=== PATIENT | male | born 1955 | race Caucasian/White ===

== ENCOUNTER 2019-10-25 12:18 | Outpatient (CLI) | payer MEDICAID, SELFPAY ==
[2019-10-25 15:34] LABS: Basophils # 0.1 10^3/uL (0.0-0.1); Basophils % 0.6 %; Eosinophils # 0.1 10^3/uL (0.0-0.8); Eosinophils % 1.4 %; Hematocrit 38.6 % (42.0-52.0); Lymphocytes # 1.1 10^3/uL (0.8-4.8); Lymphocytes % 14.2 %; Mean Corpuscular HGB Conc 31.1 g/dL (30.0-36.0); Mean Corpuscular Hemoglobin 24.4 pg (28.0-34.0); Mean Corpuscular Volume 78.6 fL (80-94); Monocytes % 12.5 %; Neutrophils # 5.51 10^3/uL (1.8-7.7); Neutrophils % 70.8 %; Nucleated Red Blood Cells % 0 %; Platelet Count 342 10^3/cmm (130-400); Red Blood Count 4.91 10^6/uL (4.1-5.3); Red Cell Distribution Width 15.9 % (12.1-15.1); White Blood Count 7.8 10^3/uL (4.0-10.0)
[2019-10-25 15:44] LABS: Alanine Aminotransferase 32 U/L (0-41); Albumin Level 3.6 g/dL (3.5-5.2); Alkaline Phosphatase 84 IU/L (40-130); Anion Gap 15.9 (5-19); Aspartate Amino Transferase 18 U/L (0-40); Blood Urea Nitrogen 15 mg/dL (8-23); Calcium 9.5 mg/dL (8.5-10.5); Carbon Dioxide 23 mmol/L (22-29); Chloride 93 mmol/L (98-107); Globulin 4.5 g/dL (1.3-4.6); Glomerular Filtration Rate 136.5 mL/min (90-130); Glucose 133 mg/dL (65-115); Osmolality Calculated 264 mOsm/kg (285-295); Potassium 3.9 mmol/L (3.5-5.1); Sodium 128 mmol/L (136-145); Total Bilirubin 0.4 mg/dL (0.15-1.2); Total Protein 8.1 g/dL (6.6-8.7)
--- NOTE | 2019-10-25 18:01 | ONC CON_ITS ---
Dr. Reyes New Patient Note Patient: Phani Jarrett Unit #: [id number]: 1955 Dicatated By: Titi Reyes M.D.Date of Visit: Oct 25, 2019 Onc MED New Patient/Consult Referring Physician: Roberto Flores History of Present Illness: Mr. Phani Jarrett, is a 63-year-old gentleman with a history of chronic lower back pain due to back injury due to fall for over 10 years, recently developed back pain radiating to his umbilicus area for which he saw his PMD in July 2019 and underwent CTA abdomen pelvis for possible right renal mass which also showed multiple lung masses as well as area of masslike consolidation in anterior portion of right chest patient was referred to pulmonology in [place] and underwent bronchoscopy on December 11, 2019 final pathology report confirmed biopsy from right middle lobe showed squamous cell carcinoma, moderately differentiated, FNA from 10 R station showed metastatic squamous cell carcinoma also from station 7, PDL 1 status is pending Patient denies any hemoptysis or hematemesis patient denies any fever chills, denies any nausea or vomiting has history of chronic headaches due to migraine but now more often. 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 Past Medical History: Mr. Jarrett's medical history consists of blindness, chronic obstructive pulmonary disease, and hypertension. Past Surgical History: There is no documented surgical history. Medications: Albuterol Sulfate 1 ((2.5 mg/3ml) 0.083%) Nebulization solution Inhalation b.i.d., Albuterol Sulfate 1 Puff(s) (of 108 (90 base) mcg/act) Aerosol Powder, Breath Activated Inhalation PRN, hydroCHLOROthiazide 1 Tablet (of 25 mg) Oral daily, HYDROcodone-Acetaminophen 1 - 2 Tablet (of 5-325 mg) Oral q 6 hours PRN, Lisinopril 1 Tablet (of 20 mg) Oral daily, Reglan 1 Tablet (of 10 mg) Oral q 6 hours Allergies: Penicillins and traMADol HCl. Social History: Mr. Jarrett is and he is an unknown. Mr. Jarrett quit smoking less than one year ago but had smoked for 50 years. He has no history of drinking. also used chewing tobacco until 09/22/19. Family History: Mr. Jarrett's mother is alive. Mr. Jarrett's father at age 77: heart attack. Mr. Jarrett has 1 sister who is : liver cancer. Review Of Symptoms: Review of Systems is not available for this patient. Vital Signs: Performed on Oct 25, 2019 13:44: 8, 22.10, 1.87 sq.m, 70.00 in, 97 %, 73 /min, 18 /min, 113/64 mm(hg), 97.4 F (LOW), and 154.0 lbs (HIGH). Performance Status: 1 - No physically strenuous activity, but ambulatory and able to carry out light or sedentary work (e.g. office work, light house work). (ECOG) Physical Examination: ENMT - No mouth sores, no thrush, no jaundice, Respiratory - Lungs are clear, Cardiovascular - Regular rate and rhythm of heart, Abdomen - Soft, bowel sounds present, Extremities - No edema or rash. Lab/Imaging: Most recent lab results are not available for this patient. Impression: Moderately differentiated squamous cell carcinoma or endobronchial biopsy right middle lobe of lung and FNA of station 7, and station 10 R showed metastatic squamous cell carcinoma immunohistochemistry showed tumor was positive for AE1/AE3, and P 40, negative for TTF-1 e.g. consistent with squamous cell carcinoma CT of abdomen pelvis done for possible right kidney mass in [facility] in [facility] done on September 13, 2019 showed right upper pole renal mass size 3.8 cm with multiple para-aortic lymph nodes and multiple lung masses measuring up to 1.2 cm size and an area of consolidation in the right middle lobe History of chronic headache due to migraine History of chronic back pain due to back injury due to fall for more than 10 years ago History of chronic smoking more than 50 years, still active Plan: Discussed with patient regarding his disease status and pathology report but concern is right renal mass with para-aortic lymphadenopathy as per medical record, we will obtain scan reports from [facility] and as per note CT PET scan MRI scan of the head and PFTs has been ordered in [place] by Dr. Richter, early interventionist. Will obtain records from there if not done, then will consider bone scan and MRI head. We will also refer him to Dr. Ag urologist in [place] for right renal mass evaluation if it confirm malignancy, that information will influence decision regarding treatment planning.Moreover, patient has bilateral pulmonary nodules which could be metastatic squamous cell carcinoma as confirmed by bronchoscopy or metastatic renal cell carcinoma if right renal mass confirmed malignant by urology evaluation We will also get Port-A-Cath placement to facilitate treatment and then he will return to clinic after his visit with Dr. Ag, urologist. Unless CT scan head shows metastatic disease, in that case we will see him early and refer him to radiation oncology for evaluation. And if CT PET scan is not done as mentioned in Dr. Richter's note, will consider CT PET scan to assess the extent of disease as CT abdomen pelvis showed only low chest and abdomen pelvis. Signed By: Titi Reyes M.D. <<Signature on File>>
== END 2019-10-25 12:19 | disposition home or self-care (01) ==
PROVIDERS: Visit Provider Internal Medicine Hematology & Oncology
DX: C34.2 Malignant neoplasm of middle lobe, bronchus or lung (principal); C77.1 Secondary and unspecified malignant neoplasm of intrathoracic lymph nodes; H46.9 Unspecified optic neuritis; H54.8 Legal blindness, as defined in USA; J44.9 Chronic obstructive pulmonary disease, unspecified; I10 Essential (primary) hypertension; N28.89 Other specified disorders of kidney and ureter; G89.21 Chronic pain due to trauma; M54.9 Dorsalgia, unspecified; Z87.891 Personal history of nicotine dependence
CPT/HCPCS: 36415; 80053; 85025; 99203

== ENCOUNTER → 2019-11-10 09:05 | Outpatient (BNVA) | payer MEDICAID, SELFPAY | PROVIDERS: Visit Provider Internal Medicine | DX: Z11.59 Encounter for screening for other viral diseases (principal) | CPT/HCPCS: 87635 ==

== ENCOUNTER 2019-11-15 06:29 | Day surgery (SDC) | payer MEDICAID, SELFPAY ==
[2019-11-14 13:07] VITALS: BMI 20.9
--- NOTE | 2019-11-14 15:28 | SUR.PREOP ---
Barbara from the [facility] lab called Vimty and received report from Vimty that COVID results will be available late this evening.
--- NOTE | 2019-11-15 | SCC_ITS ---
Procedure Done: Right internal jugular vein PowerPort placement under fluoroscopic guidance with all interpretation done by me through the whole entire procedure. 51.2 seconds of fluoroscopic guidance, for a cumulative dose of 13.99 mGy, was provided to Dr. Prakash by the radiology department. C-arm images of the chest were saved for the patient's permanent record. [facility]
[2019-11-15 07:05] VITALS: BP 112/87; PULSE 72; RESP 18; TEMP 36.4; O2SAT 97
[2019-11-15] MEDS: sodium chloride 0.9% 1,000 ML 30 ML IV (07:10)
[2019-11-15 07:14] VITALS: BMI 28.4
--- NOTE | 2019-11-15 07:25 | ANES.PREANE2 ---
Pre-Anesthetic Assessment Pre-Anesthetic Assessment: Height/Weight: Height 1.78 m Weight 89.811 kg Temp Pulse Resp BP Pulse Ox 97.5 F L 72 18 112/87 97 11/15/19 07:05 11/15/19 07:05 11/15/19 07:05 11/15/19 07:05 11/15/19 07:05 Preop Diagnosis: Lung and kidney cancer Proposed Procedure: Operation Date: 11/15/19 08:10 Proposed Procedures p Portacath Placement 67731 C34.90(Not Applicable) - Saad Prakash MD Familial anesthetic complications: None Was Beta De taken within 24 hours: N/A Last intake: Intake Last Liquid Date 11/14/19 Last Liquid Time 23:00 Last Solid Date 11/14/19 Last Solid Time 20:30 Social: Social History: Tobacco and No alcohol Exam: Pre-Anes Outpt Exam: alert, oriented x 3, clear to auscultation bilaterally and regular rate & rhythm Airway: Cervical ROM: WNL MP: 4 Dentition: Other (no teeth) Pulmonary: Pulmonary: COPD Comments: lung cancer CV/HEM: CV/HEM: HTN GI: GI: GERD Comments: None currently Musc/skel: Musc/skel: Lower Back Pain Anesthetic Plan: ASA status: 4 Anesthesia: MAC Risk of > 500 ml blood loss (7ml/kg in children): No PFSH Anesthesia PFSH: Family History Father CAD (coronary artery disease) Clotting disorder Sister Cancer liver cancer Denies family history of Anesthesia complication Bleeding disorder Social History Smoking and tobacco status: current some day smoker Alcohol intake: never Household members: spouse Marital status: Current occupational status: disabled History of recent travel: Yes Details: Mitesh to the doctor Out of state: No Data Anesthesia Cardiac Studies: No Data to Display
--- NOTE | 2019-11-15 07:47 | W.PM.OPSUD ---
Surgery/Procedure H&P Update DATE OF PROCEDURE: November 15, 2019 DATE H&P PERFORMED: 11/02/19 H&P UPDATE INFORMATION: I have reviewed H&P completed within last 30 days, I have examined patient prior to procedure and No changes to prior documentation PREOP DIAGNOSIS: Lung and kidney cancer PRIMARY INDICATION FOR PROCEDURE: The same PLANNED PROCEDURE: Operation Date: 11/15/19 08:10 Proposed Procedures p Portacath Placement 25274 C34.90(Not Applicable) - Saad Prakash MD
[2019-11-15] MEDS: clindamycin 900 MG/50 ML PREMIX 100 MG IV (08:00)
--- NOTE | 2019-11-15 08:25 | SC_ITS ---
WS: [id number] EXAM: FLUOROSCOPY FOR VISUALIZATION DURING RIGHT INTERNAL JUGULAR VASCULAR ACCESS PROCEDURE DATE OF EXAMINATION: 11/15/2019, 0846 hours COMPARISON: None. HISTORY: Patient is 64 years old with lung cancer. In need of long-term central vascular access. FLUOROSCOPY TIME: 51.2 seconds. FINDINGS: Fluoroscopy provided to the surgical service for visualization during right internal jugular central access catheter placement. Catheter ends in the distal SVC/right atrial juncture region. Please see o perative report for further details. Dedicated post procedure imaging recommended. SC/C-arm FL for CVA [id number] IMPRESSION: Fluoroscopy provided to the surgical service for visualization during right int ernal jugular vascular access procedure.
[2019-11-15] MEDS: heparin, porcine 1,000 unit/mL INJ 10 mL 10000 UNIT INJECTION (08:29)
[2019-11-15] MEDS: lidocaine 2% INJ 20 mL INJECTION (08:51)
--- NOTE | 2019-11-15 09:00 | PM.OP ---
Operative Report Date of procedure: November 15, 2019 Pre-op Diagnosis: Lung and kidney cancer Post-op diagnosis: same Post-op Findings: Difficulty in passing the wire through the right subclavian vein tends to loop upwards towards the right IJ and switch to trans-right internal jugular vein approach as wire passes without difficulty. Procedure Done: Right internal jugular vein PowerPort placement under fluoroscopic guidance with all interpretation done by me through the whole entire procedure. Implants: Right internal jugular vein PowerPort placement Surgeon: Saad Prakash Benefits Sales Consultant: graphic art technician Mary Circulating nurse Katie Anesthesia: MAC (Satnam Bruno) Estimated blood loss (mL): 10 Condition: stable Disposition: same day Brief History: This is a pleasant 62 years old gentleman with history of lung cancer presented to my office for Port-A-Cath placement. Plan of care; After thorough history physical examination and reviewing the chart, I counseled the patient for Port-A-Cath placement, indications, risks including pneumothorax and injury of major vascular structures, benefits,indications and alternatives were all discussed with the patient, patient understands and is interested to proceed. Rationale was carefully and clearly discussed with the patient.Appropriate informed consent have been reviewed and signed. Procedure: U/S Guided IJ access Patient was identified in the holding area and taken to the operative room and placed in supine position IV propofol was given by the anesthesia provider ,both arms were tucked,Time-out was done verifying the patient's name/date of /planned procedure and destination after the procedure, all were in agreement. SCDs confirmed to be functioning, preoperative antibiotics administered per protocol, and beta karen protocol was confirmed, appropriate positioning of the patient was done by me. Medications were reviewed to assess for anticoagulant usage. Risks and benefits and prevention of central line associated blood stream infection (CLABSI) were discussed with the patient/CPOA, and a consent was obtained. Monitors were in place and monitored throughout the procedure. All necessary supplies were available prior to start. Hand hygiene was completed prior to starting. Maximum barrier technique was utilized including a sterile gown, sterile gloves with a hat and mask. Site was was prepped with [chlorhexidine] and a full body drape was placed. 5 mL of 2% lidocaine was injected into the skin with a 25 gauge needle. Prep& drape was done under the usual sterile technique, lidocaine 2% was injected at the site of the stick, started by right subclavian vein stick and venous blood was retrieved yet the wire would not thread in it with a coil towards the right internal jugular vein, 3 attempts were done and at this point I had to abort and deviated my attention to words the right internal jugular vein. The right Internal Juglar vein stick that retrieved venous blood was obtained from the first stick under ultrasound guidance and there was no evidence of intraluminal thrombosis, interpretation was done by me through the whole entire procedure, a guidewire was then threaded and under the guidance of fluoroscopy position was confirmed to be in the IVC and my interpretation, there was no PVC changes, at that point the guidewire was secured to the drapes with a hemostat and the needle was taken out. Attention was then deviated towards creation of a pocket for the port were lidocaine 2% was injected using an 15 blade knife skin incision was created at the right upper Chest ,dissection using the Bovie to create a pocket for the Port-A-Cath to be accommodated, hemostasis was secured,after the port being appropriately flushed it was inserted into the pocket and a tunneler was used to accommodate the catheter of the port cath to be delivered through the incision first created at the site of the stick. I was able to retrieve the catheter at the index site of the stick. At that point under fluoroscopy an estimated length was measured for the catheter and was cut at the designed level, followed by that a dilator with the sheath introduced onto the guidewire the dilator and the wire were retrieved and the catheter of the port was introduced via the sheath where it was peeled off and the catheter maintained to be in the SVC that was confirmed with fluoroscopy, and the fluoroscopy interpretation was done by me throughout the entire procedure. Multiple flushes of the port was done by diluted heparin and I was able to retrieve without difficulty venous blood as well as appropriate flushing was achieved. The port was kept in its pocket without complication,4-0 Vicryl deep subdermal interrupted sutures, skin was then closed by 4-0 Monocryl as subcuticular closure. The stick site was closed by 4-0 Monocryl and Dermabond was used followed by dressing. Patient tolerated the procedure well was taken to the recovery area Count was correct at the end of the procedure I was present for the whole entire procedure CXR post procedure was done and confirmed to have the catheter in good position and no evidence of pneumothorax.
--- NOTE | 2019-11-15 09:03 | XR_ITS ---
WS: [id number] EXAM: AP CHEST: PORTABLE UPRIGHT DATE OF EXAM: 11/15/2019, 0928 hours COMPARISON: NONE HISTORY: Patient is 64 years old with right internal jugular port placement. Known lung cancer. FINDINGS: The cardiac silhouette is normal in size. The mediastinal contours show a right internal jugular p ower port in place with the catheter in the SVC region. Calcified plaque in aorta. The pulmonary va scularity is normal. Chronic lung changes seen. There are findings suggesting pulmonary nodules or p ulmonary patchy infiltrates left mid and lower chest. There is a large area of suspected mass in the right hilum with infiltrate within the right middle lobe suggesting a possible postobstructive pneumo vanesa. Further evaluation recommended. There is no effusion or pneumothorax. No acute bony abnormalit y is seen. XR/XR chest 1V portable [id number] IMPRESSION: Right internal jugular port catheter ends in the SVC region. No pneumothorax. Suspected mass right hilum with presumed post obstructive pneumonia right middl e lobe. Either pulmonary nodules versus patchy pulmonary infiltrate left chest. Further evaluation recommended.
[2019-11-15 09:05] VITALS: BP 110/78; PULSE 69; RESP 18; TEMP 36.3; O2SAT 95
--- NOTE | 2019-11-15 09:09 | ANE.PACU2 ---
Inpatient post-anesthesia follow up: Airway intact: Yes Vital signs: Temperature 97.5 F Pulse Rate 72 Respiratory Rate 18 Blood Pressure 112/87 Pulse Oximetry 97 Oxygen Delivery Me thod Room Air Oxygen Flow Rate Fraction of Inspir ed Oxygen Hydration adequate: Yes Nausea and vomiting: No Pain level: 1 Mental status: Baseline
[2019-11-15 09:28] VITALS: BP 106/82; PULSE 61; RESP 18; O2SAT 96
--- NOTE | 2019-11-15 09:30 | SUR.PHASEII ---
0930 Oncology notified of port placement.
== END 2019-11-15 09:35 | disposition home or self-care (01) ==
PROVIDERS: Visit Provider Surgery
PROC: (CPT 36561; principal; 2019-11-15 08:10)
DX: C34.90 Malignant neoplasm of unspecified part of unspecified bronchus or lung (principal); C64.9 Malignant neoplasm of unspecified kidney, except renal pelvis; J44.9 Chronic obstructive pulmonary disease, unspecified; I10 Essential (primary) hypertension; F17.200 Nicotine dependence, unspecified, uncomplicated; Z88.0 Allergy status to penicillin; Z88.5 Allergy status to narcotic agent
CPT/HCPCS: 36561; 12345; 71045; 76000; 77001; C1788; J1644; J2704; J3010; J3490; J7030

== ENCOUNTER 2019-11-28 16:08 | Outpatient (CLI) | payer MEDICAID, SELFPAY ==
--- NOTE | 2019-11-28 17:28 | ONC FU_ITS ---
Dr. Reyes follow up note Patient: Phani Jarrett Unit #: [id number]: 1955 Dicatated By: Titi Reyes M.D.Date of Visit:Nov 28, 2019 Onc Med Follow-up/Prog Note History of Present Illness: Mr. Phani Jarrett, is a 63-year-old gentleman with a history of chronic lower back pain due to back injury due to fall for over 10 years, recently developed back pain radiating to his umbilicus area for which he saw his PMD in July 2019 and underwent CTA abdomen pelvis for possible right renal mass which also showed multiple lung masses as well as area of masslike consolidation in anterior portion of right chest patient was referred to pulmonology in [place] and underwent bronchoscopy on December 11, 2019 final pathology report confirmed biopsy from right middle lobe showed squamous cell carcinoma, moderately differentiated, FNA from 10 R station showed metastatic squamous cell carcinoma also from station 7, PDL 1 status is pending Patient denies any hemoptysis or hematemesis patient denies any fever chills, denies any nausea or vomiting has history of chronic headaches due to migraine but now more often. 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 As CTA abdomen showed right renal mass with regional lymphadenopathy, he was referred to Dr. Ag for evaluation for possible second malignancy for which patient underwent right kidney CT-guided needle biopsy on November 23, 2019 and final pathology poorly came back predominantly necrotic poorly differentiated carcinoma consistent with metastatic pulmonary squamous cell carcinoma with that metastatic disease to the right kidney was confirmed, patient has stage IV disease Came for follow-up, denies any specific complaint except persistent lower back pain not being controlled with hydrocodone which he takes once or twice a day and also some discomfort in left leg, but no urine or stool incontinence, no fever chills, no nausea or vomiting, no hemoptysis or hematemesis. And off and on mild nausea Medications: Albuterol Sulfate 1 ((2.5 mg/3ml) 0.083%) Nebulization solution Inhalation b.i.d., Albuterol Sulfate 1 Puff(s) (of 108 (90 base) mcg/act) Aerosol Powder, Breath Activated Inhalation PRN, hydroCHLOROthiazide 1 Tablet (of 25 mg) Oral daily, HYDROcodone-Acetaminophen 1 - 2 Tablet (of 5-325 mg) Oral q 6 hours PRN, Lisinopril 1 Tablet (of 20 mg) Oral daily, Reglan 1 Tablet (of 10 mg) Oral q 6 hours Allergies: Penicillins and traMADol HCl. Review of Systems: Review of Systems is not available for this patient. Vital Signs: Performed on Nov 28, 2019 16:23 Height - 70.00 in Temperature - 98.1 F (LOW) Pulse - 79 /min Respiration - 16 /min BP - 120/78 mm(hg) O2 Sat - 96 % Pain - 8 Performance Status: 2 - Ambulatory/capable of all self-care, unable to perform any work activities. Up and about more than 50% of waking hours. (ECOG) Physical Examination: ENMT - No mouth sores, no thrush, no jaundice, Respiratory - Lungs are clear, Cardiovascular - Regular rate and rhythm of heart, Abdomen - Soft, bowel sounds present, Extremities - No visible edema. Lab/Imaging: Most recent lab results are not available for this patient. Impression: Metastatic Moderately differentiated squamous cell carcinoma or endobronchial biopsy right middle lobe of lung and FNA of station 7, and station 10 R showed metastatic squamous cell carcinoma immunohistochemistry showed tumor was positive for AE1/AE3, and P 40, negative for TTF-1 e.g. consistent with squamous cell carcinoma, Right kidney CT-guided biopsy done on November 23, 2019 confirmed poorly differentiated squamous cell carcinoma negative , Molecular testing negative for targetable mutation, PDL 1- negative CT of abdomen pelvis done for possible right kidney mass in [facility] done on September 13, 2019 showed right upper pole renal mass size 3.8 cm with multiple para-aortic lymph nodes and multiple lung masses measuring up to 1.2 cm size and an area of consolidation in the right middle lobe History of chronic headache due to migraine History of chronic back pain due to back injury due to fall for more than 10 years ago History of chronic smoking more than 50 years, still active Plan: Discussed with patient regarding his right kidney biopsy which confirmed metastatic squamous cell carcinoma to the right kidney not a second primary which was a concern. At this point, we are dealing with stage IV squamous cell carcinoma and palliative therapy is the goal as his disease is not curable treatment options including hospice was discussed patient wants to try treatment first in that case we will consider systemic therapy with carbo or cisplatin/gemcitabine and also consider adding immunotherapy Portrazza (necitumumab) which is an anti-EGFR and as clinical studies have shown with the addition of immunotherapy to the chemotherapy there is improvement in overall survival 11.5 months versus 9.9-month with chemotherapy alone. All the side effects possible benefits associated with chemotherapy/immunotherapy including but not limited to nausea vomiting, bone marrow suppression, diarrhea hypomagnesemia especially with immunotherapy and acneform rash, cardiopulmonary arrest, renal toxicity/chiquita toxicity were mentioned further teaching will be done by chemotherapy nurse. We will obtain approval from his insurance, patient already has Port-A-Cath. As far as back pain is concerned, will give him Percocet 5/325 he will take 1 to 2 tablet 4 to 6 hours as needed and also consider MRI scan of the spine to rule out cord compression or vertebral damage. Patient will return to clinic after MRI scan of spine for further discussion Signed By: Titi Reyes M.D. <<Signature on File>>
== END 2019-11-28 16:09 | disposition home or self-care (01) ==
LOC: ONCMED 16:13
PROVIDERS: Visit Provider Internal Medicine Hematology & Oncology
DX: C34.2 Malignant neoplasm of middle lobe, bronchus or lung (principal); C79.01 Secondary malignant neoplasm of right kidney and renal pelvis; G89.21 Chronic pain due to trauma; M54.9 Dorsalgia, unspecified; G43.709 Chronic migraine without aura, not intractable, without status migrainosus; F17.210 Nicotine dependence, cigarettes, uncomplicated; Z79.891 Long term (current) use of opiate analgesic
CPT/HCPCS: 99214

== ENCOUNTER 2019-12-11 12:44 | Outpatient (CLI) | payer MEDICAID, SELFPAY ==
--- NOTE | 2019-12-11 12:53 | MR_ITS ---
WS: [id number] MRI THORACIC SPINE with and without contrast HISTORY: HX OF CANCER; BACK PAIN;DIFFICULTY WALKING COMPARISON: None available. TECHNIQUE: Multiplanar sequences are performed in sagittal and axial planes. Sagittal and axial T1 fa t sat sequences post-ProHance 17 cc IV. Slight increase in the thoracic kyphosis. There is mild heterogeneity within the marrow. Cannot confi rm metastatic disease to the thoracic spine. Signal within the cord is normal. T1-2: Normal. T2-3: Normal. T3-4: Normal. T4-5: LEFT paracentral disc protrusion. No stenosis. T5-6: Normal. T6-7: Shallow central disc protrusion. T7-8: Normal. T8-9: Bilateral facet arthritis. T9-10: Bilateral facet arthritis. Moderate RIGHT foraminal stenosis. T10-11: Facet joint arthritis with moderate bilateral foraminal stenosis. T11-12: Mild bilateral foraminal stenosis. High RIGHT paratracheal lymph node at 1.6 cm appears necrotic. Inferior RIGHT paratracheal lymph node at 2.6 cm. Multiple bilateral pulmonary nodules. Large necrotic retrocrural lymph node 2.8 x 3.0 cm. Additional hilar necrotic adenopathy. Again noted is the abnormal RIGHT kidney suspicious for metast atic or primary neoplasm. On the sagittal localizer suspicious for LEFT cerebellar and rio lesions.a MR/MR thoracic spine wo/w [id number] IMPRESSION: 1. Cannot confirm metastatic disease to the thoracic vertebral bodies. No cord compression. 2. Facet joint arthritis and small disc protrusions as described above. 3. Paratracheal or retrocrural and hilar lymphadenopathy. 4. Abnormal RIGHT kidney. Suspect primary renal cell neoplasm or lymphoma. 5. Numerous bilateral pulmonary nodules for metastatic disease. 6. Follow-up CT chest, abdomen and pelvis with IV and oral contrast and PET/CT are strongly recommended if these have not been performed. 7. Follow-up MRI brain with contrast recommended to further evaluate the cereb ellum and rio.
--- NOTE | 2019-12-11 12:53 | MR_ITS ---
WS: [id number] MRI LUMBAR SPINE WITH AND WITHOUT CONTRAST. HISTORY: HX OF CANCER; back PAIN;DIFFICULTY WALKING COMPARISON: None available. TECHNIQUE: Sagittal and axial multisequence imaging is submitted. Sagittal and axial T1 fat sat seque nces post-ProHance 17 cc IV. Straightening of the normal lumbar lordosis. Mild heterogeneity within the marrow. Disc space narrowi ng and desiccation at all levels. No fractures or marrow edema. Conus terminates normally at L1. L1-L2: No stenosis. L2-L3: No stenosis. L3-L4: Mild facet and ligamentum flavum hypertrophy. No significant stenosis. L4-L5: Mild annular disc bulging and osteophytic ridging with facet arthritis. Mild central, subartic ular recess and foraminal stenosis. L5-S1: Diffuse moderate annular disc bulging with a moderate-sized RIGHT paracentral disc protrusion contacting the RIGHT S1 nerve root. Disc contacts the ventral thecal sac. Disc osteophyte extends int o the RIGHT foramen with moderate narrowing. Mild narrowing on the LEFT. No discitis or osteomyelitis. Possible metastatic site in the RIGHT lateral L5 vertebral body there i s mild enhancement in the inferior L5 vertebral body measuring 8 mm. Abnormal appearance to the RIGHT kidney. Loss of the normal cortical medullary junction. Partially vi sualized mass in the upper and mid kidney. Perinephric stranding with enhancement surrounding the kid matt extending into the retroperitoneum and surrounds the aorta and IVC. There is an additional mass i nseparable from the pancreatic head. Increased soft tissue extends posterior to the aorta. Retrocrura l lymphadenopathy. LEFT para-aortic lymph node measures 2.3 cm. Liver is enlarged measuring at least 18 cm in length. MR/MR lumbar spine wo/w con [id number] IMPRESSION: 1. Moderate-sized RIGHT paracentral disc protrusion at L5-S1 contacting the RI GHT S1 nerve root. Moderate RIGHT foraminal narrowing due to disc osteophyte di sease. 2. Possible 8mm metastatic site L5 vertebral body. 3. Abnormal appearance to the RIGHT kidney suspect renal mass. 4. Enlargement of the pancreatic head with soft tissue extension posterior to the aorta to the LEFT retroperitoneum. Pancreatic head mass or adenopathy. 5. Recommendation: PET/CT imaging. CT chest, abdomen and pelvis with IV and or al contrast. RIGHT renal mass, pancreatic mass and/or adenopathy are all possib ilities.
[2019-12-11 13:34] LABS: Basophils % 0.5 %; Eosinophils % 0.5 %; Hematocrit 36.8 % (42.0-52.0); Hemoglobin 11.6 g/dL (11.7-16.6); Lymphocytes # 0.8 10^3/uL (0.8-4.8); Mean Corpuscular HGB Conc 31.5 g/dL (30.0-36.0); Mean Corpuscular Hemoglobin 25.1 pg (28.0-34.0); Mean Corpuscular Volume 79.5 fL (80-94); Mean Platelet Volume 8.8 fL (7.4-10.4); Monocytes % 11.9 %; Neutrophils # 6.41 10^3/uL (1.8-7.7); Neutrophils % 76.3 %; Nucleated Red Blood Cells % 0 %; Platelet Count 356 10^3/cmm (130-400); Red Blood Count 4.63 10^6/uL (4.1-5.3); Red Cell Distribution Width 16.3 % (12.1-15.1); White Blood Count 8.4 10^3/uL (4.0-10.0)
[2019-12-11 15:10] LABS: Magnesium 1.8 mg/dL (1.7-2.3)
[2019-12-11 15:11] LABS: Alanine Aminotransferase 18 U/L (0-41); Albumin Level 3.3 g/dL (3.5-5.2); Alkaline Phosphatase 81 IU/L (40-130); Anion Gap 18.1 (5-19); Aspartate Amino Transferase 17 U/L (0-40); Blood Urea Nitrogen 9 mg/dL (8-23); Calcium 10.2 mg/dL (8.5-10.5); Carbon Dioxide 26 mmol/L (22-29); Chloride 90 mmol/L (98-107); Globulin 3.6 g/dL (1.3-4.6); Glomerular Filtration Rate 136.5 mL/min (90-130); Glucose 132 mg/dL (65-115); Osmolality Calculated 271 mOsm/kg (285-295); Potassium 4.1 mmol/L (3.5-5.1); Sodium 130 mmol/L (136-145); Total Bilirubin 0.4 mg/dL (0.15-1.2); Total Protein 6.9 g/dL (6.6-8.7)
== END 2019-12-11 12:45 | disposition home or self-care (01) ==
LOC: ONCMED 12:46
PROVIDERS: Internal Medicine Hematology & Oncology; Visit Provider Internal Medicine Medical Oncology
DX: C34.2 Malignant neoplasm of middle lobe, bronchus or lung (principal); C79.01 Secondary malignant neoplasm of right kidney and renal pelvis; M54.9 Dorsalgia, unspecified; R26.2 Difficulty in walking, not elsewhere classified; R93.421 Abnormal radiologic findings on diagnostic imaging of right kidney; M51.27 Other intervertebral disc displacement, lumbosacral region; M25.78 Osteophyte, vertebrae
CPT/HCPCS: 36591; 72157; 72158; 80053; 83735; 85025; 96374; A9579

== ENCOUNTER 2019-12-12 05:44 | Outpatient (CLI) | payer MEDICAID, SELFPAY ==
[2019-12-12] MEDS: sodium chloride 0.9% 250 ML 75 ML IV (11:00)
--- NOTE | 2019-12-13 09:46 | ONC FU_ITS ---
Dr. Reyes follow up note Patient: Phani Jarrett Unit #: [id number]: 1955 Dicatated By: Titi Reyes M.D.Date of Visit:Dec 12, 2019 Onc Med Follow-up/Prog Note History of Present Illness: Mr. Phani Jarrett, is a 64-year-old gentleman with a history of chronic lower back pain due to back injury due to fall for over 10 years, recently developed back pain radiating to his umbilicus area for which he saw his PMD in July 2019 and underwent CTA abdomen pelvis for possible right renal mass which also showed multiple lung masses as well as area of masslike consolidation in anterior portion of right chest patient was referred to pulmonology in [place] and underwent bronchoscopy on December 11, 2019 final pathology report confirmed biopsy from right middle lobe showed squamous cell carcinoma, moderately differentiated, FNA from 10 R station showed metastatic squamous cell carcinoma also from station 7, PDL 1 status is pending Patient denies any hemoptysis or hematemesis patient denies any fever chills, denies any nausea or vomiting has history of chronic headaches due to migraine but now more often. 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 As CTA abdomen showed right renal mass with regional lymphadenopathy, he was referred to Dr. 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 Numerous bilateral pulmonary nodules. And MRI scan of lumbar spine showed moderate sized right paracentral disc protrusion at L5-S1 contacting the right S1 nerve root. Moderate right foraminal narrowing due to disc osteophytes disease. Possible 8 mm metastatic site L5 vertebral body. Abnormal appearance to right kidney suspect renal mass. Enlargement of pancreatic head with soft tissue extension posterior to the aorta the left retroperitoneum. Pancreatic head mass or adenopathy. Came for follow-up, denies any specific complaints except off and on headaches usually responsive to Excedrin and now with off and on double vision or blurred vision, although patient has underlying vision problem,. No focal weakness, no nausea or vomiting, no dysphagia, no hematuria. Patient is here to start his palliative chemotherapy Medications: Albuterol Sulfate 1 ((2.5 mg/3ml) 0.083%) Nebulization solution Inhalation b.i.d., Albuterol Sulfate 1 Puff(s) (of 108 (90 base) mcg/act) Aerosol Powder, Breath Activated Inhalation PRN, hydroCHLOROthiazide 1 Tablet (of 25 mg) Oral daily, HYDROcodone-Acetaminophen 1 - 2 Tablet (of 5-325 mg) Oral q 6 hours PRN, Lisinopril 1 Tablet (of 20 mg) Oral daily Allergies: Penicillins and traMADol HCl. Review of Systems: Review of Systems is not available for this patient. Vital Signs: Performed on Dec 12, 2019 09:12 Height - 70.00 in Weight - 189.8 lbs (HIGH) BSA - 2.04 sq.m BMI - 27.23 Temperature - 97.5 F (LOW) Pulse - 80 /min Respiration - 22 /min BP - 107/70 mm(hg) O2 Sat - 96 % Pain - 8 Performance Status: 2 - Ambulatory/capable of all self-care, unable to perform any work activities. Up and about more than 50% of waking hours. (ECOG) Physical Examination: ENMT - l.No mouth sores, no thrush, no jaundice, Respiratory - Lungs are clear to auscultation, Cardiovascular - Regular rate and rhythm of heart, Abdomen - Soft, bowel sounds present, Extremities - Trace edema bilaterally. Lab/Imaging: Test performed on Dec 12, 2019 10:06 Creatinine 0.6 mg/dL Cr Clearance (Est) 155.45 mL/min Test performed on Dec 11, 2019 13:05 Sodium 130 mmol/L Potassium 4.1 mmol/L Chloride 90 mmol/L CO2 26 mmol/L Anion Gap 18.1 BUN 9 mg/dL eGFR 136.5 mL/min Glucose 132 mg/dL Osmolality - Calculated 271 mOsm/kg Calcium 10.2 mg/dL Protein, Total 6.9 g/dL Albumin 3.3 g/dL Globulin 3.6 g/dL Bilirubin, Total 0.4 mg/dL ALT (SGPT) 18 U/L AST (SGOT) 17 U/L Alkaline Phosphatase 81 IU/L Impression: Moderately differentiated squamous cell carcinoma or endobronchial biopsy right middle lobe of lung and FNA of station 7, and station 10 R showed metastatic squamous cell carcinoma immunohistochemistry showed tumor was positive for AE1/AE3, and P 40, negative for TTF-1 e.g. consistent with squamous cell carcinoma CT of abdomen pelvis done for possible right kidney mass in [facility] done on September 13, 2019 showed right upper pole renal mass size 3.8 cm with multiple para-aortic lymph nodes and multiple lung masses measuring up to 1.2 cm size and an area of consolidation in the right middle lobe History of chronic headache due to migraine History of chronic back pain due to back injury due to fall for more than 10 years ago History of chronic smoking more than 50 years, still active Plan: Discussed with patient regarding his labs white blood count 8.4 hemoglobin 11.6 crit 36.8 platelets 356,000 CMP within normal limit except sodium 130 and MRI scan of spine findings which showed no obvious evidence of metastatic disease to spine except 8 mm lesion in L5 and significant disc protrusion at L5-S1 contacting right nerve root. Clinically, patient is doing reasonably well except off and on blurred vision or double vision, which is a concern could be sign of metastatic disease to the brain., Will consider MRI scan of the brain in the meantime we will start him on palliative chemotherapy. Initially, plan was to start him on immunotherapy with necitumumab/cisplatin/gemcitabine based on SQUIRE trial, which was the first and only randomized phase 3 study conducted especially in a patient with metastatic squamous cell non-small cell lung cancer and it showed statistically significant improvement in overall survival and disease-free survival when compared with gemcitabine/cisplatin alone, specifically in the first-line setting. But his insurance refused to cover immunotherapy citing NCCN guidelines. Discussed with patient and his daughter, as insurance is refusing the recommended treatment regimen, will consider switching him to weekly cisplatin/gemcitabine but because of pain in the right leg and inability to move fast to the restroom during hydration and diuresis required during cisplatin infusion and patient is also refusing Flores's cath. We will switch him to carboplatin instead of cisplatin along with gemcitabine. We will consider carboplatin AUC 2 with gemcitabine 1000 mg/m??? day 1 and 8 and repeat every 21 days. We will also order MRI scan of the brain to rule out brain mets-And if there is no evidence of metastatic disease, we will refer him to orthopedics for right leg pain due to right nerve root involvement with protrusion of the disc at L5-S1.. Signed By: Titi Reyes M.D. <<Signature on File>>
== END 2019-12-12 05:45 | disposition home or self-care (01) ==
LOC: ONCMED 05:45
PROVIDERS: Visit Provider Internal Medicine Hematology & Oncology
DX: Z51.11 Encounter for antineoplastic chemotherapy (principal); C34.2 Malignant neoplasm of middle lobe, bronchus or lung; C77.1 Secondary and unspecified malignant neoplasm of intrathoracic lymph nodes; C79.01 Secondary malignant neoplasm of right kidney and renal pelvis; H53.8 Other visual disturbances; M89.9 Disorder of bone, unspecified; M79.604 Pain in right leg; M51.27 Other intervertebral disc displacement, lumbosacral region; F17.210 Nicotine dependence, cigarettes, uncomplicated; Z79.899 Other long term (current) drug therapy; G43.709 Chronic migraine without aura, not intractable, without status migrainosus; G89.29 Other chronic pain; M54.9 Dorsalgia, unspecified; Z87.828 Personal history of other (healed) physical injury and trauma
CPT/HCPCS: 96367; 96413; 96417; 99214; J1100; J1453; J2469; J7050; J9045; J9201

== ENCOUNTER 2019-12-29 05:44 | Outpatient (RCR) | payer MEDICAID, SELFPAY ==
--- NOTE | 2019-12-19 10:25 | MR_ITS ---
WS: [id number] MRI BRAIN WITH AND WITHOUT CONTRAST HISTORY: INITIAL STAGING, EVALUATION OF NEW SYMPTOMS, history of lung cancer. COMPARISON: None available. TECHNIQUE: Multiplanar imaging performed through the brain with Prohance 17 ml's IV. No acute infarcts. Enhancing mass centered in the posterior medulla. Mass is in the midline of the medulla and extends j ust to the RIGHT of midline. This mass measures 10 x 13 x 11 mm and is causing a mild bulging of the posterior medulla contour. There is predominantly peripheral enhancement and the margins are lobulate d. There is slight mass effect upon the fourth ventricle. Additional enhancing mass with lobulated margins centered in the LEFT cerebellum towards the midline. There is mild bulging across the midline and contact on the tentorium. Mass measures 22 x 22 x 22 mm . There is slight contact on the LEFT tentorium with elevation. There is enhancement along the LEFT s matthew of the tentorium consistent with tumor extension. Mild narrowing of the fourth ventricle. Nonenha ncing central component is probably due to necrosis. There is a large amount of surrounding peritumor al edema. There is significant edema within the medullary. Large amount of LEFT cerebellar peritumora l edema which also extends across the midline and into the superior cerebellum. There is an additional area of minimal enhancement involving the RIGHT posterior parietal cortex with a maximum diameter of 4 mm. Suspicious but indeterminate for additional metastatic site. No hydrocephalus. There is moderate to severe confluent chronic white matter ischemic changes otherwise. No inferior di splacement of the cerebellar tonsils. Dural venous sinuses are normally enhancing. Paranasal sinuses: Well aerated with no significant disease. Mastoid air cells: Increased fluid in the LEFT mastoid air cells. Calvarium and scalp: Normal. MR/MR head wo/w con [id number] IMPRESSION: 1. Several metastatic enhancing lesions are identified. 2. The largest involves the LEFT medial cerebellum with extension along the yu perior tentorium. This mass measures 22 x 22 x 22 mm with mild mass effect and encroachment into the fourth ventricle. 3. Posterior medulla metastatic lesion measures 10 x 13 x 11 mm with mild mass effect upon the fourth ventricle. 4. Indeterminate but suspicious for 4 mm metastatic site involving the cortex of the posterior RIGHT parietal lobe. 5. Moderate to severe chronic microvascular ischemic disease.
--- NOTE | 2019-12-20 | CT_ITS ---
Radiation Therapy Planning CT images; total exam DLP: 573.24 mGy-cm MTDD
[2019-12-20 10:44] LABS: Basophils % 0.5 %; Eosinophils % 0.5 %; Hematocrit 31.4 % (42.0-52.0); Hemoglobin 10.2 g/dL (11.7-16.6); Lymphocytes # 0.7 10^3/uL (0.8-4.8); Lymphocytes % 30.1 %; Mean Corpuscular HGB Conc 32.5 g/dL (30.0-36.0); Mean Corpuscular Hemoglobin 25.6 pg (28.0-34.0); Mean Corpuscular Volume 78.7 fL (80-94); Mean Platelet Volume 8.4 fL (7.4-10.4); Monocytes # 0.1 10^3/uL (0.2-0.9); Monocytes % 2.3 %; Neutrophils # 1.42 10^3/uL (1.8-7.7); Neutrophils % 65.7 %; Nucleated Red Blood Cells % 0 %; Platelet Count 155 10^3/cmm (130-400); Red Blood Count 3.99 10^6/uL (4.1-5.3); Red Cell Distribution Width 14.6 % (12.1-15.1); White Blood Count 2.2 10^3/uL (4.0-10.0)
[2019-12-20 11:03] LABS: Alanine Aminotransferase 46 U/L (0-41); Albumin Level 3.5 g/dL (3.5-5.2); Alkaline Phosphatase 93 IU/L (40-130); Anion Gap 16.9 (5-19); Aspartate Amino Transferase 28 U/L (0-40); Blood Urea Nitrogen 13 mg/dL (8-23); Calcium 9.4 mg/dL (8.5-10.5); Carbon Dioxide 27 mmol/L (22-29); Chloride 91 mmol/L (98-107); Globulin 3.1 g/dL (1.3-4.6); Glomerular Filtration Rate 168.5 mL/min (90-130); Glucose 114 mg/dL (65-115); Osmolality Calculated 273 mOsm/kg (285-295); Potassium 3.9 mmol/L (3.5-5.1); Sodium 131 mmol/L (136-145); Total Bilirubin 0.6 mg/dL (0.15-1.2); Total Protein 6.6 g/dL (6.6-8.7)
--- NOTE | 2019-12-20 18:25 | N.ONRAD NP_ITS ---
Radiation Oncology New Patient Visit Patient: Phani Jarrett MR#: [id number] : 1955> Age: 64> Sex: Male> Dictated by: Dr. Jax Gentile Date of Service: 12/20/2019 Referring Physician(s) : Roberto Flores Diagnosis: Metastatic squamous cell carcinoma originating in the right middle lobe of lung. His disease burden includes multiple bilateral lung masses (largest size reported to be 1.2 cm), mediastinal and right hilar adenopathy, biopsy-proven metastasis to the right kidney, multiple para-aortic lymph nodes, a possible 8 mm metastatic focus in the L5 vertebral body, and newly discovered intracranial disease. The patient is symptomatic with respect to headaches, and nausea/vomiting likely associated with tumor encroachment on the fourth ventricle. Radiotherapy to date: Summary > No prior radiation therapy. Chief Complaint / History of Present Illness: The patient is a 64-year-old legally blind male with a longstanding smoking history, and recent significant unintended weight loss who in November 2019 was diagnosed with metastatic squamous cell carcinoma originating in the right middle lobe of lung. His disease burden includes multiple bilateral lung masses (largest size reported to be 1.2 cm), mediastinal and right hilar adenopathy, biopsy-proven metastasis to the right kidney, multiple para-aortic lymph nodes, and a possible 8 mm metastatic focus in the L5 vertebral body. In addition, the patient has intracranial disease as discussed below. On 12/19/2019, an MRI of the brain revealed several metastatic intracranial lesions. The largest measures 2.2 x 2.2 x 2.2 cm in the left medial cerebellum with mild mass-effect and encroachment into the fourth ventricle. Furthermore, there was a posterior medullary metastatic focus measuring 1.0 x 1.3 x 1.1 cm with mild mass-effect upon the fourth ventricle. An indeterminate but suspicious for millimeter lesion was appreciated and observed to involve the cortex of the posterior right parietal lobe. The patient was initially planned to start on immunotherapy and chemotherapy, yet insurance has declined immunotherapy. Approximately 2 weeks ago, the patient initiated systemic chemotherapy, yet today chemotherapy is being held due to low white counts, and the prospect of requiring whole brain radiation therapy. Current Medications: Albuterol Sulfate, albuterol Sulfate, cARBOplatin, dexamethasone, dexamethasone Sodium Phosphate, emend, gemcitabine HCl, hydroCHLOROthiazide, hYDROcodone-Acetaminophen, hYDROcodone-Acetaminophen, lisinopril, lORazepam, ondansetron HCl, palonosetron HCl, prochlorperazine Maleate. Allergies: Penicillins and traMADol HCl. Medical History: - Blindness, - chronic obstructive pulmonary disease, - hypertension. No history of collagen vascular disease. No previous radiation therapy. Surgical History: Kidney biopsy and porthacatheter placment (dr. davey). Family History: Father is at age 77 having experienced heart attack. Mother is alive. Sister is at age 49 having experienced liver cancer. Social History: Last screened on 12/20/2019 - Current some day smoker 1.0 pack/day for 50 years (50 pack years). Last screened on 12/20/2019 - Never drank. Is now smoking 1/2 pack per day. Current Complaints / Review of Systems: Constitutional - Complains of a poor appetite. Complains of moderate fatigue. Complains of change in weight. Denies fever and night sweats. Eyes - Is legally blind in both eyes related to non-ischemic. ENMT - Complains of stomatitis. Denies dysphagia, ear pain, problems with hearing, mouth dryness and tinnitus but has a humming sound. Neck - Denies neck pain. Integumentary - Denies rash. Cardiovascular - Complains of palpitations. Denies chest pain and edema. Respiratory - Complains of a severe cough which is productive and the color of the sputum is clear. Complains of moderate dyspnea associated with rest or normal activity. Complains of wheezing. Denies hemoptysis. Gastrointestinal - Complains of abdominal pain that is persistent located in the lower abdomen. Complains of intermittent constipation. Complains of occasional diarrhea. Complains of nausea. Complains of satiety. Complains of vomiting. Denies heartburn / dyspepsia and melena / GI bleeding. Genitourinary (M) - Complains of dysuria occasionally and nocturia gets up about 1 to 2 times per night. Denies frequency and urgency. Musculoskeletal - Complains of bone pain in both hips. Complains of joint pain in the upper back and the lower back from an injury. Complains of generalized muscle weakness. Neurologic - Complains of frequent dizziness. Complains of abnormal gait. Complains of severe headaches and gets one everyday. Endocrine - Denies diabetes and thyroid disease. Hematologic/Lymphatic - Denies tender or enlarged lymph nodes.. Vital Signs: Performed on 12/20/2019 11:29 AM Height - 70.00 in, Weight - 184.8 lbs (low), BSA - 2.02 sq.m, BMI - 26.52, Temperature - 97.5 f (low), Pulse - 80 /min, Respiration - 20 /min, O2 Sat - 98 %, Pain - 8, BP - 109/ 76 mm(hg), Performed on 12/20/2019 12:19 PM BMI - 26.516 kg/m2 (high), Height - 70.00 in, Weight - 184.8 lbs, Temperature - 97.5 f, Pulse - 80, Respiration - 20, O2 Sat - 98 %, Pain - 8 and BP - 109/ 76 mm(hg). Physical Exam: GENERAL:??? The patient is alert, and in no acute distress. HEENT:??? Head is normocephalic. Face is symmetric. Sclera and conjunctivae are non erythematous. NECK:??? Trachea is midline.??? Thyroid is not enlarged by palpation.??? LYMPH NODES:??? There is no cervical or supraclavicular adenopathy bilaterally. LUNGS:??? Clear to auscultation bilaterally. Respiratory movement is unlabored. HEART:??? Regular rate and rhythm. [employer]:??? Cranial nerves II-XII are intact and without focal deficits.??? Psych: Affect is normal. Performance Status: 3 - Capable of only limited self-care, confined to bed or chair more than 50% of waking hours. (ECOG) Pathology: Primary, c79.01 - secondary malignant neoplasm of right kidney and renal pelvis, Diagnosed 11/16/2019 (active) and Primary, c34.2 - malignant neoplasm of middle lobe, bronchus or lung, Diagnosed 10/25/2019 (active). Lab: Test performed on 12/20/2019 10:30 AM WBC - 2.2 10 3/ul (low), RBC - 3.99 10 6/ul (low), HGB - 10.2 g/dl (low), HCT - 31.4 % (low), MCV - 78.7 fl (low), MCH - 25.6 pg (low), Neutrophils - 1.42 10 3/ul (low), Lymphocytes - 0.7 10 3/ul (low), Monocytes - 0.1 10 3/ul (low), Sodium - 131 mmol/l (low), Chloride - 91 mmol/l (low), Creatinine - 0.5 mg/dl (low), Cr Clearance (Est) - 186.5400 ml/min (high), eGFR - 168.5 ml/min (high), Osmolality - Calculated - 273 mosm/kg (low) and ALT (SGPT) - 46 u/l (high). Imaging: See HPI Impression: The patient is a 64-year-old male with widely metastatic squamous cell carcinoma originating in the right middle lobe of lung. The patient was planned to continue with carboplatin and gemcitabine, yet due to neutropenia and the prospect of requiring whole brain radiation therapy, chemotherapy today has been held. Unfortunately, the patient has MRI evidence of intracranial metastasis not appropriate for SRS therapy at this facility and he is symptomatic with respect to headaches and nausea/vomiting likely due to tumor mass-effect on the fourth ventricle. Dexamethasone 4 mg 3 times daily is scheduled to begin today. Both the patient and the family has agreed to whole brain radiation therapy (30 Gy/10 fractions), followed by further systemic therapy as deemed clinically appropriate by Dr. Reyes. Systemic chemotherapy will be held during whole brain radiation therapy. Plan: We will begin radiation therapy planning today. I would also like to review the CT of the chest abdomen and pelvis once imaging becomes available for my review. Signed by: 12/20/2019 6:24:13 PM <<Signature on File>> Time spent with patient: CPT Code: CPT Code:
--- NOTE | 2019-12-22 22:06 | ONC FU_ITS ---
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 Jarrett is a 64-year-old gentleman with a history of chronic lower back pain due to back injury due to fall over 10 years ago. He recently developed new back pain radiating to his umbilicus area. He saw his PMD in July [address] of the abdomen pelvis at [facility] on September 13, 2019 which reported multiple lung masses up to 1.2 cm in size. There was an area of consolidation in the right middle lobe which is incompletely visualized on the limited CT of the chest. There was an indeterminate mass in the right upper pole of the kidney measuring 3.8 cm in transverse diameter multiple para-aortic nodes were seen as well. Chest x-ray from 09/26/2019 reported a large mass in the right middle lobe extending into the pleura from the right hilum. Mr. Jarrett was referred to pulmonology, Dr Flores, and underwent bronchoscopy on December 11, 2019. The final pathology report confirmed the biopsy from right middle lobe showed squamous cell carcinoma, moderately differentiated. FNA from 10 R station showed metastatic squamous cell carcinoma also from station 7, PDL 1 status is pending As the CT abdomen and pelvis from 10/05/2019 ([facility]) reported a 6 cm x 8 cm right renal mass with regional lymphadenopathy. Mr Jarrett was referred to Dr. Ag for evaluation for possible second malignancy. Mr Jarrett underwent right kidney CT-guided needle biopsy on November 23, 2019. The final pathology poorly came back predominantly necrotic poorly differentiated carcinoma consistent with metastatic pulmonary squamous cell carcinoma with that metastatic disease to the right kidney was confirmed, MRI scan of thoracic spine done on December 11, 2019 showed no obvious sign of metastatic disease to thoracic vertebral body; no cord compression, paratracheal or retrocrural and hilar lymphadenopathy. Numerous bilateral pulmonary nodules. MRI scan of lumbar spine from 12/11/2019 reported moderate sized right paracentral disc protrusion at L5-S1 contacting the right S1 nerve root. Moderate right foraminal narrowing due to disc osteophytes disease. Possible 8 mm metastatic site L5 vertebral body. Abnormal appearance to right kidney suspect renal mass. Enlargement of pancreatic head with soft tissue extension posterior to the aorta the left retroperitoneum. Pancreatic head mass or adenopathy. 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 Jarrett was referred to Dr. Reyes for consideration of palliative chemotherapy. The initial recommendation was to start him on immunotherapy along with cisplatin gemcitabine based on the SQUIRE trial, but his insurance refused to cover immunotherapy citing NCCN guidelines. His treatment plan was then altered to carboplatin gemcitabine rather than cisplatin gemcitabine because he has chronic pain in his right leg and inability to maneuver quickly to the restroom during aggressive hydration/diuresis as required during cisplatin infusions. He also refused a Flores catheter. Mr. Jarrett began his first cycle of chemotherapy on December 12, 2019. MRI of the brain with and without contrast from 12/19/2019 reports several metastatic enhancing lesions. The largest involves the left medial cerebellum with extension into the superior tentorium. This mass measures 22 x 22 x 22 mm with mild mass-effect and encroachment into the fourth ventricle. Posterior medulla metastatic lesion measuring 10 x 13 x 11 mm with mild mass-effect upon the fourth ventricle. Indeterminate but suspicious for 4 mm metastatic site involving the cortex of the posterior right parietal lobe and moderate to severe chronic microvascular ischemic disease. Mr. Jarrett has been referred to radiation oncology, Dr. Gentile and will see him later today. l Mr Jarrett is here today for consideration of day 8 of cycle 1 Carboplatin/gemcitabine. He is alone at our visit today. He states that he feels okay overall. He has had nausea but he states that this is not new has been going on for the last 5 to 6 weeks. When asked about blurry vision he states that he has had blurry vision off and on for years and does not know if it is really a lot worse or not but thinks maybe it could be. He states he is had a headache for years as well but has been different recently like a tension headache . He denied any worsening of the headache, nausea or vision after last week's chemotherapy. He denies any fever or chills. He denies any diarrhea or constipation. He denies any new pain. He states he has not had any mouth sores, sore throat or difficulty swallowing. He denies any hemoptysis or hematuria. He denies any neuropathy symptoms at present. His ECOG is 2. Past Medical History: Blindness Chronic obstructive pulmonary disease Hypertension Past Surgical History: Kidney biopsy Porthacatheter placment (dr. davey) Allergies: Penicillins and traMADol HCl. Medications: Albuterol Sulfate 1 ((2.5 mg/3ml) 0.083%) Nebulization solution Inhalation b.i.d. Albuterol Sulfate 1 Puff(s) (of 108 (90 base) mcg/act) Aerosol Powder, Breath Activated Inhalation PRN hydroCHLOROthiazide 1 Tablet (of 25 mg) Oral daily HYDROcodone-Acetaminophen 1 - 2 Tablet (of 5-325 mg) Oral q 6 hours PRN Lisinopril 1 Tablet (of 20 mg) Oral daily Family History: Mr. Jarrett's mother is alive. Mr. Jarrett's father at age 77: heart attack. Mr. Jarrett has 1 sister who is : liver cancer. Social History: Mr. Jarrett is and he is an unknown. He is an occasional smoker who has smoked 1.0 pack/day for 50 years. He has no history of drinking. Is now smoking 1/2 pack per day also used chewing tobacco until 09/22/19. Review Of Symptoms: Constitutional Denies fevers, chills, night sweats. No acute distress. Allergic/Immunologic No reactions. Eyes Denies significant visual changes. No diplopia. No amaurosis. Legally blind. ENMT Denies changes in hearing, sore throat, mouth sores, difficulty or changes in swallowing ability, and/or sinus drainage. Hematologic/Lymphatic Denies easy bruising or bleeding. The patient denies any tender or palpable lymph nodes. Respiratory Denies dyspnea on exertion, chest pain, cough or hemoptysis. Denies orthopnea. Cardiovascular Denies anginal chest pain, palpitations or orthopnea. Gastrointestinal Denies vomiting, diarrhea, GI bleeding, or constipation. Denies change in bowel habits and/or stool color, no heartburn or early satiety. He has had persistent nausea but states it got a little bit better after treatment but is back again. He denies emesis. Genitourinary (M) Denies hematuria, dysuria, increased frequency, urgency, hesitancy or incontinence. Musculoskeletal Denies joint pain, swelling or redness. No decreased range of motion. Integumentary Denies chronic rashes, inflammation, ulcerations or skin changes. Neurologic He states he has had headaches for years but recently they changed and became tension headaches. He states that his vision has been about the same he has had blurry vision and double vision off and on for years. He is legally blind. He denies any episodes of confusion or disorientation. Psychiatric Denies insomnia, depression, sharon or mood swings. Constitutional Complains of a poor appetite. Complains of moderate fatigue. Complains of change in weight. Denies fever and night sweats. Eyes Is legally blind in both eyes related to non-ischemic ENMT Complains of stomatitis. Denies dysphagia, ear pain, problems with hearing, mouth dryness and tinnitus but has a humming sound. Neck Denies neck pain. Integumentary Denies rash. Cardiovascular Complains of palpitations. Denies chest pain and edema. Respiratory Complains of a severe cough which is productive and the color of the sputum is clear. Complains of moderate dyspnea associated with rest or normal activity. Complains of wheezing. Denies hemoptysis. Gastrointestinal Complains of abdominal pain that is persistent located in the lower abdomen. Complains of intermittent constipation. Complains of occasional diarrhea. Complains of nausea. Complains of satiety. Complains of vomiting. Denies heartburn / dyspepsia and melena / GI bleeding. Genitourinary (M) Complains of dysuria occasionally and nocturia gets up about 1 to 2 times per night. Denies frequency and urgency. Musculoskeletal Complains of bone pain in both hips. Complains of joint pain in the upper back and the lower back from an injury. Complains of generalized muscle weakness. Neurologic Complains of frequent dizziness. Complains of abnormal gait. Complains of severe headaches and gets one everyday. Endocrine Denies diabetes and thyroid disease. Hematologic/Lymphatic Denies tender or enlarged lymph nodes. Vital Signs: Performed on Dec 20, 2019 12:19 Height - 70.00 in Weight - 184.8 lbs Temperature - 97.5 F Pulse - 80 Respiration - 20 BP - 109/76 mm(hg) O2 Sat - 98 % Pain - 8 Performed on Dec 20, 2019 12:19 BMI - 26.516 kg/m2 (HIGH) Performed on Dec 20, 2019 11:29 Height - 70.00 in Weight - 184.8 lbs (LOW) BSA - 2.02 sq.m BMI - 26.52 Temperature - 97.5 F (LOW) Pulse - 80 /min Respiration - 20 /min BP - 109/76 mm(hg) O2 Sat - 98 % Pain - 8,2 - Ambulatory/capable of all self-care, unable to perform any work activities. Up and about more than 50% of waking hours. (ECOG) Physical Examination: Constitutional Alert, oriented, no acute distress. Skin pink, warm and dry. Head Normocephalic; atraumatic. Eyes Conjunctivae and sclerae are clear and without icterus. Pupils are reactive and equal. ENMT No oral exudates, ulcers, masses, thrush or mucositis. Oropharynx clear. Tongue normal. Neck Supple without masses or thyromegaly. No jugular venous distension. Hematologic/Lymphatic No petechiae or purpura. No tender or palpable lymph nodes in the cervical or supraclavicular areas. Respiratory Lungs are clear to auscultation without rhonchi or wheezing. Cardiovascular Regular rate and rhythm of heart without murmurs,clicks, gallops or rubs. Abdomen Non-tender, non-distended, no masses or ascites. Good bowel sounds noted in all quads. No guarding or rebound tenderness. No pulsatile masses. Back/Spine Non-tender to palpation. Extremities No visible deformities, no cyanosis, clubbing or edema. Integumentary No rashes or lesions. Neurologic No sensory or motor deficits, normal cerebellar function on observation today. He is in a wheelchair but due to fatigue and shortness of breath with exertion. Psychiatric Alert and oriented times three. Coherent speech. Verbalizes understanding of our discussions today. Laboratory:Test performed on Dec 20, 2019 10:30 Sodium 131 mmol/L Potassium 3.9 mmol/L Chloride 91 mmol/L CO2 27 mmol/L Anion Gap 16.9 BUN 13 mg/dL Creatinine 0.5 mg/dL Cr Clearance (Est) 186.5400 mL/min eGFR 168.5 mL/min Glucose 114 mg/dL Osmolality - Calculated 273 mOsm/kg Calcium 9.4 mg/dL Protein, Total 6.6 g/dL Albumin 3.5 g/dL Globulin 3.1 g/dL Bilirubin, Total 0.6 mg/dL ALT (SGPT) 46 U/L AST (SGOT) 28 U/L Alkaline Phosphatase 93 IU/L WBC 2.2 10 3/uL RBC 3.99 10 6/uL HGB 10.2 g/dL HCT 31.4 % MCV 78.7 fL MCH 25.6 pg MCHC 32.5 g/dL RDW 14.6 % Platelet Count 155 10 3/cmm MPV 8.4 fL Neutrophils 1.42 10 3/uL Lymphocytes 0.7 10 3/uL Monocytes 0.1 10 3/uL Eosinophils 0.0 10 3/uL Basophils 0.0 10 3/uL Neutrophil % 65.7 % Lymphocyte % 30.1 % Monocyte % 2.3 % Eosinophil % 0.5 % Basophils % 0.5 % NRBC % 0 % Impression: Moderately differentiated squamous cell carcinoma or endobronchial biopsy right middle lobe of lung and FNA of station 7, and station 10 R showed metastatic squamous cell carcinoma immunohistochemistry showed tumor was positive for AE1/AE3, and P 40, negative for TTF-1 e.g. consistent with squamous cell carcinoma CT of abdomen pelvis done for possible right kidney mass in [facility] in [facility] done on September 13, 2019 showed right upper pole renal mass size 3.8 cm with multiple para-aortic lymph nodes and multiple lung masses measuring up to 1.2 cm size and an area of consolidation in the right middle lobe MRI scan of spine findings which showed no obvious evidence of metastatic disease to spine except 8 mm lesion in L5 and significant disc protrusion at L5-S1 contacting right nerve root. History of chronic headache due to migraine History of chronic back pain due to back injury due to fall for more than 10 years ago History of chronic smoking more than 50 years, still active Initially, plan was to start him on immunotherapy with necitumumab/cisplatin/gemcitabine based on SQUIRE trial, which was the first and only randomized phase 3 study conducted especially in a patient with metastatic squamous cell non-small cell lung cancer and it showed statistically significant improvement in overall survival and disease-free survival when compared with gemcitabine/cisplatin alone, specifically in the first-line setting. But his insurance refused to cover immunotherapy citing NCCN guidelines. Dr Reyes discussed with Mr Jarrett and his , as insurance is refusing the recommended treatment regimen, the next plan would be to pursue weekly cisplatin/gemcitabine but because of pain in the right leg and inability to move fast to the restroom during hydration and diuresis required during cisplatin infusion (he is also refusing Flores catheter). Dr Reyes recommended to treat with carboplatin instead of cisplatin along with gemcitabine. Mr Jarrett's treatment dosing plan is carboplatin AUC 2 with gemcitabine 1000 mg/m??? day 1 and 8 and repeat every 21 days. Mr Jarrett had a right internal jugular vein PowerPort placement on November 15, [address] Prakash. He began his first cycle of Carboplatin/gemcitabine on 12/11/2019. MRI of the brain with and without contrast from 12/19/2019 reports several metastatic enhancing lesions. The largest involves the left medial cerebellum with extension into the superior tentorium. This mass measures 22 x 22 x 22 mm with mild mass-effect and encroachment into the fourth ventricle. Posterior medulla metastatic lesion measuring 10 x 13 x 11 mm with mild mass-effect upon the fourth ventricle. Indeterminate but suspicious for 4 mm metastatic site involving the cortex of the posterior right parietal lobe and moderate to severe chronic microvascular ischemic disease. Mr. Jarrett has been referred to radiation oncology, Dr. Gentile and will see him later today.l Plan: 1. Delay cycle 1 day 8 chemotherapy for plan for whole brain radiation for brain metastasis. He is also neutropenic on day 8 with an ANC of 1400. It was 6400 on day 0. 2. Dexamethasone 4 mg 3 times daily???start today. 3. Referral to radiation oncology for brain metastasis???see MRI above. He has an appointment to see Dr. Gentile after our visit today. 4. Labs from today were reviewed in detail and discussed with Mr. Jarrtet and a copy was given to him. WBC 2.2, hemoglobin 10.2, platelets 155,000 ANC is 1420. Random glucose 114 creatinine 0.5 LFTs are normal. 5. We will have him see Dr. Reyes back within the next 2 to 3 weeks for follow-up post radiation and to resume his chemotherapy. He will need repeat CBC CMP at that time. 6. We discussed his abnormal MRI of the brain and he will further discuss this with Dr. Gentile. A copy of the MRI was given to him. 7. Mr. Jarrett has been encouraged to contact us in the interim should questions or problems arise. Signed By: Eleanor Alejo-, AOCNP Titi Reyes MD <<Signature on File>>
--- NOTE | 2019-12-27 19:23 | ONCRAD TMN_ITS ---
Radiation Oncology Weekly Treatment Management Patient: Phani Jarrett MR#: [id number] : 1955 Age: 64 Sex: Male Dictated by: Dr. Jax Gentile Date of Service: 12/26/2019 Referring Physician(s) : Roberto Flores Diagnosis: Metastatic squamous cell carcinoma originating in the right middle lobe of lung. His disease burden includes multiple bilateral lung masses (largest size reported to be 1.2 cm), mediastinal and right hilar adenopathy, biopsy-proven metastasis to the right kidney, multiple para-aortic lymph nodes, a possible 8 mm metastatic focus in the L5 vertebral body, and newly discovered intracranial disease. The patient is symptomatic with respect to headaches, and nausea/vomiting likely associated with tumor encroachment on the fourth ventricle. Treatment plan: Whole brain radiation therapy to a total dose of 30 Gy/10 fractions. -) Dexamethasone 4 mg 3 times daily was initiated on 12/20/2019. Radiotherapy to date: Course: WholeBrian 30Gy, Treatment Site: [id number], Ref. ID: [id number], Energy: 15X/6X, Dose/Fx (cGy): 300, #Fx: 4 / 10, Dose Correction (cGy): 0, Total Dose (cGy): 1,200, Start Date: 12/21/2019, Elapsed Days: 5 Reason for visit: The patient is being seen today as part of their regularly scheduled weekly on treatment visits to assess for acute toxicities from radiotherapy. Interim History: The patient reports that his headaches are improving, he no longer has vomiting, and his balance has improved considerably. Current Medications: Albuterol Sulfate, albuterol Sulfate, cARBOplatin, dexamethasone, dexamethasone Sodium Phosphate, emend, gemcitabine HCl, hydroCHLOROthiazide, hYDROcodone-Acetaminophen, hYDROcodone-Acetaminophen, lisinopril, lORazepam, ondansetron HCl, palonosetron HCl, prochlorperazine Maleate. Allergies: Penicillins and traMADol HCl. Current Complaints/Review of Systems: Constitutional - Complains of mild fatigue. Denies lack of appetite, fever, night sweats and change in weight. Eyes - Complains of blurred vision in both eyes and is leagally blind. Denies double vision. ENMT - Complains of altered taste. Denies ear pain. Respiratory - Complains of hiccoughs. Gastrointestinal - Complains of nausea. Denies vomiting. Neurologic - Complains of abnormal gait and feels like he is off balanced with walking and headaches but they are improving. Denies disorientation and dizziness. Vital Signs: Performed on 12/26/2019 11:46 AM BMI - 26.746 kg/m2 (high), Height - 70.00 in, Weight - 186.4 lbs, Temperature - 98.5 f, Pulse - 73, Respiration - 18, O2 Sat - 98 %, Pain - 3 and BP - 101/ 77 mm(hg). Physical Exam: Appears stable, no skin erythema or desquamation. There is no evidence of oral thrush. Performance Status: 1 - No physically strenuous activity, but ambulatory and able to carry out light or sedentary work (e.g. office work, light house work). (ECOG) Lab: None pending in Radiation Oncology. Test performed on 12/20/2019 10:30 AM WBC - 2.2 10 3/ul (low), RBC - 3.99 10 6/ul (low), HGB - 10.2 g/dl (low), HCT - 31.4 % (low), MCV - 78.7 fl (low), MCH - 25.6 pg (low), Neutrophils - 1.42 10 3/ul (low), Lymphocytes - 0.7 10 3/ul (low), Monocytes - 0.1 10 3/ul (low), Sodium - 131 mmol/l (low), Chloride - 91 mmol/l (low), Creatinine - 0.5 mg/dl (low), Cr Clearance (Est) - 186.5400 ml/min (high), eGFR - 168.5 ml/min (high), Osmolality - Calculated - 273 mosm/kg (low) and ALT (SGPT) - 46 u/l (high). Imaging: Radiation therapy imaging related to accurate target localization (i.e. KV, MV and CBCT) was reviewed. Appropriate changes, if any, were made to ensure treatment accuracy. Plan: The patient is tolerating therapy reasonably well. Radiotherapy will continue as planned. Dexamethasone was reduced to 4 mg twice daily. CPT: 53401 Signed by: Dr. Jax Gentile 12/27/2019 7:22:50 PM
== END 2019-12-30 23:59 | disposition home or self-care (01) ==
LOC: ONCMED 05:44
PROVIDERS: Nurse Practitioner; Absent Provider Radiology Radiation Oncology; Visit Provider Radiology Radiation Oncology
DX: Z51.0 Encounter for antineoplastic radiation therapy (principal); C79.31 Secondary malignant neoplasm of brain; C34.2 Malignant neoplasm of middle lobe, bronchus or lung; C79.01 Secondary malignant neoplasm of right kidney and renal pelvis; C78.02 Secondary malignant neoplasm of left lung; G89.29 Other chronic pain; M54.5 Low back pain; H54.8 Legal blindness, as defined in USA; H46.9 Unspecified optic neuritis; J44.9 Chronic obstructive pulmonary disease, unspecified; F17.210 Nicotine dependence, cigarettes, uncomplicated; I10 Essential (primary) hypertension; Z79.51 Long term (current) use of inhaled steroids; Z79.891 Long term (current) use of opiate analgesic
CPT/HCPCS: 36591; 70553; 77290; 77295; 77300; 77334; 77336; 77387; 77412; 80053; 85025; 99214; 99215; A9579

== ENCOUNTER 2020-01-15 09:30 | Outpatient (RCR) | payer MEDICAID, SELFPAY ==
[2020-01-02 08:43] LABS: Hematocrit 34.9 % (42.0-52.0); Hemoglobin 11.2 g/dL (11.7-16.6); Mean Corpuscular HGB Conc 32.1 g/dL (30.0-36.0); Mean Corpuscular Hemoglobin 26.4 pg (28.0-34.0); Mean Corpuscular Volume 82.3 fL (80-94); Mean Platelet Volume 8.6 fL (7.4-10.4); Platelet Count 490 10^3/cmm (130-400); Red Blood Count 4.24 10^6/uL (4.1-5.3); White Blood Count 19.7 10^3/uL (4.0-10.0)
[2020-01-02 08:57] LABS: Alanine Aminotransferase 79 U/L (0-41); Albumin Level 3.1 g/dL (3.5-5.2); Alkaline Phosphatase 130 IU/L (40-130); Anion Gap 14.4 (5-19); Aspartate Amino Transferase 38 U/L (0-40); Blood Urea Nitrogen 16 mg/dL (8-23); Calcium 8.6 mg/dL (8.5-10.5); Carbon Dioxide 26 mmol/L (22-29); Chloride 93 mmol/L (98-107); Globulin 2.6 g/dL (1.3-4.6); Glomerular Filtration Rate 136.5 mL/min (90-130); Glucose 109 mg/dL (65-115); Osmolality Calculated 272 mOsm/kg (285-295); Potassium 3.4 mmol/L (3.5-5.1); Sodium 130 mmol/L (136-145); Total Bilirubin 0.2 mg/dL (0.15-1.2); Total Protein 5.7 g/dL (6.6-8.7)
[2020-01-02 09:37] LABS: Slide Review Slide Review Perform
[2020-01-02 09:39] LABS: Absolute Neutrophil 15.2 10^3/cmm (1.4-6.5); Band Neutrophils Absolute 1.2 10^3/cmm (0.0-1.2); Lymphocytes 6 %; Monocytes Absolute 2.2 10^3/cmm (0.1-0.6); Platelet Estimate Increased (Normal); Poikilocytosis 1+; Polychromasia Trace; Segmented Neutrophils 71 %; Total Cells Counted 100 (0-100)
[2020-01-02 09:40] LABS: Eosinophils 0 %
[2020-01-02] MEDS: FUROsemide 20 mg Tablet PO (09:53)
[2020-01-09 11:14] LABS: Basophils % 0.2 %; Hematocrit 33.5 % (42.0-52.0); Hemoglobin 10.6 g/dL (11.7-16.6); Lymphocytes # 0.5 10^3/uL (0.8-4.8); Lymphocytes % 4.5 %; Mean Corpuscular HGB Conc 31.6 g/dL (30.0-36.0); Mean Corpuscular Hemoglobin 27.2 pg (28.0-34.0); Mean Corpuscular Volume 86.1 fL (80-94); Mean Platelet Volume 8.8 fL (7.4-10.4); Monocytes % 9.5 %; Neutrophils # 9.02 10^3/uL (1.8-7.7); Neutrophils % 83.3 %; Nucleated Red Blood Cells % 0 %; Platelet Count 215 10^3/cmm (130-400); Red Blood Count 3.89 10^6/uL (4.1-5.3); Red Cell Distribution Width 19.9 % (12.1-15.1); White Blood Count 10.8 10^3/uL (4.0-10.0)
[2020-01-09 11:39] LABS: Alanine Aminotransferase 70 U/L (0-41); Albumin Level 2.8 g/dL (3.5-5.2); Alkaline Phosphatase 105 IU/L (40-130); Anion Gap 13.3 (5-19); Aspartate Amino Transferase 37 U/L (0-40); Blood Urea Nitrogen 13 mg/dL (8-23); Calcium 8.2 mg/dL (8.5-10.5); Carbon Dioxide 25 mmol/L (22-29); Chloride 98 mmol/L (98-107); Globulin 2.9 g/dL (1.3-4.6); Glomerular Filtration Rate 168.5 mL/min (90-130); Glucose 95 mg/dL (65-115); Osmolality Calculated 274 mOsm/kg (285-295); Potassium 4.3 mmol/L (3.5-5.1); Sodium 132 mmol/L (136-145); Total Bilirubin 0.2 mg/dL (0.15-1.2); Total Protein 5.7 g/dL (6.6-8.7)
[2020-01-09] MEDS: sodium chloride 0.9% 250 ML 75 ML IV (13:45)
--- NOTE | 2020-01-14 20:22 | ONC FU_ITS ---
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 Jarrett is a 64-year-old gentleman with a history of chronic lower back pain due to back injury due to fall over 10 years ago. He recently developed new back pain radiating to his umbilicus area. He saw his PMD in July [address] of the abdomen pelvis at [facility] on September 13, 2019 which reported multiple lung masses up to 1.2 cm in size. There was an area of consolidation in the right middle lobe which is incompletely visualized on the limited CT of the chest. There was an indeterminate mass in the right upper pole of the kidney measuring 3.8 cm in transverse diameter multiple para-aortic nodes were seen as well. Chest x-ray from 09/26/2019 reported a large mass in the right middle lobe extending into the pleura from the right hilum. Mr. Jarrett was referred to pulmonology, Dr Flores, and underwent bronchoscopy on December 11, 2019. The final pathology report confirmed the biopsy from right middle lobe showed squamous cell carcinoma, moderately differentiated. FNA from 10 R station showed metastatic squamous cell carcinoma also from station 7, PDL 1 status is pending. As the CT abdomen and pelvis from 10/05/2019 ([facility]) reported a 6 cm x 8 cm right renal mass with regional lymphadenopathy. Mr Jarrett was referred to Dr. Ag for evaluation for possible second malignancy. Mr Jarrett underwent right kidney CT-guided needle biopsy on November 23, 2019. The final pathology poorly came back predominantly necrotic poorly differentiated carcinoma consistent with metastatic pulmonary squamous cell carcinoma with that metastatic disease to the right kidney was confirmed. MRI scan of thoracic spine done on December 11, 2019 showed no obvious sign of metastatic disease to thoracic vertebral body; no cord compression, paratracheal or retrocrural and hilar lymphadenopathy. Numerous bilateral pulmonary nodules. MRI scan of lumbar spine from 12/11/2019 reported moderate sized right paracentral disc protrusion at L5-S1 contacting the right S1 nerve root. Moderate right foraminal narrowing due to disc osteophytes disease. Possible 8 mm metastatic site L5 vertebral body. Abnormal appearance to right kidney suspect renal mass. Enlargement of pancreatic head with soft tissue extension posterior to the aorta the left retroperitoneum. Pancreatic head mass or adenopathy. 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 Jarrett was referred to Dr. Reyes for consideration of palliative chemotherapy. The initial recommendation was to start him on immunotherapy along with cisplatin gemcitabine based on the SQUIRE trial, but his insurance refused to cover immunotherapy citing NCCN guidelines. His treatment plan was then altered to carboplatin gemcitabine rather than cisplatin gemcitabine because he has chronic pain in his right leg and inability to maneuver quickly to the restroom during aggressive hydration/diuresis as required during cisplatin infusions. He also refused a Flores catheter. Mr. Jarrett began his first cycle of chemotherapy on December 12, 2019. MRI of the brain with and without contrast from 12/19/2019 reports several metastatic enhancing lesions. The largest involves the left medial cerebellum with extension into the superior tentorium. This mass measures 22 x 22 x 22 mm with mild mass-effect and encroachment into the fourth ventricle. Posterior medulla metastatic lesion measuring 10 x 13 x 11 mm with mild mass-effect upon the fourth ventricle. Indeterminate but suspicious for 4 mm metastatic site involving the cortex of the posterior right parietal lobe and moderate to severe chronic microvascular ischemic disease. Mr. Jarrett was referred to radiation oncology. Mr Jarrett is here today for followup. He is due for chemotherapy today with carboplatin gemcitabine. His first dose was given on December 12, 2019. He was unable to proceed with cycle 1 day 8 due to neutropenia. His ANC on day 1 was 6400 and on day 8 it was 1400. On 12/19/2019, he was found to have metastatic lesion in the brain. His chemotherapy was placed on hold and he was referred to radiation oncology. He was placed on dexamethasone 4 mg 3 times daily and was gradually increased to 4 times daily. He completed his radiation therapy on 01/01/2020. He has tolerated it well overall. He has no new concerns today. He continues to have chronic pain in his right leg however he is responding well to the hydrocodone 7.5/325. He has been utilizing the lorazepam as needed for severe nausea and for sleep. He is tolerating it well. He denies any fever or chills. He has had no signs or symptoms of infection for at least the last 72 hours. He denies any known Covid exposure or pending test. He states his breathing is about the same. He does not feel that it is any worse. He states he would like to stop smoking back has had intolerance to nicotine in the past and that he had hives. They are requesting to try generic Chantix if it is affordable. He states since completing the radiation his nausea vomiting are gone. He states he has a little queasiness at times but overall it is much better. He has had no further headaches as well. He denies any diarrhea or constipation. He denies any peripheral neuropathy symptoms. He denies any hearing changes. His ECOG is 2. Past Medical History: Blindness Chronic obstructive pulmonary disease Hypertension Past Surgical History: Kidney biopsy Porthacatheter placment (dr. davey) Allergies: Penicillins and traMADol HCl. Medications: Albuterol Sulfate 1 ((2.5 mg/3ml) 0.083%) Nebulization solution Inhalation b.i.d. Albuterol Sulfate 1 Puff(s) (of 108 (90 base) mcg/act) Aerosol Powder, Breath Activated Inhalation PRN hydroCHLOROthiazide 1 Tablet (of 25 mg) Oral daily HYDROcodone-Acetaminophen 1 - 2 Tablet (of 5-325 mg) Oral q 6 hours PRN HYDROcodone-Acetaminophen 1 - 2 Tablet (of 5-325 mg) Oral q 4 to 6 hours PRN Lisinopril 1 Tablet (of 20 mg) Oral daily Family History: Mr. Jarrett's mother is alive. Mr. Jarrett's father at age 77: heart attack. Mr. Jarrett has 1 sister who is : liver cancer. Social History: Mr. Jarrett is and he is an unknown. He is an occasional smoker who has smoked 1.0 pack/day for 50 years. He has no history of drinking. Is now smoking 1/2 pack per day also used chewing tobacco until 09/22/19. Review Of Symptoms: Constitutional Denies fevers, chills, night sweats. No acute distress. Allergic/Immunologic No reactions. Eyes Denies significant visual changes. No diplopia. No amaurosis. Legally blind. ENMT Denies changes in hearing, sore throat, mouth sores, difficulty or changes in swallowing ability, and/or sinus drainage. Hematologic/Lymphatic Denies easy bruising or bleeding. The patient denies any tender or palpable lymph nodes. Respiratory Denies dyspnea on exertion, chest pain, cough or hemoptysis. Denies orthopnea. Cardiovascular Denies anginal chest pain, palpitations or orthopnea. Gastrointestinal Denies vomiting, diarrhea, GI bleeding, or constipation. Denies change in bowel habits and/or stool color, no heartburn or early satiety. He has had persistent nausea but states it got better after treatment. He denies emesis. Genitourinary (M) Denies hematuria, dysuria, increased frequency, urgency, hesitancy or incontinence. Musculoskeletal Denies joint pain, swelling or redness. No decreased range of motion. Integumentary Denies chronic rashes, inflammation, ulcerations or skin changes. Neurologic He states he has had no new headaches and denies any TIA symptoms. Psychiatric Denies insomnia, depression, sharon or mood swings. Vital Signs: Performed on Jan 09, 2020 12:37 Height - 70.00 in Weight - 201.2 lbs (HIGH) BSA - 2.09 sq.m BMI - 28.87 Temperature - 99.0 F (HIGH) Pulse - 72 /min Respiration - 22 /min BP - 111/74 mm(hg) O2 Sat - 98 % Pain - 5,2 - Ambulatory/capable of all self-care, unable to perform any work activities. Up and about more than 50% of waking hours. (ECOG) Physical Examination: Constitutional Alert, oriented, no acute distress. Skin pink, warm and dry. Head Normocephalic; atraumatic. Eyes Conjunctivae and sclerae are clear and without icterus. Pupils are reactive and equal. ENMT No oral exudates, ulcers, masses, thrush or mucositis. Oropharynx clear. Tongue normal. Neck Supple without masses or thyromegaly. No jugular venous distension. Hematologic/Lymphatic No petechiae or purpura. No tender or palpable lymph nodes in the cervical or supraclavicular areas. Respiratory Lungs are clear to auscultation without rhonchi or wheezing. Cardiovascular Regular rate and rhythm of heart without murmurs,clicks, gallops or rubs. Abdomen Non-tender, non-distended, no masses or ascites. Good bowel sounds noted in all quads. No guarding or rebound tenderness. No pulsatile masses. Back/Spine Non-tender to palpation. Extremities No visible deformities, no cyanosis, clubbing or edema. Integumentary No rashes or lesions. Neurologic No sensory or motor deficits, normal cerebellar function on observation today. Psychiatric Alert and oriented times three. Coherent speech. Verbalizes understanding of our discussions today. Laboratory:Test performed on Jan 09, 2020 10:58 Sodium 132 mmol/L Potassium 4.3 mmol/L Chloride 98 mmol/L CO2 25 mmol/L Anion Gap 13.3 BUN 13 mg/dL Creatinine 0.5 mg/dL Cr Clearance (Est) 186.5400 mL/min eGFR 168.5 mL/min Glucose 95 mg/dL Osmolality - Calculated 274 mOsm/kg Calcium 8.2 mg/dL Protein, Total 5.7 g/dL Albumin 2.8 g/dL Globulin 2.9 g/dL Bilirubin, Total 0.2 mg/dL ALT (SGPT) 70 U/L AST (SGOT) 37 U/L Alkaline Phosphatase 105 IU/L WBC 10.8 10 3/uL RBC 3.89 10 6/uL HGB 10.6 g/dL HCT 33.5 % MCV 86.1 fL MCH 27.2 pg MCHC 31.6 g/dL RDW 19.9 % Platelet Count 215 10 3/cmm MPV 8.8 fL Neutrophils 9.02 10 3/uL Lymphocytes 0.5 10 3/uL Monocytes 1.0 10 3/uL Eosinophils 0.0 10 3/uL Basophils 0.0 10 3/uL Neutrophil % 83.3 % Lymphocyte % 4.5 % Monocyte % 9.5 % Eosinophil % 0.0 % Basophils % 0.2 % NRBC % 0 % Test performed on Jan 02, 2020 08:10 Manual Segs % 71 % Manual Bands % 6.0 % Manual Lymphs % 6 % Atypical Lymphs % 0.0 % Total Cells Counted 100 Manual Monos % 11.0 % Manual Eos % 0 % Manual Basos % 0.0 % Metamyelocytes % 2.0 % Myelocytes % 4.0 % CBC Slide Review Slide Review Perform Polychromasia Trace Poikilocytosis 1+ Platelet Estimate Increased Manual Segs Abs 14.0 10/cmm Manual Bands Abs 1.2 10 3/cmm Manual Neutrophils Abs 15.2 10 3/cmm Manual Monocytes Abs 2.2 10 3/cmm Manual Eosinophils Abs 0.0 10 3/cmm Manual Basophils Abs 0.0 10 3/cmm Test performed on Dec 11, 2019 13:05 Magnesium 1.8 mg/dL Impression: Moderately differentiated squamous cell carcinoma or endobronchial biopsy right middle lobe of lung and FNA of station 7, and station 10 R showed metastatic squamous cell carcinoma immunohistochemistry showed tumor was positive for AE1/AE3, and P 40, negative for TTF-1 e.g. consistent with squamous cell carcinoma CT of abdomen pelvis done for possible right kidney mass in [facility] in [facility] done on September 13, 2019 showed right upper pole renal mass size 3.8 cm with multiple para-aortic lymph nodes and multiple lung masses measuring up to 1.2 cm size and an area of consolidation in the right middle lobe MRI scan of spine findings which showed no obvious evidence of metastatic disease to spine except 8 mm lesion in L5 and significant disc protrusion at L5-S1 contacting right nerve root. History of chronic headache due to migraine History of chronic back pain due to back injury due to fall for more than 10 years ago History of chronic smoking more than 50 years, still active Initially, plan was to start him on immunotherapy with necitumumab/cisplatin/gemcitabine based on SQUIRE trial, which was the first and only randomized phase 3 study conducted especially in a patient with metastatic squamous cell non-small cell lung cancer and it showed statistically significant improvement in overall survival and disease-free survival when compared with gemcitabine/cisplatin alone, specifically in the first-line setting. But his insurance refused to cover immunotherapy citing NCCN guidelines. Dr Reyes discussed with Mr Jarrett and his , as insurance is refusing the recommended treatment regimen, the next plan would be to pursue weekly cisplatin/gemcitabine but because of pain in the right leg and inability to move fast to the restroom during hydration and diuresis required during cisplatin infusion (he is also refusing Flores catheter). Dr Reyes recommended to treat with carboplatin instead of cisplatin along with gemcitabine. Mr Jarrett's treatment dosing plan is carboplatin AUC 2 with gemcitabine 1000 mg/m??? day 1 and 8 and repeat every 21 days. Mr Jarrett had a right internal jugular vein PowerPort placement on November 15, [address] Prakash. He began his first cycle of Carboplatin/gemcitabine on 12/11/2019. MRI of the brain with and without contrast from 12/19/2019 reports several metastatic enhancing lesions. The largest involves the left medial cerebellum with extension into the superior tentorium. This mass measures 22 x 22 x 22 mm with mild mass-effect and encroachment into the fourth ventricle. Posterior medulla metastatic lesion measuring 10 x 13 x 11 mm with mild mass-effect upon the fourth ventricle. Indeterminate but suspicious for 4 mm metastatic site involving the cortex of the posterior right parietal lobe and moderate to severe chronic microvascular ischemic disease. Mr. Vitale was referred to radiation oncology and completed Whole brain radiation to a total dose of 24 cGy started on 12/21/2019 and ended on 01/01/2020. He is here today to resume chemotherapy. Plan: 1. Proceed with cycle 2-day 1 carboplatin gemcitabine. 2. Dexamethasone 4 mg 3 times daily???start today. 3. Aggressive antiemetics and follow-up with antiemetics at home as needed. He has had a history of nausea vomiting which was most likely related to his brain mets but nonetheless he is at moderate risk with the carboplatin gemcitabine. 4. Labs from today were reviewed in detail and discussed with Mr. Jarrett and a copy was given to him. WBC 10.8, hemoglobin 10.6, platelets 215,000, ANC is 9000. Creatinine is 0.5 his ALT is improved at 70 AST is normal at 37 alk phos is 105 total bilirubin is 0.2. 5. He will return in 1 week for cycle 2-day 8 carboplatin gemcitabine. I have requested that he have a CBC CMP on day 7 closer to home so that he does not drive all the way here and not get treated. 6. We discussed prescribing the generic Chantix. I have asked for him to try to resume the chemotherapy first and less let him see how well he tolerates this as he is only had 1 treatment before the radiation. We will refill his lorazepam and his hydrocodone codon will be filled per Dr. Reyes's written prescription. 7. We also discussed having him try decrease his dexamethasone to 4 mg daily and hopefully we can stop it after next week. 8. Mr. Jarrett has been encouraged to contact us in the interim should questions or problems arise. Signed By: Eleanor Alejo MD <<Signature on File>>
== END 2020-01-15 09:31 | disposition home or self-care (01) ==
LOC: ONCMED 09:30
PROVIDERS: Internal Medicine Hematology & Oncology; Absent Provider Radiology Radiation Oncology; Visit Provider Nurse Practitioner
DX: Z51.0 Encounter for antineoplastic radiation therapy (principal); Z51.11 Encounter for antineoplastic chemotherapy; C79.31 Secondary malignant neoplasm of brain; C34.2 Malignant neoplasm of middle lobe, bronchus or lung; C79.01 Secondary malignant neoplasm of right kidney and renal pelvis; C77.8 Secondary and unspecified malignant neoplasm of lymph nodes of multiple regions; J44.9 Chronic obstructive pulmonary disease, unspecified; M79.89 Other specified soft tissue disorders; F17.210 Nicotine dependence, cigarettes, uncomplicated; I10 Essential (primary) hypertension; G89.29 Other chronic pain; W19.XXXS Unspecified fall, sequela; Z79.52 Long term (current) use of systemic steroids; Z79.899 Other long term (current) drug therapy
CPT/HCPCS: 36591; 77336; 77387; 77412; 80053; 85007; 85025; 96367; 96413; 96417; 99215; J1100; J1453; J2469; J3490; J7050; J9045; J9201

== ENCOUNTER 2020-01-29 11:00 | Outpatient (RCR) | payer MEDICAID, SELFPAY ==
--- NOTE | 2020-01-15 08:26 | NM_ITS ---
WS: [id number] NUCLEAR MEDICINE WHOLE BODY BONE SCAN HISTORY: METASTATIC LUNG CANCER W/WORSENING BACK PAIN COMPARISON: None available. TECHNIQUE: The patient was injected with 25.2 mCi of Technetium 99m HDP and serial whole-body scintig christy have been performed with anterior and posterior images. There is no focal uptake within the bony skeleton to suggest metastatic disease. Normal soft tissue u ptake other than the RIGHT kidney. There is marked increased retention of the radionuclide in the RIG HT kidney with poor excretion. Most consistent with right-sided hydronephrosis. There is an abnormal contour of the upper pole consistent with prior history of renal cell carcinoma. NM/NM bone scan whole body* [id number] IMPRESSION: 1. No evidence for bony metastatic disease. 2. Retained radionuclide in the RIGHT renal pelvis and abnormal contour. Findi ngs are most consistent with a history of RIGHT renal cell neoplasm and likely hydronephrosis.
[2020-01-16 12:04] LABS: Basophils % 0.7 %; Eosinophils % 0.4 %; Hemoglobin 9.6 g/dL (11.7-16.6); Lymphocytes # 0.5 10^3/uL (0.8-4.8); Lymphocytes % 19.1 %; Mean Corpuscular Hemoglobin 27.4 pg (28.0-34.0); Mean Corpuscular Volume 85.5 fL (80-94); Mean Platelet Volume 8.8 fL (7.4-10.4); Neutrophils # 2.08 10^3/uL (1.8-7.7); Neutrophils % 75.1 %; Nucleated Red Blood Cells % 0 %; Platelet Count 57 10^3/cmm (130-400); Red Blood Count 3.51 10^6/uL (4.1-5.3); Red Cell Distribution Width 18.2 % (12.1-15.1); White Blood Count 2.8 10^3/uL (4.0-10.0)
[2020-01-16 12:24] LABS: Alanine Aminotransferase 153 U/L (0-41); Albumin Level 2.9 g/dL (3.5-5.2); Alkaline Phosphatase 123 IU/L (40-130); Anion Gap 14.5 (5-19); Aspartate Amino Transferase 59 U/L (0-40); Blood Urea Nitrogen 18 mg/dL (8-23); Calcium 8.2 mg/dL (8.5-10.5); Carbon Dioxide 26 mmol/L (22-29); Chloride 96 mmol/L (98-107); Globulin 2.3 g/dL (1.3-4.6); Glomerular Filtration Rate 168.5 mL/min (90-130); Glucose 101 mg/dL (65-115); Osmolality Calculated 278 mOsm/kg (285-295); Potassium 3.5 mmol/L (3.5-5.1); Sodium 133 mmol/L (136-145); Total Bilirubin 0.4 mg/dL (0.15-1.2); Total Protein 5.2 g/dL (6.6-8.7)
[2020-01-16 12:28] LABS: Slide Review Slide Review Perform
--- NOTE | 2020-01-22 21:14 | ONC FU_ITS ---
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 Jarrett is a 64-year-old gentleman with a history of chronic lower back pain due to back injury due to fall over 10 years ago. He recently developed new back pain radiating to his umbilicus area. He saw his PMD in July [address] of the abdomen pelvis at [facility] on September 13, 2019 which reported multiple lung masses up to 1.2 cm in size. There was an area of consolidation in the right middle lobe which is incompletely visualized on the limited CT of the chest. There was an indeterminate mass in the right upper pole of the kidney measuring 3.8 cm in transverse diameter multiple para-aortic nodes were seen as well. Chest x-ray from 09/26/2019 reported a large mass in the right middle lobe extending into the pleura from the right hilum. Mr. Jarrett was referred to pulmonology, Dr Flores, and underwent bronchoscopy on December 11, 2019. The final pathology report confirmed the biopsy from right middle lobe showed squamous cell carcinoma, moderately differentiated. FNA from 10 R station showed metastatic squamous cell carcinoma also from station 7, PDL 1 status is pending. As the CT abdomen and pelvis from 10/05/2019 ([facility]) reported a 6 cm x 8 cm right renal mass with regional lymphadenopathy. Mr Jarrett was referred to Dr. Ag for evaluation for possible second malignancy. Mr Jarrett underwent right kidney CT-guided needle biopsy on November 23, 2019. The final pathology poorly came back predominantly necrotic poorly differentiated carcinoma consistent with metastatic pulmonary squamous cell carcinoma with that metastatic disease to the right kidney was confirmed. MRI scan of thoracic spine done on December 11, 2019 showed no obvious sign of metastatic disease to thoracic vertebral body; no cord compression, paratracheal or retrocrural and hilar lymphadenopathy. Numerous bilateral pulmonary nodules. MRI scan of lumbar spine from 12/11/2019 reported moderate sized right paracentral disc protrusion at L5-S1 contacting the right S1 nerve root. Moderate right foraminal narrowing due to disc osteophytes disease. Possible 8 mm metastatic site L5 vertebral body. Abnormal appearance to right kidney suspect renal mass. Enlargement of pancreatic head with soft tissue extension posterior to the aorta the left retroperitoneum. Pancreatic head mass or adenopathy. 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 Jarrett was referred to Dr. Reyes for consideration of palliative chemotherapy. The initial recommendation was to start him on immunotherapy along with cisplatin gemcitabine based on the SQUIRE trial, but his insurance refused to cover immunotherapy citing NCCN guidelines. His treatment plan was then altered to carboplatin gemcitabine rather than cisplatin gemcitabine because he has chronic pain in his right leg and inability to maneuver quickly to the restroom during aggressive hydration/diuresis as required during cisplatin infusions. He also refused a Flores catheter. Mr. Jarrett began his first cycle of chemotherapy on December 12, 2019. MRI of the brain with and without contrast from 12/19/2019 reports several metastatic enhancing lesions. The largest involves the left medial cerebellum with extension into the superior tentorium. This mass measures 22 x 22 x 22 mm with mild mass-effect and encroachment into the fourth ventricle. Posterior medulla metastatic lesion measuring 10 x 13 x 11 mm with mild mass-effect upon the fourth ventricle. Indeterminate but suspicious for 4 mm metastatic site involving the cortex of the posterior right parietal lobe and moderate to severe chronic microvascular ischemic disease. Mr. Jarrett was referred to radiation oncology. Mr Jarrett is here today for followup. He is due for chemotherapy today with carboplatin gemcitabine. His first dose was given on December 12, 2019. He was unable to proceed with cycle 1 day 8 due to neutropenia. His ANC on day 1 was 6400 and on day 8 it was 1400. On 12/19/2019, he was found to have metastatic lesion in the brain. His chemotherapy was placed on hold and he was referred to radiation oncology. He was placed on dexamethasone 4 mg 3 times daily and was gradually increased to 4 times daily. He completed his radiation therapy on 01/01/2020. He was able to resume his chemotherapy with carboplatin gemcitabine on January 09, 2020. Mr. Jarrett is here today for follow-up. He is due for cycle 2-day 8 Carboplatin/gemcitabine. He states overall he is feeling pretty good. His nausea is much better. He states he did not have any nausea after his last treatment. He denies any fever or chills. He states his appetite is fair. His energy is relatively good for him. He denies any new concerns. He denies any pain. He has had some lower extremity edema off and on the he states it comes and goes . He has had no orthopnea. He denies any worsening dyspnea states that he has it occasionally but it has not been a problem so he has not really pushed the exertion issue but has not noticed shortness of breath with just minimal activity. He denies any diarrhea or constipation. He states his bladder is normal for him. He denies any neuropathy symptoms. He denies headaches. His ECOG is 2. Past Medical History: Blindness Chronic obstructive pulmonary disease Hypertension Past Surgical History: Kidney biopsy Porthacatheter placment (dr. davey) Allergies: Penicillins and traMADol HCl. Medications: Albuterol Sulfate 1 ((2.5 mg/3ml) 0.083%) Nebulization solution Inhalation b.i.d. Albuterol Sulfate 1 Puff(s) (of 108 (90 base) mcg/act) Aerosol Powder, Breath Activated Inhalation PRN hydroCHLOROthiazide 1 Tablet (of 25 mg) Oral daily HYDROcodone-Acetaminophen 1 - 2 Tablet (of 5-325 mg) Oral q 6 hours PRN HYDROcodone-Acetaminophen 1 - 2 Tablet (of 5-325 mg) Oral q 4 to 6 hours PRN Lisinopril 1 Tablet (of 20 mg) Oral daily Family History: Mr. Jarrett's mother is alive. Mr. Jarrett's father at age 77: heart attack. Mr. Jarrett has 1 sister who is : liver cancer. Social History: Mr. Jarrett is and he is an unknown. He is an occasional smoker who has smoked 1.0 pack/day for 50 years. He has no history of drinking. Is now smoking 1/2 pack per day also used chewing tobacco until 09/22/19. Review Of Symptoms: Constitutional Denies fevers, chills, night sweats. No acute distress. Allergic/Immunologic No reactions. Eyes Denies significant visual changes. No diplopia. No amaurosis. Legally blind. ENMT Denies changes in hearing, sore throat, mouth sores, difficulty or changes in swallowing ability, and/or sinus drainage. Hematologic/Lymphatic Denies easy bruising or bleeding. The patient denies any tender or palpable lymph nodes. Respiratory Denies dyspnea on exertion, chest pain, cough or hemoptysis. Denies orthopnea. Cardiovascular Denies anginal chest pain, palpitations or orthopnea. He has had intermittent lower extremity edema bilaterally. It comes and goes . Gastrointestinal Denies vomiting, diarrhea, GI bleeding, or constipation. Denies change in bowel habits and/or stool color, no heartburn or early satiety. He has had improvement in his persistent nausea. He denies emesis. Genitourinary (M) Denies hematuria, dysuria, increased frequency, urgency, hesitancy or incontinence. Musculoskeletal Denies joint pain, swelling or redness. No decreased range of motion. Integumentary Denies chronic rashes, inflammation, ulcerations or skin changes. Neurologic He states he has had no new headaches and denies any TIA symptoms. Psychiatric Denies insomnia, depression, sharon or mood swings. Vital Signs: Performed on Jan 16, 2020 12:40 Height - 70.00 in Weight - 205.6 lbs (HIGH) BSA - 2.11 sq.m BMI - 29.50 Temperature - 97.8 F (LOW) Pulse - 72 /min Respiration - 20 /min BP - 96/65 mm(hg) O2 Sat - 98 % Pain - 0,2 - Ambulatory/capable of all self-care, unable to perform any work activities. Up and about more than 50% of waking hours. (ECOG) Physical Examination: Constitutional Alert, oriented, no acute distress. Skin pink, warm and dry. Head Normocephalic; atraumatic. Eyes Conjunctivae and sclerae are clear and without icterus. Pupils are reactive and equal. Neck Supple without masses or thyromegaly. No jugular venous distension. Hematologic/Lymphatic No petechiae or purpura. No tender or palpable lymph nodes in the cervical or supraclavicular areas. Respiratory Lungs are clear to auscultation without rhonchi or wheezing. Cardiovascular Regular rate and rhythm of heart without murmurs,clicks, gallops or rubs. Abdomen Non-tender, non-distended, no masses or ascites. Good bowel sounds noted in all quads. No guarding or rebound tenderness. No pulsatile masses. Back/Spine Non-tender to palpation. Extremities No visible deformities, no cyanosis, clubbing. He does have 1+ bilaterally lower extremity edema-non pitting at present. Integumentary No rashes or lesions. Neurologic No sensory or motor deficits, normal cerebellar function on observation today. Psychiatric Alert and oriented times three. Coherent speech. Verbalizes understanding of our discussions today. Laboratory:Test performed on Jan 16, 2020 11:35 Sodium 133 mmol/L Potassium 3.5 mmol/L Chloride 96 mmol/L CO2 26 mmol/L Anion Gap 14.5 BUN 18 mg/dL Creatinine 0.5 mg/dL Cr Clearance (Est) 186.5400 mL/min eGFR 168.5 mL/min Glucose 101 mg/dL Osmolality - Calculated 278 mOsm/kg Calcium 8.2 mg/dL Protein, Total 5.2 g/dL Albumin 2.9 g/dL Globulin 2.3 g/dL Bilirubin, Total 0.4 mg/dL ALT (SGPT) 153 U/L AST (SGOT) 59 U/L Alkaline Phosphatase 123 IU/L WBC 2.8 10 3/uL RBC 3.51 10 6/uL HGB 9.6 g/dL HCT 30.0 % MCV 85.5 fL MCH 27.4 pg MCHC 32.0 g/dL RDW 18.2 % Platelet Count 57 10 3/cmm MPV 8.8 fL Neutrophils 2.08 10 3/uL Lymphocytes 0.5 10 3/uL Monocytes 0.0 10 3/uL Eosinophils 0.0 10 3/uL Basophils 0.0 10 3/uL Neutrophil % 75.1 % Lymphocyte % 19.1 % Monocyte % 0.0 % Eosinophil % 0.4 % Basophils % 0.7 % NRBC % 0 % CBC Slide Review Slide Review Perform SLIDE REVIEW AGREES WITH AUTOMATED RESULTS Impression: Moderately differentiated squamous cell carcinoma or endobronchial biopsy right middle lobe of lung and FNA of station 7, and station 10 R showed metastatic squamous cell carcinoma immunohistochemistry showed tumor was positive for AE1/AE3, and P 40, negative for TTF-1 e.g. consistent with squamous cell carcinoma CT of abdomen pelvis done for possible right kidney mass in [facility] in [facility] done on September 13, 2019 showed right upper pole renal mass size 3.8 cm with multiple para-aortic lymph nodes and multiple lung masses measuring up to 1.2 cm size and an area of consolidation in the right middle lobe MRI scan of spine findings which showed no obvious evidence of metastatic disease to spine except 8 mm lesion in L5 and significant disc protrusion at L5-S1 contacting right nerve root. History of chronic headache due to migraine History of chronic back pain due to back injury due to fall for more than 10 years ago History of chronic smoking more than 50 years, still active Initially, plan was to start him on immunotherapy with necitumumab/cisplatin/gemcitabine based on SQUIRE trial, which was the first and only randomized phase 3 study conducted especially in a patient with metastatic squamous cell non-small cell lung cancer and it showed statistically significant improvement in overall survival and disease-free survival when compared with gemcitabine/cisplatin alone, specifically in the first-line setting. But his insurance refused to cover immunotherapy citing NCCN guidelines. Dr Reyes discussed with Mr Jarrett and his , as insurance is refusing the recommended treatment regimen, the next plan would be to pursue weekly cisplatin/gemcitabine but because of pain in the right leg and inability to move fast to the restroom during hydration and diuresis required during cisplatin infusion (he is also refusing Flores catheter). Dr Reyes recommended to treat with carboplatin instead of cisplatin along with gemcitabine. Mr Jarrett's treatment dosing plan is carboplatin AUC 2 with gemcitabine 1000 mg/m??? day 1 and 8 and repeat every 21 days. Mr Jarrett had a right internal jugular vein PowerPort placement on November 15, [address] Praaksh. He began his first cycle of Carboplatin/gemcitabine on 12/11/2019. MRI of the brain with and without contrast from 12/19/2019 reports several metastatic enhancing lesions. The largest involves the left medial cerebellum with extension into the superior tentorium. This mass measures 22 x 22 x 22 mm with mild mass-effect and encroachment into the fourth ventricle. Posterior medulla metastatic lesion measuring 10 x 13 x 11 mm with mild mass-effect upon the fourth ventricle. Indeterminate but suspicious for 4 mm metastatic site involving the cortex of the posterior right parietal lobe and moderate to severe chronic microvascular ischemic disease. Mr. Vitale was referred to radiation oncology and completed Whole brain radiation to a total dose of 24 cGy started on 12/21/2019 and ended on 01/01/2020. He was able to resume chemotherapy on 01/09/2020. Plan: 1. We will hold his planned day 8 chemotherapy due to a platelet count of 57,000. His white count dropped from 10.8 last week to 2.8 this week. His neutrophils were 9000 on day 1 and day 8-day or 1999. 2. Today's labs were reviewed in detail and discussed with Mr. Jarrett and a copy was given to him. His CBC as above. Potassium was 3.5 random glucose was 101 creatinine 0.5 his ALT was 153 AST is 59 and alk phos was 123. This is presumably due to the chemotherapy. He did not get growth factors last week. 3. We did review his medications and he was advised to get do Lasix 40 mg once daily along with potassium 10 mEq daily but will need to monitor his blood counts and CBC weekly. He is advised if he is not having edema to not take the Lasix or potassium. 4. We did review his bone scan from 01/15/2020. There was no evidence of bony metastatic disease. There was retained radionucleotide in the right renal pelvis and abnormal contour findings are most consistent with a history of right renal cell neoplasm and likely hydronephrosis . 5. We will set him up for ultrasound of the liver to be obtained within the next 2 weeks. It would be ideal if we could set it up between his lab draw and his follow-up appointment with Dr. Reyes in 2 weeks. I have asked for him to have a CBC CMP at that time as well. 6. Mr. Jarrett was instructed to contact us in the interim should questions or problems arise. Signed By: Eleanor Alejo-, AOCNP Titi Reyes MD <<Signature on File>>
[2020-01-29 15:40] LABS: Hemoglobin 10.1 g/dL (11.7-16.6); Mean Corpuscular HGB Conc 31.6 g/dL (30.0-36.0); Mean Corpuscular Hemoglobin 27.5 pg (28.0-34.0); Mean Corpuscular Volume 87.2 fL (80-94); Mean Platelet Volume 9.5 fL (7.4-10.4); Platelet Count 500 10^3/cmm (130-400); Positive C 1; Positive M 1; Red Blood Count 3.67 10^6/uL (4.1-5.3); Red Cell Distribution Width 19.9 % (12.1-15.1); White Blood Count 12.3 10^3/uL (4.0-10.0)
[2020-01-29 16:20] LABS: Alanine Aminotransferase 59 U/L (0-41); Albumin Level 3.1 g/dL (3.5-5.2); Alkaline Phosphatase 126 IU/L (40-130); Aspartate Amino Transferase 34 U/L (0-40); Blood Urea Nitrogen 23 mg/dL (8-23); Calcium 8.8 mg/dL (8.5-10.5); Carbon Dioxide 26 mmol/L (22-29); Chloride 94 mmol/L (98-107); Globulin 2.8 g/dL (1.3-4.6); Glomerular Filtration Rate 114.3 mL/min (90-130); Glucose 65 mg/dL (65-115); Osmolality Calculated 280 mOsm/kg (285-295); Sodium 134 mmol/L (136-145); Total Bilirubin 0.3 mg/dL (0.15-1.2); Total Protein 5.9 g/dL (6.6-8.7)
[2020-01-29 16:42] LABS: Slide Review Slide Review Perform
[2020-01-29 16:45] LABS: Absolute Segmented Neutrophil 7.7 10/cmm (1.6-7.1); Band Neutrophils Absolute 1.2 10^3/cmm (0.0-1.2); Eosinophils 0 %; Lymphocytes 7 %; Monocytes Absolute 0.7 10^3/cmm (0.1-0.6); Segmented Neutrophils 63 %; Total Cells Counted 100 (0-100)
[2020-01-29 16:46] LABS: Anisocytosis 1+; Ovalocytes 1+; Platelet Estimate Increased (Normal); Poikilocytosis 1+; Smudge Cells 1+
== END 2020-01-29 23:59 | disposition home or self-care (01) ==
LOC: ONCMED 11:00
PROVIDERS: Visit Provider Nurse Practitioner
DX: C34.2 Malignant neoplasm of middle lobe, bronchus or lung (principal); C79.01 Secondary malignant neoplasm of right kidney and renal pelvis; C79.31 Secondary malignant neoplasm of brain; D69.59 Other secondary thrombocytopenia; F17.210 Nicotine dependence, cigarettes, uncomplicated; Z79.899 Other long term (current) drug therapy
CPT/HCPCS: 36591; 78306; 80053; 85007; 85025; 99214; A9561

== ENCOUNTER 2020-01-29 11:01 | Outpatient (CLI) | payer MEDICAID, SELFPAY ==
--- NOTE | 2020-01-29 11:07 | US_ITS ---
WS: [id number] ULTRASOUND ABDOMEN LIMITED CLINICAL INFORMATION: LUNG CA/KIDNEY-RENAL METS COMPARISON: CT October 05, 2019 FINDINGS: Liver Size: Enlarged Craniocaudal length: 21.2 cm. Echogenicity: Normal. Surface nodularity: None. Mass (size and location): None. Bile ducts Intrahepatic ducts: Normal. Common bile duct diameter: 0.5 cm. Gallbladder Cholelithiasis Gallstones: Present Gallbladder sludge: None. Gallbladder wall thickening: None. Pericholecystic fluid: None. Sonographic Navas sign: Absent. Pancreas Normal as visualized. Right kidney: Lobulated right renal neoplasm better evaluated on the prior CT. Best visualized lobula tess portion measures 6.5 x 4.7 x 5.4 cm Hydronephrosis: None. Size: 10.1 cm x 6.9 cm x 4.3 cm. Abdominal aorta and IVC Visualized portions are normal. Ascites: None. US/US gall bladder [id number] IMPRESSION: 1. Hepatomegaly. 2. Cholelithiasis. No gallbladder wall thickening. Normal common bile duct. 3. Lobulated right renal neoplasm better evaluated on the prior CT. Best visua lized lobulated mass measures 6.5 x 4.7 x 5.4 cm. No significant hydronephrosis . This can be further evaluated with CT for more complete evaluation if indicat ed
== END 2020-01-29 11:02 | disposition home or self-care (01) ==
PROVIDERS: Visit Provider Nurse Practitioner
DX: C34.2 Malignant neoplasm of middle lobe, bronchus or lung (principal); R16.0 Hepatomegaly, not elsewhere classified; K80.20 Calculus of gallbladder without cholecystitis without obstruction; N28.89 Other specified disorders of kidney and ureter
CPT/HCPCS: 76705

== ENCOUNTER 2020-02-11 22:08 | Emergency (ER) | payer MEDICAID, SELFPAY ==
[2020-02-11 22:12] VITALS: BP 93/58; PULSE 85; RESP 19; TEMP 36.6; O2SAT 98; BMI 28.1
--- NOTE | 2020-02-11 22:17 | CTR_ITS ---
PROCEDURE INFORMATION: Exam: CT Head Without Contrast Exam date and time: 02/11/2020 10:19 PM Age: 64 years old Clinical indication: Injury or trauma; Blunt trauma (contusions or hematomas); Without loss of consciousness; Patient HX: 2x fall trying to get out of shower denies loc HX of lung CA; Additional info: Fall and hit head in bathtub TECHNIQUE: Imaging protocol: Computed tomography of the head without contrast. Radiation optimization: All CT scans at this facility use at least one of these dose optimization techniques: automated exposure control; mA and/or kV adjustment per patient size (includes targeted exams where dose is matched to clinical indication); or iterative reconstruction. COMPARISON: MR head wo/w con [id number] 12/19/2019 10:34 AM RADIATION DOSE METRICS: Total DLP (mGy-cm): 752.56 FINDINGS: Brain: Moderate diffuse white matter disease consistent with chronic microvascular ischemic changes. Subtle 10 mm density seen in the region of the previously described left cerebellar hemisphere mass on MRI, likely reflecting residual malignancy or perhaps post treatment changes, lack of intravenous contrast limits evaluation. Mass previously seen in the medulla not appreciated on this exam perhaps due to lack contrast. Cerebral ventricles: No ventriculomegaly. Bones/joints: Unremarkable. No acute fracture. Paranasal sinuses: Visualized sinuses are unremarkable. No fluid levels. Mastoid air cells: Visualized mastoid air cells are well aerated. Soft tissues: Unremarkable. CT/CT head wo con* [id number] IMPRESSION: 1. Negative for intracranial hemorrhage. 2. Moderate diffuse white matter disease consistent with chronic microvascular ischemic changes. 3. Subtle 10 mm density seen in the region of the previously described left cerebellar hemisphere mass on MRI, likely reflecting residual malignancy or perhaps post treatment changes, lack of intravenous contrast limits evaluation. 4. Mass previously seen in the medulla not appreciated on this exam perhaps due to lack contrast. Radiation Dose CTDIVOL = (mGy): DLP = 752.56 (mGy-cm)
--- NOTE | 2020-02-11 22:23 | ED_ITS ---
HPI - Fall General: Chief Complaint: Fall Stated Complaint: Fell in tub x2/hit back of head Time Seen by Provider: 02/11/20 22:18 History of Present Illness: HPI Narrative: Patient is a 64-year-old male who comes to the ED after having a fall and hitting his head. Patient has past medical history of metastatic lung cancer and is currently being treated. Fall occurred yesterday while he was try to get out of the shower. While climbing out of shower patient tripped fell back and hit his head on the tub. Associate Software Developer was present with patient and he had no loss of consciousness. He says the only symptoms he has now since the fall are headache, nausea and a sore spot on the back of his head where he hit the tub. Denies any dizziness, vision changes, weakness or numbness to face or extremities. pinion staker with patient says that she does not notice any mental status changes of patient and he appears to be acting normally. Associated symptoms-after fall: Reports headache(s); Denies abdominal pain, chest pain, hematuria or neck pain Review of Systems Const: Denies: fever(s), chills or fatigue Eyes: Denies: change in vision or eye discomfort ENMT: Denies: throat pain, odynophagia, nasal discharge or nasal congestion Card: Denies: chest pain, palpitations, edema, swelling of feet/ankles, dyspnea on exertion or orthopnea Resp: Denies: dyspnea, productive cough or non-productive cough GI: Reports: nausea; Denies: abdominal pain, vomiting, diarrhea, constipation or hematochezia : Denies: flank pain, difficulty urinating, dysuria or hematuria Musc: Denies: neck pain, back pain or extremity swelling Skin/Breast: Denies: rash or new lesions Neuro: Reports: headache(s); Denies: numbness in extremities or weakness in extremities PFSH ED PFSH: Family History Father CAD (coronary artery disease) Clotting disorder Sister Cancer liver cancer Denies family history of Anesthesia complication Bleeding disorder Social History Smoking and tobacco status: current some day smoker Alcohol intake: never Household members: spouse Marital status: Current occupational status: disabled History of recent travel: Yes Details: Mitesh to the doctor Out of state: No Physical Exam Const: COMMON NORMALS: no acute distress, patient oriented x3 and alert GENERAL APPEARANCE: cooperative and comfortable HENMT: COMMON NORMALS: normocephalic HEAD & SCALP: normocephalic MOUTH: Normal oral and palatal mucosa present THROAT: posterior oropharynx normal and uvula midline Eye: COMMON NORMALS: Equal, round and reactive pupils present and EOMs intact bilaterally PUPIL: Yes Equal, round and reactive pupils present Neck/C-Spine: COMMON NORMALS: supple GENERAL: Yes normal visual inspection Resp: COMMON NORMALS: normal respiratory effort, No retractions, No use of accessory muscles and clear to auscultation bilaterally AUSCULTATION: clear to auscultation bilaterally Cardio: COMMON NORMALS: regular rate, regular rhythm, S1 normal heart sound present, S2 normal heart sound present, No gallops present (Cardio), No clicks present (Cardio), No murmurs present (Cardio) and Peripheral pulses 2+ throughout RATE: regular rate RHYTHM: regular rhythm HEART SOUNDS: S1 normal heart sound present and S2 normal heart sound present PERIPHERAL PULSES: Peripheral pulses 2+ throughout GI: COMMON NORMALS: Normal to inspection, nondistended, normoactive bowel sounds present, Soft to palpation, non-tender and no masses PALPATION: Yes Soft to palpation : COMMON NORMALS: Yes no CVA tenderness BLADDER/KIDNEY EXAM: Yes no CVA tenderness Back/Pelvis: COMMON NORMALS: no CVA tenderness Extremity: GENERAL: Yes edema (Bilateral 2+ pitting edema in feet and ankles.) Neuro: COMMON NORMALS: patient oriented x3, CN's II-XII intact bilaterally, moves all extremities, no focal motor deficits and no sensory deficits noted SENSORIUM/ORIENTATION: Yes alert SENSORY EXAM: Yes extremities (intact) Skin: GENERAL SKIN EXAM: dry skin Course Vital Signs: Vital signs: Vital Signs Temperature 97.8 F 02/11/20 22:12 Pulse Rate 86 02/11/20 23:43 Respiratory Rate 17 02/11/20 23:43 Blood Pressure 92/66 02/11/20 23:43 Pulse Oximetry 98 02/11/20 23:43 MDM - Fall MDM Narrative: Medical decision making narrative: Patient is a 64-year-old male who comes to the ED after having a fall in tub. Patient has a history of lung cancer and is currently undergoing chemo treatment. Fall occurred yesterday and he says he hit the back of his head. Denies loss of consciousness. Today he is had a headache and some nausea. Neuro exam normal CT of head showed no acute findings. CT of cervical spine showed no acute fractures. Patient was given some Toradol and a dose of Ativan for nausea. He was discharged and told to follow-up at his PCP and 5 to 7 days for reevaluation. Return to ED precautions given. Patient understood and agreed with plan. Imaging Data^: CT Head: Attestation: I personally reviewed and interpreted this imaging study as follows: Radiologist's impression: [facility] [address] [place] [address]. [place] [address] CT Scan Report Signed Patient: Phani Jarrett Unit #: [id number] : 1955 Age/Sex: 64 / M ADM Date: 02/11/20 Loc: ER Room/Bed: Attending Dr: Ordering Provider/Ordering MD: Cb Cuevas Date of Service: 02/11/20 Procedure(s): CT head wo con* [id number] Accession Number(s): [id number] Report Number: [id number] PROCEDURE INFORMATION: Exam: CT Head Without Contrast Exam date and time: 02/11/2020 10:19 PM Age: 64 years old Clinical indication: Injury or trauma; Blunt trauma (contusions or hematomas); Without loss of consciousness; Patient HX: 2x fall trying to get out of shower denies loc HX of lung CA; Additional info: Fall and hit head in bathtub TECHNIQUE: Imaging protocol: Computed tomography of the head without contrast. Radiation optimization: All CT scans at this facility use at least one of these dose optimization techniques: automated exposure control; mA and/or kV adjustment per patient size (includes targeted exams where dose is matched to clinical indication); or iterative reconstruction. COMPARISON: MR head wo/w con [id number] 12/19/2019 10:34 AM RADIATION DOSE METRICS: Total DLP (mGy-cm): 752.56 FINDINGS: Brain: Moderate diffuse white matter disease consistent with chronic microvascular ischemic changes. Subtle 10 mm density seen in the region of the previously described left cerebellar hemisphere mass on MRI, likely reflecting residual malignancy or perhaps post treatment changes, lack of intravenous contrast limits evaluation. Mass previously seen in the medulla not appreciated on this exam perhaps due to lack contrast. Cerebral ventricles: No ventriculomegaly. Bones/joints: Unremarkable. No acute fracture. Paranasal sinuses: Visualized sinuses are unremarkable. No fluid levels. Mastoid air cells: Visualized mastoid air cells are well aerated. Soft tissues: Unremarkable. CT/CT head wo con* [id number] IMPRESSION: 1. Negative for intracranial hemorrhage. 2. Moderate diffuse white matter disease consistent with chronic microvascular ischemic changes. 3. Subtle 10 mm density seen in the region of the previously described left cerebellar hemisphere mass on MRI, likely reflecting residual malignancy or perhaps post treatment changes, lack of intravenous contrast limits evaluation. 4. Mass previously seen in the medulla not appreciated on this exam perhaps due to lack contrast. Radiation Dose CTDIVOL = (mGy): DLP = 752.56 (mGy-cm) Dictated By: Brian Snyder MD Signed By: Brian Snyder MD Signed Date/Time: 02/11/202248 DD/ [address]: Attestation: I personally reviewed and interpreted this imaging study as follows: Radiologist's impression: [address] [address] [address] Scan Report Signed Patient: Phani Jarrett Unit #: [id number] : 1955 Age/Sex: 64 / M ADM Date: 02/11/20 Loc: ER Room/Bed: Attending Dr: Ordering Provider/Ordering MD: Lowell Gottlieb DO Date of Service: 02/11/20 Procedure(s): CT cervical spin wo con* [id number] Accession Number(s): [id number] Report Number: [id number] PROCEDURE INFORMATION: Exam: CT Cervical Spine Without Contrast Exam date and time: 02/11/2020 10:23 PM Age: 64 years old Clinical indication: Injury or trauma; Blunt trauma; Patient HX: 2x fall trying to get out of shower denies loc HX of lung CA TECHNIQUE: Imaging protocol: Computed tomography images of the cervical spine without contrast. Radiation optimization: All CT scans at this facility use at least one of these dose optimization techniques: automated exposure control; mA and/or kV adjustment per patient size (includes targeted exams where dose is matched to clinical indication); or iterative reconstruction. COMPARISON: MRI Neck/Face/Orbit w/wo [id number] 08/19/2016 3:42 PM RADIATION DOSE METRICS: Total DLP (mGy-cm): 681.98 FINDINGS: Vertebrae: No acute fracture. Normal alignment. C2-C3: No significant disc protrusion. No severe spinal canal stenosis. No significant neural foraminal narrowing. C3-C4: No significant disc protrusion. No severe spinal canal stenosis. No significant neural foraminal narrowing. C4-C5: No significant disc protrusion. No severe spinal canal stenosis. No significant neural foraminal narrowing. C5-C6: No significant disc protrusion. No severe spinal canal stenosis. No significant neural foraminal narrowing. C6-C7: No significant disc protrusion. No severe spinal canal stenosis. No significant neural foraminal narrowing. C7-T1: No significant disc protrusion. No severe spinal canal stenosis. No significant neural foraminal narrowing. Soft tissues: Unremarkable. Mastoid air cells: Left mastoid air cell partial opacification may reflect a chronic inflammatory process. Lymph nodes: Several enlarged lymph nodes seen in the soft tissues about the neck, with the largest in the left supraclavicular region measuring up to at least 18 mm likely reflecting metastatic disease. Lungs: Left upper lobe 6.3 mm nodule incompletely visualized may reflect metastatic disease. CT/CT cervical spin wo con* [id number] IMPRESSION: 1. Negative for fracture or dislocation. 2. Left mastoid air cell partial opacification may reflect a chronic inflammatory process. 3. Several enlarged lymph nodes seen in the soft tissues about the neck, with the largest in the left supraclavicular region measuring up to at least 18 mm likely reflecting metastatic disease. 4. Left upper lobe 6.3 mm nodule incompletely visualized may reflect metastatic disease, a chest CT could further evaluate this. Radiation Dose CTDIVOL = (mGy): DLP = 681.98 (mGy-cm) Dictated By: Brian Snyder MD Signed By: Brian Snyder MD Signed Date/Time: 2251 DD/ 49 Discharge Plan Discharge Patient Disposition: Home Clinical Impression: Acute posttraumatic headache Qualifiers: Intractability: not intractable Qualified Code(s): G44.319 - Acute post-traumat ic headache, not intractable Fall as cause of accidental injury at home as place of occurrence Qualifiers: Encounter type: initial encounter Qualified Code(s): W19.XXXA - Unspecified fall, initial encounter Condition: Stable Prescriptions: No Action albuterol sulfate 90 mcg/actuation HFA aerosol inhaler 2 puff INHALATION Q6H PRN (Reason: Shortness Of Breath) RF: 0 albuterol sulfate 2.5 mg /3 mL (0.083 %) solution for nebulization 2.5 mg INHALATION Q4H PRN (Reason: Shortness Of Breath) RF: 0 hydrochlorothiazide 25 mg tablet 25 mg PO DAILY RF: 0 hydrocodone-acetaminophen 5-325 mg tablet 1 tab PO Q6H PRN (Reason: Pain) RF: 0 metoclopramide HCl [Reglan] 10 mg tablet 10 mg PO Q6H PRN (Reason: Nausea) RF: 0 lisinopril 20 mg tablet 20 mg PO DAILY RF: 0 ondansetron HCl [Zofran] 4 mg tablet 4 mg PO Q8H RF: 0 Discharge Orders: Discharge ED (Routine); Ordered 02/11/20 Ordered By: Cb Cuevas Discharge Diet: Regular Discharge Activity: Resume usual activity Patient Instructions: Acute Headache (ED), Fall Prevention (ED) Activity Restrictions/Additional Instructions: Follow-up with medical provider as directed in 5 to 7 days for reevaluation. Continue taking all home medications as prescribed. Return to the ER or your medical provider if condition worsens. Please read and understand discharge instructions. If any questions, please ask. Coding Level of Care Code ED Concrete Boom Operator for Heather Fwkitty Exam Comprehensive
[2020-02-11] MEDS: LORazepam 1 mg Tablet PO (23:20)
[2020-02-11] MEDS: ketorolac 30 mg/mL INJ 60 MG IM (23:21)
[2020-02-11 23:43] VITALS: BP 92/66; PULSE 86; RESP 17; O2SAT 98
== END 2020-02-11 23:43 | disposition home or self-care (01) ==
PROVIDERS: Emergency Provider Physician Assistant
DX: G44.319 Acute post-traumatic headache, not intractable (principal); W01.198A Fall on same level from slipping, tripping and stumbling with subsequent striking against other object, initial encounter; F17.210 Nicotine dependence, cigarettes, uncomplicated
CPT/HCPCS: 12345; 70450; 72125; 96372; 99281; 99283; J1885

== ENCOUNTER 2020-02-12 09:55 | Outpatient (RCR) | payer MEDICAID, SELFPAY ==
[2020-01-30] MEDS: famotidine 20 mg/2 mL INJ IVP (11:48)
[2020-01-30] MEDS: sodium chloride 0.9% 250 ML 75 ML IV (11:48)
[2020-01-30] MEDS: palonosetron 0.25 mg/5 mL SDV IV (12:10)
--- NOTE | 2020-02-02 10:27 | ONCRAD EPV_ITS ---
Radiation Oncology Established Patient Note Patient: Phani Jarrett MR#: [id number] : 1955 Attending Physician: Thaddeus Sánchez M.D. Date of Service: 02/02/2020 Phani Jarrett returned to my office this morning for a routinely scheduled follow-up appointment. He completed cranial radiotherapy in December for the management of his non-small cell lung cancer. With brain metastases. Radiotherapy was administered between the dates of December 21, 2019 through January 03, 2020. A prescribed dose of 30 Gy was delivered in 10 fractions over 13 elapsed days. On review of systems, the patient denied any neurological symptoms related to radiotherapy. On physical examination, the patient weighed 195 lbs. The temperature is 97.6???F and his blood pressure was 97/65 mmHg. The pulse was 77 bpm and the respiratory rate was 20 breaths per minute. Alopecia present with cranial nerves intact. In summary, the patient returned for a routine post-radiotherapy follow-up. He will continue follow-up with Stephanie Reyes M.D. and his chemotherapy infusion planned. Signed by: Dr. Thaddeus Sánchez 02/02/2020 10:25:53 AM
[2020-02-05 15:29] LABS: Basophils # 0.1 10^3/uL (0.0-0.1); Basophils % 1.3 %; Hematocrit 28.1 % (42.0-52.0); Hemoglobin 9.2 g/dL (11.7-16.6); Lymphocytes # 0.3 10^3/uL (0.8-4.8); Lymphocytes % 6.4 %; Mean Corpuscular HGB Conc 32.7 g/dL (30.0-36.0); Mean Corpuscular Hemoglobin 27.7 pg (28.0-34.0); Mean Corpuscular Volume 84.6 fL (80-94); Mean Platelet Volume 9.8 fL (7.4-10.4); Monocytes % 0.3 %; Neutrophils # 3.36 10^3/uL (1.8-7.7); Neutrophils % 85.4 %; Nucleated Red Blood Cells % 0 %; Platelet Count 262 10^3/cmm (130-400); Red Blood Count 3.32 10^6/uL (4.1-5.3); Red Cell Distribution Width 18.5 % (12.1-15.1); White Blood Count 3.9 10^3/uL (4.0-10.0)
[2020-02-05 15:54] LABS: Alanine Aminotransferase 69 U/L (0-41); Albumin Level 2.8 g/dL (3.5-5.2); Alkaline Phosphatase 138 IU/L (40-130); Anion Gap 16.7 (5-19); Aspartate Amino Transferase 36 U/L (0-40); Blood Urea Nitrogen 36 mg/dL (8-23); Calcium 8.5 mg/dL (8.5-10.5); Carbon Dioxide 27 mmol/L (22-29); Chloride 92 mmol/L (98-107); Globulin 2.8 g/dL (1.3-4.6); Glomerular Filtration Rate 114.3 mL/min (90-130); Glucose 113 mg/dL (65-115); Osmolality Calculated 283 mOsm/kg (285-295); Potassium 3.7 mmol/L (3.5-5.1); Sodium 132 mmol/L (136-145); Total Bilirubin 0.4 mg/dL (0.15-1.2); Total Protein 5.6 g/dL (6.6-8.7)
[2020-02-05 16:09] LABS: Slide Review Slide Review Perform
--- NOTE | 2020-02-06 09:39 | ONC FU_ITS ---
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 Jarrett is a 64-year-old gentleman with a history of chronic lower back pain due to back injury due to fall over 10 years ago. He recently developed new back pain radiating to his umbilicus area. He saw his PMD in July [address] of the abdomen pelvis at [facility] on September 13, 2019 which reported multiple lung masses up to 1.2 cm in size. There was an area of consolidation in the right middle lobe which is incompletely visualized on the limited CT of the chest. There was an indeterminate mass in the right upper pole of the kidney measuring 3.8 cm in transverse diameter multiple para-aortic nodes were seen as well. Chest x-ray from 09/26/2019 reported a large mass in the right middle lobe extending into the pleura from the right hilum. Mr. Jarrett was referred to pulmonology, Dr Flores, and underwent bronchoscopy on December 11, 2019. The final pathology report confirmed the biopsy from right middle lobe showed squamous cell carcinoma, moderately differentiated. FNA from 10 R station showed metastatic squamous cell carcinoma also from station 7, PDL 1 status is pending. As the CT abdomen and pelvis from 10/05/2019 ([facility]) reported a 6 cm x 8 cm right renal mass with regional lymphadenopathy. Mr Jarrett was referred to Dr. Ag for evaluation for possible second malignancy. Mr Jarrett underwent right kidney CT-guided needle biopsy on November 23, 2019. The final pathology poorly came back predominantly necrotic poorly differentiated carcinoma consistent with metastatic pulmonary squamous cell carcinoma with that metastatic disease to the right kidney was confirmed. MRI scan of thoracic spine done on December 11, 2019 showed no obvious sign of metastatic disease to thoracic vertebral body; no cord compression, paratracheal or retrocrural and hilar lymphadenopathy. Numerous bilateral pulmonary nodules. MRI scan of lumbar spine from 12/11/2019 reported moderate sized right paracentral disc protrusion at L5-S1 contacting the right S1 nerve root. Moderate right foraminal narrowing due to disc osteophytes disease. Possible 8 mm metastatic site L5 vertebral body. Abnormal appearance to right kidney suspect renal mass. Enlargement of pancreatic head with soft tissue extension posterior to the aorta the left retroperitoneum. Pancreatic head mass or adenopathy. 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 Jarrett was referred to Dr. Reyes for consideration of palliative chemotherapy. The initial recommendation was to start him on immunotherapy along with cisplatin gemcitabine based on the SQUIRE trial, but his insurance refused to cover immunotherapy citing NCCN guidelines. His treatment plan was then altered to carboplatin gemcitabine rather than cisplatin gemcitabine because he has chronic pain in his right leg and inability to maneuver quickly to the restroom during aggressive hydration/diuresis as required during cisplatin infusions. He also refused a Flores catheter. Mr. Jarrett began his first cycle of chemotherapy on December 12, 2019. MRI of the brain with and without contrast from 12/19/2019 reports several metastatic enhancing lesions. The largest involves the left medial cerebellum with extension into the superior tentorium. This mass measures 22 x 22 x 22 mm with mild mass-effect and encroachment into the fourth ventricle. Posterior medulla metastatic lesion measuring 10 x 13 x 11 mm with mild mass-effect upon the fourth ventricle. Indeterminate but suspicious for 4 mm metastatic site involving the cortex of the posterior right parietal lobe and moderate to severe chronic microvascular ischemic disease. Mr. Jarrett was referred to radiation oncology. Mr Jarrett was offered chemotherapy with carboplatin gemcitabine. His first dose was given on December 12, 2019. He was unable to proceed with cycle 1 day 8 due to neutropenia. His ANC on day 1 was 6400 and on day 8 it was 1400. On 12/19/2019, he was found to have metastatic lesion in the brain. His chemotherapy was placed on hold and he was referred to radiation oncology. He was placed on dexamethasone 4 mg 3 times daily and was gradually increased to 4 times daily. He completed his radiation therapy on 01/01/2020. He was able to resume his chemotherapy with carboplatin gemcitabine on January 09, 2020. Mr. Jarrett is here today for follow-up. He is due for cycle 3-day 1 Carboplatin/gemcitabine. He states overall he is feeling ok-may not as good as last visit . He has decreased appetite. He states that he is just a little more tired than he was last visit. He states he fell out of a chair last week the tiredness moved out from under him. He states he did not lose his balance or feel weak all of a sudden. He states the chair just moved out from under him and he fell. He has no apparent injury. He does have slight cold sore on his lower lip and in the corner of his lips looks like the beginning of angular cheilitis. We will refill his Magic mouthwash today as well just as preventative. He denies any diarrhea or constipation. He states his bladder is normal for him. He denies any neuropathy symptoms. He denies headaches. His ECOG is 2. Past Medical History: Blindness Chronic obstructive pulmonary disease Hypertension Past Surgical History: Kidney biopsy Porthacatheter placment (dr. davey) Allergies: Penicillins and traMADol HCl. Medications: Albuterol Sulfate 1 ((2.5 mg/3ml) 0.083%) Nebulization solution Inhalation b.i.d. Albuterol Sulfate 1 Puff(s) (of 108 (90 base) mcg/act) Aerosol Powder, Breath Activated Inhalation PRN Furosemide 1 Tablet (of 40 mg) Oral daily hydroCHLOROthiazide 1 Tablet (of 25 mg) Oral daily HYDROcodone-Acetaminophen 1 - 2 Tablet (of 5-325 mg) Oral q 6 hours PRN HYDROcodone-Acetaminophen 1 - 2 Tablet (of 5-325 mg) Oral q 4 to 6 hours PRN Lisinopril 1 Tablet (of 20 mg) Oral daily Potassium Chloride ER 1 Tablet (of 10 meq) Tablet, controlled release Oral daily PRN Family History: Mr. Jarrett's mother is alive. Mr. Jarrett's father at age 77: heart attack. Mr. Jarrett has 1 sister who is : liver cancer. Social History: Mr. Jarrett is and he is an unknown. He is an occasional smoker who has smoked 1.0 pack/day for 50 years. He has no history of drinking. Is now smoking 1/2 pack per day also used chewing tobacco until 09/22/19. Review Of Symptoms: Constitutional Denies fevers, chills, night sweats. No acute distress. Allergic/Immunologic No reactions. Eyes Denies significant visual changes. No diplopia. No amaurosis. Legally blind. ENMT Denies changes in hearing, sore throat, mouth sores, difficulty or changes in swallowing ability, and/or sinus drainage. Hematologic/Lymphatic Denies easy bruising or bleeding. The patient denies any tender or palpable lymph nodes. Respiratory Denies dyspnea on exertion, chest pain, cough or hemoptysis. Denies orthopnea. Cardiovascular Denies anginal chest pain, palpitations or orthopnea. He has had intermittent lower extremity edema bilaterally. Better overall. Gastrointestinal Denies vomiting, diarrhea, GI bleeding, or constipation. Denies change in bowel habits and/or stool color, no heartburn or early satiety. He states he has had no recent nausea. He denies emesis. Genitourinary (M) Denies hematuria, dysuria, increased frequency, urgency, hesitancy or incontinence. Musculoskeletal Denies joint pain, swelling or redness. No decreased range of motion. Generalized weakness but about the same as it has been . Integumentary Denies chronic rashes, inflammation, ulcerations or skin changes. Neurologic He states he has had no new headaches and denies any TIA symptoms. He denies vision changes. Psychiatric Denies insomnia, depression, sharon or mood swings. Vital Signs: Performed on Jan 30, 2020 10:59 Height - 70.00 in Weight - 196.6 lbs (LOW) BSA - 2.07 sq.m BMI - 28.21 Temperature - 97.2 F (LOW) Pulse - 77 /min Respiration - 20 /min BP - 123/76 mm(hg) O2 Sat - 97 % Pain - 9,2 - Ambulatory/capable of all self-care, unable to perform any work activities. Up and about more than 50% of waking hours. (ECOG) Physical Examination: Constitutional Alert, oriented, no acute distress. Skin pink, warm and dry. Head Normocephalic; atraumatic. Eyes Conjunctivae and sclerae are clear and without icterus. Pupils are reactive and equal. ENMT Slight irritation on lower lip-resembles beginning cold sore. Neck Supple without masses or thyromegaly. No jugular venous distension. Hematologic/Lymphatic No petechiae or purpura. No tender or palpable lymph nodes in the cervical or supraclavicular areas. Respiratory Lungs are clear to auscultation without rhonchi or wheezing. Cardiovascular Regular rate and rhythm of heart without murmurs,clicks, gallops or rubs. Abdomen Non-tender, non-distended, no masses or ascites. Good bowel sounds noted in all quads. No guarding or rebound tenderness. No pulsatile masses. Back/Spine Non-tender to palpation. Extremities No visible deformities, no cyanosis, clubbing. He does have 1+ bilaterally lower extremity edema-non pitting at present. Integumentary No rashes or lesions. Neurologic No sensory or motor deficits, normal cerebellar function on observation today. Psychiatric Alert and oriented times three. Coherent speech. Verbalizes understanding of our discussions today. Laboratory:Test performed on Jan 29, 2020 11:20 Creatinine 0.7 mg/dL Cr Clearance (Est) 133.24 mL/min Test performed on Jan 16, 2020 11:35 Sodium 133 mmol/L Potassium 3.5 mmol/L Chloride 96 mmol/L CO2 26 mmol/L Anion Gap 14.5 BUN 18 mg/dL eGFR 168.5 mL/min Glucose 101 mg/dL Osmolality - Calculated 278 mOsm/kg Calcium 8.2 mg/dL Protein, Total 5.2 g/dL Albumin 2.9 g/dL Globulin 2.3 g/dL Bilirubin, Total 0.4 mg/dL ALT (SGPT) 153 U/L AST (SGOT) 59 U/L Alkaline Phosphatase 123 IU/L WBC 2.8 10 3/uL RBC 3.51 10 6/uL HGB 9.6 g/dL HCT 30.0 % MCV 85.5 fL MCH 27.4 pg MCHC 32.0 g/dL RDW 18.2 % Platelet Count 57 10 3/cmm MPV 8.8 fL Neutrophils 2.08 10 3/uL Lymphocytes 0.5 10 3/uL Monocytes 0.0 10 3/uL Eosinophils 0.0 10 3/uL Basophils 0.0 10 3/uL Neutrophil % 75.1 % Lymphocyte % 19.1 % Monocyte % 0.0 % Eosinophil % 0.4 % Basophils % 0.7 % NRBC % 0 % CBC Slide Review Slide Review Perform SLIDE REVIEW AGREES WITH AUTOMATED RESULTS Test performed on Jan 02, 2020 08:10 Manual Segs % 71 % Manual Bands % 6.0 % Manual Lymphs % 6 % Atypical Lymphs % 0.0 % Total Cells Counted 100 Manual Monos % 11.0 % Manual Eos % 0 % Manual Basos % 0.0 % Metamyelocytes % 2.0 % Myelocytes % 4.0 % Polychromasia Trace Poikilocytosis 1+ Platelet Estimate Increased Manual Segs Abs 14.0 10/cmm Manual Bands Abs 1.2 10 3/cmm Manual Neutrophils Abs 15.2 10 3/cmm Manual Monocytes Abs 2.2 10 3/cmm Manual Eosinophils Abs 0.0 10 3/cmm Manual Basophils Abs 0.0 10 3/cmm Test performed on Dec 11, 2019 13:05 Magnesium 1.8 mg/dL Impression: Moderately differentiated squamous cell carcinoma or endobronchial biopsy right middle lobe of lung and FNA of station 7, and station 10 R showed metastatic squamous cell carcinoma immunohistochemistry showed tumor was positive for AE1/AE3, and P 40, negative for TTF-1 e.g. consistent with squamous cell carcinoma CT of abdomen pelvis done for possible right kidney mass in [facility] done on September 13, 2019 showed right upper pole renal mass size 3.8 cm with multiple para-aortic lymph nodes and multiple lung masses measuring up to 1.2 cm size and an area of consolidation in the right middle lobe MRI scan of spine findings which showed no obvious evidence of metastatic disease to spine except 8 mm lesion in L5 and significant disc protrusion at L5-S1 contacting right nerve root. History of chronic headache due to migraine History of chronic back pain due to back injury due to fall for more than 10 years ago History of chronic smoking more than 50 years, still active Initially, the plan was to start him on immunotherapy with necitumumab/cisplatin/gemcitabine based on SQUIRE trial, which was the first and only randomized phase 3 study conducted especially in a patient with metastatic squamous cell non-small cell lung cancer and it showed statistically significant improvement in overall survival and disease-free survival when compared with gemcitabine/cisplatin alone, specifically in the first-line setting. But his insurance refused to cover immunotherapy citing NCCN guidelines. Dr Reyes discussed with Mr Jarrett and his , as insurance is refusing the recommended treatment regimen, the next plan would be to pursue weekly cisplatin/gemcitabine but because of pain in the right leg and inability to move fast to the restroom during hydration and diuresis required during cisplatin infusion (he is also refusing Flores catheter). Dr Reyes recommended to treat with carboplatin instead of cisplatin along with gemcitabine. Mr Jarrett's treatment dosing plan is carboplatin AUC 2 with gemcitabine 1000 mg/m??? day 1 and 8 and repeat every 21 days. Mr Jarrett had a right internal jugular vein PowerPort placement on November 15, [address] Prakash. He began his first cycle of Carboplatin/gemcitabine on 12/11/2019. MRI of the brain with and without contrast from 12/19/2019 reports several metastatic enhancing lesions. The largest involves the left medial cerebellum with extension into the superior tentorium. This mass measures 22 x 22 x 22 mm with mild mass-effect and encroachment into the fourth ventricle. Posterior medulla metastatic lesion measuring 10 x 13 x 11 mm with mild mass-effect upon the fourth ventricle. Indeterminate but suspicious for 4 mm metastatic site involving the cortex of the posterior right parietal lobe and moderate to severe chronic microvascular ischemic disease. Mr. Vitale was referred to radiation oncology and completed Whole brain radiation to a total dose of 24 cGy started on 12/21/2019 and ended on 01/01/2020. He was able to resume chemotherapy on 01/09/2020. Mr. Jarrett has not been able to receive day 8 of his cycle 1 or 2 due to either chemotherapy-induced neutropenia or chemotherapy-induced thrombocytopenia. He is here for cycle 3-day 1. His last treatment was January 09, 2020. Plan: 1. Metastatic squamous cell carcinoma right middle lung: Proceed with cycle 3-day 1. His last treatment was on January 09, 2020. His day 8 was held due to platelet count of 57,000. We will proceed with cycle 3-day 1 today as planned. His platelet count has recovered to 500,000 and his ANC is 9000. A. The labs from 01-29-2020 were reviewed in detail and discussed with Mr. Jarrett and a copy was given to him. WBC 12.3, hemoglobin 10.1, platelets 500,000, ANC is 9000. Potassium 4.0 creatinine 0.7 LFTs reveal an ALT of 59 which is improved from last week at 153, AST is normal at 34 alk phos is normal 126. His weight is up 4 pounds at 205.6. 2. Elevated LFT's: We did review his liver ultrasound from January 29, 2020. This was obtained due to elevated LFTs. He does have cholelithiasis but no gallbladder wall thickening and normal common bile duct. There was hepatomegaly. Lobulated right renal neoplasm best visualized measured 6.5 x 4.7 x 5.4 cm no significant hydronephrosis. 3. Mouth sores: refill Famvir and Magic Mouthwash. 4. Poor appetite and generalized performance status decline: Refill steroids he may reinitiate them as he feels is necessary. 5. Follow-up plan: We will see him back in 1 week for consideration of cycle 3-day 8 carboplatin gemcitabine hopefully will be able to add Neulasta for chemotherapy-induced neutropenia at that time if indicated. 6. Mr. Jarrett was instructed to contact us in the interim should questions or problems arise. Signed By: Eleanor Alejo-GUERITA, AOCNP Titi Reyes MD <<Signature on File>>
[2020-02-06] MEDS: sodium chloride 0.9% 250 ML 75 ML IV (11:05)
[2020-02-06] MEDS: pantoprazole 40 mg SDV IV (11:15)
[2020-02-06] MEDS: pantoprazole DR 40 mg Tablet PO (11:15)
[2020-02-06] MEDS: palonosetron 0.25 mg/5 mL SDV IV (11:25)
[2020-02-06] MEDS: pegfilgrastim 6 mg/0.6 mL Kit (onpro) SUBCUT (13:45)
--- NOTE | 2020-02-10 22:04 | ONC FU_ITS ---
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 Jarrett is a 64-year-old gentleman with a history of chronic lower back pain due to back injury due to fall over 10 years ago. He recently developed new back pain radiating to his umbilicus area. He saw his PMD in July [address] of the abdomen pelvis at [facility] on September 13, 2019 which reported multiple lung masses up to 1.2 cm in size. There was an area of consolidation in the right middle lobe which is incompletely visualized on the limited CT of the chest. There was an indeterminate mass in the right upper pole of the kidney measuring 3.8 cm in transverse diameter multiple para-aortic nodes were seen as well. Chest x-ray from 09/26/2019 reported a large mass in the right middle lobe extending into the pleura from the right hilum. Mr. Jarrett was referred to pulmonology, Dr Flores, and underwent bronchoscopy on December 11, 2019. The final pathology report confirmed the biopsy from right middle lobe showed squamous cell carcinoma, moderately differentiated. FNA from 10 R station showed metastatic squamous cell carcinoma also from station 7, PDL 1 status is pending. As the CT abdomen and pelvis from 10/05/2019 ([facility]) reported a 6 cm x 8 cm right renal mass with regional lymphadenopathy. Mr Jarrett was referred to Dr. Ag for evaluation for possible second malignancy. Mr Jarrett underwent right kidney CT-guided needle biopsy on November 23, 2019. The final pathology poorly came back predominantly necrotic poorly differentiated carcinoma consistent with metastatic pulmonary squamous cell carcinoma with that metastatic disease to the right kidney was confirmed. MRI scan of thoracic spine done on December 11, 2019 showed no obvious sign of metastatic disease to thoracic vertebral body; no cord compression, paratracheal or retrocrural and hilar lymphadenopathy. Numerous bilateral pulmonary nodules. MRI scan of lumbar spine from 12/11/2019 reported moderate sized right paracentral disc protrusion at L5-S1 contacting the right S1 nerve root. Moderate right foraminal narrowing due to disc osteophytes disease. Possible 8 mm metastatic site L5 vertebral body. Abnormal appearance to right kidney suspect renal mass. Enlargement of pancreatic head with soft tissue extension posterior to the aorta the left retroperitoneum. Pancreatic head mass or adenopathy. 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 Jarrett was referred to Dr. Reyes for consideration of palliative chemotherapy. The initial recommendation was to start him on immunotherapy along with cisplatin gemcitabine based on the SQUIRE trial, but his insurance refused to cover immunotherapy citing NCCN guidelines. His treatment plan was then altered to carboplatin gemcitabine rather than cisplatin gemcitabine because he has chronic pain in his right leg and inability to maneuver quickly to the restroom during aggressive hydration/diuresis as required during cisplatin infusions. He also refused a Flores catheter. Mr. Jarrett began his first cycle of chemotherapy on December 12, 2019. MRI of the brain with and without contrast from 12/19/2019 reports several metastatic enhancing lesions. The largest involves the left medial cerebellum with extension into the superior tentorium. This mass measures 22 x 22 x 22 mm with mild mass-effect and encroachment into the fourth ventricle. Posterior medulla metastatic lesion measuring 10 x 13 x 11 mm with mild mass-effect upon the fourth ventricle. Indeterminate but suspicious for 4 mm metastatic site involving the cortex of the posterior right parietal lobe and moderate to severe chronic microvascular ischemic disease. Mr. Jarrett was referred to radiation oncology. Mr Jarrett was offered chemotherapy with carboplatin gemcitabine. His first dose was given on December 12, 2019. He was unable to proceed with cycle 1 day 8 due to neutropenia. His ANC on day 1 was 6400 and on day 8 it was 1400. On 12/19/2019, he was found to have metastatic lesion in the brain. His chemotherapy was placed on hold and he was referred to radiation oncology. He was placed on dexamethasone 4 mg 3 times daily and was gradually increased to 4 times daily. He completed his radiation therapy on 01/01/2020. He was able to resume his chemotherapy with carboplatin gemcitabine on January 09, 2020. He missed cycle 2-day 8 due to chemotherapy-induced thrombocytopenia with a platelet count of 37,000. He was able to resume chemotherapy with cycle 3-day 1 on 01/30/2020 as his blood counts have recovered. Mr. Jarrett is here today for follow-up. He is due for cycle 3-day 8 carboplatin gemcitabine. He states that he is tired and sluggish at times but no worse than what it has been. He states that he has had headache occasionally and 3 Tylenol wants to get away. States his only had do this 1 or 2 times and also headache is gone. He has a productive cough that is yellow sputum in sinus drainage . He denies any fever. He denies any trouble swallowing. He states his mouth is not much better but he did not fill his antiviral as requested last week. He states that he is having frequent burps . He denies nausea or vomiting. He states his appetite is fair. His energy is still low. He does require some assistance with his ADLs. He denies any diarrhea. He denies any new/worsening neuropathy or hearing changes. His ECOG is 2. Past Medical History: Blindness Chronic obstructive pulmonary disease Hypertension Past Surgical History: Kidney biopsy Porthacatheter placment (dr. davey) Allergies: Penicillins and traMADol HCl. Medications: Albuterol Sulfate 1 ((2.5 mg/3ml) 0.083%) Nebulization solution Inhalation b.i.d. Albuterol Sulfate 1 Puff(s) (of 108 (90 base) mcg/act) Aerosol Powder, Breath Activated Inhalation PRN Furosemide 1 Tablet (of 40 mg) Oral daily hydroCHLOROthiazide 1 Tablet (of 25 mg) Oral daily HYDROcodone-Acetaminophen 1 - 2 Tablet (of 5-325 mg) Oral q 6 hours PRN HYDROcodone-Acetaminophen 1 - 2 Tablet (of 5-325 mg) Oral q 4 to 6 hours PRN Lisinopril 1 Tablet (of 20 mg) Oral daily magic mouthwash Solution PRN Potassium Chloride ER 1 Tablet (of 10 meq) Tablet, controlled release Oral daily PRN Family History: Mr. Jarrett's mother is alive. Mr. Jarrett's father at age 77: heart attack. Mr. Jarrett has 1 sister who is : liver cancer. Social History: Mr. Jarrett is and he is an unknown. He is an occasional smoker who has smoked 1.0 pack/day for 50 years. He has no history of drinking. Is now smoking 1/2 pack per day also used chewing tobacco until 09/22/19. Review Of Symptoms: Constitutional Denies fevers, chills, night sweats. No acute distress. Allergic/Immunologic No reactions. Eyes Denies significant visual changes. No diplopia. No amaurosis. Legally blind. ENMT Denies changes in hearing, sore throat, mouth sores, difficulty or changes in swallowing ability, and/or sinus drainage. Hematologic/Lymphatic Denies easy bruising or bleeding. The patient denies any tender or palpable lymph nodes. Respiratory Denies dyspnea on exertion, chest pain, cough or hemoptysis. Denies orthopnea. Cardiovascular Denies anginal chest pain, palpitations or orthopnea. He has had intermittent lower extremity edema bilaterally. Better overall. Gastrointestinal Denies vomiting, diarrhea, GI bleeding, or constipation. Denies change in bowel habits and/or stool color, no heartburn or early satiety. He states he has had no recent nausea. He denies emesis. He states he has the Burps and they are occurring more frequently. He is not on any stomach medicine . Genitourinary (M) Denies hematuria, dysuria, increased frequency, urgency, hesitancy or incontinence. Musculoskeletal Denies joint pain, swelling or redness. No decreased range of motion. Generalized weakness but about the same as it has been . Integumentary Denies chronic rashes, inflammation, ulcerations or skin changes. Neurologic He states he has had no new headaches and denies any TIA symptoms. He denies vision changes. Psychiatric Denies insomnia, depression, sharon or mood swings. Vital Signs: Performed on Feb 06, 2020 09:53 Height - 70.00 in Weight - 198.0 lbs (HIGH) BSA - 2.08 sq.m BMI - 28.41 Temperature - 97.7 F (LOW) Pulse - 90 /min Respiration - 24 /min BP - 92/59 mm(hg) O2 Sat - 98 % Pain - 8,2 - Ambulatory/capable of all self-care, unable to perform any work activities. Up and about more than 50% of waking hours. (ECOG) Physical Examination: Constitutional Alert, oriented, no acute distress. Skin pink, warm and dry. Head Normocephalic; atraumatic. Eyes Conjunctivae and sclerae are clear and without icterus. Pupils are reactive and equal. ENMT Slight irritation on lower lip-resembles beginning cold sore. Neck Supple without masses or thyromegaly. No jugular venous distension. Hematologic/Lymphatic No petechiae or purpura. No tender or palpable lymph nodes in the cervical or supraclavicular areas. Respiratory Lungs are clear to auscultation without rhonchi or wheezing. Cardiovascular Regular rate and rhythm of heart without murmurs,clicks, gallops or rubs. Abdomen Non-tender, non-distended, no masses or ascites. Good bowel sounds noted in all quads. No guarding or rebound tenderness. No pulsatile masses. Back/Spine Non-tender to palpation. Extremities No visible deformities, no cyanosis, clubbing. He does have 1+ bilaterally lower extremity edema-non pitting at present. Integumentary No rashes or lesions. Neurologic No sensory or motor deficits, normal cerebellar function on observation today. Psychiatric Alert and oriented times three. Coherent speech. Verbalizes understanding of our discussions today. Laboratory:Test performed on Feb 05, 2020 10:12 Glucose 113 mg/dL BUN 36 mg/dL Creatinine 0.7 mg/dL Cr Clearance (Est) 133.24 mL/min Sodium 132 mmol/L Potassium 3.7 mmol/L Chloride 92 mmol/L Calcium 8.5 mg/dL Protein, Total 5.6 g/dL Albumin 2.8 g/dL Globulin 2.8 g/dL Bilirubin, Total 0.4 mg/dL AST (SGOT) 36 IU/L ALT (SGPT) 69 IU/L WBC 3.9 10^9/L RBC 3.32 10^12/L HGB 9.2 g/dL HCT 28.1 % MCV 84.6 fl MCH 27.7 pg MCHC 32.7 g/dL RDW 18.5 % Platelet Count 262 10^9/L Neutrophils (Gran) 3.3306 10^9/L Lymphocytes 0.2496 10^9/L Monocytes 0.0117 10^9/L Eosinophils 0 10^9/L Basophils 0.0507 10^9/L Impression: Moderately differentiated squamous cell carcinoma or endobronchial biopsy right middle lobe of lung and FNA of station 7, and station 10 R showed metastatic squamous cell carcinoma immunohistochemistry showed tumor was positive for AE1/AE3, and P 40, negative for TTF-1 e.g. consistent with squamous cell carcinoma CT of abdomen pelvis done for possible right kidney mass in [facility] in [facility] done on September 13, 2019 showed right upper pole renal mass size 3.8 cm with multiple para-aortic lymph nodes and multiple lung masses measuring up to 1.2 cm size and an area of consolidation in the right middle lobe MRI scan of spine findings which showed no obvious evidence of metastatic disease to spine except 8 mm lesion in L5 and significant disc protrusion at L5-S1 contacting right nerve root. History of chronic headache due to migraine History of chronic back pain due to back injury due to fall for more than 10 years ago History of chronic smoking more than 50 years, still active Initially, the plan was to start him on immunotherapy with necitumumab/cisplatin/gemcitabine based on SQUIRE trial, which was the first and only randomized phase 3 study conducted especially in a patient with metastatic squamous cell non-small cell lung cancer and it showed statistically significant improvement in overall survival and disease-free survival when compared with gemcitabine/cisplatin alone, specifically in the first-line setting. But his insurance refused to cover immunotherapy citing NCCN guidelines. Dr Reyes discussed with Mr Jarrett and his , as insurance is refusing the recommended treatment regimen, the next plan would be to pursue weekly cisplatin/gemcitabine but because of pain in the right leg and inability to move fast to the restroom during hydration and diuresis required during cisplatin infusion (he is also refusing Flores catheter). Dr Reyes recommended to treat with carboplatin instead of cisplatin along with gemcitabine. Mr Jarrett's treatment dosing plan is carboplatin AUC 2 with gemcitabine 1000 mg/m??? day 1 and 8 and repeat every 21 days. Mr Jarrett had a right internal jugular vein PowerPort placement on November 15, [address] Prakash. He began his first cycle of Carboplatin/gemcitabine on 12/11/2019. MRI of the brain with and without contrast from 12/19/2019 reports several metastatic enhancing lesions. The largest involves the left medial cerebellum with extension into the superior tentorium. This mass measures 22 x 22 x 22 mm with mild mass-effect and encroachment into the fourth ventricle. Posterior medulla metastatic lesion measuring 10 x 13 x 11 mm with mild mass-effect upon the fourth ventricle. Indeterminate but suspicious for 4 mm metastatic site involving the cortex of the posterior right parietal lobe and moderate to severe chronic microvascular ischemic disease. Mr. Vitale was referred to radiation oncology and completed Whole brain radiation to a total dose of 24 cGy started on 12/21/2019 and ended on 01/01/2020. He was able to resume chemotherapy on 01/09/2020. Mr. Jarrett has not been able to receive day 8 of his cycle 1 or 2 due to either chemotherapy-induced neutropenia or chemotherapy-induced thrombocytopenia. He is here for cycle 3-day 8. His last treatment was January 30, 2020. Plan: 1. Metastatic squamous cell carcinoma right middle lung: Proceed with cycle 3-day 8. His last treatment was on 01-30-2020. His day 8 of cycle 2 was held due to platelet count of 57,000. We did proceed with cycle 3-day 1 today on 01-30-2020. His platelet count had recovered to 500,000 and his ANC was 9000. A. The labs from 02-05-2020 were reviewed in detail and discussed with Mr. Jarrett and a copy was given to him. WBC 3.9, hemoglobin 9.2, platelets 262,000, ANC is 3360. B. Chemotherapy-induced neutropenia. His ANC on cycle 3-day 1 was 9000 and his ANC on day 7 is 3360. His cycle 2-day 8 treatment was held due to neutropenia and thrombocytopenia. Growth factor support/Neulasta or equivalent has been requested to correct his chemotherapy-induced neutropenia and to keep his treatment on course. He does have extensive disease, he has poor nutrition as his albumin is 2.8. And has a history of neutropenia as evident in his flowsheet. Creatinine 0.7 ALT 69 AST is 36 potassium 3.7. His weight is improved at 198 today. 2. Elevated LFT's: We did review his liver ultrasound from January 29, 2020. This was obtained due to elevated LFTs. He does have cholelithiasis but no gallbladder wall thickening and normal common bile duct. There was hepatomegaly. Lobulated right renal neoplasm best visualized measured 6.5 x 4.7 x 5.4 cm no significant hydronephrosis. 3. Mouth sores: refill Famvir and Magic Mouthwash. 4. Chronic back pain: Refill hydrocodone 7.5/325 per physician written prescription???see copy in chart for further information. 5. Gastritis/GERD: he may try omeprazole 20 mg daily [id number]. If this does not work well for him, we may need to try prescription Protonix. 6. Follow-up plan: We will see him back in 2 weeks for consideration of cycle 4-day 1 carboplatin gemcitabine. 7. Mr. Jarrett was instructed to contact us in the interim should questions or problems arise. Signed By: Eleanor Alejo-, AOCNP Titi Reyes MD <<Signature on File>>
[2020-02-12 15:35] LABS: Hematocrit 23.1 % (42.0-52.0); Hemoglobin 7.9 g/dL (11.7-16.6); Lymphocytes # 0.1 10^3/uL (0.8-4.8); Mean Corpuscular HGB Conc 34.2 g/dL (30.0-36.0); Mean Corpuscular Hemoglobin 27.5 pg (28.0-34.0); Mean Corpuscular Volume 80.5 fL (80-94); Nucleated Red Blood Cells % 0 %; Red Blood Count 2.87 10^6/uL (4.1-5.3); Red Cell Distribution Width 16.6 % (12.1-15.1)
[2020-02-12 16:19] LABS: Alanine Aminotransferase 121 U/L (0-41); Albumin Level 2.7 g/dL (3.5-5.2); Alkaline Phosphatase 110 IU/L (40-130); Anion Gap 16.6 (5-19); Aspartate Amino Transferase 33 U/L (0-40); Blood Urea Nitrogen 36 mg/dL (8-23); Calcium 8.5 mg/dL (8.5-10.5); Carbon Dioxide 24 mmol/L (22-29); Chloride 89 mmol/L (98-107); Globulin 2.9 g/dL (1.3-4.6); Glucose 101 mg/dL (65-115); Osmolality Calculated 270 mOsm/kg (285-295); Potassium 3.6 mmol/L (3.5-5.1); Sodium 126 mmol/L (136-145); Total Bilirubin 2.8 mg/dL (0.15-1.2); Total Protein 5.6 g/dL (6.6-8.7)
[2020-02-12 16:30] LABS: Platelet Count 8 10^3/cmm (130-400); White Blood Count 0.1 10^3/uL (4.0-10.0)
[2020-02-12 16:32] LABS: Add RBC Morph Yes; Slide Review Slide Review Perform
[2020-02-12 16:33] LABS: Anisocytosis 2+; Poikilocytosis 2+; RBC Morph Comp No; Tear Drop Cells Trace
[2020-02-12 16:34] LABS: Burr Cells 2+; Ovalocytes Trace
== END 2020-02-13 07:00 | disposition home or self-care (01) ==
LOC: ONCMED 09:55
PROVIDERS: Radiology Radiation Oncology; Visit Provider Nurse Practitioner
DX: Z51.11 Encounter for antineoplastic chemotherapy (principal); C34.2 Malignant neoplasm of middle lobe, bronchus or lung; C79.01 Secondary malignant neoplasm of right kidney and renal pelvis; C79.31 Secondary malignant neoplasm of brain; D69.59 Other secondary thrombocytopenia; D70.1 Agranulocytosis secondary to cancer chemotherapy; T45.1X5A Adverse effect of antineoplastic and immunosuppressive drugs, initial encounter; G43.909 Migraine, unspecified, not intractable, without status migrainosus; G89.29 Other chronic pain; M54.9 Dorsalgia, unspecified; F17.210 Nicotine dependence, cigarettes, uncomplicated; K13.79 Other lesions of oral mucosa; K29.70 Gastritis, unspecified, without bleeding; K21.9 Gastro-esophageal reflux disease without esophagitis; Z79.899 Other long term (current) drug therapy
CPT/HCPCS: 36415; 80053; 85025; 96367; 96372; 96375; 96413; 96417; 99214; C9113; J1100; J1453; J2469; J2505; J3490; J7050; J9045; J9201

== ENCOUNTER 2020-02-13 07:08 | Inpatient (IN) | payer MEDICAID, SELFPAY ==
[2020-02-13] VITALS (69 sets, daily range): BP systolic 76–156; BP diastolic 40–93; PULSE 80–110; RESP 14–32; TEMP 36.4–37.9; O2SAT 80–99; BMI 28.1
--- NOTE | 2020-02-13 07:29 | W.ED.RECABL ---
Documented by User: ALANA Cazares 02/13/20 10:00 HPI - Recheck/Abnormal Lab/Rx General: Chief Complaint: Recheck/Abnormal Lab/Rx Stated Complaint: scheduled blood transfusion Time Seen by Provider: 02/13/20 07:28 Source: patient Mode of arrival: ambulatory Limitations: no limitations History of Present Illness: HPI narrative: Comes in by EMS for concerns of weakness. Patient has metastatic cancer which started in lung and was to have a blood transfusion this morning. Spouse was unable to get patient up out of bed due to his weakness. Last hemoglobin was 5. Patient appears chronically ill. Patient appears in no pain. Review of Systems General: Reports: 10 or more systems reviewed and unremarkable except in HPI and below Const: Reports: other (weakness) PFSH ED PFSH: Family History Father CAD (coronary artery disease) Clotting disorder Sister Cancer liver cancer Denies family history of Anesthesia complication Bleeding disorder Social History Smoking and tobacco status: current some day smoker Alcohol intake: never Household members: spouse Marital status: Current occupational status: disabled History of recent travel: Yes Details: [place] to the doctor Out of state: No Physical Exam Const: COMMON NORMALS: no acute distress and patient oriented x3 GENERAL APPEARANCE: cooperative HENMT: COMMON NORMALS: normocephalic and Normal external nose present HEAD & SCALP: normal to inspection and normocephalic NOSE: Normal external nose present MOUTH: Normal oral and palatal mucosa present Eye: GENERAL EYE: appearance normal, both eyes and all related structures Neck/C-Spine: COMMON NORMALS: full ROM Lymph: LYMPHATIC: no lymphadenopathy noted Chest: COMMONS NORMALS: normal inspection of the chest Resp: COMMON NORMALS: normal respiratory effort EFFORT & INSPECTION: Yes able to speak in complete sentences Cardio: COMMON NORMALS: regular rate and regular rhythm RATE: regular rate RHYTHM: regular rhythm GI: COMMON NORMALS: non-tender AUSCULTATION: Yes normoactive bowel sounds RECTAL EXAM: Yes heme negative stool : COMMON NORMALS: Yes no CVA tenderness BLADDER/KIDNEY EXAM: Yes no CVA tenderness Back/Pelvis: COMMON NORMALS: no CVA tenderness and thoracic and lumbar spine normal to inspection Extremity: NARRATIVE EXTREMITY EXAM: 2 plus lower extremity edema Neuro: COMMON NORMALS: patient oriented x3 and moves all extremities Psych: COMMON NORMALS: mental status grossly normal and cooperative Skin: NARRATIVE SKIN EXAM: Skin is pale. Course ED course: 729, Reviewed with Dr. Reyes, he would like the patient evaluated for sepsis due to significant decline. He is concerned for sepsis, patient has history of lung cancer, lymphoma, and renal failure. He also recommended transfusion of 2 units of rbc's. [facility] 0913, reviewed labs with Dr. Olivares, is concerned for acute liver failure and hyponatremia. He agreed that patient needs admission for further evaluation and treatment. w Vital Signs: Vital signs: Vital Signs Temperature 97.5 F L 02/13/20 07:09 Pulse Rate 94 02/13/20 10:00 Respiratory Rate 18 02/13/20 10:00 Blood Pressure 106/70 02/13/20 10:00 Pulse Oximetry 94 02/13/20 10:00 MDM - Recheck/Abnormal Lab/Rx MDM Narrative: Medical decision making narrative: Patient comes in by EMS today for declining condition. Patient has carcinoma the lung with metastatic. Patient spouse said that patient was supposed to come in today for blood transfusion. Spouse could not get patient out of bed and brought patient in by EMS. Patient is jaundiced. Skin is pale. Respirations are even. Abdomen soft nontender. Patient is incontinent of stool. Patient is blind. Vital signs noted blood pressure in the 90s systolic, pulse rate is in the low 100s, patient is afebrile. Differential diagnosis includes not limited to pneumonia, sepsis, urinary tract infection, electrolyte disturbance, liver failure. Laboratory values noted increasing bilirubin. White blood cells and platelets are significantly decreased. Hemoglobin is 7.1. Sodium is 118. Reviewed exam with Dr. Olivares who agreed that patient needs admission for treatment of hyponatremia and further evaluation of acute liver failure. Lab Data: Labs: Lab Results 02/13/20 02/13/20 02/13/20 Range/Units 08:15 08:15 08:15 WBC 0.1 L* (4.0-10.0) 10^3/ uL RBC 2.58 L (4.1-5.3) 10^6/u L Hgb 7.1 L (11.7-16.6) g/dL Hct 20.6 L* (42.0-52.0) % MCV 79.8 L (80-94) fL MCH 27.5 L (28.0-34.0) pg MCHC 34.5 (30.0-36.0) g/dL RDW 15.9 H (12.1-15.1) % Plt Count 3 L* (130-400) 10^3/c mm MPV Not Reportable Neut % (Auto) 0.0 % Lymph % (Auto) 100.0 % Charles % (Auto) 0.0 % Eos % (Auto) 0.0 % Baso % (Auto) 0.0 % Neut # (Auto) 0.00 L* (1.8-7.7) 10^3/u L Lymph # (Auto) 0.1 L (0.8-4.8) 10^3/u L Charles # (Auto) 0.0 L (0.2-0.9) 10^3/u L Eos # (Auto) 0.0 (0.0-0.8) 10^3/u L Baso # (Auto) 0.0 (0.0-0.1) 10^3/u L Nucleated RBC % (a uto) 0 % Nucleated RBCs # 0.0 /100WBC Sodium 118 L* (136-145) mmol/L Potassium 3.6 (3.5-5.1) mmol/L Chloride 82 L (98-107) mmol/L Carbon Dioxide 22 (22-29) mmol/L Anion Gap 17.6 (5-19) BUN 35 H (8-23) mg/dL Creatinine 0.9 (0.7-1.2) mg/dL GFR Calculation 85.5 L (90-130) mL/min Glucose 90 (65-115) mg/dL Calculated Osmolal ity 254 L (285-295) mOsm/k g Lactic Acid 1.2 (0.5-2.2) mmol/L Calcium 8.3 L (8.5-10.5) mg/dL Total Bilirubin 4.8 H (0.15-1.2) mg/dL AST 55 H (0-40) U/L ALT 130 H (0-41) U/L Alkaline Phosphata se 104 (40-130) IU/L Total Protein 5.6 L (6.6-8.7) g/dL Albumin 2.8 L (3.5-5.2) g/dL Globulin 2.8 (1.3-4.6) g/dL SARS-CoV-2 Ag (Rap id) (Negative) Blood Type Rho(D) Type Antibody Screen Crossmatch 02/13/20 02/13/20 Range/Units 08:15 08:57 WBC (4.0-10.0) 10^3/ uL RBC (4.1-5.3) 10^6/u L Hgb (11.7-16.6) g/dL Hct (42.0-52.0) % MCV (80-94) fL MCH (28.0-34.0) pg MCHC (30.0-36.0) g/dL RDW (12.1-15.1) % Plt Count (130-400) 10^3/c mm MPV Neut % (Auto) % Lymph % (Auto) % Charles % (Auto) % Eos % (Auto) % Baso % (Auto) % Neut # (Auto) (1.8-7.7) 10^3/u L Lymph # (Auto) (0.8-4.8) 10^3/u L Charles # (Auto) (0.2-0.9) 10^3/u L Eos # (Auto) (0.0-0.8) 10^3/u L Baso # (Auto) (0.0-0.1) 10^3/u L Nucleated RBC % (a uto) % Nucleated RBCs # /100WBC Sodium (136-145) mmol/L Potassium (3.5-5.1) mmol/L Chloride (98-107) mmol/L Carbon Dioxide (22-29) mmol/L Anion Gap (5-19) BUN (8-23) mg/dL Creatinine (0.7-1.2) mg/dL GFR Calculation (90-130) mL/min Glucose (65-115) mg/dL Calculated Osmolal ity (285-295) mOsm/k g Lactic Acid (0.5-2.2) mmol/L Calcium (8.5-10.5) mg/dL Total Bilirubin (0.15-1.2) mg/dL AST (0-40) U/L ALT (0-41) U/L Alkaline Phosphata se (40-130) IU/L Total Protein (6.6-8.7) g/dL Albumin (3.5-5.2) g/dL Globulin (1.3-4.6) g/dL SARS-CoV-2 Ag (Rap id) Negative (Negative) Blood Type O Negative Rho(D) Type Negative Antibody Screen Negative Crossmatch See Detail Discharge Plan Discharge Patient Disposition: Admitted As Inpatient Admit Provider: Manuel Bautista Clinical Impression: Acute hyponatremia, Anemia, Thrombocytopenia, Neutropenia, Pneumonia, Squamous cell carcinoma lung, Cholelithiasis Acute hepatic failure Qualifiers: Hepatic coma status: without hepatic coma Qualified Code(s): K72.00 - Acute and subacute hepatic failure without coma 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 Patient's care was discussed, and care was transferred from to Wally Olivares DO. Coding Level of Care Code ED Shuttle Repairer for Chg Fwd Exam Comprehensive Documented by User: Wally Olivares DO 02/13/20 10:10 HPI - Recheck/Abnormal Lab/Rx General: Chief Complaint: Recheck/Abnormal Lab/Rx Stated Complaint: scheduled blood transfusion Time Seen by Provider: 02/13/20 07:28 History of Present Illness: HPI narrative: Initially seen by KRUPA Danielle. Chart reviewed reviewed case was well and patient was seen. Has had nausea and vomiting generally not feeling well extremely weak some joint shortness of breath as well. Review of Systems Const: Reports: change in appetite, fatigue and malaise; Denies: chills or body aches ENMT: Reports: nasal congestion; Denies: throat pain, ear or mastoid pain or nasal discharge Card: Reports: dyspnea on exertion; Denies: chest pain, edema or orthopnea Resp: Reports: dyspnea; Denies: productive cough or non-productive cough GI: Reports: nausea, vomiting and diarrhea; Denies: abdominal pain, hematemesis, coffee ground emesis, constipation, bloating, hematochezia or melena : Denies: flank pain, dysuria, urinary frequency or urinary urgency Skin/Breast: Denies: rash or pruritus PFSH ED PFSH: Family History Father CAD (coronary artery disease) Clotting disorder Sister Cancer liver cancer Denies family history of Anesthesia complication Bleeding disorder Social History Smoking and tobacco status: current some day smoker Alcohol intake: never Household members: spouse Marital status: Current occupational status: disabled History of recent travel: Yes Details: [place] to the doctor Out of state: No Physical Exam Const: COMMON NORMALS: no acute distress GENERAL APPEARANCE: cooperative and comfortable ORIENTATION/CONSCIOUSNESS: Yes awake, Yes oriented to person, Yes oriented to place and Yes oriented to time HENMT: COMMON NORMALS: normocephalic, atraumatic and hearing grossly normal bilaterally HEAD & SCALP: normocephalic and atraumatic Neck/C-Spine: COMMON NORMALS: no JVD Resp: COMMON NORMALS: normal respiratory effort, No retractions, No use of accessory muscles and clear to auscultation bilaterally AUSCULTATION: clear to auscultation bilaterally Cardio: COMMON NORMALS: no JVD, regular rate, regular rhythm and No murmurs present (Cardio) RATE: regular rate RHYTHM: regular rhythm GI: COMMON NORMALS: Soft to palpation and No hepatosplenomegaly present AUSCULTATION: Yes normoactive bowel sounds PALPATION: Yes Soft to palpation, No Tenderness to palpation present (GI), No Guarding due to palpation present (GI) and Yes No hepatosplenomegaly present Extremity: COMMON NORMALS: normal to inspection, capillary refill normal, no clubbing, cyanosis or edema, no calf tenderness and no pedal edema Neuro: SENSORIUM/ORIENTATION: Yes oriented to person, Yes oriented to place and Yes oriented to time Skin: COMMON NORMALS: no rashes or lesions noted GENERAL SKIN EXAM: no rashes or lesions noted Course Vital Signs: Vital signs: Vital Signs Temperature 97.5 F L 02/13/20 07:09 Pulse Rate 94 02/13/20 10:00 Respiratory Rate 18 02/13/20 10:00 Blood Pressure 106/70 02/13/20 10:00 Pulse Oximetry 94 02/13/20 10:00 MDM - Recheck/Abnormal Lab/Rx MDM Narrative: Medical decision making narrative: Reviewed case with midlevel. With due to his hyponatremia anemia severe neutropenia and thrombocytopenia he will need to be admitted. Discussed with the patient as well as Dr. Devlin. Patient is still adamant about being a full code discussed how all of his multiple issues may affect resuscitation efforts he still wishes to be a full code. Orders are written. Lab Data: Labs: Lab Results 02/13/20 02/13/20 02/13/20 Range/Units 08:15 08:15 08:15 WBC 0.1 L* (4.0-10.0) 10^3/ uL RBC 2.58 L (4.1-5.3) 10^6/u L Hgb 7.1 L (11.7-16.6) g/dL Hct 20.6 L* (42.0-52.0) % MCV 79.8 L (80-94) fL MCH 27.5 L (28.0-34.0) pg MCHC 34.5 (30.0-36.0) g/dL RDW 15.9 H (12.1-15.1) % Plt Count 3 L* (130-400) 10^3/c mm MPV Not Reportable Neut % (Auto) 0.0 % Lymph % (Auto) 100.0 % Charles % (Auto) 0.0 % Eos % (Auto) 0.0 % Baso % (Auto) 0.0 % Neut # (Auto) 0.00 L* (1.8-7.7) 10^3/u L Lymph # (Auto) 0.1 L (0.8-4.8) 10^3/u L Charles # (Auto) 0.0 L (0.2-0.9) 10^3/u L Eos # (Auto) 0.0 (0.0-0.8) 10^3/u L Baso # (Auto) 0.0 (0.0-0.1) 10^3/u L Nucleated RBC % (a uto) 0 % Nucleated RBCs # 0.0 /100WBC Sodium 118 L* (136-145) mmol/L Potassium 3.6 (3.5-5.1) mmol/L Chloride 82 L (98-107) mmol/L Carbon Dioxide 22 (22-29) mmol/L Anion Gap 17.6 (5-19) BUN 35 H (8-23) mg/dL Creatinine 0.9 (0.7-1.2) mg/dL GFR Calculation 85.5 L (90-130) mL/min Glucose 90 (65-115) mg/dL Calculated Osmolal ity 254 L (285-295) mOsm/k g Lactic Acid 1.2 (0.5-2.2) mmol/L Calcium 8.3 L (8.5-10.5) mg/dL Total Bilirubin 4.8 H (0.15-1.2) mg/dL AST 55 H (0-40) U/L ALT 130 H (0-41) U/L Alkaline Phosphata se 104 (40-130) IU/L Total Protein 5.6 L (6.6-8.7) g/dL Albumin 2.8 L (3.5-5.2) g/dL Globulin 2.8 (1.3-4.6) g/dL SARS-CoV-2 Ag (Rap id) (Negative) Blood Type Rho(D) Type Antibody Screen Crossmatch 02/13/20 02/13/20 Range/Units 08:15 08:57 WBC (4.0-10.0) 10^3/ uL RBC (4.1-5.3) 10^6/u L Hgb (11.7-16.6) g/dL Hct (42.0-52.0) % MCV (80-94) fL MCH (28.0-34.0) pg MCHC (30.0-36.0) g/dL RDW (12.1-15.1) % Plt Count (130-400) 10^3/c mm MPV Neut % (Auto) % Lymph % (Auto) % Charles % (Auto) % Eos % (Auto) % Baso % (Auto) % Neut # (Auto) (1.8-7.7) 10^3/u L Lymph # (Auto) (0.8-4.8) 10^3/u L Charles # (Auto) (0.2-0.9) 10^3/u L Eos # (Auto) (0.0-0.8) 10^3/u L Baso # (Auto) (0.0-0.1) 10^3/u L Nucleated RBC % (a uto) % Nucleated RBCs # /100WBC Sodium (136-145) mmol/L Potassium (3.5-5.1) mmol/L Chloride (98-107) mmol/L Carbon Dioxide (22-29) mmol/L Anion Gap (5-19) BUN (8-23) mg/dL Creatinine (0.7-1.2) mg/dL GFR Calculation (90-130) mL/min Glucose (65-115) mg/dL Calculated Osmolal ity (285-295) mOsm/k g Lactic Acid (0.5-2.2) mmol/L Calcium (8.5-10.5) mg/dL Total Bilirubin (0.15-1.2) mg/dL AST (0-40) U/L ALT (0-41) U/L Alkaline Phosphata se (40-130) IU/L Total Protein (6.6-8.7) g/dL Albumin (3.5-5.2) g/dL Globulin (1.3-4.6) g/dL SARS-CoV-2 Ag (Rap id) Negative (Negative) Blood Type O Negative Rho(D) Type Negative Antibody Screen Negative Crossmatch See Detail Discharge Plan Discharge Patient Disposition: Admitted As Inpatient Admit Provider: Manuel Bautista Clinical Impression: Acute hyponatremia, Anemia, Thrombocytopenia, Neutropenia, Pneumonia, Squamous cell carcinoma lung, Cholelithiasis Acute hepatic failure Qualifiers: Hepatic coma status: without hepatic coma Qualified Code(s): K72.00 - Acute and subacute hepatic failure without coma 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 Patient's care was discussed, and care was transferred from to Wally L Horstman, DO. Coding Level of Care Code ED Shuttle Repairer for Chg Fwd Exam Comprehensive
--- NOTE | 2020-02-13 07:39 | XR_ITS ---
WS: [id number] XR chest 1V portable [id number] REASON FOR EXAM: weakness FINDINGS: Compared to the previous examination of 11/15/2019, the masslike density in the right lower lung demon strates decreased dimensions. There are multiple smaller lung lesions some of which demonstrate decreased dimensions and some of wh ich appear unchanged. There is new lung opacity in the medial basal region of the right lower lung. Bony thorax is intact. Right chest port with right internal jugular vein catheter. The port position appears to have changed. XR/XR chest 1V portable [id number] IMPRESSION: Neoplastic involvement of the chest with some overall improvement. There may be an acute/subacute superimposed pneumonitis in the right lung as ab ove.
[2020-02-13 08:31] LABS: Hemoglobin 7.1 g/dL (11.7-16.6); Lymphocytes # 0.1 10^3/uL (0.8-4.8); Mean Corpuscular HGB Conc 34.5 g/dL (30.0-36.0); Mean Corpuscular Hemoglobin 27.5 pg (28.0-34.0); Mean Corpuscular Volume 79.8 fL (80-94); Nucleated Red Blood Cells % 0 %; Red Blood Count 2.58 10^6/uL (4.1-5.3); Red Cell Distribution Width 15.9 % (12.1-15.1)
[2020-02-13] MEDS: sodium chloride 0.9% 500 ML 999 ML IV (08:33)
[2020-02-13 08:46] LABS: SARS Covid-2 Antigen Negative (Negative)
[2020-02-13 08:47] LABS: Hematocrit 20.6 % (42.0-52.0); Platelet Count 3 10^3/cmm (130-400); White Blood Count 0.1 10^3/uL (4.0-10.0)
[2020-02-13 08:48] LABS: Alanine Aminotransferase 130 U/L (0-41); Albumin Level 2.8 g/dL (3.5-5.2); Alkaline Phosphatase 104 IU/L (40-130); Anion Gap 17.6 (5-19); Aspartate Amino Transferase 55 U/L (0-40); Blood Urea Nitrogen 35 mg/dL (8-23); Calcium 8.3 mg/dL (8.5-10.5); Carbon Dioxide 22 mmol/L (22-29); Chloride 82 mmol/L (98-107); Globulin 2.8 g/dL (1.3-4.6); Glomerular Filtration Rate 85.5 mL/min (90-130); Glucose 90 mg/dL (65-115); Osmolality Calculated 254 mOsm/kg (285-295); Potassium 3.6 mmol/L (3.5-5.1); Slide Review Slide Review Perform; Total Bilirubin 4.8 mg/dL (0.15-1.2); Total Protein 5.6 g/dL (6.6-8.7)
[2020-02-13 08:53] LABS: Sodium 118 mmol/L (136-145)
[2020-02-13 09:11] LABS: Lactic Sepsis W/Reflex 1.2 mmol/L (0.5-2.2)
--- NOTE | 2020-02-13 09:52 | US_ITS ---
WS: [id number] ABDOMINAL ULTRASOUND LIMITED REASON FOR VISIT: Cholelithiasis, jaundice TECHNIQUE: Grayscale and Doppler ultrasound examination of the abdomen. FINDINGS: Examination is essentially unchanged compared to the previous examination of 01/29/2020. Pancreas: Normal Abdominal aorta and IVC: Normal Liver: Liver measures 18.1 cm in length. Increased echogenicity. No focal lesion. Gallbladder: Gallbladder wall thickness measures 0.2 mm. Large solitary calculus. No common bile duct dilatation identified. Right kidney: Right kidney measures 9.9 cm x 6.4 cm x 6.0 cm. By 5 cm lobulated solid appearing renal mass. No ascites. US/US gall bladder [id number] IMPRESSION: Enlarged echogenic liver. Large solitary calculus. Right renal mass. No change from previous ultrasound.
[2020-02-13] MEDS: vancomycin 1,000 MG in sodium chloride 0.9% 250 ML 250 MG IV (09:57)
[2020-02-13 10:26] LABS: Ammonia 20 umol/L (16-60)
--- NOTE | 2020-02-13 11:18 | PM.HP ---
Providers/Chief Complaint Admitting Physician: Manuel Bautista MD Primary Care Provider: Titi Reyes MD Chief Complaint: scheduled blood transfusion History of Present Illness Phani Jarrett is a 64 year old male secondary to not feeling well. He was originally scheduled for blood and platelet transfusion. 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 He has had episodes of vomiting lately, loose stools, and nausea. Last chemotherapy likely February 09. Last radiation therapy last month. He did receive Neulasta with chemotherapy. He denies any fevers. He is not sure if there is been any blood in his stool as he is blind. He reports he has had a cough, that is not usually productive of sputum. He denies any personal history of Covid, or exposure to Covid. He reports he is not nauseous currently after receiving medication in the emergency department. Review of Systems General: Reports: 10 or more systems reviewed and unremarkable except in HPI and below Const: Reports: fatigue; Denies: fever(s) Eyes: Denies: change in vision ENMT: Reports: mouth pain Card: Denies: chest pain Resp: Reports: non-productive cough; Denies: dyspnea GI: Denies: abdominal pain : Denies: flank pain Musc: Denies: neck pain Skin/Breast: Denies: rash Neuro: Denies: headache(s) Psych: Denies: anxiety Endo: Denies: polyuria Juanjo/Lymph: Denies: easy bruising All/Imm: Denies: urticaria Medications/Allergies Home Medications Medication Instructions Recorded Confirmed Last Taken Type albuterol sulfate 2.5 mg INHALATION Q4H PRN 11/02/19 02/13/20 02/11/20 History albuterol sulfate 90 mcg/actuation 2 puff INHALATION Q4H PRN 11/02/19 02/13/20 11/14/19 History aerosol inhaler hydrochlorothiazide 25 mg tablet 25 mg PO DAILY@11/02/19 02/13/20 02/11/20 History lisinopril 20 mg tablet 20 mg PO DAILY@11/02/19 02/13/20 02/11/20 History ondansetron HCl 4 mg tablet 4 mg PO Q8H PRN 11/30/19 02/13/20 Unknown History aspirin [Aspir-81] 81 mg PO DAILY@16 02/13/20 02/13/20 02/11/20 History dexamethasone 4 mg PO TID 02/13/20 02/13/20 02/11/20 History 4MG ONCE A DAY famciclovir 500 mg PO TID PRN 02/13/20 02/13/20 02/12/20 History furosemide [Lasix] 40 mg PO DAILY@16 PRN 02/13/20 02/13/20 02/11/20 History hydrocodone-acetaminophen 1 tab PO Q4H PRN 02/13/20 02/13/20 02/12/20 History levofloxacin [Levaquin] 500 mg PO DAILY@18 02/13/20 02/13/20 02/12/20 History lorazepam 0.5 - 1 mg PO TID PRN 02/13/20 02/13/20 02/13/20 01:00 History omeprazole 20 mg PO DAILY 02/13/20 02/13/20 02/12/20 History potassium chloride 10 meq PO DAILY@16 PRN 02/13/20 02/13/20 02/11/20 History prochlorperazine maleate 10 mg PO Q4H PRN 02/13/20 02/13/20 Unknown History Allergies Allergy/AdvReac Type Severity Reaction Status Date / Time Penicillins Allergy ALGY-Anaphy Verified 02/13/20 10:06 laxis tramadol AdvReac ADR-Vomitin Verified 02/13/20 10:06 g PFSH Acute PFSH: Medical History (Updated 02/13/20 @ 11:29 by Manuel Bautista MD) Blind Cholelithiasis Chronic back pain COPD (chronic obstructive pulmonary disease) GERD (gastroesophageal reflux disease) Hypertension Optic neuritis Primary lung squamous cell carcinoma Tobacco dependency Surgical History (Updated 02/13/20 @ 11:24 by Manuel Bautista MD) H/O circumcision History of lung biopsy Port-A-Cath in place Family History Father CAD (coronary artery disease) Clotting disorder Sister Cancer liver cancer Denies family history of Anesthesia complication Bleeding disorder Social History Smoking and tobacco status: current some day smoker Alcohol intake: never Household members: spouse Marital status: Current occupational status: disabled History of recent travel: Yes Details: Mitesh to the doctor Out of state: No Vitals/I&O/Wt Last Vital Signs Temp 97.5 F L 02/13/20 07:09 Pulse 98 02/13/20 10:20 Resp 18 02/13/20 10:20 BP 111/82 02/13/20 10:20 Pulse Ox 95 02/13/20 10:20 Weight last 48 hrs Weight 88.904 kg Physical Exam Narrative: EXAM NARRATIVE: General exam is a white male, sleepy, in no apparent distress. He is pale appearing and does not appear to be in any respiratory distress. HEENT: Pupils equally round. Oropharynx is clear without thrush. Some skin breakdown is noted on his lips consistent Neck is supple no thyromegaly Cardiovascular regular rate and rhythm without murmur, no S3 or S4 Lungs clear. Diminished breath sounds are noted bilaterally. No wheezing Abdomen is soft with positive bowel sounds, no obvious organomegaly deferred Extremities no cyanosis or clubbing. 1-2+ edema is noted., Cap refill brisk brisk Skin without rash Neuro, able to answer questions but somewhat slow responses. Data : 02/13/20 08:15 02/13/20 08:15 Micro: Microbiology 02/13/20 10:29 Blood Culture - Preliminary Blood SPECIMEN COLLECTED 02/13/20 08:15 Blood Culture - Preliminary Blood SPECIMEN COLLECTED Other data: Lactic acid 1.2. Total bilirubin 4.8, AST 55, ALT 130, albumin 2.8 Calcium 8.3 Rapid Covid negative Gallbladder ultrasound with right renal mass, large calculus, echogenic liver Chest x-ray reviewed by me demonstrates right-sided infiltrate, right port, right-sided malignancy. Some left lung nodules are noted as well. A&P Assessment and plan (1) Acute hyponatremia: ICU admission likely multifactorial. He has brain metastasis. He is on chronic steroids. Home medicines include hydrochlorothiazide. He has had recent vomiting, and may not have been taking his loop diuretic. He has evidence of excess total body fluid with his peripheral edema. Lasix 40 mg IV x1 Repeat sodium in 4 hours If any evidence of worsening neurologic status, nausea consider 3% saline Check urinalysis Status: Acute (2) Encephalopathy acute: Metabolic likely secondary to hyponatremia, or brain metastasis Follow closely for improvement Status: Acute (3) Neutropenia: Secondary to chemotherapy. ANC is 0 He did receive Neulasta with his last chemotherapy on February 09 Continue to monitor closely. Initiate cefepime and vancomycin Check MRSA PCR Blood cultures, sputum cultures Status: Acute (4) Thrombocytopenia: Transfusion of a pheresis unit of platelets Repeat platelet count tomorrow Avoid antiplatelet agents or anticoagulation Status: Acute (5) Anemia: Transfused 2 units of packed red blood cells Check stool Hemoccult Protonix 40 mg twice daily Status: Acute (6) Primary lung squamous cell carcinoma: With widespread metastasis to the brain, likely spine, kidney Status: Acute Qualifiers: Laterality: right Qualified Code(s): C34.91 - Malignant neoplasm of unspecified part of right bronchus or lung (7) Cholelithiasis: Unlikely to be causing current clinical scenario Not candidate for any type of surgery Status: Inactive (8) Pneumonia: Sputum culture Continue pulmonary toilet Vancomycin and cefepime Check Covid PCR Status: Acute (9) Stomatitis: Continue antiviral he takes as needed secondary to stomatitis Monitor closely for any evidence of candidal infection Status: Acute (10) Transaminitis: Repeat LFTs tomorrow. Likely secondary to malignancy Status: Acute Additional A&P Information History of hypertension History of optic neuritis and blindness GERD. Continue Protonix COPD. No evidence of exacerbation currently Full code SCDs for DVT prophylaxis. Avoid anticoagulation secondary to anemia and severely low platelets Attempted to call but no answer at this time. Attestations Medical Necessity Statement*: Will need greater than 2 midnight stay for evaluation and treatment of multiple medical problems including hyponatremia Critical Care Time: 75 minutes spent in critical care at bedside interviewing the patient, reviewing records, discussing with other physicians as well as patient's family in this patient with severe hyponatremia, pneumonia, severe neutropenia, widespread malignancy with high risk for and/or decompensation. Coding Level of Care Code Acute Leasing Director for [facility] Fwd Diagnoses Acute hyponatremia E87.1 Encephalopathy acute G93.40 Neutropenia D70.9 Thrombocytopenia D69.6 Anemia D64.9 Primary lung squamous cell carcinoma C34.91 Laterality: right Cholelithiasis K80.20 Pneumonia J18.9 Stomatitis K12.1 Transaminitis R74.01
[2020-02-13] MEDS: cefTAZidime 2,000 MG in sodium chloride 0.9% (plus) 50 ML 150 MG IV (11:27)
[2020-02-13] MEDS: sodium chloride 0.9% 1,000 ML 100 ML IV (12:05)
[2020-02-13 12:26] LABS: Thyroid Stimulating Hormone 0.21 uIU/mL (0.27-4.20)
[2020-02-13 13:09] LABS: Anion Gap 16.7 (5-19); Blood Urea Nitrogen 36 mg/dL (8-23); Calcium 7.7 mg/dL (8.5-10.5); Carbon Dioxide 22 mmol/L (22-29); Chloride 87 mmol/L (98-107); Creatinine Clr Calc Pharmacy 107.4688; Glucose 90 mg/dL (65-115); Osmolality Calculated 262 mOsm/kg (285-295); Potassium 3.7 mmol/L (3.5-5.1); Sodium 122 mmol/L (136-145)
[2020-02-13] MEDS: oxyCODONE 5 mg IR Tab/Cap PO (13:53)
[2020-02-13] MEDS: cefepime 2,000 MG in sodium chloride 0.9% (plus) 50 ML 100 MG IV ×2 (13:54→23:41)
[2020-02-13 14:46] LABS: Bilirubin Urine 2+ (Negative); Blood Urine Neg (Negative); Glucose Urine UA Norm (Normal); Ketones Urine 1+ (Negative); Leukocyte Esterase Urine Negative (Negative); Nitrate Urine Negative (Negative); Protein Urine Trace (Negative); Urine Appearance Clear (CLEAR); Urine Color Orange (Yellow); Urobilinogen Urine 4 mg/dL (Negative)
[2020-02-13 14:47] LABS: Add Urine Microscopic? YES
[2020-02-13] MEDS: sodium chloride 0.9% (100 ml) 100 ML 30 ML (15:00)
[2020-02-13 15:30] LABS: Add Urine Culture? No; Bacteria Urine 1+ /hpf; Mucus Urine 1+ /hpf
[2020-02-13] MEDS: pantoprazole DR 40 mg Tablet PO (17:17)
[2020-02-13] MEDS: dexamethasone 4 mg Tablet PO ×2 (17:17→22:13)
[2020-02-13] MEDS: FUROsemide 10 mg/mL SDV 4mL 40 MG IVP (17:17)
[2020-02-13] MEDS: acyclovir 400 mg Tablet PO ×2 (17:18→22:13)
[2020-02-13] MEDS: sodium chloride 0.9% (100 ml) 100 ML 10 ML (17:18)
[2020-02-13] MEDS: vancomycin 1,250 MG/250 ML PIGGYBACK 200 MG IV (19:48)
[2020-02-13] MEDS: dexamethasone 4 mg/mL INJ 10 MG IVP (22:52)
[2020-02-14] VITALS (88 sets, daily range): BP systolic 94–140; BP diastolic 54–81; PULSE 55–84; RESP 0–40; TEMP 36.9–37.2; O2SAT 85–97
[2020-02-14 04:23] LABS: Hemoglobin 7.2 g/dL (11.7-16.6); Lymphocytes % 66.7 %; Mean Corpuscular HGB Conc 34.3 g/dL (30.0-36.0); Mean Corpuscular Hemoglobin 27.5 pg (28.0-34.0); Mean Corpuscular Volume 80.2 fL (80-94); Mean Platelet Volume 10.1 fL (7.4-10.4); Neutrophils % 33.3 %; Nucleated Red Blood Cells % 0 %; Red Blood Count 2.62 10^6/uL (4.1-5.3)
[2020-02-14 04:47] LABS: Alanine Aminotransferase 119 U/L (0-41); Albumin Level 2.4 g/dL (3.5-5.2); Alkaline Phosphatase 89 IU/L (40-130); Anion Gap 14.9 (5-19); Aspartate Amino Transferase 44 U/L (0-40); Blood Urea Nitrogen 31 mg/dL (8-23); Carbon Dioxide 24 mmol/L (22-29); Chloride 92 mmol/L (98-107); Globulin 2.4 g/dL (1.3-4.6); Glomerular Filtration Rate 114.3 mL/min (90-130); Glucose 110 mg/dL (65-115); Osmolality Calculated 273 mOsm/kg (285-295); Sodium 128 mmol/L (136-145); Total Bilirubin 5.1 mg/dL (0.15-1.2); Total Protein 4.8 g/dL (6.6-8.7)
[2020-02-14 05:09] LABS: Platelet Count 21 10^3/cmm (130-400); Potassium 2.9 mmol/L (3.5-5.1); White Blood Count 0.1 10^3/uL (4.0-10.0)
[2020-02-14 05:10] LABS: Neutrophils # 0.02 10^3/uL (1.8-7.7); Slide Review Slide Review Perform
--- NOTE | 2020-02-14 07:35 | CT_ITS ---
WS: [id number] CT ABDOMEN AND PELVIS WITH CONTRAST HISTORY: pain, metastatic cancer, increased LFT's TECHNIQUE: Imaging performed of the abdomen and pelvis with IV contrast. Single phase imaging of the abdomen. Coronal and sagittal reformats are submitted. All CT scans at [facility] use at least one of these dose optimization techniques: automated exposure control; mA and/or kV adjustment per patient size (includes targeted exams where dose is matched to clinical indication); or iterativ e reconstruction. IV CONTRAST: Omnipaque 300; 95 mL IV. Oral contrast: No DLP: 1261.99 mGy.cm COMPARISON: 10/05/2019 and gallbladder ultrasound 02/13/2020 Lower thorax: Significant increase in size and number of the numerous pulmonary nodules at the lung b ases. Soft tissue mass visualized involving the RIGHT middle lobe and the central bronchovascular str uctures. Mass measures 10.7 x 7.9 cm and encases the RIGHT middle lobe bronchovascular structures and abuts the RIGHT heart. Heart size is normal. There is an additional metastatic nodule measuring 1.0 cm inferior to the LEFT pulmonary artery. Small hiatal hernia. Liver/biliary system: Normal size with no intrahepatic dilatation. Gallbladder: Normal. No gallstones or wall thickening. No pericholecystic fluid. Pancreas: Mild atrophy of the pancreas. No definite pancreatic mass. Spleen: Granuloma. Normal size. Adrenal glands: RIGHT adrenal gland is being displaced by a large cystic mass associated with the RIG HT kidney. Normal LEFT adrenal gland. Right kidney: There is a large cystic mass infiltrating through the RIGHT kidney. Mass is centered in the renal pelvis and extends through the collecting system into the calyces of the upper pole. Mass extends over length of 8.8 cm, AP by 7.5 cm and transversely by 5.0 cm. There is an additional low-at tenuation lesion exophytic measuring 1.6 cm from the lateral kidney. Mild dilatation of the calyces i n the lower pole. No ureteral obstruction. Left kidney: Normal. Aorta: Moderate atherosclerosis aorta. Metastatic deposit or cystic lymph nodes nearly encase the aor ta at the level of the renal arteries. Cystic lymph nodes measure 8.9 x 6.4 cm and is increased in si ze. Additional retrocrural cystic lymph node with a maximum diameter of 3.5 cm on the RIGHT. No free fluid. GI tract: Moderate fecal retention. Diverticular disease without acute diverticulitis. No GI tract ob struction. Abdominal wall: Unremarkable abdominal wall. No hernia. Pelvis: Very mild enlargement the prostate gland. Urinary bladder is well distended. Bones: Degenerative disc disease at L5-S1. No osteoblastic or osteolytic disease appreciated. CT/CT abdomen pelvis w con* [id number] IMPRESSION: 1. Overall progression of the lobulated mass centered in the RIGHT renal pelvi s with extension through the medullary pyramids and the calyces of the upper po le. This mass now measures 8.8 x 7.5 x 5.0 cm and causing mild obstruction. Con sistent with known renal cell carcinoma. 2. Increasing size and number of the near circumferential cystic lymph nodes n early encasing the aorta at the level of the renal arteries. Additional retrocr ural lymph node on the RIGHT measuring 3.5 cm. 3. No biliary duct dilatation. Negative gallbladder and negative liver. 4. Increasing size and number of metastatic nodules at the lung bases. 5. Metastatic disease in the RIGHT middle lobe. There is a large solid appeari ng tumor incompletely visualized in the RIGHT middle lobe.
[2020-02-14 07:43] LABS: Vancomycin Trough 10.7 ug/mL (10-15)
[2020-02-14] MEDS: lidocaine 1% 5 ML in potassium chloride premix 100 ML 25 ML IV (07:53)
[2020-02-14] MEDS: dexamethasone 4 mg Tablet PO ×3 (08:06→21:03)
[2020-02-14] MEDS: pantoprazole DR 40 mg Tablet PO ×2 (08:06→17:27)
[2020-02-14] MEDS: acyclovir 400 mg Tablet PO ×3 (08:06→21:03)
[2020-02-14] MEDS: FUROsemide 10 mg/mL SDV 2mL 20 MG IVP (08:06)
[2020-02-14] MEDS: potassium chloride ER 20 mEq Tablet 40 MEQ PO (08:06)
[2020-02-14] MEDS: vancomycin 1,250 MG/250 ML PIGGYBACK 200 MG IV (08:07)
[2020-02-14 08:21] LABS: Magnesium 1.4 mg/dL (1.7-2.3)
[2020-02-14] MEDS: sodium chloride 0.9% (100 ml) 100 ML 25 ML (09:38)
--- NOTE | 2020-02-14 10:28 | PM.PN ---
Subjective Subjective: Interval history: She is feeling a little bit better. He had quite a bit of diarrhea last night. No obvious blood, although it tested heme positive. Medications: Reviewed: Yes Vitals/I&O/Wt Last Vital Signs Temp 98.9 F 02/14/20 10:03 Pulse 76 02/14/20 10:03 Resp 18 02/14/20 10:03 BP 104/60 02/14/20 10:03 Pulse Ox 97 02/14/20 10:03 02/13/20 02/14/20 02/14/20 22:59 06:59 14:59 Intake Total 250 / 535 240 / 775 0 / 0 Output Total 350 / 350 300 / 650 Balance -100 / 185 -60 / 125 0 / 0 Weight last 48 hrs Weight 85.003 kg Weight 88.904 kg Physical Exam Narrative: EXAM NARRATIVE: General exam is a white male without distress Neck is supple no thyromegaly Cardiovascular regular rate and rhythm without murmur, no S3 or S4 Lungs clear. Diminished breath sounds are noted bilaterally. No wheezing Abdomen is soft with positive bowel sounds, no obvious organomegaly. Some tenderness noted left lower quadrant area. Extremities no cyanosis or clubbing. 1-2+ edema is noted., Cap refill brisk brisk Data : 02/14/20 04:10 02/14/20 04:10 Micro: Microbiology 02/13/20 10:29 Blood Culture - Preliminary Blood Gram Negative Rods 02/13/20 08:15 Blood Culture - Preliminary Blood Gram Negative Rods 02/13/20 14:45 Occult Blood (FIT) - Final Stool - Stool Aspirate A&P Assessment and plan (1) Acute hyponatremia: Slowly improving likely multifactorial. He has brain metastasis. He is on chronic steroids. Home medicines include hydrochlorothiazide. He has had recent vomiting, and may not have been taking his loop diuretic. He has evidence of excess total body fluid with his peripheral edema. Another dose of Lasix following blood transfusion Repeat sodium tomorrow Continue to hold thiazide diuretic Status: Acute (2) Encephalopathy acute: Metabolic likely secondary to hyponatremia, or brain metastasis This is significantly improved Status: Acute (3) Neutropenia: Secondary to chemotherapy. ANC is 20 He did receive Neulasta with his last chemotherapy on February 09 Continue to monitor closely. Continue cefepime and vancomycin MRSA PCR pending Blood culture is growing gram-negative rods We will repeat blood culture today, as well as tomorrow Check stool culture Status: Acute (4) Thrombocytopenia: Improved following transfusion of platelets Repeat platelet count tomorrow Avoid antiplatelet agents or anticoagulation Status: Acute (5) Anemia: Transfused 2 units of packed red blood cells on February 12. Stool Hemoccult positive Continue Protonix 40 mg twice daily Transfusion 1 unit packed red blood cells today with 20 mg of Lasix following Status: Acute (6) Primary lung squamous cell carcinoma: With widespread metastasis to the brain, likely spine, kidney Status: Acute Qualifiers: Laterality: right Qualified Code(s): C34.91 - Malignant neoplasm of unspecified part of right bronchus or lung (7) Cholelithiasis: Unlikely to be causing current clinical scenario Not candidate for any type of surgery currently Status: Inactive (8) Pneumonia: Sputum culture pending Continue pulmonary toilet Vancomycin and cefepime Covid PCR pending Status: Acute (9) Stomatitis: Continue antiviral he takes as needed secondary to stomatitis Monitor closely for any evidence of candidal infection Status: Acute (10) Transaminitis: Bilirubin level slightly worse. LFTs still elevated. Continue to follow closely. Status: Acute Additional A&P Information Magnesium. Supplement magnesium history of hypertension History of optic neuritis and blindness GERD. Continue Protonix COPD. No evidence of exacerbation currently Full code SCDs for DVT prophylaxis. Avoid anticoagulation secondary to anemia and severely low platelets Attestations Medical Necessity Statement*: Needs continued hospitalization for severe pancytopenia, bacteremia for IV antibiotics. Critical Care Time: 30 minutes spent in critical care time in this patient with severe neutropenia, bacteremia with gram-negative organisms, severe anemia with evidence of possible GI bleed with high risk of decompensation. 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
[2020-02-14] MEDS: magnesium sulfate premix 2 GM/50 ML PIGGYBACK IV (12:28)
[2020-02-14] MEDS: cefepime 2,000 MG in sodium chloride 0.9% (plus) 50 ML 100 MG IV (12:28)
[2020-02-14] MEDS: iohexol 300 mg/mL 100 mL Btl IV (15:04)
--- NOTE | 2020-02-14 16:43 | PC.RESP ---
Smoking Cessation and Pulmonary Rehab information sent to patient.
[2020-02-14] MEDS: vancomycin 1,250 MG/250 ML PIGGYBACK 250 MG IV (19:49)
[2020-02-15] VITALS (20 sets, daily range): BP systolic 98–141; BP diastolic 65–92; PULSE 54–79; RESP 16–24; TEMP 35.9–37; O2SAT 92–97
[2020-02-15] MEDS: cefepime 2,000 MG in sodium chloride 0.9% (plus) 50 ML 100 MG IV ×2 (00:38→12:14)
[2020-02-15] MEDS: oxyCODONE 5 mg IR Tab/Cap PO ×2 (00:52→15:05)
[2020-02-15 06:11] LABS: Hematocrit 27.7 % (42.0-52.0); Hemoglobin 9.6 g/dL (11.7-16.6); Lymphocytes # 0.1 10^3/uL (0.8-4.8); Lymphocytes % 88.9 %; Mean Corpuscular HGB Conc 34.7 g/dL (30.0-36.0); Mean Corpuscular Volume 80.8 fL (80-94); Mean Platelet Volume 10.7 fL (7.4-10.4); Monocytes % 11.1 %; Nucleated Red Blood Cells % 0 %; Positive C 1; Red Blood Count 3.43 10^6/uL (4.1-5.3)
[2020-02-15 06:34] LABS: Alanine Aminotransferase 91 U/L (0-41); Albumin Level 2.4 g/dL (3.5-5.2); Alkaline Phosphatase 92 IU/L (40-130); Anion Gap 18.7 (5-19); Aspartate Amino Transferase 16 U/L (0-40); Blood Urea Nitrogen 32 mg/dL (8-23); Calcium 8.6 mg/dL (8.5-10.5); Carbon Dioxide 19 mmol/L (22-29); Chloride 92 mmol/L (98-107); Globulin 2.8 g/dL (1.3-4.6); Glomerular Filtration Rate 114.3 mL/min (90-130); Glucose 114 mg/dL (65-115); Osmolality Calculated 270 mOsm/kg (285-295); Potassium 3.7 mmol/L (3.5-5.1); Sodium 126 mmol/L (136-145); Total Bilirubin 2.4 mg/dL (0.15-1.2); Total Protein 5.2 g/dL (6.6-8.7)
[2020-02-15 06:45] LABS: Platelet Count 14 10^3/cmm (130-400); White Blood Count 0.1 10^3/uL (4.0-10.0)
[2020-02-15 06:46] LABS: Slide Review Slide Review Perform
[2020-02-15 07:52] LABS: Coronavirus Lab Test PTC Negative
[2020-02-15] MEDS: vancomycin 1,250 MG/250 ML PIGGYBACK 250 MG IV ×2 (08:46→22:02)
[2020-02-15] MEDS: acyclovir 400 mg Tablet PO ×3 (08:47→22:02)
[2020-02-15] MEDS: dexamethasone 4 mg Tablet PO ×3 (08:47→22:02)
[2020-02-15] MEDS: pantoprazole DR 40 mg Tablet PO ×2 (08:47→17:59)
[2020-02-15] MEDS: FUROsemide 10 mg/mL SDV 4mL 40 MG IVP (08:48)
--- NOTE | 2020-02-15 10:43 | P.PN_ITS ---
Subjective Subjective: Interval history: Reports he is feeling better today. Not short of breath. Denies any abdominal pain. Diarrhea has lessened. Medications: Reviewed: Yes Vitals/I&O/Wt Last Vital Signs Temp 96.7 F L 02/15/20 10:00 Pulse 64 02/15/20 10:00 Resp 20 H 02/15/20 10:00 BP 111/71 02/15/20 10:00 Pulse Ox 95 02/15/20 10:00 02/14/20 02/15/20 02/15/20 22:59 06:59 14:59 Intake Total 490 / 1775 / 1975 290 / 290 Output Total 575 / 1225 425 / 1650 400 / 400 Balance -85 / 550 -225 / 325 -110 / -110 Weight last 48 hrs Weight 85.094 kg Weight 85.003 kg Physical Exam Narrative: EXAM NARRATIVE: General exam is a white male without distress Neck is supple no thyromegaly Cardiovascular regular rate and rhythm without murmur, no S3 or S4 Lungs clear. Diminished breath sounds are noted bilaterally. No wheezing Abdomen is soft with positive bowel sounds, no obvious organomegaly. No tenderness is noted today Extremities no cyanosis or clubbing. 1-2+ edema is noted., Cap refill brisk Data : 02/15/20 05:44 02/15/20 05:44 Micro: Microbiology 02/15/20 05:55 Blood Culture - Preliminary Blood SPECIMEN COLLECTED 02/15/20 05:44 Blood Culture - Preliminary Blood SPECIMEN COLLECTED 02/14/20 11:45 Blood Culture - Preliminary Blood SPECIMEN COLLECTED 02/14/20 11:18 Blood Culture - Preliminary Blood SPECIMEN COLLECTED 02/13/20 10:29 Blood Culture - Preliminary Blood Gram Negative Rods 02/13/20 08:15 Blood Culture - Preliminary Blood Gram Negative Rods A&P Assessment and plan (1) Acute hyponatremia: Essentially unchanged from yesterday. He appears slightly fluid overloaded so Lasix 40 mg IV will be given. likely multifactorial. He has brain metastasis. He is on chronic steroids. Home medicines include hydrochlorothiazide. He has had recent vomiting, and may not have been taking his loop diuretic. He has evidence of excess total body fluid with his peripheral edema. Continue to follow sodium closely Continue to hold thiazide diuretic Status: Acute (2) Encephalopathy acute: Metabolic likely secondary to hyponatremia, or brain metastasis This now appears resolved Status: Acute (3) Neutropenia: Secondary to chemotherapy. ANC 0 He did receive Neulasta with his last chemotherapy on February 09 Continue to monitor closely. Continue cefepime and vancomycin MRSA PCR pending Blood culture is growing gram-negative rods. Awaiting ID and sensitivity Repeat blood cultures have been done Stool cultures were checked and pending Likely will need to remove port but as he is improving significantly would like cell counts to recover some prior to performing this and bloodstream infection to clear Status: Acute (4) Thrombocytopenia: Improved following transfusion of platelets To down slightly today to 14,000, however without active bleeding no need for repeat platelet transfusion currently. Status: Acute (5) Anemia: Transfused 2 units of packed red blood cells on February 12. 1 unit on February 13 Stool Hemoccult positive Continue Protonix 40 mg twice daily Hemoglobin markedly improved Status: Acute (6) Primary lung squamous cell carcinoma: With widespread metastasis to the brain, likely spine, kidney Status: Acute Qualifiers: Laterality: right Qualified Code(s): C34.91 - Malignant neoplasm of unspecified part of right bronchus or lung (7) Cholelithiasis: Unlikely to be causing current clinical scenario Not candidate for any type of surgery currently CT of abdomen and pelvis demonstrates some progression of his cancer right kidney but no overt areas of abscess or infection LFTs improved Status: Inactive (8) Pneumonia: Sputum culture pending Continue pulmonary toilet Vancomycin and cefepime Covid PCR negative Status: Acute (9) Stomatitis: Continue antiviral he takes as needed secondary to stomatitis Monitor closely for any evidence of candidal infection Status: Acute (10) Transaminitis: Improved. Likely secondary to sepsis Status: Acute Additional A&P Information Magnesium. Recheck tomorrow history of hypertension History of optic neuritis and blindness GERD. Continue Protonix COPD. No evidence of exacerbation currently Full code SCDs for DVT prophylaxis. Avoid anticoagulation secondary to anemia and severely low platelets Transfer out of ICU today Attestations Medical Necessity Statement*: Needs continued hospitalization secondary to bacteremia with need for IV antibiotics Critical Care Time: 31 minutes spent in critical care time at bedside examining and interviewing the patient, reviewing all laboratory and formulating a plan in this patient with multiple morbidities including widely metastatic cancer, bacteremia, severe neutropenia, pneumonia, transaminitis with evidence of liver insufficiency, stomatitis, etc. with high risk of or decompensation. 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
--- NOTE | 2020-02-15 12:48 | PC.CHAP ---
Pastoral Care Encounter/Spiritual Assessment Type of Contact [] Declined it service technician visit [] Patient/Family/Request visit [] Outpatient visit [] Follow-up visit [] Physician referral [] Code/Alert [] Routine visit [] Staff referral [] Actively dying [] Patient sleeping [] Family support [] [] Out of room [] Palliative care [] [] Receiving care in room [] Pre-surgical visit [] Trauma [] Long length of stay [x] ICU visit [] Other: Relational/Emotional Strength [] Patient feels connected with others/family/visitors/staff [] Distress [] Loneliness/isolation [] Abandonment Spirituality of Patient [] Person of Amanda [] Attends Episcopalian of their Amanda [] Believes in Prayer [] Reads Bible or Nondenominational materials [] There are Spiritual issues to be addressed Dry Mop Maker Interventions [x] Prayer [] Active listening [] Non-anxious presence [] Spiritual/emotional support [] Crisis/trauma care [] Spiritual counseling [] Bereavement support [] Provided bereavement packet [] Provided Bible/devotional materials [] Provided toy/stuffed animal, coloring book to patient or family member [] Provided Communion [] Anointing/[place] [] Salvation [x] Completed spiritual assessment [] Other: Impact on Illness or Injury [] Angry [] Fearful [] Anxious [] Often cries [] Exhaustion [] Unable to work [] Unable to attend latter day [] Unable to walk/stand [] Unable to read [] Unable to drive [] Unable to eat/drink [] Unable to sleep [] Unable to be with family [] Patient intubated [] Other: Summary Time spent with patient
[2020-02-15] MEDS: lanolin oint 7 gm 1 APPLIC TOPICAL (14:02)
--- NOTE | 2020-02-15 15:17 | PC.NURSE ---
Patient's wfe was wanting to know if he could have visitor due to a pending covid test. Patient's covid test has come back negative. I attempted to call kirsten. No answer.
--- NOTE | 2020-02-15 22:52 | PC.NURSE ---
ASSUMING CARE Patient lying in bed on RA. Patient denies any pain, no infusions running through peripheral IV's or chest port. Patient to be transferred to medical surgical floor.
--- NOTE | 2020-02-15 23:11 | PC.NURSE ---
TRANSFER Report called to Leigh on medical surgical floor. Floor called back to ICU and stated to wait on bringing the patient while they switched and cleaned rooms. supervisor telephone clerks took patient to floor once floor was ready via wheelchair.
[2020-02-16] VITALS (16 sets, daily range): BP systolic 120–143; BP diastolic 81–92; PULSE 63–97; RESP 16–22; TEMP 36.3–37.1; O2SAT 94–100
[2020-02-16] MEDS: cefepime 2,000 MG in sodium chloride 0.9% (plus) 50 ML 100 MG IV ×3 (00:07→23:48)
[2020-02-16 05:40] LABS: Hematocrit 30.6 % (42.0-52.0); Hemoglobin 10.7 g/dL (11.7-16.6); Lymphocytes # 0.1 10^3/uL (0.8-4.8); Lymphocytes % 52.6 %; Mean Corpuscular Hemoglobin 27.8 pg (28.0-34.0); Mean Corpuscular Volume 79.5 fL (80-94); Mean Platelet Volume 10.1 fL (7.4-10.4); Monocytes % 21.1 %; Neutrophils % 15.8 %; Nucleated Red Blood Cells % 0 %; Red Blood Count 3.85 10^6/uL (4.1-5.3); Red Cell Distribution Width 14.7 % (12.1-15.1)
[2020-02-16 06:05] LABS: Alanine Aminotransferase 73 U/L (0-41); Albumin Level 2.7 g/dL (3.5-5.2); Alkaline Phosphatase 107 IU/L (40-130); Anion Gap 15.5 (5-19); Aspartate Amino Transferase 18 U/L (0-40); Blood Urea Nitrogen 36 mg/dL (8-23); Calcium 8.8 mg/dL (8.5-10.5); Carbon Dioxide 22 mmol/L (22-29); Chloride 92 mmol/L (98-107); Globulin 2.9 g/dL (1.3-4.6); Glucose 137 mg/dL (65-115); Magnesium 1.7 mg/dL (1.7-2.3); Osmolality Calculated 272 mOsm/kg (285-295); Potassium 3.5 mmol/L (3.5-5.1); Sodium 126 mmol/L (136-145); Total Bilirubin 2.5 mg/dL (0.15-1.2); Total Protein 5.6 g/dL (6.6-8.7)
[2020-02-16 07:23] LABS: Slide Review Slide Review Perform
[2020-02-16 07:24] LABS: Neutrophils # 0.03 10^3/uL (1.8-7.7); Platelet Count 8 10^3/cmm (130-400); White Blood Count 0.2 10^3/uL (4.0-10.0)
[2020-02-16] MEDS: acyclovir 400 mg Tablet PO ×3 (08:39→21:52)
[2020-02-16] MEDS: pantoprazole DR 40 mg Tablet PO ×2 (08:39→17:13)
[2020-02-16] MEDS: dexamethasone 4 mg Tablet PO ×3 (08:39→21:52)
[2020-02-16] MEDS: vancomycin 1,250 MG/250 ML PIGGYBACK 200 MG IV (08:39)
[2020-02-16] MEDS: FUROsemide 10 mg/mL SDV 10mL 60 MG IVP (08:50)
--- NOTE | 2020-02-16 09:44 | PC.NURSE ---
Therapy and CLAMPER in room with patient and report to this nurse patient is having chest pain, this nurse and charge nurse Estrella in to see patient vitals stable as documented, IV access was pulled out by patient and new IV placed, EKG completed, telemetry placed on patient, Dr. Bautista made aware by charge nurse Estrella.
--- NOTE | 2020-02-16 09:57 | PC.NURSE ---
Dr. Bautista spoke to this nurse about patients chest pain and ekg results, new orders received for maalox one time, see MAR for further details, call if unrelieved by maalox or pain medication PRN.
[2020-02-16] MEDS: alum-mag-hydroxide-sime 30 mL UDC PO ×2 (10:00→17:13)
--- NOTE | 2020-02-16 10:12 | ECG_ITS ---
[facility] Test Date: 2020-02-16 Pat Name: Phani Jarrett Department: Room: 262 Gender: Male Associate Director: : 1955 Requested By: Manuel Bocanegra Order Number: [id number] Ciara MD: Juan Almazan M.D. Measurements Intervals [place] Rate: 93 P: 35 ND: 140 QRS: 65 QRSD: 85 T: 49 QT: 329 QTc: 410 Interpretive Statements SINUS RHYTHM LEFT ATRIAL ENLARGEMENT [-0.15mV P WAVE IN V1/V2] No previous ECG available for comparison Electronically Signed On 02-16-2020 18:34:00 COMMUTATOR INSPECTOR by Juan Almazan M.D. [email or web address] [facility], [facility]onEmer[facility]/store/NU/[id number] f
--- NOTE | 2020-02-16 12:57 | P.PN_ITS ---
Subjective Subjective: Interval history: Phani reports he is doing okay. No severe diarrhea currently. No abdominal pain. Denies any bleeding. Medications: Reviewed: Yes Vitals/I&O/Wt Last Vital Signs Temp 98.4 F 02/16/20 11:35 Pulse 86 02/16/20 11:35 Resp 18 02/16/20 11:35 BP 131/84 02/16/20 11:35 Pulse Ox 94 02/16/20 11:35 02/15/20 02/16/20 02/16/20 22:59 06:59 14:59 Intake Total 300 / 590 540 / 1130 Output Total 100 / 500 300 / 800 820 / 820 Balance 200 / 90 240 / 330 -820 / -820 Weight last 48 hrs Weight 66.043 kg Weight 85.094 kg Physical Exam Narrative: EXAM NARRATIVE: General exam no apparent distress Cardiovascular regular rate and rhythm Lungs a few faint expiratory wheezes Abdomen is soft with positive bowel sounds Extremities trace edema Data : 02/16/20 05:24 02/16/20 05:24 Micro: Microbiology 02/15/20 05:55 Blood Culture - Preliminary Blood NEGATIVE TO DATE 02/15/20 05:44 Blood Culture - Preliminary Blood NEGATIVE TO DATE 02/14/20 11:45 Blood Culture - Preliminary Blood NEGATIVE TO DATE 02/14/20 11:18 Blood Culture - Preliminary Blood NEGATIVE TO DATE A&P Assessment and plan (1) Acute hyponatremia: Unchanged Initiate 60 mg of Lasix every 24 hours. Try to achieve negative I/O ratio over the next 24 hours Likely multifactorial. He has brain metastasis. He is on chronic steroids. Home medicines include hydrochlorothiazide. He has had recent vomiting, and may not have been taking his loop diuretic. He has evidence of excess total body fluid with his peripheral edema. Continue to follow sodium closely Continue to hold thiazide diuretic Status: Acute (2) Encephalopathy acute: Metabolic likely secondary to hyponatremia, or brain metastasis This now appears resolved Status: Acute (3) Neutropenia: Secondary to chemotherapy. ANC slightly higher today at 30 but significance unknown He did receive Neulasta with his last chemotherapy on February 09 Continue to monitor closely. Continue cefepime and vancomycin MRSA PCR still not collected. Discussed with nurse. Blood culture is growing gram-negative rods. Awaiting ID and sensitivity Repeat blood cultures have been done and negative to date Stool cultures were checked and pending Likely will need to remove port but as he is improving significantly would like cell counts to recover some prior to performing this as well as trying to clear bloodstream infection prior to replacement. Discussed briefly with surgeon. If counts are significantly improving perhaps early next week this can be done. Marybel gao will need to consult and call again at that time. Status: Acute (4) Thrombocytopenia: Improved following transfusion of platelets, 2 units on February 12 Platelet count currently down to less than 10,000. Will transfuse 1 unit pheresis platelets Continue to follow closely Status: Acute (5) Anemia: Transfused 2 units of packed red blood cells on February 12. 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 Patient is not interested in comfort measures at this point. Status: Acute Qualifiers: Laterality: right Qualified Code(s): C34.91 - Malignant neoplasm of unspecified part of right bronchus or lung (7) Cholelithiasis: Unlikely to be causing current clinical scenario Not candidate for any type of surgery currently CT of abdomen and pelvis demonstrates some progression of his cancer right kidney but no overt areas of abscess or infection LFTs improved Status: Inactive (8) Pneumonia: Sputum culture pending Continue pulmonary toilet Vancomycin and cefepime Covid PCR negative Status: Acute (9) Stomatitis: Continue antiviral he takes as needed secondary to stomatitis Monitor closely for any evidence of candidal infection Status: Acute (10) Transaminitis: Improved. Likely secondary to sepsis Status: Acute Additional A&P Information Magnesium. This has normalized history of hypertension History of optic neuritis and blindness GERD. Continue Protonix COPD. No evidence of exacerbation currently Full code SCDs for DVT prophylaxis. Avoid anticoagulation secondary to anemia and severely low platelets No evidence of fungal infection currently. 02/15 continue vancomycin and Zosyn. Awaiting identification of gram-negative organism in blood. Transfusing 1 unit of platelets. Will likely need exchange of port early next week. Attestations Medical Necessity Statement*: Needs continued hospitalization, for IV antibiotics secondary to bacteremia with gram-negative organism Coding Level of Care Code Acute Multiple Knife Edge Trimmer Operator for g Fwd Diagnoses Acute hyponatremia E87.1 Encephalopathy acute G93.40 Neutropenia D70.9 Thrombocytopenia D69.6 Anemia D64.9 Primary lung squamous cell carcinoma C34.91 Laterality: right Cholelithiasis K80.20 Pneumonia J18.9 Stomatitis K12.1 Transaminitis R74.01
[2020-02-16] MEDS: potassium chloride ER 20 mEq Tablet 40 MEQ PO (14:25)
[2020-02-16] MEDS: oxyCODONE 5 mg IR Tab/Cap PO (16:08)
--- NOTE | 2020-02-16 16:10 | PC.NURSE ---
patient reports shoulder and lung pain, PRN oxy given, see MAR for further details.
--- NOTE | 2020-02-16 16:29 | PC.NURSE ---
Dr. Bautista made aware of patient report of chest pain, vitals stable as documented. Dr. Bautista coming to see patient.
--- NOTE | 2020-02-16 16:47 | ECG_ITS ---
[facility] Test Date: 2020-02-16 Pat Name: Phani Jarrett Department: Room: 262 Gender: Male Chemical Dependency Attendant: : 1955 Requested By: Manuel Bocanegra Order Number: [id number] Ciara MD: Juan Almazan M.D. Measurements Intervals [place] Rate: 78 P: 36 IA: 151 QRS: 50 QRSD: 94 T: 48 QT: 368 QTc: 419 Interpretive Statements SINUS RHYTHM POSSIBLE LEFT ATRIAL ENLARGEMENT [-0.1mV P WAVE IN V1/V2] Compared to ECG 02/16/2020 09:44:17 No significant changes Electronically Signed On 02-16-2020 18:36:41 FLIGHT OPERATIONS SPECIALIST by Juan Almazan M.D. [email or web address].[facility].[employer]/store/OM/[id number]
[2020-02-16] MEDS: fluconazole 100 mg Tablet 200 MG PO (17:13)
[2020-02-16 17:48] LABS: Troponin(5th) Baseline 23 ng/L (0-15)
--- NOTE | 2020-02-16 18:47 | ECG_ITS ---
[facility] Test Date: 2020-02-16 Pat Name: Phani Jarrett Department: Room: 262 Gender: Male Optical Dispenser: : 1955 Requested By: Manuel Bocanegra Order Number: [id number] Ciara MD: Lucia Lara M.D. Measurements Intervals [place] Rate: 67 P: 47 CO: 149 QRS: 59 QRSD: 95 T: 54 QT: 387 QTc: 410 Interpretive Statements SINUS RHYTHM POSSIBLE LEFT ATRIAL ENLARGEMENT [-0.1mV P WAVE IN V1/V2] Compared to ECG 02/16/2020 17:23:01 No significant changes Electronically Signed On 02-17-2020 8:50:08 TAX MANAGER CPA by Lucia Lara M.D. [email or web address] GmbHclaiborne county medical centerCInergy International UKmckit[facility] hospital.[employer]/store/NU/[id number]/[email or web address]/[id number] f
[2020-02-16 19:52] LABS: Vancomycin Trough 23.2 ug/mL (10-15)
[2020-02-16] MEDS: albuterol 8 gm MDI 2 PUFF INHALATION (21:03)
--- NOTE | 2020-02-16 22:47 | ECG_ITS ---
[facility] Test Date: 2020-02-17 Pat Name: Phani Jarrett Department: Room: 262 Gender: Male Robot Operator: : 1955 Requested By: Manuel Bocanegra Order Number: [id number] Ciara MD: Lucia Lara M.D. Measurements Intervals [place] Rate: 67 P: 35 NM: 145 QRS: 55 QRSD: 97 T: 52 QT: 402 QTc: 425 Interpretive Statements SINUS RHYTHM Compared to ECG 02/16/2020 20:58:23 No significant changes Electronically Signed On 02-17-2020 8:45:07 MONITOR WORKER by Lucia Lraa M.D. [id number]
[2020-02-16 23:52] LABS: Troponin 5 6HR 20.27 ng/L (0-15)
[2020-02-16 23:57] LABS: Troponin 5 6HR Delta -2.73 ng/L (0-12)
[2020-02-17] VITALS (21 sets, daily range): BP systolic 107–137; BP diastolic 7–81; PULSE 67–99; RESP 14–24; TEMP 36.3–36.9; O2SAT 91–96
[2020-02-17] MEDS: oxyCODONE 5 mg IR Tab/Cap PO ×2 (01:07→20:47)
[2020-02-17] MEDS: vancomycin 1,250 MG/250 ML PIGGYBACK 200 MG IV (04:52)
[2020-02-17 06:30] LABS: Hematocrit 25.5 % (42.0-52.0); Hemoglobin 8.8 g/dL (11.7-16.6); Lymphocytes # 0.1 10^3/uL (0.8-4.8); Lymphocytes % 31.3 %; Mean Corpuscular HGB Conc 34.5 g/dL (30.0-36.0); Mean Corpuscular Hemoglobin 27.2 pg (28.0-34.0); Mean Corpuscular Volume 78.9 fL (80-94); Mean Platelet Volume 11.6 fL (7.4-10.4); Monocytes # 0.1 10^3/uL (0.2-0.9); Monocytes % 21.9 %; Neutrophils % 43.7 %; Nucleated Red Blood Cells % 0 %; Red Blood Count 3.23 10^6/uL (4.1-5.3); Red Cell Distribution Width 14.9 % (12.1-15.1)
[2020-02-17 06:42] LABS: White Blood Count 0.3 10^3/uL (4.0-10.0)
[2020-02-17 06:43] LABS: Neutrophils # 0.14 10^3/uL (1.8-7.7); Platelet Count 10 10^3/cmm (130-400)
[2020-02-17 07:22] LABS: Alanine Aminotransferase 58 U/L (0-41); Albumin Level 2.5 g/dL (3.5-5.2); Alkaline Phosphatase 102 IU/L (40-130); Anion Gap 15.5 (5-19); Aspartate Amino Transferase 21 U/L (0-40); Blood Urea Nitrogen 30 mg/dL (8-23); Calcium 8.5 mg/dL (8.5-10.5); Carbon Dioxide 22 mmol/L (22-29); Chloride 95 mmol/L (98-107); Globulin 2.6 g/dL (1.3-4.6); Glomerular Filtration Rate 136.5 mL/min (90-130); Glucose 127 mg/dL (65-115); Osmolality Calculated 276 mOsm/kg (285-295); Potassium 3.5 mmol/L (3.5-5.1); Sodium 129 mmol/L (136-145); Total Protein 5.1 g/dL (6.6-8.7)
[2020-02-17] MEDS: acyclovir 400 mg Tablet PO ×3 (08:30→20:48)
[2020-02-17] MEDS: fluconazole 100 mg Tablet 200 MG PO (08:31)
[2020-02-17] MEDS: FUROsemide 10 mg/mL SDV 10mL 60 MG IVP (08:31)
[2020-02-17] MEDS: pantoprazole DR 40 mg Tablet PO ×2 (08:31→17:44)
[2020-02-17] MEDS: albuterol 8 gm MDI 2 PUFF INHALATION ×3 (08:38→19:57)
[2020-02-17] MEDS: dexamethasone 4 mg Tablet PO ×3 (08:42→20:47)
[2020-02-17] MEDS: cefepime 2,000 MG in sodium chloride 0.9% (plus) 50 ML 100 MG IV (13:22)
[2020-02-17 13:24] LABS: Procalcitonin 0.74 ng/mL (0-0.5)
[2020-02-17 13:37] LABS: C Reactive Protein 107.9 mg/L (0.0-4.9); Lactate Dehydrogenase 226 U/L (135-225); Magnesium 1.7 mg/dL (1.7-2.3); Phosphorus 2.6 mg/dL (2.5-4.5); Uric Acid 6.7 mg/dL (3.4-7.0)
--- NOTE | 2020-02-17 14:00 | PM.PN ---
Subjective Subjective: Interval history: Patient was examined this morning, he sitting up at the edge of the bed working with physical therapy, tells me that he continues to feel quite fatigued and tired, has a poor appetite, no fever episodes overnight, no bloody or black stools, patient tells me that he really wants to get out of the hospital, really wants to be at home with his and sister, and that he wants to continue all interventions for his cancer, he does not want to be on hospice at this point Medications: Reviewed: Yes Vitals/I&O/Wt Last Vital Signs Temp 98.0 F 02/17/20 12:00 Pulse 67 02/17/20 12:00 Resp 18 02/17/20 12:00 BP 107/56 02/17/20 12:00 Pulse Ox 95 02/17/20 12:00 02/16/20 02/17/20 02/17/20 22:59 06:59 14:59 Intake Total 355 / 405 50 / 455 240 / 240 Output Total 100 / 1270 100 / 1370 1115 / 1115 Balance 255 / -865 -50 / -915 -875 / -875 Weight last 48 hrs Weight 58.241 kg Weight 66.043 kg Physical Exam Const: COMMON NORMALS: no acute distress and patient oriented x3 HENMT: COMMON NORMALS: normocephalic HEAD & SCALP: normocephalic Neck/C-Spine: COMMON NORMALS: no JVD Resp: COMMON NORMALS: normal respiratory effort, No retractions, No use of accessory muscles and clear to auscultation bilaterally AUSCULTATION: clear to auscultation bilaterally Cardio: COMMON NORMALS: no JVD, regular rate, regular rhythm, S1 normal heart sound present and S2 normal heart sound present RATE: regular rate RHYTHM: regular rhythm HEART SOUNDS: S1 normal heart sound present and S2 normal heart sound present GI: COMMON NORMALS: Normal to inspection, nondistended, normoactive bowel sounds present, Soft to palpation, non-tender, No hepatosplenomegaly present, no masses and no bruits PALPATION: Yes Soft to palpation and Yes No hepatosplenomegaly present Extremity: COMMON NORMALS: capillary refill normal, no clubbing, cyanosis or edema, no calf tenderness and no pedal edema Neuro: COMMON NORMALS: patient oriented x3 Psych: COMMON NORMALS: mental status grossly normal Data : 02/17/20 05:38 02/17/20 05:38 Micro: Microbiology 02/13/20 08:15 Blood Culture - Preliminary Blood Escherichia coli 02/13/20 10:29 Blood Culture - Preliminary Blood Escherichia coli A&P Assessment and plan (1) Acute hyponatremia: 129 We will continue to monitor Likely multifactorial. He has brain metastasis. He is on chronic steroids. Home medicines include hydrochlorothiazide. He has had recent vomiting, and may not have been taking his loop diuretic. He has evidence of excess total body fluid with his peripheral edema. Continue to follow sodium closely Continue to hold thiazide diuretic Status: Acute (2) Encephalopathy acute: Metabolic likely secondary to hyponatremia, or brain metastasis This now appears resolved Status: Acute (3) Neutropenia: Secondary to chemotherapy. Absolute neutrophil count a bit better this morning, 140 He did receive Neulasta with his last chemotherapy on February 09 Continue to monitor closely. Continue cefepime and vancomycin MRSA PCR still not collected Blood culture is growing gram-negative rods. E. coli, sensitive to penicillin and cephalosporin Repeat blood cultures have been done and negative to date Stool cultures were checked and pending Likely will need to remove port but as he is improving significantly would like cell counts to recover some prior to performing this as well as trying to clear bloodstream infection prior to replacement. Discussed briefly with surgeon. If counts are significantly improving perhaps early next week this can be done. Surgery will need to consult and call again at that time. Status: Acute (4) Thrombocytopenia: 2 units on February 12 1 unit February 15 Currently 10,000, will give another 2 units of platelets Continue to follow closely Status: Acute (5) Anemia: Transfused 2 units of packed red blood cells on February 12. 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 Patient is not interested in comfort measures at this point. Status: Acute Qualifiers: Laterality: right Qualified Code(s): C34.91 - Malignant neoplasm of unspecified part of right bronchus or lung (7) Cholelithiasis: Unlikely to be causing current clinical scenario Not candidate for any type of surgery currently CT of abdomen and pelvis demonstrates some progression of his cancer right kidney but no overt areas of abscess or infection LFTs improved Status: Inactive (8) Pneumonia: Sputum culture pending Continue pulmonary toilet Vancomycin and cefepime Covid PCR negative Status: Acute (9) Stomatitis: Continue antiviral he takes as needed secondary to stomatitis Monitor closely for any evidence of candidal infection Status: Acute (10) Transaminitis: Improved. Likely secondary to sepsis Status: Acute Additional A&P Information Magnesium. This has normalized history of hypertension History of optic neuritis and blindness GERD. Continue Protonix COPD. No evidence of exacerbation currently Full code SCDs for DVT prophylaxis. Avoid anticoagulation secondary to anemia and severely low platelets No evidence of fungal infection currently. 02/17/2020, continue vancomycin and cefepime, transfuse 2 units platelets, continue to monitor hemodynamics, urine cultures E. coli, likely source urine, but no urine culture was obtained on admission, will talk to infectious disease about port removal Attestations Medical Necessity Statement*: Patient requires hospitalization for E. coli bacteremia, with primary lung cell squamous cell carcinoma, diffuse, with anemia, thrombocytopenia, absolute neutropenia Coding Level of Care Code Acute Real Estate Coordinator for [facility] Fwd Diagnoses Acute hyponatremia E87.1 Encephalopathy acute G93.40 Neutropenia D70.9 Thrombocytopenia D69.6 Anemia D64.9 Primary lung squamous cell carcinoma C34.91 Laterality: right Cholelithiasis K80.20 Pneumonia J18.9 Stomatitis K12.1 Transaminitis R74.01
[2020-02-17 14:50] LABS: Lactate (Lactic Acid level) 1.4 mmol/L (0.5-2.2)
[2020-02-17 15:29] LABS: INR 1.12 (0.8-1.2); Partial Thromboplastin Time 25.9 SECONDS (23.9-36.7)
[2020-02-17 15:30] LABS: Fibrinogen 531 mg/dL (174-498)
[2020-02-17 15:32] LABS: D Dimer 1.76 ug/mIFEU (0-0.59)
[2020-02-17 19:00] LABS: Basophils % 1.1 %; Hematocrit 27.6 % (42.0-52.0); Hemoglobin 9.7 g/dL (11.7-16.6); Lymphocytes # 0.1 10^3/uL (0.8-4.8); Lymphocytes % 12.4 %; Mean Corpuscular HGB Conc 35.1 g/dL (30.0-36.0); Mean Corpuscular Hemoglobin 27.5 pg (28.0-34.0); Mean Corpuscular Volume 78.2 fL (80-94); Monocytes # 0.2 10^3/uL (0.2-0.9); Monocytes % 19.1 %; Neutrophils % 21.3 %; Nucleated Red Blood Cells % 0 %; Red Blood Count 3.53 10^6/uL (4.1-5.3)
[2020-02-17 19:15] LABS: Mean Platelet Volume 10.6 fL (7.4-10.4)
[2020-02-17 19:17] LABS: Neutrophils # 0.19 10^3/uL (1.8-7.7); Platelet Count 7 10^3/cmm (130-400); White Blood Count 0.9 10^3/uL (4.0-10.0)
[2020-02-17 19:24] LABS: LAB Peripheral Smear Sent for Review
[2020-02-18] VITALS (13 sets, daily range): BP systolic 110–137; BP diastolic 78–85; PULSE 57–88; RESP 17–18; TEMP 35.7–36.9; O2SAT 91–97
[2020-02-18] MEDS: vancomycin 1,250 MG/250 ML PIGGYBACK 200 MG IV ×2 (00:15→15:35)
[2020-02-18] MEDS: cefepime 2,000 MG in sodium chloride 0.9% (plus) 50 ML 100 MG IV ×2 (01:28→11:26)
[2020-02-18 05:46] LABS: Basophils % 0.8 %; Hemoglobin 8.5 g/dL (11.7-16.6); Lymphocytes # 0.2 10^3/uL (0.8-4.8); Lymphocytes % 12.5 %; Mean Corpuscular Hemoglobin 27.7 pg (28.0-34.0); Mean Corpuscular Volume 81.4 fL (80-94); Mean Platelet Volume 10.1 fL (7.4-10.4); Monocytes # 0.2 10^3/uL (0.2-0.9); Monocytes % 18.3 %; Neutrophils % 51.7 %; Nucleated Red Blood Cells % 0 %; Platelet Count 53 10^3/cmm (130-400); Red Blood Count 3.07 10^6/uL (4.1-5.3); Red Cell Distribution Width 15.3 % (12.1-15.1); White Blood Count 1.2 10^3/uL (4.0-10.0)
[2020-02-18 05:54] LABS: INR 1.12 (0.8-1.2)
[2020-02-18 06:26] LABS: Neutrophils # 0.62 10^3/uL (1.8-7.7)
[2020-02-18 07:34] LABS: NT Pro B Type Natriuretic Pept 2064 pg/mL (0-125); Procalcitonin 0.48 ng/mL (0-0.5)
[2020-02-18 07:45] LABS: Alanine Aminotransferase 44 U/L (0-41); Albumin Level 2.5 g/dL (3.5-5.2); Alkaline Phosphatase 101 IU/L (40-130); Anion Gap 15.2 (5-19); Aspartate Amino Transferase 16 U/L (0-40); Blood Urea Nitrogen 25 mg/dL (8-23); C Reactive Protein 71.7 mg/L (0.0-4.9); Calcium 8.5 mg/dL (8.5-10.5); Carbon Dioxide 21 mmol/L (22-29); Chloride 93 mmol/L (98-107); Creatine Phosphokinase 16 U/L (39-308); Globulin 2.5 g/dL (1.3-4.6); Glomerular Filtration Rate 136.5 mL/min (90-130); Glucose 134 mg/dL (65-115); Magnesium 1.7 mg/dL (1.7-2.3); Osmolality Calculated 268 mOsm/kg (285-295); Phosphorus 2.8 mg/dL (2.5-4.5); Potassium 3.2 mmol/L (3.5-5.1); Sodium 126 mmol/L (136-145); Total Bilirubin 1.4 mg/dL (0.15-1.2)
[2020-02-18] MEDS: albuterol 8 gm MDI 2 PUFF INHALATION ×3 (08:15→15:22)
[2020-02-18] MEDS: dexamethasone 4 mg Tablet PO ×3 (08:39→21:33)
[2020-02-18] MEDS: FUROsemide 10 mg/mL SDV 10mL 60 MG IVP (08:39)
[2020-02-18] MEDS: fluconazole 100 mg Tablet 200 MG PO (08:39)
[2020-02-18] MEDS: pantoprazole DR 40 mg Tablet PO ×2 (08:39→17:01)
[2020-02-18] MEDS: acyclovir 400 mg Tablet PO ×3 (08:39→21:33)
[2020-02-18] MEDS: sodium chloride 1 gm Tablet PO ×2 (09:16→17:01)
[2020-02-18] MEDS: potassium chloride ER 20 mEq Tablet 40 MEQ PO (09:16)
--- NOTE | 2020-02-18 11:27 | P.PN_ITS ---
Subjective Subjective: Interval history: This morning patient was examined, he sitting up in bed, tells me that he does feel better, no fevers, no chills, no cough, still has generalized weakness, tells me that he is a fighter, he really wants to go home, but understands why he needs to be here Vitals/I&O/Wt Last Vital Signs Temp 97.1 F L 02/18/20 08:00 Pulse 76 02/18/20 08:16 Resp 17 02/18/20 08:16 BP 130/85 02/18/20 08:00 Pulse Ox 93 02/18/20 08:16 02/17/20 02/18/20 02/18/20 22:59 06:59 14:59 Intake Total 675 / 965 50 / 1015 480 / 480 Output Total 200 / 1315 200 / 1515 300 / 300 Balance 475 / -350 -150 / -500 180 / 180 Weight last 48 hrs Weight 60.101 kg Weight 58.241 kg Physical Exam Const: COMMON NORMALS: no acute distress and patient oriented x3 GENERAL APPEARANCE: cooperative, ill appearing and frail appearing HENMT: COMMON NORMALS: normocephalic HEAD & SCALP: normocephalic Neck/C-Spine: COMMON NORMALS: no JVD Resp: COMMON NORMALS: normal respiratory effort, No retractions, No use of accessory muscles and clear to auscultation bilaterally AUSCULTATION: clear to auscultation bilaterally Cardio: COMMON NORMALS: no JVD, regular rate, regular rhythm, S1 normal heart sound present and S2 normal heart sound present RATE: regular rate RHYTHM: regular rhythm HEART SOUNDS: S1 normal heart sound present and S2 normal heart sound present GI: COMMON NORMALS: Normal to inspection, nondistended, normoactive bowel sounds present, Soft to palpation, non-tender, No hepatosplenomegaly present, no masses and no bruits PALPATION: Yes Soft to palpation and Yes No hepatosplenomegaly present Extremity: COMMON NORMALS: capillary refill normal, no clubbing, cyanosis or edema, no calf tenderness and no pedal edema Neuro: COMMON NORMALS: patient oriented x3 Psych: COMMON NORMALS: mental status grossly normal Data : 02/18/20 05:26 02/18/20 05:26 A&P Assessment and plan (1) Acute hyponatremia: 126 We will continue to monitor Likely multifactorial. He has brain metastasis. He is on chronic steroids. Home medicines include hydrochlorothiazide. He has had recent vomiting, and may not have been taking his loop diuretic. Try salt tablets today Continue to follow sodium closely Continue to hold thiazide diuretic Status: Acute (2) Encephalopathy acute: Metabolic likely secondary to hyponatremia, or brain metastasis This now appears resolved Status: Acute (3) Neutropenia: Secondary to chemotherapy. Absolute neutrophil count a bit better this morning, 620, white blood cell count 1.2 He did receive Neulasta with his last chemotherapy on February 09 Continue to monitor closely. Continue cefepime and vancomycin for broad-spectrum antibiotic coverage given neutropenia, de-escalate in the next 24 to 48 hours MRSA PCR still not collected Blood culture is growing gram-negative rods. E. coli, sensitive to penicillin and cephalosporin Repeat blood cultures have been done and negative to date Stool cultures were checked and pending Spoke to infectious disease, no need to remove port Likely will discharge on 14 total days of Rocephin Status: Acute (4) Thrombocytopenia: 2 units on February 12 1 unit February 15 status post 2 units of irradiated platelets on February 16 Currently 53,000 Continue to follow closely Status: Acute (5) Anemia: Transfused 2 units of packed red blood cells on February 12. 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 Patient is not interested in comfort measures at this point. Status: Acute Qualifiers: Laterality: right Qualified Code(s): C34.91 - Malignant neoplasm of unspecified part of right bronchus or lung (7) Cholelithiasis: Unlikely to be causing current clinical scenario Not candidate for any type of surgery currently CT of abdomen and pelvis demonstrates some progression of his cancer right [place] but no overt areas of abscess or infection LFTs improved Status: Inactive (8) Pneumonia: Sputum culture pending Continue pulmonary toilet Vancomycin and cefepime Covid PCR negative Status: Acute (9) Stomatitis: Continue antiviral he takes as needed secondary to stomatitis Monitor closely for any evidence of candidal infection Status: Acute (10) Transaminitis: Improved. Likely secondary to sepsis Status: Acute (11) E coli bacteremia: -Likely secondary to UTI -Pansensitive -Currently on broad-spectrum antibiotic therapy given neutropenia -Likely de-escalate to Rocephin for 14 days on discharge report -Spoke to infectious disease, no need to remove port, as E. coli bacteremia, and cultures cleared quickly Status: Acute Additional A&P Information Magnesium. This has normalized history of hypertension History of optic neuritis and blindness GERD. Continue Protonix COPD. No evidence of exacerbation currently On Valtrex for shingles prophylaxis continue fluconazole for stomatitis Full code SCDs for DVT prophylaxis. Avoid anticoagulation secondary to anemia and severely low platelets No evidence of fungal infection currently. 02/17/2020, continue vancomycin and cefepime, de-escalate to Rocephin in the next 24 to 48 hours, monitor hemodynamics, will talk to hematology before discharge Attestations Medical Necessity Statement*: Patient requires hospitalization for pneumonia, E. coli bacteremia, absolute neutropenia, thrombocytopenia, anemia Coding Level of Care Code Acute Building Admin for [facility] Fwd Diagnoses Acute hyponatremia E87.1 Encephalopathy acute G93.40 Neutropenia D70.9 Thrombocytopenia D69.6 Anemia D64.9 Primary lung squamous cell carcinoma C34.91 Laterality: right Cholelithiasis K80.20 Pneumonia J18.9 Stomatitis K12.1 Transaminitis R74.01 E coli bacteremia R78.81; B96.20
--- NOTE | 2020-02-18 17:50 | PC.NURSE ---
SHIFT SUMMARY PATIENT HAS DONE WELL TODAY. GOOD PO INTAKE. GOOD URINE OUTPUT. PATIENT TOOK A SHOWER TODAY. NO COMPLAINTS OF PAIN. AMBULATED IN THE ROOM. CONTINUE TO MONITOR.
[2020-02-18] MEDS: oxyCODONE 5 mg IR Tab/Cap PO (21:35)
[2020-02-19] VITALS (9 sets, daily range): BP systolic 116–131; BP diastolic 67–78; PULSE 55–92; RESP 16–18; TEMP 36.4–36.8; O2SAT 95–97
[2020-02-19] MEDS: cefepime 2,000 MG in sodium chloride 0.9% (plus) 50 ML 100 MG IV ×2 (01:30→11:52)
[2020-02-19 05:32] LABS: Hematocrit 25.5 % (42.0-52.0); Hemoglobin 8.4 g/dL (11.7-16.6); Lymphocytes # 0.3 10^3/uL (0.8-4.8); Lymphocytes % 10.7 %; Mean Corpuscular HGB Conc 32.9 g/dL (30.0-36.0); Mean Corpuscular Hemoglobin 27.1 pg (28.0-34.0); Mean Corpuscular Volume 82.3 fL (80-94); Mean Platelet Volume 10.4 fL (7.4-10.4); Monocytes # 0.5 10^3/uL (0.2-0.9); Monocytes % 15.5 %; Neutrophils # 1.61 10^3/uL (1.8-7.7); Neutrophils % 55.3 %; Nucleated Red Blood Cells % 0 %; Platelet Count 41 10^3/cmm (130-400); Red Cell Distribution Width 15.6 % (12.1-15.1); White Blood Count 2.9 10^3/uL (4.0-10.0)
[2020-02-19 05:43] LABS: INR 1.09 (0.8-1.2)
[2020-02-19 05:54] LABS: Lactate (Lactic Acid level) 0.9 mmol/L (0.5-2.2)
[2020-02-19 05:56] LABS: Slide Review Slide Review Perform
[2020-02-19 06:01] LABS: NT Pro B Type Natriuretic Pept 2329 pg/mL (0-125); Procalcitonin 0.38 ng/mL (0-0.5)
[2020-02-19 06:12] LABS: Alanine Aminotransferase 39 U/L (0-41); Albumin Level 2.5 g/dL (3.5-5.2); Alkaline Phosphatase 102 IU/L (40-130); Anion Gap 13.6 (5-19); Aspartate Amino Transferase 13 U/L (0-40); Blood Urea Nitrogen 28 mg/dL (8-23); C Reactive Protein 44.4 mg/L (0.0-4.9); Calcium 8.5 mg/dL (8.5-10.5); Carbon Dioxide 22 mmol/L (22-29); Chloride 98 mmol/L (98-107); Creatine Phosphokinase 13 U/L (39-308); Globulin 2.2 g/dL (1.3-4.6); Glomerular Filtration Rate 136.5 mL/min (90-130); Glucose 141 mg/dL (65-115); Magnesium 1.6 mg/dL (1.7-2.3); Osmolality Calculated 278 mOsm/kg (285-295); Phosphorus 2.7 mg/dL (2.5-4.5); Potassium 3.6 mmol/L (3.5-5.1); Sodium 130 mmol/L (136-145); Total Bilirubin 1.1 mg/dL (0.15-1.2); Total Protein 4.7 g/dL (6.6-8.7)
[2020-02-19] MEDS: vancomycin 1,250 MG/250 ML PIGGYBACK 200 MG IV (08:35)
[2020-02-19] MEDS: fluconazole 100 mg Tablet 200 MG PO (08:35)
[2020-02-19] MEDS: acyclovir 400 mg Tablet PO ×2 (08:35→14:40)
[2020-02-19] MEDS: pantoprazole DR 40 mg Tablet PO (08:35)
[2020-02-19] MEDS: dexamethasone 4 mg Tablet PO ×2 (08:35→14:40)
[2020-02-19] MEDS: sodium chloride 1 gm Tablet PO (08:35)
[2020-02-19] MEDS: albuterol 8 gm MDI 2 PUFF INHALATION ×2 (09:16→14:01)
[2020-02-19 10:50] LABS: Vancomycin Trough 47.6 ug/mL (10-15)
--- NOTE | 2020-02-19 15:15 | P.DS_ITS ---
Discharge Providers Date of Admission: 02/13/20 09:45 Date of Discharge: February 19, 2020 Attending Provider at Admission: Manuel Bautista MD Attending Provider at Discharge: Zulma Reyes MD Primary Care Provider: Titi Reyes MD Diagnoses at Discharge Discharge Diagnosis (1) Acute hyponatremia: Status: Acute (2) Encephalopathy acute: Status: Acute (3) Neutropenia: Status: Acute (4) Thrombocytopenia: Status: Acute (5) Anemia: Status: Acute (6) Primary lung squamous cell carcinoma: Status: Acute Qualifiers: Laterality: right Qualified Code(s): C34.91 - Malignant neoplasm of unspecified part of right bronchus or lung (7) Cholelithiasis: Status: Inactive (8) Pneumonia: Status: Acute (9) Stomatitis: Status: Acute (10) Transaminitis: Status: Acute (11) E coli bacteremia: Status: Acute Reason for Visit Reason for Visit: scheduled blood transfusion Hospital Course Hospital Course 64-year-old male with diffusely metastatic squamous cell carcinoma, currently on chemotherapy admitted on February 12 after presenting with acute hyponatremia, acute encephalopathy likely related to hyponatremia, neutropenia with ANC of 0 and thrombocytopenia with anemia. He has been transfused with 2 units of packed red blood cells during the course of admission. Further work-up also revealed E. coli bacteremia which is overall tamez susceptible. Blood culture cleared quickly on 02/14/2020. Source of bacteremia not entirely clear, however possible that patient may have had GI translocation in the setting of neut ropenia. He did receive Neulasta with his last chemotherapy. As of today his neutropenia is much improved. Total WBC count is up to 2.6 and ANC is greater than 1.5. Hemoglobin is also stable now at 8.4, platelet has similarly improved from 7000-41,000 on day of discharge. Patient also has significant mucositis, he is continued on famciclovir at home. Based on susceptibility of his E. coli isolate, he is being discharged today on oral ciprofloxacin for a total duration of 14 days from clearance of bacteremia. He has a scheduled appointment with oncology tomorrow morning. Magic mouthwash has been added to his regimen, though he states this did not improve his oral pain in the past. CT of the abdomen and pelvis without any focal collections within the abdomen, no evidence of typhlitis. Diffusely metastatic disease noted. Chest x-ray showed neoplastic involvement of the chest and some acute to subacute superimposed pneumonitis in the right lung. Patient is saturating 95% on room air without any respiratory complaints at this time. Physical Exam Narrative: EXAM NARRATIVE: GEN: Awake, alert and oriented, no acute distress , pallor present, chronically ill-appearing male HEENT mucositis with some erosions over the hard palate noted. CVS: S1S2 N RS: CTA B/L Abd: Soft, nt/nd , bs+ FILL TECHNICIAN: no focal neuro deficits Discharge Data Data Completed and Pending: Completed Studies During Hospitalization Category Date Time Status CT abdomen pelvis w con* [id number] Rout ine Cat Scan 02/14/20 07:35 Completed XR chest 1V vijay ble [id number] Stat Exams 02/13/20 07:39 Completed US gall bladder 7 [id number] Stat Ultrasound 02/13/20 09:52 Completed Pending at discharge Category Date Time Status ABO/Rh Type Stat Lab 02/13/20 08:57 Results Blood Culture AM LABS Lab 02/15/20 05:55 Results Blood Culture Sta t Lab 02/13/20 10:29 Results C Reactive Protei n AM LABS Lab 02/20/20 04:00 Ordered Clostridioides Di fficile PCR Routin e Lab 02/14/20 09:40 Received Complete Crossmat ch Stat Lab 02/13/20 08:57 Results Creatine Phosphok inase AM LABS Lab 02/20/20 04:00 Ordered Enteric Bacterial Panel by PCR Rout ine Lab 02/14/20 17:15 Received Irrad Leukoreduce d PLT Pher Stat Lab 02/13/20 08:57 Results Irradiated Leuko Red RBC Stat Lab 02/13/20 08:57 Results Lactate (Lactic A antonette level) AM LABS Lab 02/20/20 04:00 Ordered MRSA by PCR Routi ne Lab 02/16/20 11:22 Received Magnesium AM LABS Lab 02/20/20 04:00 Ordered NT Pro B Type Lisa riuretic Pept QAM Lab 02/20/20 06:00 Ordered Phosphorus AM LAB S Lab 02/20/20 04:00 Ordered Platelets Leukore duced Irradia Rout ine Lab 02/13/20 08:57 Results Procalcitonin AM LABS Lab 02/20/20 04:00 Ordered Prothrombin Time INR AM LABS Lab 02/20/20 04:00 Ordered Sputum Culture an d Gram Stain Ailyni ne Lab 02/13/20 11:45 Uncollected Type and Screen S tat Lab 02/13/20 08:57 Results Vancomycin Trough Timed Lab 02/20/20 03:00 Ordered Labs from last 24 hours 02/19/20 02/19/20 02/19/20 10:03 05:09 05:09 WBC 2.9 L RBC 3.10 L Hgb 8.4 L Hct 25.5 L MCV 82.3 MCH 27.1 L MCHC 32.9 RDW 15.6 H Plt Count 41 L MPV 10.4 Neut % (Auto) 55.3 Lymph % (Auto) 10.7 [place] % (Auto) 15.5 Eos % (Auto) 0.0 Baso % (Auto) 1.0 Neut # (Auto) 1.61 L Lymph # (Auto) 0.3 L [place] # (Auto) 0.5 Eos # (Auto) 0.0 Baso # (Auto) 0.0 Nucleated RBC % (a uto) 0 Nucleated RBCs # 0.0 PT INR Sodium 130 L Potassium 3.6 Chloride 98 Carbon Dioxide 22 Anion Gap 13.6 BUN 28 H Creatinine 0.6 L GFR Calculation 136.5 H Glucose 141 H Calculated Osmolal ity 278 L Lactate Calcium 8.5 Phosphorus 2.7 Magnesium 1.6 L Total Bilirubin 1.1 AST 13 ALT 39 Alkaline Phosphata se 102 Creatine Kinase 13 L C-Reactive Protein 44.4 H NT-Pro-B Natriuret Pep 2329 H Total Protein 4.7 L Albumin 2.5 L Globulin 2.2 Procalcitonin 0.38 Vancomycin Trough 47.6 H* 02/19/20 02/19/20 05:09 05:09 WBC RBC Hgb Hct MCV MCH MCHC RDW Plt Count MPV Neut % (Auto) Lymph % (Auto) [place] % (Auto) Eos % (Auto) Baso % (Auto) Neut # (Auto) Lymph # (Auto) [place] # (Auto) Eos # (Auto) Baso # (Auto) Nucleated RBC % (a uto) Nucleated RBCs # PT 14.50 INR 1.09 Sodium Potassium Chloride Carbon Dioxide Anion Gap BUN Creatinine GFR Calculation Glucose Calculated Osmolal ity Lactate 0.9 Calcium Phosphorus Magnesium Total Bilirubin AST ALT Alkaline Phosphata se Creatine Kinase C-Reactive Protein NT-Pro-B Natriuret Pep Total Protein Albumin Globulin Procalcitonin Vancomycin Trough Vitals: Last Vital Signs Temp 97.5 F L 12/21/20 12:00 Pulse 92 02/19/20 14:03 Resp 18 02/19/20 14:03 BP 124/78 02/19/20 12:00 Pulse Ox 95 02/19/20 14:03 Discharge Plan Discharge Patient Disposition: Home Condition: Stable Prescriptions: New fluconazole 100 mg Tablet 200 mg PO DAILY 10 Days Qty: 10 RF: 0 sodium chloride 1 gram Tablet 1 g PO BID 5 Days Qty: 10 RF: 0 Cipro 500 mg tablet 500 mg PO BID 10 Days Qty: 20 RF: 0 Continued albuterol sulfate 90 mcg/actuation HFA aerosol inhaler 2 puff INHALATION Q4H PRN (Reason: Shortness Of Breath) RF: 0 albuterol sulfate 2.5 mg /3 mL (0.083 %) solution for nebulization 2.5 mg INHALATION Q4H PRN (Reason: Shortness Of Breath) RF: 0 ondansetron HCl [Zofran] 4 mg tablet 4 mg PO Q8H PRN (Reason: Nausea And Vomiting) RF: 0 prochlorperazine maleate 10 mg tablet 10 mg PO Q4H PRN (Reason: MILD NAUSEA) RF: 0 famciclovir 500 mg tablet 500 mg PO TID PRN (Reason: MOUTH SORES) RF: 0 hydrocodone-acetaminophen 7.5-325 mg tablet 1 tab PO Q4H PRN (Reason: Pain) RF: 0 dexamethasone 4 mg tablet 4 mg PO TID RF: 0 omeprazole 20 mg Capsule,Delayed Release(Dr/Ec) 20 mg PO DAILY RF: 0 lorazepam 1 mg tablet 0.5 - 1 mg PO TID PRN (Reason: Nausea And Vomiting) RF: 0 Held Aspir-81 81 mg Tablet,Delayed Release (Dr/Ec) 81 mg PO DAILY@16 RF: 0 Hold Instructions: Resume on 02/26/20. Discontinued hydrochlorothiazide 25 mg tablet 25 mg PO DAILY@16 RF: 0 lisinopril 20 mg tablet 20 mg PO DAILY@16 RF: 0 Lasix 40 mg Tablet 40 mg PO DAILY@16 PRN (Reason: Edema) RF: 0 potassium chloride 10 mEq tablet extended release 10 meq PO DAILY@16 PRN (Reason: WITH LASIX) RF: 0 Levaquin 500 mg Tablet 500 mg PO DAILY@18 RF: 0 Discharge Orders: Discharge Order (Routine); Ordered 02/19/20 Ordered By: Zulma Reyes Referrals: Titi Reyes MD [Primary Care Provider] - 1-3 days Discharge Diet: GI Soft and Soft Mechanical Discharge Activity: Resume usual activity Activity Restrictions/Additional Instructions: A referral has been sent to [facility] [place] [facility] ([facility]) to see if they can get you set up with in-home services (support services) which, if approved with your insurance, will assist with getting a caregiver in your home. This process may take 2-3 weeks. If you have any questions about this, please call Maged at [phone]. Discharge Attestations Time Spent in Discharge Care*: other Quality Metrics Clinical Quality Measures During this hospital stay, did patient experience: None Coding Level of Care Code Acute Sports Book Board Attendant for g Fwd Diagnoses Acute hyponatremia E87.1 Encephalopathy acute G93.40 Neutropenia D70.9 Thrombocytopenia D69.6 Anemia D64.9 Primary lung squamous cell carcinoma C34.91 Laterality: right Cholelithiasis K80.20 Pneumonia J18.9 Stomatitis K12.1 Transaminitis R74.01 E coli bacteremia R78.81; B96.20
--- NOTE | 2020-02-19 16:14 | PC.NURSE ---
THIS NURSE DEACCESSED PORT A CATH.
== END 2020-02-19 16:14 | disposition home or self-care (01) | DRG 808 ==
LOC: ER 09:46 → ICU 10:04 → MEDSURG 02-15 21:25
PROVIDERS: Family Medicine; Nurse Practitioner Family; Admitting Provider Internal Medicine; Emergency Provider Family Medicine; PCP Internal Medicine Hematology & Oncology; Visit Provider Student in an Organized Health Care Education/Training Program
DX: D70.1 Agranulocytosis secondary to cancer chemotherapy (principal); G93.41 Metabolic encephalopathy; J18.9 Pneumonia, unspecified organism; C34.2 Malignant neoplasm of middle lobe, bronchus or lung; C79.31 Secondary malignant neoplasm of brain; C79.51 Secondary malignant neoplasm of bone; C79.01 Secondary malignant neoplasm of right kidney and renal pelvis; E87.1 Hypo-osmolality and hyponatremia; B37.81 Candidal esophagitis; J44.0 Chronic obstructive pulmonary disease with (acute) lower respiratory infection; T45.1X5A Adverse effect of antineoplastic and immunosuppressive drugs, initial encounter; Z79.899 Other long term (current) drug therapy; Z92.3 Personal history of irradiation; H54.7 Unspecified visual loss; K80.20 Calculus of gallbladder without cholecystitis without obstruction; G89.29 Other chronic pain; M54.9 Dorsalgia, unspecified; K21.9 Gastro-esophageal reflux disease without esophagitis; I10 Essential (primary) hypertension; F17.210 Nicotine dependence, cigarettes, uncomplicated; Z95.828 Presence of other vascular implants and grafts; Z79.52 Long term (current) use of systemic steroids; D69.6 Thrombocytopenia, unspecified; D64.9 Anemia, unspecified; K12.1 Other forms of stomatitis; Z79.51 Long term (current) use of inhaled steroids; B96.20 Unspecified Escherichia coli [E. coli] as the cause of diseases classified elsewhere; K72.90 Hepatic failure, unspecified without coma
CPT/HCPCS: 12345; 36415; 36430; 36591; 71045; 74177; 76705; 80048; 80053; 80202; 80500; 81001; 82140; 82274; 82330; 82533; 82550; 83010; 83605; 83615; 83735; 83880; 84100; 84145; 84443; 84484; 84550; 85025; 85362; 85378; 85384; 85610; 85730; 86140; 86850; 86900; 86920; 87040; 87077; 87186; 87426; 87493; 87506; 87635; 87641; 93005; 94640; 96375; 97110; 97161; 97530; 99282; J0692; J0713; J1100; J1940; J3370; J3475; J3480; J3535; J7030; J7040; J7050; J8499; J8540; P9037; P9058; Q9967

== ENCOUNTER 2020-02-28 10:22 | Outpatient (RCR) | payer MEDICAID, SELFPAY ==
[2020-02-28 11:31] LABS: Hematocrit 30.4 % (42.0-52.0); Hemoglobin 10.1 g/dL (11.7-16.6); Mean Corpuscular HGB Conc 33.2 g/dL (30.0-36.0); Mean Corpuscular Hemoglobin 27.9 pg (28.0-34.0); Mean Platelet Volume 10.7 fL (7.4-10.4); Platelet Count 88 10^3/cmm (130-400); Red Blood Count 3.62 10^6/uL (4.1-5.3); Red Cell Distribution Width 17.7 % (12.1-15.1); White Blood Count 20.3 10^3/uL (4.0-10.0)
[2020-02-28 11:59] LABS: Alanine Aminotransferase 33 U/L (0-41); Albumin Level 2.7 g/dL (3.5-5.2); Alkaline Phosphatase 147 IU/L (40-130); Anion Gap 14.6 (5-19); Aspartate Amino Transferase 39 U/L (0-40); Blood Urea Nitrogen 24 mg/dL (8-23); Calcium 8.4 mg/dL (8.5-10.5); Carbon Dioxide 27 mmol/L (22-29); Chloride 93 mmol/L (98-107); Globulin 2.9 g/dL (1.3-4.6); Glomerular Filtration Rate 85.5 mL/min (90-130); Glucose 104 mg/dL (65-115); Osmolality Calculated 274 mOsm/kg (285-295); Potassium 4.6 mmol/L (3.5-5.1); Sodium 130 mmol/L (136-145); Total Bilirubin 0.8 mg/dL (0.15-1.2); Total Protein 5.6 g/dL (6.6-8.7)
[2020-02-28 12:12] LABS: Slide Review Slide Review Perform
[2020-02-28 12:16] LABS: Absolute Segmented Neutrophil 17.1 10/cmm (1.6-7.1); Lymphocytes 2 %; Monocytes Absolute 0.6 10^3/cmm (0.1-0.6); Segmented Neutrophils 84 %; Total Cells Counted 100 (0-100)
[2020-02-28 12:17] LABS: Absolute Neutrophil 18.1 10^3/cmm (1.4-6.5); Anisocytosis Trace; Eosinophils 0 %; Platelet Estimate Decreased (Normal)
== END 2020-02-29 23:59 | disposition home or self-care (01) ==
LOC: ONCMED 10:22
PROVIDERS: PCP Internal Medicine Hematology & Oncology; Visit Provider Nurse Practitioner
DX: C34.2 Malignant neoplasm of middle lobe, bronchus or lung (principal); C79.01 Secondary malignant neoplasm of right kidney and renal pelvis; C79.31 Secondary malignant neoplasm of brain; Z51.81 Encounter for therapeutic drug level monitoring; Z79.899 Other long term (current) drug therapy
CPT/HCPCS: 80053; 85007; 85025

== ENCOUNTER 2020-03-01 15:10 | Inpatient (IN) | payer MEDICAID, SELFPAY ==
[2020-03-01 15:34] VITALS: BP 76/40; PULSE 113; RESP 30; TEMP 36.8; O2SAT 90
--- NOTE | 2020-03-01 15:49 | XR_ITS ---
WS: [id number] Exam: XR chest 1V portable [id number] Date/Time of Exam: 03/01/2020 3:49 PM Reason For Exam: altered mental status with sob Comparison 02/13/2020. Again noted is a large masslike density in the right lower lobe with numerous ill-defined soft tissue nodules in both lungs which appear to have increased in number. Also noted are areas of diffuse grou ndglass infiltrate throughout the left lung as well as the upper right lung. Superimposed pneumonia i s considered likely. Heart size is normal. The mediastinum is not widened. A right IJ port ends at th e cavoatrial junction. No pleural effusion or pneumothorax. XR/XR chest 1V portable [id number] IMPRESSION: 1. Development of groundglass infiltrates throughout the left lung as well as t he upper right lung. This suggests active pneumonia. This pattern might be seen with Covid pneumonia however is nonspecific. 2. Enlarging mass in the right lower lobe. Numerous ill-defined soft tissue nod ules identified throughout the remaining lung guillermo suggesting pulmonary metas tatic disease.
--- NOTE | 2020-03-01 15:49 | CTR_ITS ---
PROCEDURE INFORMATION: Exam: CT Head Without Contrast Exam date and time: 03/01/2020 4:03 PM Age: 64 years old Clinical indication: Altered mental status/memory loss; Confusion or disorientation TECHNIQUE: Imaging protocol: Computed tomography of the head without contrast. Radiation optimization: All CT scans at this facility use at least one of these dose optimization techniques: automated exposure control; mA and/or kV adjustment per patient size (includes targeted exams where dose is matched to clinical indication); or iterative reconstruction. COMPARISON: CT head wo con* [id number] 02/11/2020 10:18 PM RADIATION DOSE METRICS: Total DLP (mGy-cm): 726.08 FINDINGS: Brain: There are moderate periventricular and subcortical lucencies consistent with chronic microvascular ischemic changes. The haney-white differentiation is maintained. No hemorrhage. No edema. Cerebral ventricles: No ventriculomegaly. Bones/joints: Unremarkable. No acute fracture. Paranasal sinuses: Visualized sinuses are unremarkable. No fluid levels. Mastoid air cells: Visualized mastoid air cells are well aerated. Soft tissues: Unremarkable. CT/CT head wo con* [id number] IMPRESSION: No acute intracranial abnormality. Chronic microvascular ischemic changes. Radiation Dose CTDIVOL = (mGy): DLP = 726.08 (mGy-cm)
[2020-03-01] MEDS: sodium chloride 0.9% 1,000 ML 999 ML IV ×2 (16:05→16:13)
[2020-03-01 16:09] VITALS: BP 75/55; PULSE 114; RESP 24; O2SAT 92
--- NOTE | 2020-03-01 16:23 | ED_ITS ---
HPI - Altered Mental Status General: Chief Complaint: Altered Mental Status Stated Complaint: frequent falls, confusion, anxiety Time Seen by Provider: 03/01/20 15:13 Source: patient and EMS Mode of arrival: EMS Limitations: altered mental status History of Present Illness: HPI narrative: 64-year-old male presents emergency room chief complaint of altered mental status has been progressing getting worse over the last several weeks. Patient apparently has a known history of brain cancer as well as metastatic lung cancer. Which is contacted EMS as she is unable to take care of him at home patient has a known history of frequent falls patient on exam appear to be a poor historian and appears somewhat confused. MD complaint: altered mental status, confusion and weakness Onset (ago): day(s) Associated symptoms: Reports no associated symptoms Review of Systems General: Reports: ROS unobtainable due to mental status; Denies: ROS unobtainable due to medical condition [facility] ED PFSH: Medical History Blind Cholelithiasis Chronic back pain COPD (chronic obstructive pulmonary disease) GERD (gastroesophageal reflux disease) Hypertension Optic neuritis Primary lung squamous cell carcinoma Tobacco dependency Surgical History H/O circumcision History of lung biopsy Port-A-Cath in place Family History Father CAD (coronary artery disease) Clotting disorder Sister Cancer liver cancer Denies family history of Anesthesia complication Bleeding disorder Social History Smoking and tobacco status: current some day smoker Alcohol intake: never Household members: spouse Marital status: Current occupational status: disabled History of recent travel: Yes Details: [place] to the doctor Out of state: No Physical Exam Narrative: EXAM NARRATIVE: On exam patient appears alert oriented x3 somewhat confused however no focal neuro deficits lips into the tongue. Patient appears to have significant dry mucous membranes noted to the patient appears to be in no obvious acute respiratory distress. Has multiple bruises noted to his arms indicative of possible frequent falls. Const: COMMON NORMALS: no acute distress and patient oriented x3 EXAM LIMITATIONS: altered mental status GENERAL APPEARANCE: comfortable; not in distress HENMT: COMMON NORMALS: normocephalic and atraumatic HEAD & SCALP: normocephalic and atraumatic Eye: COMMON NORMALS: Equal, round and reactive pupils present and EOMs intact bilaterally PUPIL: Yes Equal, round and reactive pupils present Neck/C-Spine: COMMON NORMALS: full ROM, supple and no JVD Lymph: LYMPHATIC: no lymphadenopathy noted Chest: COMMONS NORMALS: normal inspection of the chest and normal palpation of entire chest wall Resp: COMMON NORMALS: normal respiratory effort (Diminished breath sounds appreciated bilaterally no obvious wheezing crackl), No retractions and No use of accessory muscles EFFORT & INSPECTION: Yes able to speak in complete sentences and Yes symmetric chest movement Cardio: COMMON NORMALS: no JVD and regular rhythm RATE: tachycardic RHYTHM: regular rhythm GI: COMMON NORMALS: Normal to inspection, nondistended, normoactive bowel sounds present, Soft to palpation and non-tender INSPECTION: Yes normal to inspection PALPATION: Yes Soft to palpation : COMMON NORMALS: Yes no CVA tenderness BLADDER/KIDNEY EXAM: Yes no CVA tenderness Back/Pelvis: COMMON NORMALS: no CVA tenderness Extremity: COMMON NORMALS: normal to inspection and full ROM Neuro: ZEFERINO COMA SCALE: document GCS findings (GCS is 15 patient does appear to be confused with mild cognitive slowing appreciated.) Zeferino coma scale eye opening: Spontaneous COMMON NORMALS: patient oriented x3, CN's II- XII intact bilaterally, moves all extremities and no focal motor deficits Psych: COMMON NORMALS: mental status grossly normal, Normal thought process present, cooperative and normal affect THOUGHT PROCESS: Normal thought process present Skin: COMMON NORMALS: no rashes or lesions noted GENERAL SKIN EXAM: no rashes or lesions noted Course Vital Signs: Vital signs: Vital Signs Temperature 98.2 F 03/01/20 15:34 Pulse Rate 93 03/01/20 18:16 Respiratory Rate 18 03/01/20 18:16 Blood Pressure 93/54 03/01/20 18:16 Pulse Oximetry 90 03/01/20 18:16 MDM - Altered Mental Status MDM Narrative: Medical decision making narrative: Due to the patient's symptoms and condition lab work imaging was obtained IV fluids were provided patient is found to be hypotensive on examination. Underlying concerns of dehydration versus sepsis are prominent will be providing IV fluids 2 L of normal saline will continue to follow as patient's lips are very dry underlying concerns of dehydration are prominent we will be obtaining Covid swabs on the patient due to his current status. Patient's Covid swab rapid came back negative the patient is hypotensive resolved with IV fluids he does appear to still have a right-sided pneumonia which was continued on antibiotics for. Patient does have some evidence substantial white blood cell count of 20.6 in which he has been found a chronic anemia due to patient's symptoms will admit the patient to the hospital for further assessment and management. Per patient's chart he remains a full code. Spoke to Dr. Goldberg at 1920 there is granted acceptance of the patient patient will merit for further evaluation management of his pneumonia. Lab Data: Labs: Lab Results 03/01/20 03/01/20 03/01/20 Range/Units 16:00 16:00 16:00 WBC 20.6 H (4.0-10.0) 10^3/ uL RBC 3.88 L (4.1-5.3) 10^6/u L Hgb 10.7 L (11.7-16.6) g/dL Hct 32.6 L (42.0-52.0) % MCV 84.0 (80-94) fL MCH 27.6 L (28.0-34.0) pg MCHC 32.8 (30.0-36.0) g/dL RDW 18.6 H (12.1-15.1) % Plt Count 113 L (130-400) 10^3/c mm MPV 11.0 H (7.4-10.4) fL Lymph % (Auto) Not Reportable Boundary % (Auto) Not Reportable Lymph # (Auto) Not Reportable Boundary # (Auto) Not Reportable Total Counted 100 (0-100) Atypical Lymphs % 0.0 (0-5) % Absolute Neutrophi ls 19.0 H (1.4-6.5) 10^3/c mm Segmented Neutroph ils 84 % Abs Segm Neuts (Ma n) 17.3 H (1.6-7.1) 10/cmm Band Neutrophils 8.0 % Abs Band Neuts (Ma n) 1.6 H (0.0-1.2) 10^3/c mm Lymphocytes (Manua l) 2 % Monocytes (Manual) 2.0 % Absolute Monocytes 0.4 (0.1-0.6) 10^3/c mm Eosinophils (Manua l) 0 % Absolute Eosinophi ls 0.0 (0.0-0.7) 10^3/c mm Basophils (Manual) 0.0 % Absolute Basophils 0.0 (0.0-0.2) 10^3/c mm Metamyelocytes 4.0 % Platelet Estimate Decreased (Normal) Giant Platelets Trace PT 13.50 (12.1-14.9) SECO NDS INR 1.00 (0.8-1.2) APTT 31.5 (23.9-36.7) SECO NDS D-Dimer (0-0.59) ug/mIFE U Specimen Type Sample Site ABG pH (7.35-7.45) ABG pCO2 (35-45) mmHg ABG pO2 (80.0-100.0) mmH g ABG HCO3 (22-26) mmol/L ABG Base Excess (-2.0-2.0) mmol/ L Lebron Test Hematocrit (42-52) % O2 Delivery Device O2 Liters/Min % FiO2 % Nursing Program Manager ID Blood Gas Notified Time Sodium 129 L (136-145) mmol/L Potassium 4.9 (3.5-5.1) mmol/L Chloride 92 L (98-107) mmol/L Carbon Dioxide 23 (22-29) mmol/L Anion Gap 18.9 (5-19) BUN 36 H (8-23) mg/dL Creatinine 1.6 H (0.7-1.2) mg/dL GFR Calculation 44.0 L (90-130) mL/min Glucose 83 (65-115) mg/dL Calculated Osmolal ity 275 L (285-295) mOsm/k g Lactate (0.5-2.2) mmol/L Calcium 8.0 L (8.5-10.5) mg/dL Total Bilirubin 1.4 H (0.15-1.2) mg/dL AST 63 H (0-40) U/L ALT 36 (0-41) U/L Alkaline Phosphata se 148 H (40-130) IU/L C-Reactive Protein 133.7 H (0.0-4.9) mg/L NT-Pro-B Natriuret Pep 1323 H (0-125) pg/mL Total Protein 5.5 L (6.6-8.7) g/dL Albumin 2.5 L (3.5-5.2) g/dL Globulin 3.0 (1.3-4.6) g/dL Lipase 22 (13-60) U/L SARS-CoV-2 Ag (Rap id) (Negative) 03/01/20 03/01/20 03/01/20 Range/Units 16:00 16:00 16:25 WBC (4.0-10.0) 10^3/ uL RBC (4.1-5.3) 10^6/u L Hgb (11.7-16.6) g/dL Hct (42.0-52.0) % MCV (80-94) fL MCH (28.0-34.0) pg MCHC (30.0-36.0) g/dL RDW (12.1-15.1) % Plt Count (130-400) 10^3/c mm MPV (7.4-10.4) fL Lymph % (Auto) Boundary % (Auto) Lymph # (Auto) Boundary # (Auto) Total Counted (0-100) Atypical Lymphs % (0-5) % Absolute Neutrophi ls (1.4-6.5) 10^3/c mm Segmented Neutroph ils % Abs Segm Neuts (Ma n) (1.6-7.1) 10/cmm Band Neutrophils % Abs Band Neuts (Ma n) (0.0-1.2) 10^3/c mm Lymphocytes (Manua l) % Monocytes (Manual) % Absolute Monocytes (0.1-0.6) 10^3/c mm Eosinophils (Manua l) % Absolute Eosinophi ls (0.0-0.7) 10^3/c mm Basophils (Manual) % Absolute Basophils (0.0-0.2) 10^3/c mm Metamyelocytes % Platelet Estimate (Normal) Giant Platelets PT (12.1-14.9) SECO NDS INR (0.8-1.2) APTT (23.9-36.7) SECO NDS D-Dimer 2.70 H (0-0.59) ug/mIFE U Specimen Type Arterial Sample Site Radial, left ABG pH 7.47 H (7.35-7.45) ABG pCO2 30.8 L (35-45) mmHg ABG pO2 59.4 L (80.0-100.0) mmH g ABG HCO3 22.4 (22-26) mmol/L ABG Base Excess -0.7 (-2.0-2.0) mmol/ L Lebron Test Pos Hematocrit 32.0 L (42-52) % O2 Delivery Device Nc O2 Liters/Min 3.0 % FiO2 32.0 % Nursing Program Manager ID glc Blood Gas Notified Time 1637 Sodium (136-145) mmol/L Potassium (3.5-5.1) mmol/L Chloride (98-107) mmol/L Carbon Dioxide (22-29) mmol/L Anion Gap (5-19) BUN (8-23) mg/dL Creatinine (0.7-1.2) mg/dL GFR Calculation (90-130) mL/min Glucose (65-115) mg/dL Calculated Osmolal ity (285-295) mOsm/k g Lactate 4.0 H (0.5-2.2) mmol/L Calcium (8.5-10.5) mg/dL Total Bilirubin (0.15-1.2) mg/dL AST (0-40) U/L ALT (0-41) U/L Alkaline Phosphata se (40-130) IU/L C-Reactive Protein (0.0-4.9) mg/L NT-Pro-B Natriuret Pep (0-125) pg/mL Total Protein (6.6-8.7) g/dL Albumin (3.5-5.2) g/dL Globulin (1.3-4.6) g/dL Lipase (13-60) U/L SARS-CoV-2 Ag (Rap id) (Negative) 03/01/20 Range/Units 17:07 WBC (4.0-10.0) 10^3/ uL RBC (4.1-5.3) 10^6/u L Hgb (11.7-16.6) g/dL Hct (42.0-52.0) % MCV (80-94) fL MCH (28.0-34.0) pg MCHC (30.0-36.0) g/dL RDW (12.1-15.1) % Plt Count (130-400) 10^3/c mm MPV (7.4-10.4) fL Lymph % (Auto) Boundary % (Auto) Lymph # (Auto) Boundary # (Auto) Total Counted (0-100) Atypical Lymphs % (0-5) % Absolute Neutrophi ls (1.4-6.5) 10^3/c mm Segmented Neutroph ils % Abs Segm Neuts (Ma n) (1.6-7.1) 10/cmm Band Neutrophils % Abs Band Neuts (Ma n) (0.0-1.2) 10^3/c mm Lymphocytes (Manua l) % Monocytes (Manual) % Absolute Monocytes (0.1-0.6) 10^3/c mm Eosinophils (Manua l) % Absolute Eosinophi ls (0.0-0.7) 10^3/c mm Basophils (Manual) % Absolute Basophils (0.0-0.2) 10^3/c mm Metamyelocytes % Platelet Estimate (Normal) Giant Platelets PT (12.1-14.9) SECO NDS INR (0.8-1.2) APTT (23.9-36.7) SECO NDS D-Dimer (0-0.59) ug/mIFE U Specimen Type Sample Site ABG pH (7.35-7.45) ABG pCO2 (35-45) mmHg ABG pO2 (80.0-100.0) mmH g ABG HCO3 (22-26) mmol/L ABG Base Excess (-2.0-2.0) mmol/ L Lebron Test Hematocrit (42-52) % O2 Delivery Device O2 Liters/Min % FiO2 % Nursing Program Manager ID Blood Gas Notified Time Sodium (136-145) mmol/L Potassium (3.5-5.1) mmol/L Chloride (98-107) mmol/L Carbon Dioxide (22-29) mmol/L Anion Gap (5-19) BUN (8-23) mg/dL Creatinine (0.7-1.2) mg/dL GFR Calculation (90-130) mL/min Glucose (65-115) mg/dL Calculated Osmolal ity (285-295) mOsm/k g Lactate (0.5-2.2) mmol/L Calcium (8.5-10.5) mg/dL Total Bilirubin (0.15-1.2) mg/dL AST (0-40) U/L ALT (0-41) U/L Alkaline Phosphata se (40-130) IU/L C-Reactive Protein (0.0-4.9) mg/L NT-Pro-B Natriuret Pep (0-125) pg/mL Total Protein (6.6-8.7) g/dL Albumin (3.5-5.2) g/dL Globulin (1.3-4.6) g/dL Lipase (13-60) U/L SARS-CoV-2 Ag (Rap id) Negative (Negative) Discharge Plan Discharge Patient Disposition: Admitted As Inpatient Clinical Impression: Pneumonia, Hypoxia, Dehydration Condition: Stable Prescriptions: No Action albuterol sulfate 90 mcg/actuation HFA aerosol inhaler 2 puff INHALATION Q4H PRN (Reason: Shortness Of Breath) RF: 0 albuterol sulfate 2.5 mg /3 mL (0.083 %) solution for nebulization 2.5 mg INHALATION Q4H PRN (Reason: Shortness Of Breath) RF: 0 ondansetron HCl [Zofran] 4 mg tablet 4 mg PO Q8H PRN (Reason: Nausea And Vomiting) RF: 0 prochlorperazine maleate 10 mg tablet 10 mg PO Q4H PRN (Reason: MILD NAUSEA) RF: 0 aspirin 81 mg Tablet,Delayed Release (Dr/Ec) 81 mg PO DAILY@16 RF: 0 Hold Instructions: Resume on 02/26/20. famciclovir 500 mg tablet 500 mg PO TID PRN (Reason: MOUTH SORES) RF: 0 hydrocodone-acetaminophen 7.5-325 mg tablet 1 tab PO Q4H PRN (Reason: Pain) RF: 0 dexamethasone 4 mg tablet 4 mg PO TID RF: 0 omeprazole 20 mg Capsule,Delayed Release(Dr/Ec) 20 mg PO DAILY RF: 0 lorazepam 1 mg tablet 0.5 - 1 mg PO TID PRN (Reason: Nausea And Vomiting) RF: 0 Referrals: Titi Reyes MD [Primary Care Provider] - Coding Level of Care Code ED Appraiser Auditor for g Fwd Exam Comprehensive
[2020-03-01 16:26] LABS: Hematocrit 32.6 % (42.0-52.0); Hemoglobin 10.7 g/dL (11.7-16.6); Mean Corpuscular HGB Conc 32.8 g/dL (30.0-36.0); Mean Corpuscular Hemoglobin 27.6 pg (28.0-34.0); Platelet Count 113 10^3/cmm (130-400); Red Blood Count 3.88 10^6/uL (4.1-5.3); Red Cell Distribution Width 18.6 % (12.1-15.1); White Blood Count 20.6 10^3/uL (4.0-10.0)
[2020-03-01 16:35] LABS: ABG PCO2 30.8 mmHg (35-45); ABG PH Result 7.47 (7.35-7.45); Base Excess ABG -0.7 mmol/L (-2.0-2.0); Blood Gas Allen Test Pos; Blood Gas Operator Identificat glc; Blood Gas Sample Site Radial, left; Blood Gas Sample Type Arterial; HCO3 ABG 22.4 mmol/L (22-26); Oxygen Device NC; PO2 ABG 59.4 mmHg (80.0-100.0)
[2020-03-01 16:37] LABS: Blood Gas CCRB Time 1637
[2020-03-01 16:44] LABS: Partial Thromboplastin Time 31.5 SECONDS (23.9-36.7)
[2020-03-01 16:52] LABS: Alanine Aminotransferase 36 U/L (0-41); Albumin Level 2.5 g/dL (3.5-5.2); Alkaline Phosphatase 148 IU/L (40-130); Anion Gap 18.9 (5-19); Aspartate Amino Transferase 63 U/L (0-40); Blood Urea Nitrogen 36 mg/dL (8-23); C Reactive Protein 133.7 mg/L (0.0-4.9); Carbon Dioxide 23 mmol/L (22-29); Chloride 92 mmol/L (98-107); Glucose 83 mg/dL (65-115); Lipase 22 U/L (13-60); NT Pro B Type Natriuretic Pept 1323 pg/mL (0-125); Osmolality Calculated 275 mOsm/kg (285-295); Potassium 4.9 mmol/L (3.5-5.1); Slide Review Slide Review Perform; Sodium 129 mmol/L (136-145); Total Bilirubin 1.4 mg/dL (0.15-1.2); Total Protein 5.5 g/dL (6.6-8.7)
[2020-03-01 16:53] LABS: Absolute Segmented Neutrophil 17.3 10/cmm (1.6-7.1); Band Neutrophils Absolute 1.6 10^3/cmm (0.0-1.2); Lymphocytes 2 %; Monocytes Absolute 0.4 10^3/cmm (0.1-0.6); Segmented Neutrophils 84 %; Total Cells Counted 100 (0-100)
[2020-03-01 16:54] LABS: Giant Platelets Trace; Platelet Estimate Decreased (Normal)
[2020-03-01 16:57] LABS: Eosinophils 0 %
[2020-03-01 17:00] VITALS: BP 88/53; PULSE 98; RESP 28; O2SAT 92
[2020-03-01] MEDS: cefTRIAXone 1,000 MG in sodium chloride 0.9% (plus) 50 ML 100 MG IV (17:21)
[2020-03-01 17:57] LABS: SARS Covid-2 Antigen Negative (Negative)
[2020-03-01] MEDS: azithromycin 500 MG in sodium chloride 0.9% 250 ML 250 MG IV (18:15)
[2020-03-01 18:16] VITALS: BP 93/54; PULSE 93; RESP 18; O2SAT 90
--- NOTE | 2020-03-01 19:29 | P.HP_ITS ---
Providers/Chief Complaint Primary Care Provider: Titi Reyes MD Chief Complaint: INCREASED WEAKNESS/ MULTIPLE FALLS History of Present Illness Phani Jarrett is a 64 year legally blind old male squamous cell lung cancer with metastases(kidney, bone, brain and spine), renal mass, cholelithiasis, last chemotherapy session 02/09, last radiotherapy in December(received Neulasta along chemotherapy), was recently admitted for management of encephalopathy secondary to hyponatremia, had bacteremia with E. coli which was pansensitive, was discharged on ciprofloxacin and fluconazole, source of E. coli bacteremia was not identified, he was asked to follow-up with oncologist next day, aspirin was held secondary to thrombocytopenia, presenting today with chief complaint of unable to walk. Patient is stating that is just too weak to get out of bed feeling extremely weak, he did not spike temperature at home however checked his temperature it was 98.9, no recent nausea, vomiting dysuria, patient is endorsing constipation. is stating that today he woke up in the morning and was confused did not know where he was, he complained of left-sided chest pain, his symptoms got worse by afternoon and at that point decided to take him to the ER. Patient is stating that his left-sided chest pain was getting worse on coughing he is describing this pain as achy in nature, he is not sure about any aggravating or relieving factors, he has bringing up greenish sputum which was witnessed by his . Patient is also endorsing shortness of breath on exertion however denying orthopnea and PND. Patient is not endorsing right upper quadrant pain, worsening of pain with food. Diagnosis in the ER revealed sepsis secondary to pneumonia, Covid antigen negative however PCR has been sent, he was given ceftriaxone and azithromycin in the ER Of the lab work revealed hyponatremia, high bilirubin however previous abdominal ultrasound revealed cholelithiasis no acute cholecystitis, chest x-ray showing developing right upper lobe pneumonia worsening right lower lobe mass with interstitial infiltrates, High BNP noted however clinically patient looks euvolemic Patient was hypoxic and tachycardic initially currently saturating 90-92% on 3 L which was increased to 5 L because of saturation witnessed during my evaluation I have requested D-dimer and procalcitonin level for prognostication Review of Systems Const: Reports: chills, body aches, change in appetite, change in weight and fatigue; Denies: fever(s) Eyes: Reports: other (Legally blind) ENMT: Reports: mouth pain and oral sores Card: Reports: chest pain, swelling of feet/ankles and dyspnea on exertion; Denies: orthopnea Resp: Reports: dyspnea and productive cough GI: Reports: constipation; Denies: abdominal pain : Denies: flank pain Musc: Reports: muscle cramps Skin/Breast: Reports: lesions; Denies: changing lesions Neuro: Denies: headache(s) Psych: Reports: irritability Endo: Denies: polyuria Juanjo/Lymph: Denies: easy bruising All/Imm: Denies: urticaria Medications/Allergies Home Medications Medication Instructions Recorded Confirmed Last Taken Type albuterol sulfate 2.5 mg INHALATION Q4H PRN 11/02/19 02/13/20 02/11/20 History albuterol sulfate 90 mcg/actuation 2 puff INHALATION Q4H PRN 11/02/19 02/13/20 11/14/19 History aerosol inhaler ondansetron HCl 4 mg tablet 4 mg PO Q8H PRN 11/30/19 02/13/20 Unknown History aspirin 81 mg PO DAILY@16 02/13/20 02/13/20 02/11/20 History dexamethasone 4 mg PO TID 02/13/20 02/13/20 02/11/20 History 4MG ONCE A DAY famciclovir 500 mg PO TID PRN 02/13/20 02/13/20 02/12/20 History hydrocodone-acetaminophen 1 tab PO Q4H PRN 02/13/20 02/13/20 02/12/20 History lorazepam 0.5 - 1 mg PO TID PRN 02/13/20 02/13/20 02/13/20 01:00 History omeprazole 20 mg PO DAILY 02/13/20 02/13/20 02/12/20 History prochlorperazine maleate 10 mg PO Q4H PRN 02/13/20 02/13/20 Unknown History Allergies Allergy/AdvReac Type Severity Reaction Status Date / Time Penicillins Allergy ALGY-Anaphy Verified 02/13/20 10:06 laxis tramadol AdvReac ADR-Vomitin Verified 02/13/20 10:06 g PFSH Acute PFSH: Medical History Blind Cholelithiasis Chronic back pain COPD (chronic obstructive pulmonary disease) GERD (gastroesophageal reflux disease) Hypertension Optic neuritis Primary lung squamous cell carcinoma Tobacco dependency Surgical History H/O circumcision History of lung biopsy Port-A-Cath in place Family History Father CAD (coronary artery disease) Clotting disorder Sister Cancer liver cancer Denies family history of Anesthesia complication Bleeding disorder Social History Smoking and tobacco status: current some day smoker Alcohol intake: never Household members: spouse Marital status: Current occupational status: disabled History of recent travel: Yes Details: [place] to the doctor Out of state: No Vitals/I&O/Wt Last Vital Signs Temp 98.2 F 03/01/20 15:34 Pulse 93 03/01/20 18:16 Resp 18 03/01/20 18:16 BP 93/54 03/01/20 18:16 Pulse Ox 90 03/01/20 18:16 03/01/20 03/01/20 03/01/20 06:59 14:59 22:59 Intake Total 2049 Balance 2049 Physical Exam Narrative: EXAM NARRATIVE: middle-age male who appears more than stated age Was laying comfortably in his bed in supine position saturating 88-89% on 2 L, I increase his oxygen to 5 L S1, S2 clinically looks euvolemic, sinus tachycardia Bilateral breath sounds rhonchi crackles bronchial breathing right greater than left with crackles no acute respiratory distress Patient not complaining of active chest pain He has pleuritic chest pain component as well Legally blind He is awake able to protect airways oriented to time place and person, GCS 15 Able to do simple math questions as well no neurological focal deficit Mood seems to be irritable, Abdomen soft nontender bowel sounds present no right upper quadrant pain Navas sign negative No active joint swelling redness Lower extremity no edema skin wrinkling observed Data : 03/01/20 16:00 03/01/20 16:00 A&P Assessment and plan (1) Pneumonia: Status: Acute (2) Sepsis: Status: Acute (3) Hypoxia: Status: Acute (4) Dehydration: Status: Acute (5) Thrombocytopenia: Status: Acute Additional A&P Information Sepsis secondary to hospital-acquired pneumonia Sepsis criteria met with tachypnea, leukocytosis, high lactic acid Patient was recently discharged from the hospital about 2 weeks ago I would start him on linezolid, metronidazole and aztreonam secondary to penicillin allergy and high creatinine Would obtain procalcitonin level X-ray showing worsening right-sided infiltrate, Covid antigen negative, PCR sent Navas sign negative however abnormal transaminases, previous ultrasound revealed cholelithiasis No signs of meningeal No cellulitis Judicious use of fluids because patient is prone to become fluid overload, received Lasix on last admission Acute hypoxic restaurant failure VQ mismatch due to lung mass with new right upper lobe infiltrate Currently requiring 5 L nasal cannula I would use facemask 5 to 6 L for now No acute respiratory distress D-dimer is pending however considering thrombocytopenia he might not be an ideal candidate for long-term anticoagulation I do not see any lower extremity swelling, his D-dimer might be high secondary to cancer and severe pneumonia Chronic hyponatremia This seems to be his baseline sodium level His weakness could be attributed to this hyponatremia He also has brain metastases for which she is getting radiation therapy On last admission he required Lasix which seemed to help his sodium level a little bit I would avoid getting urine studies for now because he gets Lasix at home which will skew the result This chronic hyponatremia could be related to primary lung cancer Abnormal transaminases Negative Navas sign previous ultrasound revealed cholelithiasis High bilirubin no signs of cholangitis His blood pressure is running soft abdomen nontender he is afebrile, not confused during my evaluation Currently he is getting metronidazole and aztreonam as well Mild cognitive impairment secondary to brain metastases During my evaluation he is awake alert GCS 15 not confused at all I would continue his Decadron No focal deficit or signs of meningitis Goals of care discussed with the : Patient is full code, Cardiac diet DVT prophylaxis SCDs I would avoid anticoagulating agent secondary to thromb ocytopenia and anemia Attestations Medical Necessity Statement*: Anticipating stay in the hospital cross more than 2 midnights continued management for sepsis, hospital-acquired pneumonia, need to rule out Covid, PCR sent Time Spent in Patient Care: (>than 50% of time spent in counselling and/or direct pt care on unit) . 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
[2020-03-01 20:03] LABS: Procalcitonin 0.51 ng/mL (0-0.5)
[2020-03-01 21:20] VITALS: PULSE 70; RESP 17; O2SAT 96
[2020-03-01 21:25] VITALS: PULSE 72
[2020-03-01] MEDS: sodium chloride 0.9% 1,000 ML 100 ML IV (22:00)
[2020-03-01] MEDS: aztreonam 2,000 MG in sodium chloride 0.9% (plus) 100 ML 200 MG IV (22:30)
[2020-03-01] MEDS: metroNIDAZOLE 500 MG Tablet PO (22:39)
[2020-03-01] MEDS: dexamethasone 4 mg Tablet PO (22:39)
[2020-03-01] MEDS: linezolid premix 600 MG/300 ML PREMIX 300 MG IV (22:43)
[2020-03-02] VITALS (84 sets, daily range): BP systolic 78–137; BP diastolic 53–92; PULSE 61–117; RESP 12–24; TEMP 36.6; O2SAT 93–100
[2020-03-02] MEDS: aztreonam 2,000 MG in sodium chloride 0.9% (plus) 100 ML 200 MG IV (06:30)
[2020-03-02 06:33] LABS: Basophils % 0.2 %; Hematocrit 27.5 % (42.0-52.0); Hemoglobin 9.1 g/dL (11.7-16.6); Lymphocytes # 0.2 10^3/uL (0.8-4.8); Lymphocytes % 1.5 %; Mean Corpuscular HGB Conc 33.1 g/dL (30.0-36.0); Mean Corpuscular Hemoglobin 27.8 pg (28.0-34.0); Mean Corpuscular Volume 84.1 fL (80-94); Mean Platelet Volume 10.6 fL (7.4-10.4); Monocytes # 0.3 10^3/uL (0.2-0.9); Monocytes % 2.3 %; Neutrophils # 10.76 10^3/uL (1.8-7.7); Neutrophils % 91.3 %; Nucleated Red Blood Cells % 0 %; Platelet Count 63 10^3/cmm (130-400); Red Blood Count 3.27 10^6/uL (4.1-5.3); Red Cell Distribution Width 18.5 % (12.1-15.1); White Blood Count 11.8 10^3/uL (4.0-10.0)
[2020-03-02 06:58] LABS: Alanine Aminotransferase 32 U/L (0-41); Albumin Level 2.1 g/dL (3.5-5.2); Alkaline Phosphatase 125 IU/L (40-130); Aspartate Amino Transferase 60 U/L (0-40); Blood Urea Nitrogen 27 mg/dL (8-23); Calcium 7.7 mg/dL (8.5-10.5); Carbon Dioxide 24 mmol/L (22-29); Chloride 97 mmol/L (98-107); Globulin 2.4 g/dL (1.3-4.6); Glucose 111 mg/dL (65-115); Osmolality Calculated 276 mOsm/kg (285-295); Sodium 130 mmol/L (136-145); Total Protein 4.5 g/dL (6.6-8.7)
[2020-03-02 07:01] LABS: Anion Gap 13.2 (5-19); Potassium 4.2 mmol/L (3.5-5.1)
[2020-03-02] MEDS: succinylcholine 20 mg/mL SDV 10mL 100 MG IVP (08:14)
--- NOTE | 2020-03-02 08:14 | PC.NURSE ---
Patient began to desat and hospitalist was called. Patient was intubated at this time by Dr. Goldberg with assistance from Dr. Olivares. Intubated with a size 8 ET tube and 25 at the lip.
[2020-03-02 08:38] LABS: ABG PCO2 38.5 mmHg (35-45); ABG PH Result 7.37 (7.35-7.45); Alveolar-Arterial Oxygen Gradi 43.9 mmHg (5-10); Arterial Blood Gas Hematocrit 28.9 % (42-52); Base Excess ABG -2.9 mmol/L (-2.0-2.0); Blood Gas Allen Test Pos; Blood Gas Operator Identificat CAK; Blood Gas Sample Site Brachial, left; Blood Gas Sample Type Arterial; Carboxyhemoglobin 0.8 %THgb (0.4-20.1); HCO3 ABG 22.2 mmol/L (22-26); HGB O2 Sat 96.6 % (95-100); Ionized Calcium Level - ABG 0.9 mmol/L (1.1-1.4); Oxygen Device VENT; Oxygen Saturation ABG 98.4; Potassium Level - ABG 6.7 mmol/L (3.5-5.0); Total Hemoglobin 9.4 g/dL (14-18)
[2020-03-02 09:20] LABS: Glucose Point of Care 108 mg/dL (70-110)
[2020-03-02 09:20] LABS: Glucose Point of Care 110 mg/dL (70-110)
--- NOTE | 2020-03-02 09:40 | PC.NURSE ---
Night attending nurse stopped me as soon as I came on shift to help clean patient up due to not being able to control his bowls and bladder. Patient was cleaned up with assistance from oncoming nurse. Patient stated that around midnight that he used his call light to let staff know that he needed assistance with going to the bathroom. Patient stated that they had left him laying there until myself an attending nurse came in to clean him up. Patient's bed was changed and nurse placed catheter in patient.
[2020-03-02 10:26] LABS: Add Urine Microscopic? YES; Bilirubin Urine Neg (Negative); Blood Urine 2+ (Negative); Glucose Urine UA Norm (Normal); Ketones Urine Negative (Negative); Leukocyte Esterase Urine Negative (Negative); Nitrate Urine Negative (Negative); Protein Urine Neg (Negative); Specific Gravity, Urine 1.015 (1.005-1.030); Urine Appearance Clear (CLEAR); Urine Color Yellow (Yellow); Urobilinogen Urine Norm (Negative); pH Urine 5 (5-7)
[2020-03-02 10:27] LABS: Bacteria Urine TRACE /hpf; RBC Urine 0-4 /hpf (0-2); Squamous Epithelial Cell Urine RARE /hpf (0-5); WBC Urine 0-4 /hpf (0-5)
--- NOTE | 2020-03-02 10:34 | XRR_ITS ---
PROCEDURE INFORMATION: Exam: XR Chest, 1 View Exam date and time: 03/02/2020 10:35 AM Age: 64 years old Clinical indication: Device placement; Ett placement (vent status); Additional info: Post intubation TECHNIQUE: Imaging protocol: XR of the chest Views: 1 view. COMPARISON: CR XR chest 1V portable [id number] 03/01/2020 4:10 PM FINDINGS: Tubes, catheters and devices: The endotracheal tube is above the level of the chuy. Central venous catheter via the right jugular approach with the tip projecting over the superior vena cava. Nasogastric tube overlies the body of the stomach Lungs: Patchy diffuse interstitial and alveolar airspace disease throughout much of the right and left lungs most pronounced within the right lower lobe.. Edema and/or pneumonia. Pleural space: Unremarkable. No pleural effusion. No pneumothorax. Heart/Mediastinum: Unremarkable. No cardiomegaly. Bones/joints: Unremarkable. XR/XR chest 1V portable [id number] IMPRESSION: Patchy diffuse interstitial and alveolar airspace disease throughout much of the right and left lungs most pronounced within the right lower lobe.. Edema and/or pneumonia. Covid within the differential diagnosis. Findings appear progressive.
--- NOTE | 2020-03-02 11:34 | PC.PHAR ---
SEE PHARMACY COMMENTS ON ENTERED MEDICATIONS-PTS VERIFIED PTS MEDICATIONS
[2020-03-02] MEDS: enoxaparin 40 mg/0.4 mL Syringe SUBCUT (13:26)
--- NOTE | 2020-03-02 14:13 | PM.PN ---
Subjective Subjective: Interval history: In the last 24h:Patient had to be intubated as he was desaturating to mid 80S on 15Ls Oxygen through facemask.He was also having laboured breathing and was tachypenic. He had to be intubated and put on mechanical ventilation. His other Vitals and labs have been reviewed. Medications: Reviewed: Yes Vitals/I&O/Wt Last Vital Signs Temp 98.2 F 03/01/20 15:34 Pulse 83 03/02/20 13:41 Resp 18 03/02/20 13:41 BP 99/84 03/02/20 13:41 Pulse Ox 98 03/02/20 13:41 03/01/20 03/02/20 03/02/20 22:59 06:59 14:59 Intake Total 2049 100 / 2150 1.667 / 1.667 Balance 2049 1.667 / 1.667 Physical Exam Narrative: EXAM NARRATIVE: Intubated and sedated.GCS Off sedation 10T HENMT: COMMON NORMALS: normocephalic HEAD & SCALP: normocephalic Eye: OTHER: Legally blind Chest: CHEST: Yes Symmetrical chest wall rise Resp: EFFORT & INSPECTION: Yes symmetric chest movement OTHER: B/L Ronchii,Decreased air entry at bases , minimal basal crackles, Cardio: COMMON NORMALS: regular rate, regular rhythm, S1 normal heart sound present, S2 normal heart sound present, No gallops present (Cardio), No murmurs present (Cardio), No rub (Cardio) and Peripheral pulses 2+ throughout RATE: regular rate RHYTHM: regular rhythm HEART SOUNDS: S1 normal heart sound present and S2 normal heart sound present PERIPHERAL PULSES: Peripheral pulses 2+ throughout GI: COMMON NORMALS: Normal to inspection, nondistended, normoactive bowel sounds present, Soft to palpation, non-tender, No hepatosplenomegaly present and no masses AUSCULTATION: Yes normoactive bowel sounds PALPATION: Yes Soft to palpation and Yes No hepatosplenomegaly present RECTAL EXAM: Yes deferred Extremity: COMMON NORMALS: no clubbing, cyanosis or edema and no pedal edema Urinary Catheter Management^: Flores: Cath Placed During This Visit: yes Urinary Catheter Date of Insertion: 03/02/20 Urinary Catheter Time of Insertion: 14:11 Data : 03/02/20 06:18 03/02/20 06:18 Micro: Microbiology 03/02/20 09:35 Gram Stain - Final Sputum - Endotracheal Tube Aspirate 03/01/20 16:00 Blood Culture - Preliminary Blood SPECIMEN COLLECTED 03/01/20 16:05 Blood Culture - Preliminary Blood SPECIMEN COLLECTED A&P Assessment and plan (1) Septic shock: Septic Shock 2/2PNA Blood Culture Urine Culture Sputum Culture COVID PCR Van/IMipenam/Azithromycin Continue Levophed Status: Acute (2) Respiratory failure with hypoxia: 2/2 PNA Mechanical ventilation Serial ABG,Xay chest CTA Chest with contrast COVID PCR Van/IMipenam/Azithromycin Status: Acute (3) Pneumonia: Status: Acute (4) Thrombocytopenia: Monitor CBC Status: Acute (5) Primary lung squamous cell carcinoma: Status: Acute Qualifiers: Laterality: right Qualified Code(s): C34.91 - Malignant neoplasm of unspecified part of right bronchus or lung Additional A&P Information DVT PPX: Lovenox 40 mg sc daily Code Status :Full code G.I PPX :Famotidine Attestations Medical Necessity Statement*: Patient needs to be in hospital for the management of septic shock/PNA Coding Level of Care Code Acute 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
[2020-03-02] MEDS: famotidine 20 mg/2 mL INJ IVP (17:12)
[2020-03-02] MEDS: sodium chloride 0.9% 1,000 ML 100 ML IV (17:12)
[2020-03-02 17:50] LABS: ABG PCO2 31.9 mmHg (35-45); ABG PH Result 7.45 (7.35-7.45); Arterial Blood Gas Hematocrit 26.7 % (42-52); Base Excess ABG -1.4 mmol/L (-2.0-2.0); Blood Gas Allen Test Pos; Blood Gas Operator Identificat CAK; Blood Gas Sample Site Radial, left; Blood Gas Sample Type Arterial; HCO3 ABG 22.2 mmol/L (22-26); Oxygen Device VENT
--- NOTE | 2020-03-02 18:40 | XRR_ITS ---
PROCEDURE INFORMATION: Exam: XR Chest, 1 View Exam date and time: 03/02/2020 6:41 PM Age: 64 years old Clinical indication: Device placement; Picc; Additional info: Central line placement TECHNIQUE: Imaging protocol: XR of the chest Views: 1 view. COMPARISON: CR (CHEST, ) 03/02/2020 10:38 AM FINDINGS: Tubes, catheters and devices: Right IJ Port-A-Cath with the tip at the SVC, unchanged. Interval placement of a left IJ central line with the tip in the distal SVC. There is an endotracheal tube with the tip 5.5 cm above the chuy, unchanged. The proximal port of the enteric tube is just above the gastroesophageal junction. Recommend advancing the tube 4-5 cm. Lungs: Diffuse, bilateral interstitial and alveolar opacities. Findings are most pronounced in the right lower lobe. Findings are stable compared with the chest x-ray done earlier on 03/02/2020. Pleural space: No pleural effusion. No pneumothorax. Heart/Mediastinum: The cardiac silhouette and mediastinal contours are unremarkable. Bones/joints: Unremarkable for age. XR/XR chest 1V portable [id number] IMPRESSION: 1. Diffuse, bilateral interstitial and alveolar opacities. Findings are most pronounced in the right lower lobe. Findings are stable compared with the chest x-ray done earlier on 03/02/2020. Imaging features can be seen with COVID-19 pneumonia, though are nonspecific and can occur with a variety of infectious and noninfectious processes. Recommend clinical correlation. Recommend followup chest imaging in 4-6 weeks to insure resolution of these findings. 2. Interval placement of a left IJ central line with the tip in the distal SVC. No pneumothorax. 3. The proximal port of the enteric tube is just above the gastroesophageal junction. Recommend advancing the tube 4-5 cm. 4. Incidental/nonacute findings are listed in the report.
[2020-03-02] MEDS: linezolid premix 600 MG/300 ML PREMIX 300 MG IV (18:45)
[2020-03-02] MEDS: dexamethasone 4 mg/mL INJ IVP (18:46)
--- NOTE | 2020-03-02 18:56 | PC.NURSE ---
1445- Patient arrived to icu via stretcher from ED - intubated, versed infusing at 6mcg/min, fentanyl infusing at 50mcg/min, levophed infusing at 7mcg/min. Pt stable at time of arrival.
--- NOTE | 2020-03-02 19:24 | CTR_ITS ---
PROCEDURE INFORMATION: Exam: CT Angiography Chest With Contrast Exam date and time: 03/02/2020 3:57 AM Age: 64 years old Clinical indication: Dyspnea; Additional info: R/O p. E TECHNIQUE: Imaging protocol: Computed tomographic angiography of the chest with intravenous contrast. 3D rendering (Not supervised by radiologist): MIP and/or 3D reconstructed images were created by the technologist. Radiation optimization: All CT scans at this facility use at least one of these dose optimization techniques: automated exposure control; mA and/or kV adjustment per patient size (includes targeted exams where dose is matched to clinical indication); or iterative reconstruction. Contrast material: VISI; Contrast volume: 95 ml; Contrast route: INTRAVENOUS (IV); COMPARISON: CR (CHEST, ) 03/02/2020 6:46 PM RADIATION DOSE METRICS: Total DLP (mGy-cm): 680.46 FINDINGS: Tubes, catheters and devices: An endotracheal tube with the tip above the chuy, nasogastric tube with the tip in the stomach, a left IJ central line with the tip overlying the SVC, a right IJ chest port with the tip overlying the SVC are present. Pulmonary arteries: Normal. No pulmonary emboli. Aorta: Unremarkable. No aortic aneurysm. No aortic dissection. Lungs: A large mass is present in the right middle lobe measuring 6 x 8 cm extending from the mediastinum to the chest wall and containing cavitations. Multiple bilateral lung nodules are seen measuring up to 1.7 cm in the left upper lobe. Bilateral extensive ground-glass lung infiltrates are present. Pleural space: Bilateral small pleural effusions are present. Heart: Unremarkable. No cardiomegaly. No pericardial effusion. Lymph nodes: Enlarged lymph nodes are seen in the bilateral hilum and mediastinum. The largest in the pretracheal region measures 4.4 x 2 x 1.8 cm. The largest in the right hilum measures 4.1 x 2.5 cm. Bones/joints: Unremarkable. No acute fracture. Soft tissues: Large mass measuring 7.5 x 7.2 cm is seen in the upper right kidney incompletely imaged on this examination. Enlarged lymph node is seen in the retroperitoneum and a right retrocrural location. CT/CT angio chest PE protcl [id number] IMPRESSION: 1. The examination is negative for pulmonary embolism. Negative for aortic aneurysm or dissection. 2. A large mass is seen in the right middle lobe as described with multiple bilateral lung nodules consistent metastatic disease. 3. Mediastinal hilar adenopathy is present. 4. Extensive bilateral ground-glass lung infiltrates are present raising possibility of COVID-19 pneumonia versus pulmonary edema. 5. Bilateral small pleural effusions are present. 6. A large mass is also noted in the right kidney not completely imaged on this examination. 7. Retroperitoneal and right retrocrural adenopathy is present. Radiation Dose CTDIVOL = (mGy): DLP = 680.46 (mGy-cm)
[2020-03-02 19:55] LABS: Glucose Point of Care 102 mg/dL (70-110)
[2020-03-02] MEDS: vancomycin 1,500 MG/300 ML PIGGYBACK 200 MG IV (20:03)
[2020-03-02] MEDS: sodium chloride 0.9% 1,000 ML 50 ML IV (20:03)
--- NOTE | 2020-03-02 20:24 | PC.NURSE ---
Advanced NG tube 4cm as per orders of Dr. Goldberg. Auscultated placement and and aspiration clear fluid.
[2020-03-02] MEDS: azithromycin 500 MG in sodium chloride 0.9% 250 ML 250 MG IV (21:36)
--- NOTE | 2020-03-02 23:40 | PM.ACPR ---
Procedure/Consent Consent: Consent for Procedure: Emergency procedure and Risks & Benefits reviewed Acute Procedures Central Line Placement^: Left IJ: Time out performed: Yes Patient placed on monitor/pulse ox: Yes MD prep: mask, gown and gloves Central line prep: Chlorhexidine scrub Local anesthesia used: lidocaine 1% Ultrasound used for placement: Yes Central line lumen inserted: triple Post procedure: sutured in place and sterile dressing applied Post procedure x-ray: tip of catheter in good position and no pneumothorax seen Patient tolerated procedure: well Complications: none
--- NOTE | 2020-03-02 23:43 | PM.ACPR ---
Acute Procedures Intubation: Time out performed: Yes Sedative: etomidate Mg given: 30 Paralytic: succinylcholine Mg given: 100 Laryngoscope: fiber optic video scope ET tube size: 8 ET tube uncuffed: Yes Tube secured depth (cm): 25 Tube secured location: lips Tube placement confirmation: visualized tube passing through cords, equal breath sounds bilaterally, no breath sounds over epigastrium and color change noted Patient tolerated procedure: well Intubation complications: none
--- NOTE | 2020-03-02 23:46 | PM.ACPR ---
Acute Procedures Feeding Tube Replacement: Type of tube: nasogastric Insertion site prior to procedure: clean Verification of placement: auscultation Tube secured by: tape/dressing Patient tolerated procedure: well
[2020-03-03] VITALS (106 sets, daily range): BP systolic 81–137; BP diastolic 57–83; PULSE 46–78; RESP 14–24; TEMP 36.1–36.8; O2SAT 90–97
[2020-03-03 00:27] LABS: Glucose Point of Care 136 mg/dL (70-110)
[2020-03-03 00:27] LABS: Glucose Point of Care 133 mg/dL (70-110)
[2020-03-03] MEDS: iodixanol 320 mg/mL 100mL Btl IV (04:09)
[2020-03-03 05:05] LABS: Hematocrit 25.7 % (42.0-52.0); Hemoglobin 8.2 g/dL (11.7-16.6); Mean Corpuscular HGB Conc 31.9 g/dL (30.0-36.0); Mean Corpuscular Hemoglobin 27.5 pg (28.0-34.0); Mean Corpuscular Volume 86.2 fL (80-94); Mean Platelet Volume 11.3 fL (7.4-10.4); Platelet Count 68 10^3/cmm (130-400); Red Blood Count 2.98 10^6/uL (4.1-5.3); Red Cell Distribution Width 18.8 % (12.1-15.1); White Blood Count 12.9 10^3/uL (4.0-10.0)
[2020-03-03] MEDS: famotidine 20 mg/2 mL INJ IVP ×2 (05:12→17:46)
[2020-03-03 05:43] LABS: Alanine Aminotransferase 26 U/L (0-41); Albumin Level 2.1 g/dL (3.5-5.2); Alkaline Phosphatase 117 IU/L (40-130); Anion Gap 14.9 (5-19); Aspartate Amino Transferase 39 U/L (0-40); Blood Urea Nitrogen 25 mg/dL (8-23); Calcium 7.7 mg/dL (8.5-10.5); Carbon Dioxide 21 mmol/L (22-29); Chloride 100 mmol/L (98-107); Globulin 2.3 g/dL (1.3-4.6); Glucose 136 mg/dL (65-115); Magnesium 1.4 mg/dL (1.7-2.3); Osmolality Calculated 280 mOsm/kg (285-295); Potassium 3.9 mmol/L (3.5-5.1); Sodium 132 mmol/L (136-145); Total Bilirubin 0.8 mg/dL (0.15-1.2); Total Protein 4.4 g/dL (6.6-8.7)
[2020-03-03 06:13] LABS: Slide Review Slide Review Perform
[2020-03-03 06:26] LABS: Absolute Neutrophil 12.3 10^3/cmm (1.4-6.5); Absolute Segmented Neutrophil 10.8 10/cmm (1.6-7.1); Band Neutrophils Absolute 1.4 10^3/cmm (0.0-1.2); Eosinophils 0 %; Lymphocytes 3 %; Monocytes Absolute 0.1 10^3/cmm (0.1-0.6); Platelet Estimate Decreased (Normal); Poikilocytosis Trace; Segmented Neutrophils 84 %; Total Cells Counted 100 (0-100)
[2020-03-03 06:35] LABS: Glucose Point of Care 135 mg/dL (70-110)
[2020-03-03] MEDS: FUROsemide 10 mg/mL SDV 2mL 20 MG IVP (09:28)
[2020-03-03] MEDS: dexamethasone 4 mg/mL INJ IVP ×3 (09:30→20:35)
--- NOTE | 2020-03-03 09:39 | XRR_ITS ---
PROCEDURE INFORMATION: Exam: XR Chest, 1 View Exam date and time: 03/03/2020 10:16 AM Age: 64 years old Clinical indication: Device placement; Ng tube; Additional info: Verify oral gastric tube placement TECHNIQUE: Imaging protocol: XR of the chest Views: 1 view. COMPARISON: CR (CHEST, ) 03/02/2020 6:46 PM FINDINGS: Tubes, catheters and devices: An orogastric tube is present in satisfactory position with the tip projecting in the stomach fundus. Lungs: Prominent interstitial and alveolar infiltrates are seen in the lung bases which appears similar to old study. Pleural space: Unremarkable. No pleural effusion. No pneumothorax. Heart/Mediastinum: Unremarkable. No cardiomegaly. Bones/joints: Unremarkable. XR/XR chest 1V portable [id number] IMPRESSION: 1. Satisfactory orogastric tube placement in the stomach. 2. Stable prominent pulmonary infiltrates.
[2020-03-03] MEDS: vancomycin 1,500 MG/300 ML PIGGYBACK 200 MG IV ×2 (10:17→21:44)
[2020-03-03] MEDS: enoxaparin 40 mg/0.4 mL Syringe SUBCUT (10:18)
--- NOTE | 2020-03-03 10:56 | PM.PN ---
Subjective Subjective: Interval history: Patient is intubated and sedated.Off sedation GCS : is 10T. Vitals and labs have been reviewed. Medications: Reviewed: Yes Vitals/I&O/Wt Last Vital Signs Temp 97.5 F L 03/03/20 10:00 Pulse 63 03/03/20 10:15 Resp 23 H 03/03/20 10:41 BP 94/65 03/03/20 10:15 Pulse Ox 91 03/03/20 10:15 03/02/20 03/03/20 03/03/20 22:59 06:59 14:59 Intake Total 2402.55 / 2494.634 494.492 / 2989.126 107.533 / 107.533 Output Total 550 / 550 350 / 900 Balance 1852.55 / 1944.634 144.492 / 2089.126 107.533 / 107.533 Weight last 48 hrs Weight 85.417 kg Physical Exam Narrative: EXAM NARRATIVE: Intubated and sedated HENMT: COMMON NORMALS: normocephalic HEAD & SCALP: normocephalic Eye: OTHER: Legally blind Chest: CHEST: Yes Symmetrical chest wall rise Resp: EFFORT & INSPECTION: Yes symmetric chest movement OTHER: B/L Ronchii,Decreased air entry at bases , minimal basal crackles, Cardio: COMMON NORMALS: regular rate, regular rhythm, S1 normal heart sound present, S2 normal heart sound present, No gallops present (Cardio), No murmurs present (Cardio), No rub (Cardio) and Peripheral pulses 2+ throughout RATE: regular rate RHYTHM: regular rhythm HEART SOUNDS: S1 normal heart sound present and S2 normal heart sound present PERIPHERAL PULSES: Peripheral pulses 2+ throughout GI: COMMON NORMALS: Normal to inspection, nondistended, normoactive bowel sounds present, Soft to palpation, non-tender, No hepatosplenomegaly present and no masses AUSCULTATION: Yes normoactive bowel sounds PALPATION: Yes Soft to palpation and Yes No hepatosplenomegaly present RECTAL EXAM: Yes deferred Extremity: COMMON NORMALS: no clubbing, cyanosis or edema and no pedal edema Urinary Catheter Management^: Flores: Cath Placed During This Visit: yes Urinary Catheter Date of Insertion: 03/02/20 Urinary Catheter Time of Insertion: 14:11 Data : 03/03/20 04:24 03/03/20 04:24 Micro: Microbiology 03/01/20 16:00 Blood Culture - Preliminary Blood NEGATIVE TO DATE 03/01/20 16:05 Blood Culture - Preliminary Blood NEGATIVE TO DATE 03/02/20 09:35 Gram Stain - Final Sputum - Endotracheal Tube Aspirate A&P Assessment and plan (1) Septic shock: Septic Shock 2/2PNA Blood Culture: NTD Urine Culture: Sputum Culture: GNR COVID PCR:Negative Procal:0.51 Lactic Acid : 4 Serial ABG,Xay chest CTA Chest with contrast :No P.E Van/IMipenam/Azithromycin Continue Levophed Cotinue Mechanical Vent : Weaning [place] AM Status: Acute (2) Respiratory failure with hypoxia: Plan as 1 Status: Acute (3) Pneumonia: Plan as 1 Status: Acute (4) Thrombocytopenia: Monitor CBC Follow HIT Panel 4T Score Will initiate eliquis for now. Status: Acute (5) Primary lung squamous cell carcinoma: Status: Acute Qualifiers: Laterality: right Qualified Code(s): C34.91 - Malignant neoplasm of unspecified part of right bronchus or lung Additional A&P Information DVT PPX: On ELiquis Code Status :Full code G.I PPX :Famotidine Attestations Medical Necessity Statement*: Patient needs to be in hospital for the management of sepsis , R/F , PNA Coding Level of Care Code Acute Healthcare Liaison for [facility] Fwd Diagnoses Septic shock A41.9; R65.21 Respiratory failure with hypoxia J96.91 Pneumonia J18.9 Thrombocytopenia D69.6 Primary lung squamous cell carcinoma C34.91 Laterality: right
[2020-03-03 11:46] LABS: Glucose Point of Care 137 mg/dL (70-110)
[2020-03-03 14:02] LABS: Quest SARS-CoV-2 RNA NOT DETECTED (NOT DETECTED)
--- NOTE | 2020-03-03 14:13 | PC.NURSE ---
PCR send out Covid Test has resulted negative. [place] patient off of airborne precautions. Nurse attempted to called family twice to advise of negative covid result and reminder of visitation policy. goes straight to voicemail. nurse left message to return call.
--- NOTE | 2020-03-03 16:22 | PC.NURSE ---
Bed bath, oral hygiene, and complete linen change provided to patient.
--- NOTE | 2020-03-03 16:46 | PC.NURSE ---
Patient's Heart rate has been mid 50's to 70's. Heart rate is now trending in the lower 50's and occasionally 49. Nurse decreased fentanyl from 100 to 70 mcg/hr.
[2020-03-03 17:10] LABS: Glucose Point of Care 121 mg/dL (70-110)
--- NOTE | 2020-03-03 17:42 | PC.NURSE ---
NUrse continued to monitor HR after fentanyl rate reduction. HR is now in the low 60's.
--- NOTE | 2020-03-03 18:22 | PC.NURSE ---
Shift Summary. Oxygen requirements have decreased. Was on 40% FIO2 in the morning. Now on 35%. Covid test has come back negative. Had some bradycardia today which was resolved with reduction of fentanyl, which patient tolerated well. Bed bath and linen change performed.
[2020-03-03 20:26] LABS: Glucose Point of Care 130 mg/dL (70-110)
[2020-03-03] MEDS: azithromycin 500 MG in sodium chloride 0.9% 250 ML 250 MG IV (20:37)
[2020-03-04] VITALS (107 sets, daily range): BP systolic 73–133; BP diastolic 48–83; PULSE 43–84; RESP 17–26; TEMP 36.2–36.9; O2SAT 88–99
[2020-03-04 00:18] LABS: Glucose Point of Care 131 mg/dL (70-110)
[2020-03-04 04:55] LABS: Basophils % 0.3 %; Hematocrit 26.5 % (42.0-52.0); Hemoglobin 8.7 g/dL (11.7-16.6); Lymphocytes # 0.4 10^3/uL (0.8-4.8); Mean Corpuscular HGB Conc 32.8 g/dL (30.0-36.0); Mean Corpuscular Hemoglobin 28.2 pg (28.0-34.0); Mean Corpuscular Volume 85.8 fL (80-94); Mean Platelet Volume 11.6 fL (7.4-10.4); Monocytes # 0.5 10^3/uL (0.2-0.9); Monocytes % 3.7 %; Neutrophils # 12.55 10^3/uL (1.8-7.7); Neutrophils % 86.6 %; Nucleated Red Blood Cells % 0.1 %; Platelet Count 81 10^3/cmm (130-400); Red Blood Count 3.09 10^6/uL (4.1-5.3); Red Cell Distribution Width 19.2 % (12.1-15.1); White Blood Count 14.5 10^3/uL (4.0-10.0)
--- NOTE | 2020-03-04 05:00 | XR_ITS ---
WS: [id number] PORTABLE CHEST HISTORY: Pneumonia COMPARISON: 03/03/2020 Endotracheal tube is in good position. Nasogastric tube not in entirely included but the tip extends below the GE junction. LEFT central line is in good position. Right-sided central line with tip in th e distal SVC. Bilateral pulmonary opacifications. Consolidation in the RIGHT lower lobe corresponds to previously d escribed mass. No pleural effusion or pneumothorax. Cardiac size: Normal. Mediastinum/Aorta: Normal mediastinum. No osseous abnormality seen. XR/XR chest 1V portable [id number] IMPRESSION: 1. Nasogastric and endotracheal tubes in good position. 2. Bilateral pulmonary opacifications. Known mass in the RIGHT middle lobe wit h additional scattered opacifications which are probably pneumonia or progressi on of neoplastic disease.
[2020-03-04 05:01] LABS: ABG PCO2 33.5 mmHg (35-45); ABG PH Result 7.41 (7.35-7.45); Arterial Blood Gas Hematocrit 27.5 % (42-52); Base Excess ABG -3.2 mmol/L (-2.0-2.0); Blood Gas Allen Test Pos; Blood Gas Sample Site Radial, left; Blood Gas Sample Type Arterial; Carboxyhemoglobin 1.1 %THgb (0.4-20.1); HGB O2 Sat 90.4 % (95-100); Ionized Calcium Level - ABG 1.2 mmol/L (1.1-1.4); Methemoglobin 1.1 % (0.4-1.5); Oxygen Device VENT; Oxygen Saturation ABG 92.4; PO2 ABG 62.8 mmHg (80.0-100.0); Potassium Level - ABG 3.8 mmol/L (3.5-5.0)
[2020-03-04 05:02] LABS: Alveolar-Arterial Oxygen Gradi 18.7 mmHg (5-10); Blood Gas Tidal Volume 0.45
[2020-03-04 05:19] LABS: Slide Review Slide Review Perform
[2020-03-04 05:24] LABS: Alanine Aminotransferase 25 U/L (0-41); Albumin Level 2.4 g/dL (3.5-5.2); Alkaline Phosphatase 117 IU/L (40-130); Anion Gap 14.9 (5-19); Aspartate Amino Transferase 30 U/L (0-40); Blood Urea Nitrogen 28 mg/dL (8-23); Calcium 8.2 mg/dL (8.5-10.5); Carbon Dioxide 21 mmol/L (22-29); Chloride 100 mmol/L (98-107); Globulin 2.2 g/dL (1.3-4.6); Glomerular Filtration Rate 114.3 mL/min (90-130); Glucose 137 mg/dL (65-115); Magnesium 1.6 mg/dL (1.7-2.3); Osmolality Calculated 282 mOsm/kg (285-295); Potassium 3.9 mmol/L (3.5-5.1); Sodium 132 mmol/L (136-145); Total Bilirubin 0.7 mg/dL (0.15-1.2); Total Protein 4.6 g/dL (6.6-8.7)
[2020-03-04 05:26] LABS: Lactate (Lactic Acid level) 1.3 mmol/L (0.5-2.2)
[2020-03-04] MEDS: famotidine 20 mg/2 mL INJ IVP ×2 (06:06→17:16)
[2020-03-04 06:15] LABS: Glucose Point of Care 133 mg/dL (70-110)
[2020-03-04 07:29] LABS: Glucose Point of Care 141 mg/dL (70-110)
--- NOTE | 2020-03-04 09:11 | P.PN_ITS ---
Subjective Subjective: Interval history: Chart reviewed, remains on ventilator support with FiO2 of 35%. Had 325 mL urine output overnight, bradycardic with heart rate in the 40-55 range, normotensive and afebrile. Stable hemoglobin and platelet count, slight increase in leukocytosis. Remains on pressor support with Levophed. Weaning trial this morning unsuccessful as patient quickly noted to be tachypneic 1 switched to CPAP setting and sedation weaned down. Return to full ventilator support at this time. Medications: Reviewed: Yes Medication Review Details: Active Medications Generic Name Dose Route Start Last Admin Trade Name Freq PRN Reason Stop Dose Admin Acetaminophen 650 mg 03/01/20 20:38 Acetaminophen 32 5 Mg Tablet PO Q6H PRN Mild/Mod Pain Or Temp >/= 101 Hydrocodone Bitart /Acetaminophen 1 tab 03/01/20 20:38 Hydrocodone-Acet aminophen 7.5-325 Mg Tablet PO Q4H PRN Pain Albuterol Sulfate 2 puff 03/01/20 20:38 Albuterol 8 Gm M di INHALATION Q4H.RESPIRATORY P RN SHORTNESS OF SERGO TH Dexamethasone 4 mg 03/02/20 19:00 03/03/20 20:35 Dexamethasone 4 Mg/Ml Inj IVP 4 mg TID WHIT Administration Dextrose 25 ml 03/01/20 20:38 Dextrose 50% Syr daniel 50 Ml IVP ONCE PRN hypoglycemia prot ocol Protocol Dextrose 50 ml 03/01/20 20:38 Dextrose 50% Syr daniel 50 Ml IVP PRN PRN hypoglycemia prot ocol Protocol Enoxaparin Sodium 40 mg 03/02/20 11:00 03/03/20 10:18 Enoxaparin 40 Mg /0.4 Ml Syringe SUBCUT 40 mg Q24H WHIT Administration Famotidine 20 mg 03/02/20 18:00 03/04/20 06:06 Famotidine 20 Mg /2 Ml Inj IVP 20 mg Q12H WHIT Administration Glucagon 1 mg 03/01/20 20:38 Glucagon 1 Mg/Ml Inj 1 Ml IM ONCE PRN Adult Acute Hypog lycemia Prot. Protocol Dextrose 500 mls @ 100 mls /hr 03/01/20 20:38 D5w IV ONCE PRN Adult Acute Hypog lycemia Prot Protocol Norepinephrine Bit artrate 4 mg 254 mls @ 0 mls/h r 03/02/20 08:15 03/04/20 04:52 / Dextrose IV 7.5 mls/hr .Q0M WHIT 7.5 mls/hr Titration Protocol Per Protocol Fentanyl 1,000 mcg / Sodium 100 mls @ 0 mls/h r 03/02/20 08:15 03/04/20 07:40 Chloride IV 50 mcg/hr .Q0M WHIT 5 mls/hr Titration Protocol Per Protocol Midazolam HCl 100 mg/ Sodium 100 mls @ 0 mls/h r 03/02/20 08:30 03/04/20 07:40 Chloride IV 3 mg/hr .Q0M WHIT 3 mls/hr Titration Protocol Per Protocol Imipenem/Cilastati n Sodium 500 100 mls @ 200 mls /hr 03/02/20 11:00 03/04/20 05:28 mg/ Sodium Chlor matthew IV Infused Q6H WHIT Infusion Protocol Azithromycin 500 m g/ Sodium 250 mls @ 250 mls /hr 03/02/20 22:00 03/03/20 21:37 Chloride IV Infused Q24H WHIT Infusion Protocol Vancomycin/PEG/NAD A/Lysine/Water 1,500 mg in 300 m ls @ 200 mls/hr 03/03/20 10:00 03/03/20 23:14 Vancocin IV Infused Q12H WHIT Infusion Insulin Aspart 0 unit 03/01/20 21:00 03/04/20 07:52 Insulin Aspart 1 00 Unit/1 Ml SUBCUT 2 unit WM&BEDTIME WHIT Administration Protocol Lorazepam 0.5 mg 03/01/20 20:38 Lorazepam 1 Mg T ablet PO TID PRN Nausea And Vomiti ng Non-Formulary Medi cation 500 mg 03/01/20 20:38 Famciclovir PO TID PRN MOUTH SORES Ondansetron HCl 4 mg 03/01/20 20:38 Ondansetron 2 Mg /Ml Sdv 2 Ml IVP Q6H PRN NAUSEA AND VOMITI NG Ondansetron HCl 4 mg 03/01/20 20:38 Ondansetron 2 Mg /Ml Sdv 2 Ml IVP Q6H PRN NAUSEA AND VOMITI NG Penicillins Allergy (Verified 02/13/20 10:06) ALGY-Anaphylaxis tramadol Adverse Reaction (Verified 02/13/20 10:06) ADR-Vomiting Vitals/I&O/Wt Last Vital Signs Temp 98.0 F 03/04/20 04:17 Pulse 46 L 03/04/20 06:00 Resp 18 03/04/20 06:00 BP 107/71 03/04/20 06:00 Pulse Ox 91 03/04/20 06:00 03/03/20 03/04/20 03/04/20 22:59 06:59 14:59 Intake Total 759.725 / 1597.341 470.825 / 2068.166 83.742 / 83.742 Output Total 100 / 750 325 / 1075 Balance 659.725 / 847.341 145.825 / 993.166 83.742 / 83.742 Weight last 48 hrs Weight 85.417 kg Physical Exam Const: COMMON NORMALS: no acute distress GENERAL APPEARANCE: cooperative, ill appearing and patient mechanically ventilated OTHER: -Sedated with fentanyl @ 100 mcg/hr, Versed @ 6 mg/hr HENMT: COMMON NORMALS: normocephalic and atraumatic HEAD & SCALP: normocephalic and atraumatic OTHER: -orally intubated Eye: COMMON NORMALS: Equal, round and reactive pupils present, EOMs intact bilaterally and conjunctivae normal CONJUNCTIVA: Yes conjunctivae normal PUPIL: Yes Equal, round and reactive pupils present OTHER: -legally blind Neck/C-Spine: GENERAL: Yes normal visual inspection and Yes trachea midline Chest: CHEST: Yes Vascular access present (port-A-cath) Resp: COMMON NORMALS: normal respiratory effort, No retractions and No use of accessory muscles EFFORT & INSPECTION: Yes able to speak in complete sentences, Yes symmetric chest movement and No tachypneic AUSCULTATION: diminished lung sounds OTHER: -on vent support; 40%/450/6 Cardio: COMMON NORMALS: regular rhythm, S1 normal heart sound present, S2 norm al heart sound present and No murmurs present (Cardio) RATE: bradycardic (HR in the 40-55 range) RHYTHM: regular rhythm HEART SOUNDS: S1 normal heart sound present and S2 normal heart sound present GI: COMMON NORMALS: Normal to inspection, nondistended, normoactive bowel sounds present, Soft to palpation and non-tender PALPATION: Yes Soft to palpation : BLADDER/KIDNEY EXAM: Yes catheter in place Catheter type (Male): urethral Extremity: COMMON NORMALS: normal to inspection GENERAL: Yes edema (1-2 + b ilateral LE edema) Neuro: OTHER: -sedated Psych: OTHER: -sedated Skin: COMMON NORMALS: no rashes or lesions noted, no jaundice, no petechiae and no mottling GENERAL SKIN EXAM: no rashes or lesions noted Urinary Catheter Management^: Flores: Cath Placed During This Visit: yes Urinary Catheter Date of Insertion: 03/02/20 Urinary Catheter Time of Insertion: 14:11 Data : 03/04/20 04:43 03/04/20 04:43 Micro: Microbiology 03/02/20 09:35 Gram Stain - Final Sputum - Endotracheal Tube Aspirate Sputum Culture - Preliminary Gram Negative Rods A&P Assessment and plan (1) Respiratory failure with hypoxia: -Remains on mechanical ventilation; weaning trial when appropriate; on sedation; failed weaning trial today -Noted evidence of bilateral patchy opacifications on chest x-ray today -Noted AM ABG with continued hypoxia, FiO2 down to 35% -daily ABG, CXR while on vent -continue broad-spectrum IV antibiotic coverage with Primaxin, vancomycin, azithromycin -COVID-19 PCR negative, off isolation precaution -blood cx: prelim negative -sputum cx: GNRs, pending ID & sensitivity -Continue to monitor respiratory status -no PE on CTA -noted LE edema, start on diuresis Status: Acute Qualifiers: Chronicity: acute Qualified Code(s): J96.01 - Acute respiratory failure with hypoxia (2) Septic shock: -As evidenced by hypoxia with need for mechanical ventilation, hypotension, leukocytosis -Secondary to respiratory infection as noted above -Continues to require pressor support, wean as tolerated -Continue to monitor vital signs closely Status: Acute (3) Pneumonia: -as noted above Status: Acute Qualifiers: Laterality: bilateral Lung location: unspecified part of lung Pneumonia type: due to unspecified organism Qualified Code(s): J18.9 - Pneumonia, unspecified organism (4) E coli bacteremia: -Found to have E. coli bacteremia during last admission last month. Uncl ear etiology though presumed to be secondary to GI translocation given neutropenia and underlying immunocompromise. 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 Reyes -continue dexamethasone Status: Chronic Qualifiers: Laterality: right Qualified Code(s): C34.91 - Malignant neoplasm of unspecified part of right bronchus or lung (6) Thrombocytopenia: -Stable platelet count, continue to trend -Monitor for bleeding -HIT panel pending Status: Chronic (7) Anemia: -Stable H/H, continue to trend Status: Chronic Qualifiers: Anemia type: unspecified type Qualified Code(s): D64.9 - Anemia, unspecified Additional A&P Information -Legally blind -previously found to have encephalopathy secondary to hyponatremia; sodium level stable -Treated with antifungal secondary to significant mucositis -LFTs normalized -Hypomagnesemia, replace as needed -NPO as on vent support -GI ppx with famotidine -DVT ppx with lovenox; monitor platelet count and H/H -Dispo: home -Code status: FULL code -guarded prognosis given underlying immunocompromise, septic shock, mechanical ventilation; continue ICU care Attestations Medical Necessity Statement*: Patient requires hospitalization for continued management of critical illness, septic shock, respiratory failure with continued mechanical ventilation, pressor support, broad spectrum IV antibiotics. Time Spent in Patient Care: Greater than 35 minutes (>than 50% of time spent in counselling and/or direct pt care on unit) . Critical Care Time: The high probability of a clinically significant, sudden or life threatening deterioration of the patient's [respiratory, cardiovascular] system(s) required my full and direct attention, intervention and personal management. The critical care time is as shown. 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
--- NOTE | 2020-03-04 09:31 | PC.CHAP ---
Pastoral Care Encounter/Spiritual Assessment Type of Contact [] Declined automatic glove turner and former visit [] Patient/Family/Request visit [] Outpatient visit [] Follow-up visit [] Physician referral [] Code/Alert [] Routine visit [] Staff referral [] Actively dying [] Patient sleeping [] Family support [] [] Out of room [] Palliative care [] [] Receiving care in room [] Pre-surgical visit [] Trauma [] Long length of stay [x] ICU visit [] Other: Relational/Emotional Strength [] Patient feels connected with others/family/visitors/staff [] Distress [] Loneliness/isolation [] Abandonment Spirituality of Patient [] Person of Amanda [] Attends Druze of their Amanda [] Believes in Prayer [] Reads Bible or Synagogue materials [] There are Spiritual issues to be addressed Processor [employer] Interventions [x] Prayer [] Active listening [] Non-anxious presence [] Spiritual/emotional support [] Crisis/trauma care [] Spiritual counseling [] Bereavement support [] Provided bereavement packet [] Provided Bible/devotional materials [] Provided toy/stuffed animal, coloring book to patient or family member [] Provided Communion [] Anointing/[place] [] Salvation [x] Completed spiritual assessment [] Other: Impact on Illness or Injury [] Angry [] Fearful [] Anxious [] Often cries [] Exhaustion [] Unable to work [] Unable to attend gnosticist [] Unable to walk/stand [] Unable to read [] Unable to drive [] Unable to eat/drink [] Unable to sleep [] Unable to be with family [] Patient intubated [] Other: Summary Time spent with patient
[2020-03-04] MEDS: dexamethasone 4 mg/mL INJ IVP ×3 (09:35→20:32)
[2020-03-04 10:03] LABS: Vancomycin Trough 27.9 ug/mL (10-15)
[2020-03-04] MEDS: magnesium sulfate premix 2 GM/50 ML PIGGYBACK IV (10:12)
[2020-03-04] MEDS: enoxaparin 40 mg/0.4 mL Syringe SUBCUT (12:09)
[2020-03-04] MEDS: lidocaine 1% 5 ML in potassium chloride premix 100 ML 25 ML IV (12:09)
[2020-03-04] MEDS: FUROsemide 10 mg/mL SDV 4mL 40 MG IVP ×2 (12:09→21:38)
[2020-03-04 12:38] LABS: Glucose Point of Care 123 mg/dL (70-110)
--- NOTE | 2020-03-04 14:34 | PC.RESP ---
Smoking Cessation and Pulmonary Rehab information sent to patient.
[2020-03-04 17:27] LABS: Glucose Point of Care 129 mg/dL (70-110)
--- NOTE | 2020-03-04 17:29 | PC.NURSE ---
episodes of coughing.
[2020-03-04] MEDS: vancomycin 1,000 MG in sodium chloride 0.9% 250 ML 250 MG IV (20:32)
[2020-03-04 20:50] LABS: Glucose Point of Care 127 mg/dL (70-110)
[2020-03-04] MEDS: azithromycin 500 MG in sodium chloride 0.9% 250 ML 250 MG IV (21:36)
--- NOTE | 2020-03-04 21:45 | PC.NURSE ---
Bradycardia Dr. Long notified of continued sinus bradycardia, rate has hit 40bpm multiple times. Consistently in 40's. Orders given to wean off fentanyl gtt and may go above max on versed to 10mg/hr. Orders received for labs with troponin and EKG series and electrocardiogram in AM.
--- NOTE | 2020-03-04 21:49 | ECG_ITS ---
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
[2020-03-04 22:28] LABS: Troponin(5th) Baseline 65 ng/L (0-15)
--- NOTE | 2020-03-04 22:45 | PC.NURSE ---
Physician notified Pt not adequately sedated, banging arms on siderails and shaking head. RR in high 20's-low 30's on ventilator. Received orders for ativan 1mg IVP and may repeat in 30 minutes if ineffective.
[2020-03-04] MEDS: LORazepam 2 mg/mL INJ 1 mL 1 MG IVP (22:59)
[2020-03-04 23:04] LABS: Anion Gap 15.1 (5-19); Blood Urea Nitrogen 30 mg/dL (8-23); Calcium 8.3 mg/dL (8.5-10.5); Carbon Dioxide 21 mmol/L (22-29); Chloride 100 mmol/L (98-107); Glomerular Filtration Rate 136.5 mL/min (90-130); Glucose 135 mg/dL (65-115); Magnesium 2.1 mg/dL (1.7-2.3); Osmolality Calculated 282 mOsm/kg (285-295); Potassium 4.1 mmol/L (3.5-5.1); Sodium 132 mmol/L (136-145); Thyroid Stimulating Hormone 0.22 uIU/mL (0.27-4.20)
--- NOTE | 2020-03-04 23:49 | ECG_ITS ---
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
[2020-03-05] VITALS (96 sets, daily range): BP systolic 72–133; BP diastolic 48–87; PULSE 52–92; RESP 21–29; TEMP 36.4–36.9; O2SAT 90–99
[2020-03-05 00:21] LABS: Glucose Point of Care 133 mg/dL (70-110)
[2020-03-05 00:23] LABS: Troponin 5 2HR 66.82 ng/L (0-15)
--- NOTE | 2020-03-05 03:49 | ECG_ITS ---
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
[2020-03-05 04:05] LABS: Basophils % 0.2 %; Hematocrit 29.4 % (42.0-52.0); Hemoglobin 9.3 g/dL (11.7-16.6); Lymphocytes # 0.4 10^3/uL (0.8-4.8); Lymphocytes % 2.5 %; Mean Corpuscular HGB Conc 31.6 g/dL (30.0-36.0); Mean Corpuscular Hemoglobin 28.4 pg (28.0-34.0); Mean Corpuscular Volume 89.6 fL (80-94); Mean Platelet Volume 11.4 fL (7.4-10.4); Monocytes # 0.7 10^3/uL (0.2-0.9); Monocytes % 4.3 %; Neutrophils # 14.05 10^3/uL (1.8-7.7); Nucleated Red Blood Cells % 0.2 %; Platelet Count 95 10^3/cmm (130-400); Red Blood Count 3.28 10^6/uL (4.1-5.3); Red Cell Distribution Width 19.5 % (12.1-15.1); White Blood Count 16.2 10^3/uL (4.0-10.0)
[2020-03-05 04:43] LABS: Alanine Aminotransferase 22 U/L (0-41); Albumin Level 2.4 g/dL (3.5-5.2); Alkaline Phosphatase 125 IU/L (40-130); Aspartate Amino Transferase 28 U/L (0-40); Blood Urea Nitrogen 33 mg/dL (8-23); Calcium 8.3 mg/dL (8.5-10.5); Carbon Dioxide 22 mmol/L (22-29); Chloride 99 mmol/L (98-107); Globulin 2.5 g/dL (1.3-4.6); Glucose 130 mg/dL (65-115); Magnesium 1.8 mg/dL (1.7-2.3); Osmolality Calculated 285 mOsm/kg (285-295); Sodium 133 mmol/L (136-145); Total Bilirubin 0.7 mg/dL (0.15-1.2); Total Protein 4.9 g/dL (6.6-8.7)
[2020-03-05 04:52] LABS: Troponin 5 6HR 72.43 ng/L (0-15); Troponin 5 6HR Delta 7.43 ng/L (0-12)
[2020-03-05 05:11] LABS: ABG PCO2 31.6 mmHg (35-45); ABG PH Result 7.46 (7.35-7.45); Alveolar-Arterial Oxygen Gradi 22.6 mmHg (5-10); Arterial Blood Gas Hematocrit 32.5 % (42-52); Base Excess ABG -1.1 mmol/L (-2.0-2.0); Blood Gas Allen Test Pos; Blood Gas Operator Identificat JB; Blood Gas Sample Site Radial, right; Blood Gas Sample Type Arterial; Blood Gas Tidal Volume 0.45; HCO3 ABG 22.3 mmol/L (22-26); HGB O2 Sat 93.1 % (95-100); Ionized Calcium Level - ABG 1.2 mmol/L (1.1-1.4); Oxygen Device VENT; Oxygen Saturation ABG 95.1; PO2 ABG 72.1 mmHg (80.0-100.0); Potassium Level - ABG 3.9 mmol/L (3.5-5.0); Total Hemoglobin 10.6 g/dL (14-18)
[2020-03-05] MEDS: famotidine 20 mg/2 mL INJ IVP ×2 (05:46→17:33)
[2020-03-05 06:04] LABS: Glucose Point of Care 134 mg/dL (70-110)
[2020-03-05 06:39] LABS: Slide Review Slide Review Perform
--- NOTE | 2020-03-05 07:26 | PM.PN ---
Subjective Subjective: Interval history: Remains on ventilator support with FiO2 40%. Improved oxygenation on a.m. ABG. Slight increase in leukocytosis, stable hemoglobin, had 1250 mL urine output overnight. Due to continued bradycardia has now been weaned off fentanyl with increased Versed for appropriate sedation. Was noted to have some agitation late last night so received a 1 mg dose of Ativan. Currently on Versed, some intermittent restlessness but no overt agitation. Weaning trial this AM though discontinued due to noted tachypnea. Able to wean off levophed for about 1 hr then had to resume this due to BP trending down. Medications: Reviewed: Yes Medication Review Details: Active Medications Generic Name Dose Route Start Last Admin Trade Name Freq PRN Reason Stop Dose Admin Acetaminophen 650 mg 03/01/20 20:38 Acetaminophen 32 5 Mg Tablet PO Q6H PRN Mild/Mod Pain Or Temp >/= 101 Hydrocodone Bitart /Acetaminophen 1 tab 03/01/20 20:38 Hydrocodone-Acet aminophen 7.5-325 Mg Tablet PO Q4H PRN Pain Albuterol Sulfate 2 puff 03/01/20 20:38 Albuterol 8 Gm M di INHALATION Q4H.RESPIRATORY P RN SHORTNESS OF SERGO TH Dexamethasone 4 mg 03/02/20 19:00 03/04/20 20:32 Dexamethasone 4 Mg/Ml Inj IVP 4 mg TID WHIT Administration Dextrose 25 ml 03/01/20 20:38 Dextrose 50% Syr daniel 50 Ml IVP ONCE PRN hypoglycemia prot ocol Protocol Dextrose 50 ml 03/01/20 20:38 Dextrose 50% Syr daniel 50 Ml IVP PRN PRN hypoglycemia prot ocol Protocol Enoxaparin Sodium 40 mg 03/02/20 11:00 03/04/20 12:09 Enoxaparin 40 Mg /0.4 Ml Syringe SUBCUT 40 mg Q24H WHIT Administration Famotidine 20 mg 03/02/20 18:00 03/05/20 05:46 Famotidine 20 Mg /2 Ml Inj IVP 20 mg Q12H WHIT Administration Furosemide 40 mg 03/04/20 10:30 03/04/20 21:38 Furosemide 10 Mg /Ml Sdv 4ml IVP 40 mg Q12H WHIT Administration Glucagon 1 mg 03/01/20 20:38 Glucagon 1 Mg/Ml Inj 1 Ml IM ONCE PRN Adult Acute Hypog lycemia Prot. Protocol Dextrose 500 mls @ 100 mls /hr 03/01/20 20:38 D5w IV ONCE PRN Adult Acute Hypog lycemia Prot Protocol Norepinephrine Bit artrate 4 mg 254 mls @ 0 mls/h r 03/02/20 08:15 03/04/20 17:43 / Dextrose IV 7.5 mls/hr .Q0M WHIT 7.5 mls/hr Administration Protocol Per Protocol Midazolam HCl 100 mg/ Sodium 100 mls @ 0 mls/h r 03/02/20 08:30 03/04/20 22:15 Chloride IV 8 mg/hr .Q0M WHIT 8 mls/hr Titration Protocol Per Protocol Imipenem/Cilastati n Sodium 500 100 mls @ 200 mls /hr 03/02/20 11:00 03/05/20 05:46 mg/ Sodium Chlor matthew IV 200 mls/hr Q6H WHIT Administration Protocol Azithromycin 500 m g/ Sodium 250 mls @ 250 mls /hr 03/02/20 22:00 03/04/20 21:36 Chloride IV 250 mls/hr Q24H WHIT Administration Protocol Vancomycin HCl 1,0 00 mg/ 250 mls @ 250 mls /hr 03/04/20 21:00 03/04/20 20:32 Sodium Chloride IV 250 mls/hr Q12H WHIT Administration Dexmedetomidine HC l 400 mcg/ 104 mls @ 0 mls/h r 03/05/20 05:15 Sodium Chloride IV .Q0M WHIT Protocol Per Protocol Insulin Aspart 0 unit 03/01/20 21:00 03/04/20 20:40 Insulin Aspart 1 00 Unit/1 Ml SUBCUT Not Given WM&BEDTIME WHIT Protocol Lorazepam 0.5 mg 03/01/20 20:38 Lorazepam 1 Mg T ablet PO TID PRN Nausea And Vomiti ng Lorazepam 1 mg 03/04/20 22:45 03/04/20 22:59 Lorazepam 2 Mg/M l Inj 1 Ml IVP 1 mg NOW PRN Administration ANXIETY Non-Formulary Medi cation 500 mg 03/01/20 20:38 Famciclovir PO TID PRN MOUTH SORES Ondansetron HCl 4 mg 03/01/20 20:38 Ondansetron 2 Mg /Ml Sdv 2 Ml IVP Q6H PRN NAUSEA AND VOMITI NG Ondansetron HCl 4 mg 03/01/20 20:38 Ondansetron 2 Mg /Ml Sdv 2 Ml IVP Q6H PRN NAUSEA AND VOMITI NG Penicillins Allergy (Verified 02/13/20 10:06) ALGY-Anaphylaxis tramadol Adverse Reaction (Verified 02/13/20 10:06) ADR-Vomiting Vitals/I&O/Wt Last Vital Signs Temp 97.5 F L 03/05/20 06:30 Pulse 68 03/05/20 06:30 Resp 25 H 03/05/20 06:30 BP 98/71 03/05/20 06:30 Pulse Ox 95 03/05/20 06:30 03/04/20 03/05/20 03/05/20 22:59 06:59 14:59 Intake Total 200.650 / 516.367 100 / 616.367 Output Total 850 / 1125 1250 / 2375 Balance -649.350 / -608.633 -1150 / -1758.633 Physical Exam Const: COMMON NORMALS: no acute distress GENERAL APPEARANCE: cooperative, ill appearing and patient mechanically ventilated ORIENTATION/CONSCIOUSNESS: Yes awake OTHER: -Sedated with <del>fentanyl</del> <del>@</del> <del>100</del> <del>mcg/hr</del>, Versed @ 9 mg/hr HENMT: COMMON NORMALS: normocephalic and atraumatic HEAD & SCALP: normocephalic and atraumatic OTHER: -orally intubated Eye: COMMON NORMALS: Equal, round and reactive pupils present, EOMs intact bilaterally and conjunctivae normal CONJUNCTIVA: Yes conjunctivae normal PUPIL: Yes Equal, round and reactive pupils present OTHER: -legally blind Neck/C-Spine: COMMON NORMALS: full ROM GENERAL: Yes normal visual inspection and Yes trachea midline Chest: CHEST: Yes Vascular access present (port-A-cath) Resp: COMMON NORMALS: normal respiratory effort, No retractions and No use of accessory muscles EFFORT & INSPECTION: Yes able to speak in complete sentences, Yes symmetric chest movement and No tachypneic AUSCULTATION: diminished lung sounds OTHER: -on vent support; 40%/450/6 Cardio: COMMON NORMALS: regular rate, regular rhythm, S1 normal heart sound present, S2 normal heart sound present and No murmurs present (Cardio) RATE: regular rate RHYTHM: regular rhythm HEART SOUNDS: S1 normal heart sound present and S2 normal heart sound present GI: COMMON NORMALS: Normal to inspection, nondistended, normoactive bowel sounds present and Soft to palpation PALPATION: Yes Soft to palpation : BLADDER/KIDNEY EXAM: Yes catheter in place Extremity: COMMON NORMALS: normal to inspection GENERAL: Yes edema (1-2 + bilateral LE edema) Neuro: OTHER: -sedated Psych: OTHER: -sedated Skin: COMMON NORMALS: no rashes or lesions noted, no jaundice, no petechiae and no mottling GENERAL SKIN EXAM: no rashes or lesions noted Urinary Catheter Management^: Flores: Cath Placed During This Visit: yes Urinary Catheter Date of Insertion: 03/02/20 Urinary Catheter Time of Insertion: 14:11 Data : 03/05/20 03:46 03/05/20 03:46 A&P Assessment and plan (1) Respiratory failure with hypoxia: -Remains on mechanical ventilation; weaning trial when appropriate; on sedation; failed weaning trial today -Noted evidence of bilateral patchy opacifications on chest x-ray -Noted AM ABG with continued hypoxia, FiO2 down to 40% -daily ABG, CXR while on vent -continue broad-spectrum IV antibiotic coverage with Primaxin, vancomycin, azithromycin -COVID-19 PCR negative, off isolation precaution -blood cx: prelim negative -sputum cx: GNRs, pending ID & sensitivity -Continue to monitor respiratory status -no PE on CTA -noted LE edema, on diuresis Status: Acute Qualifiers: Chronicity: acute Qualified Code(s): J96.01 - Acute respiratory failure with hypoxia (2) Septic shock: -As evidenced by hypoxia with need for mechanical ventilation, hypotension, leukocytosis -Secondary to respiratory infection as noted above -Continues to require pressor support, wean as tolerated -Continue to monitor vital signs closely Status: Acute (3) Pneumonia: -as noted above Status: Acute Qualifiers: Laterality: bilateral Lung location: unspecified part of lung Pneumonia type: due to unspecified organism Qualified Code(s): J18.9 - Pneumonia, unspecified organism (4) E coli bacteremia: -Found to have E. coli bacteremia during last admission last month. Unclear etiology though presumed to be secondary to GI translocation given neutropenia and underlying immunocompromise. 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 Reyes -continue dexamethasone Status: Chronic Qualifiers: Laterality: right Qualified Code(s): C34.91 - Malignant neoplasm of unspecified part of right bronchus or lung (6) Thrombocytopenia: -Stable platelet count, continue to trend -Monitor for bleeding -HIT panel pending Status: Chronic (7) Anemia: -Stable H/H, continue to trend Status: Chronic Qualifiers: Anemia type: unspecified type Qualified Code(s): D64.9 - Anemia, unspecified Additional A&P Information -Legally blind -previously found to have encephalopathy secondary to hyponatremia; sodium level stable -Treated with antifungal secondary to significant mucositis -LFTs normalized -Hypomagnesemia, replace as needed -Bradycardia, likely medication induced as has resolved with discontinuation of fentanyl, sinus rhythm, Echo-EF=50-55%, relative hypokinesia of septum -NPO as on vent support -GI ppx with famotidine -DVT ppx with lovenox; monitor platelet count and H/H, stable so far -Dispo: home -Code status: FULL code -guarded prognosis given underlying immunocompromise, septic shock, mechanical ventilation; continue ICU care Attestations Medical Necessity Statement*: Patient requires hospitalization for continued management of acute respiratory failure, remains on vent support, broad spectrum IV antibiotics, IV diuresis. Time Spent in Patient Care: 16 - 35 minutes (>than 50% of time spent in counselling and/or direct pt care on unit). Critical Care Time: The high probability of a clinically significant, sudden or life threatening deterioration of the patient's [cardiovascular, respiratory] system(s) required my full and direct attention, intervention and personal management. The critical care time is as shown. This time is in addition to time spent performing any reported procedures but includes the following: [x] Data and vital sign review and interpretation [x] Patient assessment, examination and intervention [x] Documentation [x] Medication orders and management Critical Care Time (min): 20 Coding Level of Care Code Acute Rehab Therapy Manager for [facility] Fwd Exam Comprehensive Diagnoses Respiratory failure with hypoxia J96.01 Chronicity: acute Septic shock A41.9; R65.21 Pneumonia J18.9 Laterality: bilateral Lung location: unspecified part of lung Pneumonia type: due to unspecified organism E coli bacteremia R78.81; B96.20 Primary lung squamous cell carcinoma C34.91 Laterality: right Thrombocytopenia D69.6 Anemia D64.9 Anemia type: unspecified type
--- NOTE | 2020-03-05 07:31 | XRR_ITS ---
PROCEDURE INFORMATION: Exam: XR Chest, 1 View Exam date and time: 03/05/2020 7:48 AM Age: 64 years old Clinical indication: Device placement; Ett placement (vent status); Additional info: On vent support TECHNIQUE: Imaging protocol: XR of the chest Views: 1 view. COMPARISON: CR XR chest 1V portable [id number] 03/04/2020 5:38 AM FINDINGS: Tubes, catheters and devices: Endotracheal tube above the chuy adjacent to the level of the clavicles. Central venous catheter via the left jugular approach with the tip projecting over the superior vena cava. nasogastric tube extends below the diaphragm although the location of the tip not identified as it is outside of the [id number]. Lungs: Airspace consolidation within the right lower lobe. Subpulmonic effusion. Previously noted. Subtle ground-glass airspace disease within the right upper lobe and left mid lung. Mildly improved. Numerous ill-defined nodular densities. Pleural space: See Lungs finding. Heart/Mediastinum: Unremarkable. No cardiomegaly. Vasculature: Chest port/Mediport has been placed via the right jugular approach with the tip in the superior vena cava. Bones/joints: Unremarkable. XR/XR chest 1V portable [id number] IMPRESSION: 1. Airspace consolidation within the right lower lobe. Subpulmonic effusion. Previously noted. 2. Subtle ground-glass airspace disease within the right upper lobe and left mid lung. Mildly improved. Numerous nodular densities.
[2020-03-05] MEDS: vancomycin 1,000 MG in sodium chloride 0.9% 250 ML 200 MG IV (08:51)
[2020-03-05] MEDS: dexamethasone 4 mg/mL INJ IVP ×3 (08:51→21:13)
--- NOTE | 2020-03-05 09:22 | PC.CHAP ---
Pastoral Care Encounter/Spiritual Assessment Type of Contact [] Declined commercial litigation attorney visit [] Patient/Family/Request visit [] Outpatient visit [] Follow-up visit [] Physician referral [] Code/Alert [] Routine visit [] Staff referral [] Actively dying [] Patient sleeping [] Family support [] [] Out of room [] Palliative care [] [] Receiving care in room [] Pre-surgical visit [] Trauma [] Long length of stay [x] ICU visit [] Other: Relational/Emotional Strength [] Patient feels connected with others/family/visitors/staff [] Distress [] Loneliness/isolation [] Abandonment Spirituality of Patient [] Person of Amanda [] Attends [employer]ist of their Amanda [] Believes in Prayer [] Reads Bible or Yazidi materials [] There are Spiritual issues to be addressed Magistrate Assistant Interventions [x] Prayer [] Active listening [] Non-anxious presence [] Spiritual/emotional support [] Crisis/trauma care [] Spiritual counseling [] Bereavement support [] Provided bereavement packet [] Provided Bible/devotional materials [] Provided toy/stuffed animal, coloring book to patient or family member [] Provided Communion [] Anointing/[place] [] Salvation [x] Completed spiritual assessment [] Other: Impact on Illness or Injury [] Angry [] Fearful [] Anxious [] Often cries [] Exhaustion [] Unable to work [] Unable to attend spiritism [] Unable to walk/stand [] Unable to read [] Unable to drive [] Unable to eat/drink [] Unable to sleep [] Unable to be with family [] Patient intubated [] Other: Summary Time spent with patient
[2020-03-05] MEDS: FUROsemide 10 mg/mL SDV 4mL 40 MG IVP ×2 (10:02→22:15)
[2020-03-05] MEDS: enoxaparin 40 mg/0.4 mL Syringe SUBCUT (10:02)
[2020-03-05 13:48] LABS: Heparin-Induced Platelet AB Negative (Negative)
[2020-03-05 17:38] LABS: Glucose Point of Care 149 mg/dL (70-110)
[2020-03-05] MEDS: vancomycin 1,000 MG in sodium chloride 0.9% 250 ML 250 MG IV (21:13)
[2020-03-05 21:23] LABS: Glucose Point of Care 144 mg/dL (70-110)
--- NOTE | 2020-03-05 21:49 | USCV_ITS ---
Luiza Phani Age: 64 Gender: M : 1955 Exam Date: 03/05/2020 07:49 Ordering Phys: Hany Long MD Technologist: Jaime Olmos Exam Location: [facility] [place] Indication: PT ON VENT BP: 89 / 69 HR: 80 Rhythm: Sinus Technical Quality: Fair MEASUREMENTS (Male / Female) Normal Values 2D ECHO LV Diastolic Diameter PLAX 3.4 cm 4.2 - 5.9 / 3.9 - 5.3 cm LV Systolic Diameter PLAX 2.3 cm IVS Diastolic Thickness 0.9 cm 0.6 - 1.0 / 0.6 - 0.9 cm IVS Systolic Thickness 1.1 cm LVPW Diastolic Thickness 0.8 cm 0.6 - 1.0 / 0.6 - 0.9 cm LVPW Systolic Thickness 1.1 cm LVOT Diameter 2.1 cm LV Ejection Fraction 2D Teich 62.8 % LV Ejection Fraction MOD 2C 53.6 % LV Ejection Fraction 2C AL 54.3 % LA Diameter 3.7 cm LA Width 3.0 cm LA Height 4.7 cm RA Width 3.1 cm RA Height 4.0 cm M-MODE LV Diastolic Diameter MM 5.1 cm 4.2 - 5.9 / 3.9 - 5.3 cm LV Systolic Diameter MM 3.6 cm LV Ejection Fraction MM Teich 56.7 % IVS Diastolic Thickness MM 1.1 cm 0.6 - 1.0 / 0.6 - 0.9 cm IVS Systolic Thickness MM 1.7 cm LVPW Diastolic Thickness MM 1.3 cm 0.6 - 1.0 / 0.6 - 0.9 cm LVPW Systolic Thickness MM 1.7 cm RV Diastolic Diameter MM 1.5 cm Aortic Annulus Diameter 3.4 cm LA Ao Ratio MM 1.2 MV E Point Septal Separation 0.9 cm DOPPLER MV Area PHT 5.0 cm squared Mitral E to A Ratio 0.9 MV E' Velocity 31.5 cm/s Mitral E to MV E' Ratio 9.6 Mitral E to LV E' Lateral Ratio 15.2 Mitral E to LV E' Septal Ratio 7.0 TR Peak Velocity 134.0 cm/s TR Peak Gradient 7.2 mmHg TV Peak E Velocity 66.0 cm/s Right Atrial Pressure 15.0 mmHg Pulmonary Artery Systolic Pressu 22.2 mmHg PV Peak Velocity 80.0 cm/s FINDINGS Left Ventricle Possibly normal LV size with a borderline low ejection fraction of 50 to 55%. Relative hypokinesia of the septum. Segmental wall motion analysis difficult because of the poor ultrasonic window. Right Ventricle The right ventricle is normal in size and function. Right Atrium Could not be visualized well Left Atrium Could not visualize well Mitral Valve No gross abnormalities noted Aortic Valve Could not be visualized well Tricuspid Valve Could not be visualized well Pulmonic Valve Pulmonic valve not well visualized. Pericardium Normal pericardium without effusion. No pericardial effusion. Aorta Normal ascending aorta dimension. CONCLUSIONS Possibly normal LV size with a borderline low ejection fraction of 50 to 55%. Relative hypokinesia of the septum. Segmental wall motion analysis difficult because of the poor ultrasonic window. No pericardial effusion. Technically very difficult study because of poor ultrasonic window Dr Juan Almazan MD FACC (Electronically Signed) Final Date: 05 March 2020 14:27 S
[2020-03-05 21:51] LABS: Glucose Point of Care 155 mg/dL (70-110)
[2020-03-05] MEDS: azithromycin 500 MG in sodium chloride 0.9% 250 ML 250 MG IV (22:19)
--- NOTE | 2020-03-05 22:25 | PC.NURSE ---
Fentanyl Waste 57ml of remaining Fentanyl drip wasted with Yee Canada RN.
[2020-03-05 23:52] LABS: Glucose Point of Care 147 mg/dL (70-110)
[2020-03-06] VITALS (34 sets, daily range): BP systolic 87–116; BP diastolic 67–88; PULSE 60–107; RESP 18–31; TEMP 36.1–36.6; O2SAT 93–100
--- NOTE | 2020-03-06 | CT_ITS ---
WS: [id number] CT CHEST WITHOUT INTRAVENOUS CONTRAST HISTORY: Bilateral pneumothoraces. TECHNIQUE: Contiguous 5 mm axial imaging performed on the thorax. Coronal and sagittal reformats are submitted. All CT scans at [facility] use at least one of these dose optimization techniq ues: automated exposure control; mA and/or kV adjustment per patient size (includes targeted exams wh ere dose is matched to clinical indication); or iterative reconstruction. CONTRAST: None DLP: 1061.07 mGy.cm COMPARISON: 03/03/2020. Interval development of moderate-sized bilateral pneumothoraces. LEFT is slightly greater than the RI GHT. There is extensive mediastinal air and pneumomediastinum. Patient has known bilateral pulmonary nodules and masses. Large area of consolidation is probably a mass which contains central necrosis in the RIGHT lung. Diffuse haziness over the visualized lungs. There is no midline shift. Nasogastric a nd endotracheal tubes are in appropriate positions. There is also air circumferentially around the es ophagus. Air dissects into the soft tissues of the neck and RIGHT chest. Cardiac chambers are smaller as compared to the prior study and cardiac function may be decreased due to the bilateral pneumothor aces. No significant with fractures are identified. Upper abdomen: Patient has a known lobulated mass associated with the RIGHT kidney which has been pre viously described and suspicious for neoplasm. There is circumferential adenopathy encasing the aorta at the level of the renal arteries. Free air in the upper abdomen is contiguous with the pneumomediastinum and pneumothoraces. CT/CT chest wo con [id number] IMPRESSION: 1. New moderate size bilateral pneumothoraces developed since the chest radiog raph earlier the same day. 2. Patient has known nodules and metastatic disease throughout the lungs. 3. Known mass RIGHT kidney. Known retroperitoneal adenopathy encasing the aort a at the level of the renal arteries. 4. Extensive subcutaneous emphysema with pneumomediastinum. 5. Endotracheal and nasogastric tubes are in good position. 6. Patient has free air in the upper abdomen which may be contiguous with the air from the thorax. 7. Small caliber heart. Cardiac function is probably being compromised by the pneumothoraces.
[2020-03-06 04:27] LABS: Basophils # 0.1 10^3/uL (0.0-0.1); Basophils % 0.3 %; Hematocrit 28.7 % (42.0-52.0); Hemoglobin 9.4 g/dL (11.7-16.6); Lymphocytes # 0.4 10^3/uL (0.8-4.8); Lymphocytes % 2.3 %; Mean Corpuscular HGB Conc 32.8 g/dL (30.0-36.0); Mean Corpuscular Hemoglobin 28.1 pg (28.0-34.0); Mean Corpuscular Volume 85.7 fL (80-94); Mean Platelet Volume 11.6 fL (7.4-10.4); Monocytes # 0.7 10^3/uL (0.2-0.9); Monocytes % 3.5 %; Neutrophils # 16.69 10^3/uL (1.8-7.7); Neutrophils % 87.9 %; Nucleated Red Blood Cells % 0.1 %; Platelet Count 99 10^3/cmm (130-400); Red Blood Count 3.35 10^6/uL (4.1-5.3); Red Cell Distribution Width 19.5 % (12.1-15.1)
[2020-03-06 05:01] LABS: Anion Gap 14.8 (5-19); Blood Urea Nitrogen 41 mg/dL (8-23); Calcium 8.1 mg/dL (8.5-10.5); Carbon Dioxide 24 mmol/L (22-29); Chloride 102 mmol/L (98-107); Glomerular Filtration Rate 85.5 mL/min (90-130); Glucose 145 mg/dL (65-115); Osmolality Calculated 297 mOsm/kg (285-295); Potassium 3.8 mmol/L (3.5-5.1); Sodium 137 mmol/L (136-145)
[2020-03-06 05:11] LABS: ABG PCO2 32.6 mmHg (35-45); ABG PH Result 7.48 (7.35-7.45); Arterial Blood Gas Hematocrit 33.9 % (42-52); Base Excess ABG 0.9 mmol/L (-2.0-2.0); Blood Gas Allen Test Pos; Blood Gas Sample Site Radial, right; Blood Gas Sample Type Arterial; HCO3 ABG 24.1 mmol/L (22-26); HGB O2 Sat 94.9 % (95-100); Ionized Calcium Level - ABG 1.2 mmol/L (1.1-1.4); Methemoglobin 1.1 % (0.4-1.5); Oxygen Saturation ABG 96.8; PO2 ABG 81.9 mmHg (80.0-100.0); Potassium Level - ABG 3.8 mmol/L (3.5-5.0); Total Hemoglobin 11.1 g/dL (14-18)
[2020-03-06 05:12] LABS: Alveolar-Arterial Oxygen Gradi 21.2 mmHg (5-10); Blood Gas Operator Identificat JB; Blood Gas Tidal Volume 0.45; Oxygen Device VENT
[2020-03-06] MEDS: famotidine 20 mg/2 mL INJ IVP ×2 (05:34→17:27)
[2020-03-06 05:43] LABS: Glucose Point of Care 153 mg/dL (70-110)
--- NOTE | 2020-03-06 06:00 | XR_ITS ---
WS: [id number] Portable AP upright chest, 03/06/2020 Clinical Data: on vent support Comparison: Portable chest, 03/05/2020 Findings: The right and left internal jugular venous catheters, nasogastric tube, endotracheal tube a nd monitor leads have not changed. There is dense opacity in the right lower lobe remains the same. T here are opacities throughout both lungs also unchanged. There is a small right pleural effusion. The heart is normal. XR/XR chest 1V portable [id number] Impression: 1. No change in dense right lower lobe consolidation and patchy opacification throughout both lungs. 2. No change in multiple tubes.
[2020-03-06 06:19] LABS: Slide Review Slide Review Perform
--- NOTE | 2020-03-06 08:10 | PM.PN ---
Subjective Subjective: Interval history: Remains on vent support, afebrile, normotensive, had 1200 mL urine output overnight. Remains on pressor support and sedation. Able to spontaneously open his eyes with repositioning, verbal stimulation. Plan on weaning trial again today. Medications: Reviewed: Yes Medication Review Details: Active Medications Generic Name Dose Route Start Last Admin Trade Name Freq PRN Reason Stop Dose Admin Acetaminophen 650 mg 03/01/20 20:38 Acetaminophen 32 5 Mg Tablet PO Q6H PRN Mild/Mod Pain Or Temp >/= 101 Hydrocodone Bitart /Acetaminophen 1 tab 03/01/20 20:38 Hydrocodone-Acet aminophen 7.5-325 Mg Tablet PO Q4H PRN Pain Albuterol Sulfate 2 puff 03/01/20 20:38 Albuterol 8 Gm M di INHALATION Q4H.RESPIRATORY P RN SHORTNESS OF SERGO TH Dexamethasone 4 mg 03/02/20 19:00 03/05/20 21:13 Dexamethasone 4 Mg/Ml Inj IVP 4 mg TID WHIT Administration Dextrose 25 ml 03/01/20 20:38 Dextrose 50% Syr daniel 50 Ml IVP ONCE PRN hypoglycemia prot ocol Protocol Dextrose 50 ml 03/01/20 20:38 Dextrose 50% Syr daniel 50 Ml IVP PRN PRN hypoglycemia prot ocol Protocol Enoxaparin Sodium 40 mg 03/02/20 11:00 03/05/20 10:02 Enoxaparin 40 Mg /0.4 Ml Syringe SUBCUT 40 mg Q24H WHIT Administration Famotidine 20 mg 03/02/20 18:00 03/06/20 05:34 Famotidine 20 Mg /2 Ml Inj IVP 20 mg Q12H WHIT Administration Furosemide 40 mg 03/04/20 10:30 03/05/20 22:15 Furosemide 10 Mg /Ml Sdv 4ml IVP 40 mg Q12H WHIT Administration Glucagon 1 mg 03/01/20 20:38 Glucagon 1 Mg/Ml Inj 1 Ml IM ONCE PRN Adult Acute Hypog lycemia Prot. Protocol Dextrose 500 mls @ 100 mls /hr 03/01/20 20:38 D5w IV ONCE PRN Adult Acute Hypog lycemia Prot Protocol Norepinephrine Bit artrate 4 mg 254 mls @ 0 mls/h r 03/02/20 08:15 03/06/20 04:17 / Dextrose IV 7.4 mls/hr .Q0M WHIT 7.4 mls/hr Administration Protocol Per Protocol Midazolam HCl 100 mg/ Sodium 100 mls @ 0 mls/h r 03/02/20 08:30 03/06/20 03:57 Chloride IV 6 mg/hr .Q0M WHIT 6 mls/hr Administration Protocol Per Protocol Imipenem/Cilastati n Sodium 500 100 mls @ 200 mls /hr 03/02/20 11:00 03/06/20 05:33 mg/ Sodium Chlor matthew IV Infused Q6H WHIT Infusion Protocol Azithromycin 500 m g/ Sodium 250 mls @ 250 mls /hr 03/02/20 22:00 03/05/20 23:42 Chloride IV Infused Q24H WHIT Infusion Protocol Vancomycin HCl 1,0 00 mg/ 250 mls @ 250 mls /hr 03/04/20 21:00 03/05/20 22:27 Sodium Chloride IV Infused Q12H WHIT Infusion Dexmedetomidine HC l 400 mcg/ 104 mls @ 0 mls/h r 03/05/20 05:15 Sodium Chloride IV .Q0M WHIT Protocol Per Protocol Insulin Aspart 0 unit 03/05/20 12:00 03/06/20 05:41 Insulin Aspart 1 00 Unit/1 Ml SUBCUT 2 unit Q6H WHIT Administration Protocol Lorazepam 0.5 mg 03/01/20 20:38 Lorazepam 1 Mg T ablet PO TID PRN Nausea And Vomiti ng Lorazepam 1 mg 03/04/20 22:45 03/04/20 22:59 Lorazepam 2 Mg/M l Inj 1 Ml IVP 1 mg NOW PRN Administration ANXIETY Non-Formulary Medi cation 500 mg 03/01/20 20:38 Famciclovir PO TID PRN MOUTH SORES Ondansetron HCl 4 mg 03/01/20 20:38 Ondansetron 2 Mg /Ml Sdv 2 Ml IVP Q6H PRN NAUSEA AND VOMITI NG Ondansetron HCl 4 mg 03/01/20 20:38 Ondansetron 2 Mg /Ml Sdv 2 Ml IVP Q6H PRN NAUSEA AND VOMITI NG Penicillins Allergy (Verified 02/13/20 10:06) ALGY-Anaphylaxis tramadol Adverse Reaction (Verified 02/13/20 10:06) ADR-Vomiting Vitals/I&O/Wt Last Vital Signs Temp 97.9 F 03/06/20 03:00 Pulse 93 03/06/20 06:00 Resp 28 H 03/06/20 06:00 BP 97/67 03/06/20 06:00 Pulse Ox 98 03/06/20 06:00 03/05/20 03/06/20 03/06/20 22:59 06:59 14:59 Intake Total 442.25 / 918.270 583.155 / 1501.425 Output Total 750 / 1300 1200 / 2500 Balance -307.75 / -381.730 -616.845 / -998.575 Physical Exam Const: COMMON NORMALS: no acute distress GENERAL APPEARANCE: cooperative, ill appearing and patient mechanically ventilated ORIENTATION/CONSCIOUSNESS: Yes awake OTHER: -Sedated with <del>fentanyl</del> <del>@</del> <del>100</del> <del>mcg/hr</del>, Versed @ 6 mg/hr HENMT: COMMON NORMALS: normocephalic and atraumatic HEAD & SCALP: normocephalic and atraumatic OTHER: -orally intubated Eye: COMMON NORMALS: Equal, round and reactive pupils present, EOMs intact bilaterally and conjunctivae normal CONJUNCTIVA: Yes conjunctivae normal PUPIL: Yes Equal, round and reactive pupils present OTHER: -legally blind Neck/C-Spine: GENERAL: Yes normal visual inspection, Yes trachea midline, Yes anterior neck swelling and Yes other (right sided SC emphysema) Chest: CHEST: Yes Vascular access present (port-A-cath) Resp: COMMON NORMALS: normal respiratory effort, No retractions and No use of accessory muscles EFFORT & INSPECTION: Yes able to speak in complete sentences, Yes symmetric chest movement and No tachypneic AUSCULTATION: diminished lung sounds OTHER: -on vent support; 40%/450/8 Cardio: COMMON NORMALS: regular rate, regular rhythm, S1 normal heart sound present, S2 normal heart sound present and No murmurs present (Cardio) RATE: regular rate RHYTHM: regular rhythm HEART SOUNDS: S1 normal heart sound present and S2 normal heart sound present GI: COMMON NORMALS: Normal to inspection, nondistended, normoactive bowel sounds present and Soft to palpation PALPATION: Yes Soft to palpation : BLADDER/KIDNEY EXAM: Yes catheter in place Extremity: COMMON NORMALS: normal to inspection GENERAL: Yes edema (1-2 + bilateral LE edema) Neuro: OTHER: -sedated Psych: OTHER: -sedated Skin: COMMON NORMALS: no rashes or lesions noted, no jaundice, no petechiae and no mottling GENERAL SKIN EXAM: no rashes or lesions noted Urinary Catheter Management^: Flores: Cath Placed During This Visit: yes Urinary Catheter Date of Insertion: 03/02/20 Urinary Catheter Time of Insertion: 14:11 Data : 03/06/20 03:38 03/06/20 03:38 Micro: Microbiology 03/02/20 09:35 Gram Stain - Final Sputum - Endotracheal Tube Aspirate Sputum Culture - Final Alcaligenes faecalis A&P Assessment and plan (1) Respiratory failure with hypoxia: -Remains on mechanical ventilation; weaning trial; on sedation; failed weaning trial today -Noted continued RLL consolidation and bilateral patchy opacifications -Noted AM ABG with continued hypoxia, FiO2 down to 40% -daily ABG, CXR while on vent -continue broad-spectrum IV antibiotic coverage with Primaxin, vancomycin, azithromycin -continue steroids -COVID-19 PCR negative, off isolation precaution -blood cx: prelim negative -sputum cx: Alcaligenes faecalis, sensitivity noted -continue to monitor respiratory status -no PE on CTA -noted LE edema, on diuresis -noted right sided SC emphysema and more apparent neck edema on examination today; order CT neck. Was noted to have large mass in RML extending from mediastinum to the chest wall and containing cavitations; noted lymphadenopathy in the bilateral hilum and mediastinum. Status: Acute Qualifiers: Chronicity: acute Qualified Code(s): J96.01 - Acute respiratory failure with hypoxia (2) Septic shock: -As evidenced by hypoxia with need for mechanical ventilation, hypotension, leukocytosis -Secondary to respiratory infection as noted above -Continues to require pressor support, wean as tolerated -Continue to monitor vital signs closely Status: Acute (3) Pneumonia: -as noted above Status: Acute Qualifiers: Laterality: bilateral Lung location: unspecified part of lung Pneumonia type: due to unspecified organism Qualified Code(s): J18.9 - Pneumonia, unspecified organism (4) E coli bacteremia: -Found to have E. coli bacteremia during last admission last month. Unclear etiology though presumed to be secondary to GI translocation given neutropenia and underlying immunocompromise. 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 Reyes -continue dexamethasone Status: Chronic Qualifiers: Laterality: right Qualified Code(s): C34.91 - Malignant neoplasm of unspecified part of right bronchus or lung (6) Thrombocytopenia: -Stable platelet count, continue to trend -continue to monitor for bleeding; none so far -HIT panel negative Status: Chronic (7) Anemia: -Stable H/H, continue to trend Status: Chronic Qualifiers: Anemia type: unspecified type Qualified Code(s): D64.9 - Anemia, unspecified Additional A&P Information -Legally blind -previously found to have encephalopathy secondary to hyponatremia; sodium level stable -Treated with antifungal secondary to significant mucositis -LFTs normalized -Hypomagnesemia, replace as needed -Bradycardia, likely medication induced as has resolved with discontinuation of fentanyl, sinus rhythm, Echo-EF=50-55%, relative hypokinesia of septum. HR wnl -NPO as on vent support; may need to start tube feeding if continued need for vent support -GI ppx with famotidine -DVT ppx with lovenox; monitor platelet count and H/H, stable so far -Dispo: home -Code status: FULL code -guarded prognosis given underlying immunocompromise, septic shock, mechanical ventilation; continue ICU care Attestations Medical Necessity Statement*: Patient requires hospitalization for continued management of acute respiratory failure on vent support, broad spectrum IV antibiotics, IV diuresis. Time Spent in Patient Care: Greater than 35 minutes (>than 50% of time spent in counselling and/or direct pt care on unit). Critical Care Time: The high probability of a clinically significant, sudden or life threatening deterioration of the patient's [respiratory, cardiovascular] system(s) required my full and direct attention, intervention and personal management. The critical care time is as shown. This time is in addition to time spent performing any reported procedures but includes the following: [x] Data and vital sign review and interpretation [x] Patient assessment, examination and intervention [x] Documentation [x] Medication orders and management Critical Care Time (min): 20 Coding Level of Care Code Acute Cloud Administrator for Chg Fwd Exam Comprehensive Diagnoses Respiratory failure with hypoxia J96.01 Chronicity: acute Septic shock A41.9; R65.21 Pneumonia J18.9 Laterality: bilateral Lung location: unspecified part of lung Pneumonia type: due to unspecified organism E coli bacteremia R78.81; B96.20 Primary lung squamous cell carcinoma C34.91 Laterality: right Thrombocytopenia D69.6 Anemia D64.9 Anemia type: unspecified type
[2020-03-06] MEDS: dexamethasone 4 mg/mL INJ IVP ×3 (08:34→20:24)
[2020-03-06 09:19] LABS: Vancomycin Trough 35.6 ug/mL (10-15)
--- NOTE | 2020-03-06 09:21 | PC.NURSE ---
VANC. TURNED OFF.
--- NOTE | 2020-03-06 09:22 | PC.NURSE ---
PHARMACY NOTIFIED THAT VANC.TROUGH WAS DRAWN PRIOR TO HANGING VANC, VANC OFF AND DISPOSED OF.
--- NOTE | 2020-03-06 09:41 | PC.NURSE ---
BLIND BY HISTORY
[2020-03-06] MEDS: FUROsemide 10 mg/mL SDV 4mL 40 MG IVP ×2 (10:59→21:36)
[2020-03-06] MEDS: enoxaparin 40 mg/0.4 mL Syringe SUBCUT (10:59)
--- NOTE | 2020-03-06 11:11 | CT_ITS ---
WS: [id number] CT NECK WITHOUT CONTRAST HISTORY: swelling, emphysema TECHNIQUE: Contiguous 5 mm axial images are performed through the neck with intravenous contrast. Sag ittal and coronal reformats are also submitted. All CT scans at [facility] use at least o ne of these dose optimization techniques: automated exposure control; mA and/or kV adjustment per pat ient size (includes targeted exams where dose is matched to clinical indication); or iterative recons truction. CONTRAST: CONTRAST: None DLP: 903.3 mGy.cm COMPARISON: Cervical spine CT 02/11/2020. Patient is intubated. Endotracheal tube ends appropriately above the chuy. There is a nasogastric t ube which appears in appropriate position. The entire thorax is not included on this neck CT. There is an extensive amount of subcutaneous emphysema greatest on the RIGHT. Subcutaneous air dissec ts along the RIGHT lateral chest wall and superiorly into the neck. Subcutaneous air crosses the midl ine and extends into the masseter spaces and the parapharyngeal spaces of the upper neck and there is extensive mediastinal air. Air noted within the anterior mediastinal and also encases portions of th e aorta and great vessels. Bilateral pneumothoraces are evident. These are only completely visualized but the LEFT is greater th an the RIGHT. Patient has known areas of consolidations and nodules which were recently described on a prior CT. Enlarged soft tissue nodules in the LEFT supraclavicular region with the largest measuring 2.3 cm. Albin greenberg has known enlarged lymph nodes bilaterally. CT/CT neck wo con [id number] IMPRESSION: 1. Bilateral pneumothoraces, LEFT greater than RIGHT are incompletely visualiz ed. 2. Endotracheal and nasogastric tubes are in good position. 3. Extensive subcutaneous emphysema, greatest over the RIGHT thorax which exte nds into the soft tissues of the neck with extensive mediastinal air also. 4. RIGHT supraclavicular lymphadenopathy. 5. Patient has known scattered pulmonary opacifications, pneumonia and nodules within the lungs. Notified Clau Villeda MD at 03/06/2020 12:22 PM.
--- NOTE | 2020-03-06 11:32 | PC.NURSE ---
REPOSITIONED. NOTE RIGHT SIDE OF NECK LARGER THAN LEFT. ON PALPATION CRACKLES FELT. NOTIFIED.
[2020-03-06 12:59] LABS: Glucose Point of Care 167 mg/dL (70-110)
--- NOTE | 2020-03-06 15:00 | PC.NURSE ---
03/06/20 LATE ENTRY. TIME OUT DONE PRE CHEST TUBE INSERTION AND AT TIME OF INSERTION WITH CHANDRAKANT GOINS FROM [facility]. AND MYSELF, MANJINDER.
--- NOTE | 2020-03-06 15:15 | XR_ITS ---
WS: [id number] Portable AP upright chest, 03/06/2020, 1502 hours Clinical Data: CHEST TUBE DONE Comparison: Portable chest, today, 0551 hours. Findings: A right chest tube has been inserted. No right pneumothorax is seen. There is extensive rig ht chest wall subcutaneous emphysema. The dense opacity in the right lower lobe is seen and a small r ight pleural effusion. There is a 10-15% left pneumothorax. The right and left internal jugular venou s catheters, endotracheal tube and nasogastric tube remain in the same position. Monitor leads are on the chest wall. Patchy opacities are seen throughout both lungs. The heart size remains normal. XR/XR chest 1V portable [id number] Impression: 1. Satisfactory insertion of right chest tube with extensive right chest wall s ubcutaneous emphysema. 2. Development of 10-15% left pneumothorax. 3. No change in position of other tubes. 4. Dense opacity in right lower lobe and lesser opacities in the remainder of t he lungs remain the same.
--- NOTE | 2020-03-06 15:20 | XR_ITS ---
WS: [id number] Portable AP upright chest, 03/06/2020, 1526 hours. Clinical Data: CXR 2 LEFT SIDE Comparison: Portable chest, today, 1502 hours. Findings: A small left chest tube has been inserted to reinflate the left lung. The remainder of the chest remains unchanged. XR/XR chest 1V portable [id number] Impression: 1. Insertion of small left chest tube to reduce left pneumothorax. 2. No change in position of multiple tubes, subcutaneous emphysema and bilatera l opacities.
--- NOTE | 2020-03-06 15:35 | P.OP_ITS ---
Operative Report Date of procedure: March 06, 2020 Pre-op Diagnosis: Lung and kidney cancer/bilateral pneumothoraces Post-op diagnosis: same Procedure Done: 1. Right 28 Ecuadorean thoracostomy tube placement 2. Left 13 Ecuadorean thoracic vent placement Pathology: none sent Surgeon: Ammon Baron Anesthesia: Local Complications: None: Post procedure chest x-ray reveals bilateral lung expansion without evidence for pneumothorax Condition: critical Disposition: ICU Brief History: I was contacted by Dr. Villeda concerning a 64-year-old gentleman with bilateral pneumothoraces, and substantial right subcutaneous emphysema. Patient has been mechanically ventilated with respiratory failure but was clinically improving. He has metastatic lung carcinoma and is status post chemotherapy and radiation therapy for disease also involving the kidneys and brain. He currently is orally intubated and sedated with IV Versed. I have reviewed the various chest x-rays and CT scans. I conferred with Dr. Villeda. I have recommended expeditious bilateral chest decompression. This has been discussed, as well, with Dr. Porter. Consent was obtained from Mr. Jarrett's . Procedure: 1. Right 28 Ecuadorean thoracostomy tube placement Procedure: The patient was placed in the supine position with the right chest slightly elevated. IV conscious sedation continued with continous monitoring of heart rate, rhythm, ekg, and O2 saturation. The entire right chest was thoroughly prepped and draped. 1% lidocaine was infiltrated in the midaxillary line over the seventh rib. A #15 scalpel blade was used to incise the skin, silk stay suture was placed, followed by utilizing a small hemostat to enter the pleural space with return of air and pleural fluid. A 28 Ecuadorean drain was placed. Chest tube was secured to the skin followed by placement of sterile dressings. Chest tube is placed to Pleur-evac suction. #2. Left 13 Ecuadorean thoracic vent placement His left anterior chest wall was then sterilely prepped and draped. 1% lidocaine was infiltrated in the mid clavicular line over the second intercostal space. A #11 scalpel blade was used to incise the skin. Next, a trocar 13 Ecuadorean thoracic vent was inserted through the incision and then by direct firm and controlled pressure into the left pleural space where the vent was advanced over the trocar as it was removed. There was a prompt return of air. The vent was secured to the skin with adhesive tabs and also with 2-0 silk suture. The vent was then connected to Pleur-evac suction where further air was evacuated. Vital signs remained stable throughout the procedure. Dressings were secured. I did enrollment counselor with his at the completion of the procedure. Post procedure chest x-ray reveals appropriate right chest tube and left thoracic vent placement with resolution of pneumothorax. There is a small, intermittent, bilateral air leak. I have conferred with my colleague, Dr. Porter and Dr. Villeda and has spoken directly with Ms. Jarrett at bedside.
[2020-03-06 18:37] LABS: Glucose Point of Care 162 mg/dL (70-110)
[2020-03-06] MEDS: azithromycin 500 MG in sodium chloride 0.9% 250 ML 250 MG IV (21:04)
[2020-03-06 23:29] LABS: Glucose Point of Care 155 mg/dL (70-110)
[2020-03-07] VITALS (48 sets, daily range): BP systolic 77–123; BP diastolic 52–92; PULSE 75–104; RESP 14–25; TEMP 36.1–36.7; O2SAT 88–100
--- NOTE | 2020-03-07 01:47 | PC.NURSE ---
Patient resting in room, 0 s/s of distress or pain noted. Continue care.
[2020-03-07 04:40] LABS: Hematocrit 30.1 % (42.0-52.0); Hemoglobin 9.8 g/dL (11.7-16.6); Mean Corpuscular HGB Conc 32.6 g/dL (30.0-36.0); Mean Corpuscular Hemoglobin 28.2 pg (28.0-34.0); Mean Corpuscular Volume 86.7 fL (80-94); Mean Platelet Volume 11.8 fL (7.4-10.4); Platelet Count 109 10^3/cmm (130-400); Red Blood Count 3.47 10^6/uL (4.1-5.3); Red Cell Distribution Width 20.2 % (12.1-15.1); White Blood Count 21.4 10^3/uL (4.0-10.0)
[2020-03-07 05:05] LABS: Glucose Point of Care 163 mg/dL (70-110)
[2020-03-07] MEDS: famotidine 20 mg/2 mL INJ IVP ×2 (05:07→18:39)
[2020-03-07 05:12] LABS: Anion Gap 13.7 (5-19); Blood Urea Nitrogen 47 mg/dL (8-23); Calcium 8.3 mg/dL (8.5-10.5); Carbon Dioxide 26 mmol/L (22-29); Chloride 102 mmol/L (98-107); Glomerular Filtration Rate 85.5 mL/min (90-130); Glucose 148 mg/dL (65-115); Osmolality Calculated 301 mOsm/kg (285-295); Potassium 3.7 mmol/L (3.5-5.1); Sodium 138 mmol/L (136-145)
--- NOTE | 2020-03-07 05:23 | PC.NURSE ---
Patient resting in room with eyes closed. Patients versed titrated per protocol. Urine output 1300. Chest tube output 102 for since placement. Continue care.
--- NOTE | 2020-03-07 05:24 | PC.NURSE ---
Uneventful shift: No changes.
[2020-03-07 05:41] LABS: Slide Review Slide Review Perform
[2020-03-07 05:42] LABS: Absolute Segmented Neutrophil 19.5 10/cmm (1.6-7.1); Band Neutrophils Absolute 0.2 10^3/cmm (0.0-1.2); Eosinophils 0 %; Lymphocytes 4 %; Monocytes Absolute 0.4 10^3/cmm (0.1-0.6); Segmented Neutrophils 91 %; Total Cells Counted 100 (0-100)
[2020-03-07 05:43] LABS: Absolute Neutrophil 19.7 10^3/cmm (1.4-6.5); Platelet Estimate Decreased (Normal)
[2020-03-07 05:44] LABS: Anisocytosis 1+
--- NOTE | 2020-03-07 06:00 | XR_ITS ---
WS: [id number] Portable AP upright chest, 03/07/2020 Clinical Data: on vent support Comparison: Portable chest, 03/06/2020, 1526 hours. Findings: The right chest tube, bilateral internal jugular venous catheters, left chest tube, endotra cheal tube and nasogastric tube remain in good position. The dense opacity in the right lower lobe guerra s not changed. There are bilateral opacities in the right upper lobe and left lung unchanged. No pneu mothorax is seen. Subcutaneous emphysema along the right lateral chest wall has diminished. The heart size remains same. Monitor leads are on the chest wall. XR/XR chest 1V portable [id number] Impression: 1. No change in position of multiple tubes. 2. No recurrence of pneumothoraces. 3. No change in dense right lower lobe opacity and bilateral pulmonary opacitie s.
[2020-03-07 06:26] LABS: Vancomycin Random 26.8 ug/mL (20.0-40.0)
--- NOTE | 2020-03-07 08:08 | P.PN_ITS ---
Subjective Subjective: Interval history: Remains on vent support, had 1300 mL urine output overnight, low normal BP, afebrile, had 124 mL output from R chest tube. Increasing leukocytosis, stable Hg and platelet count, increasing BUN, normal Cr. Had an extensive goals of care discussion with at bedside, discussed options such as hospice/end of life care; she would like to talk to her family before making any final decisions; patient's care nurse Cyndee present for discussion. Case discussed with Dr. Porter. Unable to titrate off levophed completely. Weaning off sedation. Medications: Reviewed: Yes Medication Review Details: Active Medications Generic Name Dose Route Start Last Admin Trade Name Freq PRN Reason Stop Dose Admin Acetaminophen 650 mg 03/01/20 20:38 Acetaminophen 32 5 Mg Tablet PO Q6H PRN Mild/Mod Pain Or Temp >/= 101 Hydrocodone Bitart /Acetaminophen 1 tab 03/01/20 20:38 Hydrocodone-Acet aminophen 7.5-325 Mg Tablet PO Q4H PRN Pain Albuterol Sulfate 2 puff 03/01/20 20:38 Albuterol 8 Gm M di INHALATION Q4H.RESPIRATORY P RN SHORTNESS OF SERGO TH Dexamethasone 4 mg 03/02/20 19:00 03/06/20 20:24 Dexamethasone 4 Mg/Ml Inj IVP 4 mg TID WHIT Administration Dextrose 25 ml 03/01/20 20:38 Dextrose 50% Syr daniel 50 Ml IVP ONCE PRN hypoglycemia prot ocol Protocol Dextrose 50 ml 03/01/20 20:38 Dextrose 50% Syr daniel 50 Ml IVP PRN PRN hypoglycemia prot ocol Protocol Enoxaparin Sodium 40 mg 03/02/20 11:00 03/06/20 10:59 Enoxaparin 40 Mg /0.4 Ml Syringe SUBCUT 40 mg Q24H WHIT Administration Famotidine 20 mg 03/02/20 18:00 03/07/20 05:07 Famotidine 20 Mg /2 Ml Inj IVP 20 mg Q12H WHIT Administration Furosemide 40 mg 03/04/20 10:30 03/06/20 21:36 Furosemide 10 Mg /Ml Sdv 4ml IVP 40 mg Q12H WHIT Administration Glucagon 1 mg 03/01/20 20:38 Glucagon 1 Mg/Ml Inj 1 Ml IM ONCE PRN Adult Acute Hypog lycemia Prot. Protocol Dextrose 500 mls @ 100 mls /hr 03/01/20 20:38 D5w IV ONCE PRN Adult Acute Hypog lycemia Prot Protocol Norepinephrine Bit artrate 4 mg 254 mls @ 0 mls/h r 03/02/20 08:15 03/06/20 04:17 / Dextrose IV 7.4 mls/hr .Q0M WHIT 7.4 mls/hr Administration Protocol Per Protocol Midazolam HCl 100 mg/ Sodium 100 mls @ 0 mls/h r 03/02/20 08:30 03/07/20 04:21 Chloride IV 4 mg/hr .Q0M WHIT 4 mls/hr Titration Protocol Per Protocol Imipenem/Cilastati n Sodium 500 100 mls @ 200 mls /hr 03/02/20 11:00 03/07/20 05:09 mg/ Sodium Chlor matthew IV Infused Q6H WHIT Infusion Protocol Azithromycin 500 m g/ Sodium 250 mls @ 250 mls /hr 03/02/20 22:00 03/06/20 22:44 Chloride IV Infused Q24H WHIT Infusion Protocol Vancomycin HCl 1,0 00 mg/ 250 mls @ 250 mls /hr 03/04/20 21:00 03/05/20 22:27 Sodium Chloride IV Infused Q12H WHIT Infusion Dexmedetomidine HC l 400 mcg/ 104 mls @ 0 mls/h r 03/05/20 05:15 Sodium Chloride IV .Q0M WHIT Protocol Per Protocol Insulin Aspart 0 unit 03/05/20 12:00 03/07/20 05:07 Insulin Aspart 1 00 Unit/1 Ml SUBCUT 2 unit Q6H WHIT Administration Protocol Lorazepam 0.5 mg 03/01/20 20:38 Lorazepam 1 Mg T ablet PO TID PRN Nausea And Vomiti ng Lorazepam 1 mg 03/04/20 22:45 03/04/20 22:59 Lorazepam 2 Mg/M l Inj 1 Ml IVP 1 mg NOW PRN Administration ANXIETY Non-Formulary Medi cation 500 mg 03/01/20 20:38 Famciclovir PO TID PRN MOUTH SORES Ondansetron HCl 4 mg 03/01/20 20:38 Ondansetron 2 Mg /Ml Sdv 2 Ml IVP Q6H PRN NAUSEA AND VOMITI NG Ondansetron HCl 4 mg 03/01/20 20:38 Ondansetron 2 Mg /Ml Sdv 2 Ml IVP Q6H PRN NAUSEA AND VOMITI NG Penicillins Allergy (Verified 02/13/20 10:06) ALGY-Anaphylaxis tramadol Adverse Reaction (Verified 02/13/20 10:06) ADR-Vomiting Vitals/I&O/Wt Last Vital Signs Temp 97.0 F L 03/07/20 00:00 Pulse 85 03/07/20 06:00 Resp 22 H 03/07/20 07:59 BP 95/72 03/07/20 06:00 Pulse Ox 95 03/07/20 06:00 03/06/20 03/07/20 03/07/20 22:59 06:59 14:59 Intake Total 540 / 640 133.7 / 773.7 Output Total 1424 / 1524 Balance 540 / 540 -1290.3 / -750.3 Physical Exam Const: COMMON NORMALS: no acute distress GENERAL APPEARANCE: cooperative, ill appearing and patient mechanically ventilated ORIENTATION/CONSCIOUSNESS: Yes awake OTHER: -Sedated with -i-t-n-t-a-n-y-l- -@- -1-0-0- -m-c-g-/-h-r-, Versed @ 4 mg/hr HENMT: COMMON NORMALS: normocephalic and atraumatic HEAD & SCALP: normocephalic and atraumatic OTHER: -orally intubated Eye: COMMON NORMALS: Equal, round and reactive pupils present, EOMs intact bilaterally and conjunctivae normal CONJUNCTIVA: Yes conjunctivae normal PUPIL: Yes Equal, round and reactive pupils present OTHER: -legally blind Neck/C-Spine: COMMON NORMALS: full ROM GENERAL: Yes normal visual inspection, Yes trachea midline, Yes anterior neck swelling and Yes other (right sided SC emphysema) Chest: CHEST: Yes Vascular access present (port-A-cath) and Yes other (R chest tube, L thoravent) Resp: COMMON NORMALS: normal respiratory effort, No retractions and No use of accessory muscles EFFORT & INSPECTION: Yes able to speak in complete sentences, Yes symmetric chest movement and No tachypneic AUSCULTATION: diminished lung sounds OTHER: -on vent support; 40%/450/6 Cardio: COMMON NORMALS: regular rate, regular rhythm, S1 normal heart sound present, S2 normal heart sound present and No murmurs present (Cardio) RATE: regular rate RHYTHM: regular rhythm HEART SOUNDS: S1 normal heart sound present and S2 normal heart sound present GI: COMMON NORMALS: Normal to inspection, nondistended, normoactive bowel sounds present and Soft to palpation PALPATION: Yes Soft to palpation : BLADDER/KIDNEY EXAM: Yes catheter in place Extremity: COMMON NORMALS: normal to inspection GENERAL: Yes edema (1-2 + bilateral LE edema) Neuro: OTHER: -sedated Psych: OTHER: -sedated Skin: COMMON NORMALS: no rashes or lesions noted, no jaundice, no petechiae and no mottling GENERAL SKIN EXAM: no rashes or lesions noted Urinary Catheter Management^: Flores: Cath Placed During This Visit: yes Urinary Catheter Date of Insertion: 03/02/20 Urinary Catheter Time of Insertion: 14:11 Data : 03/07/20 04:28 03/07/20 04:28 Micro: Microbiology 03/01/20 16:00 Blood Culture - Final Blood NO GROWTH AFTER 5 DAYS 03/01/20 16:05 Blood Culture - Final Blood NO GROWTH AFTER 5 DAYS A&P Assessment and plan (1) Respiratory failure with hypoxia: -Remains on mechanical ventilation; weaning trial; on sedation -Noted continued RLL consolidation and bilateral patchy opacifications; known nodules and metastatic disease throughout the lungs -Noted AM ABG with continued hypoxia, FiO2 down to 40% -daily ABG, CXR while on vent -continue broad-spectrum IV antibiotic coverage with Primaxin, vancomycin, azithromycin -continue steroids -COVID-19 PCR negative, off isolation precaution -blood cx: prelim negative -sputum cx: Alcaligenes faecalis, sensitivity noted -continue to monitor respiratory status -no PE on CTA -noted LE edema, on diuresis Status: Acute Qualifiers: Chronicity: acute Qualified Code(s): J96.01 - Acute respiratory failure with hypoxia (2) Pneumothorax: -noted moderate sized pneumothoraces bilaterally (L > R) on CT chest (03/06) -s/p R chest tube and L thoracic vent placement; continue to monitor output -daily CXR -consults by Dr. Porter and Dr. Baron appreciated -close monitoring of respiratory status Status: Acute Qualifiers: Pneumothorax type: unspecified pneumothorax Qualified Code(s): J93.9 - Pneumothorax, unspecified (3) Pneumomediastinum: -imaging reviewed, noted extensive subcutaneous emphysema with pneumomediastinum Status: Acute (4) Septic shock: -As evidenced by hypoxia with need for mechanical ventilation, h ypotension, leukocytosis -Secondary to respiratory infection as noted above -Continues to require pressor support, wean as tolerated -Continue to monitor vital signs closely Status: Acute (5) Pneumonia: -as noted above Status: Acute Qualifiers: Laterality: bilateral Lung location: unspecified part of lung Pneumonia type: due to unspecified organism Qualified Code(s): J18.9 - Pneumonia, unspecified organism (6) E coli bacteremia: -Found to have E. coli bacteremia during last admission last month. Unclear etiology though presumed to be secondary to GI translocation given neutropenia and underlying immunocompromise. 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 Reyes -continue dexamethasone -poor prognosis Status: Chronic Qualifiers: Laterality: right Qualified Code(s): C34.91 - Malignant neoplasm of unspecified part of right bronchus or lung (8) Thrombocytopenia: -Stable platelet count, continue to trend -continue to monitor for bleeding; none so far -HIT panel negative Status: Chronic (9) Anemia: -Stable H/H, continue to trend Status: Chronic Qualifiers: Anemia type: unspecified type Qualified Code(s): D64.9 - Anemia, unspecified Additional A&P Information -Legally blind -previously found to have encephalopathy secondary to hyponatremia; sodium level stable -Treated with antifungal secondary to significant mucositis -LFTs normalized -Hypomagnesemia, replace as needed -Bradycardia, likely medication induced as has resolved with discontinuation of fentanyl, sinus rhythm, Echo-EF=50-55%, relative hypokinesia of septum. HR wnl -NPO as on vent support; may need to start tube feeding if continued need for vent support -GI ppx with famotidine -DVT ppx with lovenox; continue to monitor platelet count and H/H, stable so far -Dispo: home -Code status: FULL code -guarded prognosis given underlying immunocompromise, septic shock, mechanical ventilation, bilateral pneumothoraces; continue ICU care. Had extensive goals of care discussion with including code status Attestations Medical Necessity Statement*: Patient requires hospitalization for continued management of critical illness, remains on vent and pressor support with elizabeth ateral pneumothraces and pneumomediastinum. Time Spent in Patient Care: Greater than 35 minutes (>than 50% of time spent in counselling and/or direct pt care on unit) . Critical Care Time: The high probability of a clinically significant, sudden or life threatening deterioration of the patient's [cardiovascular, respiratory] system(s) required my full and direct attention, intervention and personal management. The critical care time is as shown. This time is in addition to time spent performing any reported procedures but includes the following: [x] Data and vital sign review and interpretation [x] Patient assessment, examination and intervention [x] Documentation [x] Medication orders and management Critical Care Time (min): 20 Coding Level of Care Code Acute [employer] for [employer] Fwd Exam Comprehensive Diagnoses Respiratory failure with hypoxia J96.01 Chronicity: acute Pneumothorax J93.9 Pneumothorax type: unspecified pneumothorax Pneumomediastinum J98.2 Septic shock A41.9; R65.21 Pneumonia J18.9 Laterality: bilateral Lung location: unspecified part of lung Pneumonia type: due to unspecified organism E coli bacteremia R78.81; B96.20 Primary lung squamous cell carcinoma C34.91 Laterality: right Thrombocytopenia D69.6 Anemia D64.9 Anemia type: unspecified type
[2020-03-07] MEDS: FUROsemide 10 mg/mL SDV 4mL 40 MG IVP ×2 (09:49→22:04)
[2020-03-07] MEDS: dexamethasone 4 mg/mL INJ IVP ×3 (09:50→21:50)
--- NOTE | 2020-03-07 09:57 | PC.NURSE ---
Pt lying on right side. O2 sats decreased to 75%. Repositioned pt supine/sitting Pulse ox changed. Sats now at 85%. DR Villeda and Bianca at bedside, FIO2 increased to 50%. O2 sats now 92%
[2020-03-07] MEDS: enoxaparin 40 mg/0.4 mL Syringe SUBCUT (10:42)
[2020-03-07] MEDS: HYDROcodone-acetaminophen 7.5-325 mg Tablet 1 TAB PO (10:45)
[2020-03-07 11:24] LABS: ABG PH Result 7.51 (7.35-7.45); Arterial Blood Gas Hematocrit 34.5 % (42-52); Base Excess ABG 1.7 mmol/L (-2.0-2.0); Blood Gas Allen Test Pos; Blood Gas Operator Identificat BD; Blood Gas Sample Site Brachial, left; Blood Gas Sample Type Arterial; Blood Gas Tidal Volume 0.45; HCO3 ABG 24.1 mmol/L (22-26)
[2020-03-07 12:13] LABS: Glucose Point of Care 171 mg/dL (70-110)
--- NOTE | 2020-03-07 15:01 | PM.CONSULT ---
Providers/Reason For Consult Consulting Physican/Specialty*: Darrius Porter MD/ Pulmonary critical care Reason for Consult*: Mechanical vent management in a patient with pneumothorax and with underlying squamous cell lung cancer with diffuse metastasis. Attending Physician: Clau Villeda MD Primary Care Provider: Titi Reyes MD History of Present Illness History of Present Illness Phani Jarrett is a 64 year legally blind old male squamous cell lung cancer with metastases(kidney, bone, brain and spine), renal mass, cholelithiasis, last chemotherapy session 02/09, last radiotherapy in December(received Neulasta along chemotherapy), was recently admitted for management of encephalopathy secondary to hyponatremia, had bacteremia with E. coli which was pansensitive, was discharged on ciprofloxacin and fluconazole, source of E. coli bacteremia was not identified, he was asked to follow-up with oncologist next day, aspirin was held secondary to thrombocytopenia, presented to ED with chief complaint of unable to walk. As per patient was confused and complained of left-sided chest pain getting worse on coughing associated with greenish sputum, his symptoms got worse by afternoon and at that point decided to take him to the ER on 03/01/2020. Patient was admitted for sepsis secondary to pneumonia and started on Rocephin and azithromycin in the ER. Later patient desaturated on 15 L oxygen through facemask and required intubation. chest x-ray showing developing right upper lobe pneumonia worsening right lower lobe mass with interstitial infiltrates and broaden the coverage with vancomycin imipenem and azithromycin. On 03/06/2020-patient remained on ventilator, still on pressor support and sedation. Noted to have extensive subcutaneous emphysema greater on the right side. CT revealed bilateral pneumothorax pneumomediastinum and pneumoperitoneum. CT surgeon Dr. Baron placed right-sided chest tube and left anterior second intercostal space Thora vent. Follow-up x-ray showed improvement in pneumothorax particularly on the left side. 03/07/2020-today seen patient at bedside, on CMV 450/14/8/50% FiO2, no fever spikes, worsening WBC, ABG showing respiratory alkalosis. Air leak noted in left chest tube chamber. No air leak noted on the right side. Review of Systems General: Reports: ROS unobtainable due to endotracheal tube, ROS unobtainable due to medical condition and ROS unobtainable due to mental status Meds/Allergies Home Medications and Allergies Home Medications Medication Instructions Recorded Confirmed Last Taken Type albuterol sulfate 2.5 mg INHALATION Q4H PRN 11/02/19 03/02/20 02/11/20 History albuterol sulfate 90 mcg/actuation 2 puff INHALATION Q4H PRN 11/02/19 03/02/20 11/14/19 History aerosol inhaler ondansetron HCl 4 mg tablet 4 mg PO Q8H PRN 11/30/19 03/02/20 Unknown History aspirin 81 mg PO DAILY@16 02/13/20 03/02/20 02/11/20 History dexamethasone 4 mg PO DAILY 02/13/20 03/02/20 02/29/20 History famciclovir 500 mg PO BID 02/13/20 03/02/20 02/29/20 History SEE PHARMACY COMMENT hydrocodone-acetaminophen 1 tab PO Q4H PRN 02/13/20 03/02/20 02/12/20 History lorazepam 0.5 - 1 mg PO TID PRN 02/13/20 03/02/20 02/13/20 01:00 History omeprazole 20 mg PO DAILY@10 02/13/20 03/02/20 02/29/20 History prochlorperazine maleate 10 mg PO Q4H PRN 02/13/20 03/02/20 Unknown History budesonide-formoterol [Symbicort] 2 puff INHALATION DAILY 03/02/20 03/02/20 Unknown History ciprofloxacin HCl 500 mg PO BID 03/02/20 03/02/20 02/29/20 History fluconazole 200 mg PO DAILY 03/02/20 03/02/20 02/29/20 History SEE PHARMACY COMMENT furosemide 40 mg PO DAILY PRN 03/02/20 03/02/20 Unknown History hydrochlorothiazide 25 mg PO DAILY@03/02/20 03/02/20 02/29/20 History levofloxacin 500 mg PO DAILY 03/02/20 03/02/20 02/29/20 History lisinopril 20 mg PO DAILY@18 03/02/20 03/02/20 02/29/20 History multivit with min-folic acid 2 tab PO DAILY 03/02/20 03/02/20 Unknown History [Adult Multivitamin Gummies] potassium chloride 20 meq PO DAILY 03/02/20 03/02/2002/28/20 History SEE PHARMACY COMMENT sodium chloride 1 g PO DAILY 03/02/20 03/02/20 02/29/20 History SEE PHARMACY COMMENT Allergies Allergy/AdvReac Type Severity Reaction Status Date / Time Penicillins Allergy ALGY-Anaphy Verified 02/13/20 10:06 laxis tramadol AdvReac ADR-Vomitin Verified 02/13/20 10:06 g Current Medications Current Medications Generic Name Dose Route Start Last Admin Trade Name Freq PRN Reason Stop Dose Admin Hydrocodone Bitart/Acetaminophen 1 tab 03/01/20 20:38 03/07/20 10:45 Hydrocodone-Acetaminophen 7.5-325 Mg Tablet PO 1 tab Q4H PRN Administration Pain Dexamethasone 4 mg 03/02/20 19:00 03/07/20 09:50 Dexamethasone 4 Mg/Ml Inj IVP 4 mg TID WHIT Administration Enoxaparin Sodium 40 mg 03/02/20 11:00 03/07/20 10:42 Enoxaparin 40 Mg/0.4 Ml Syringe SUBCUT 40 mg Q24H WHIT Administration Famotidine 20 mg 03/02/20 18:00 03/07/20 05:07 Famotidine 20 Mg/2 Ml Inj IVP 20 mg Q12H WHIT Administration Furosemide 40 mg 03/04/20 10:30 03/07/20 09:49 Furosemide 10 Mg/Ml Sdv 4ml IVP 40 mg Q12H WHIT Administration Norepinephrine Bitartrate 4 mg 254 mls @ 0 mls/hr 03/02/20 08:15 03/07/20 14:28 / Dextrose IV 3.7 mls/hr .Q0M WHIT 3.7 mls/hr Titration Protocol Per Protocol Midazolam HCl 100 mg/ Sodium 100 mls @ 0 mls/hr 03/02/20 08:30 03/07/20 04:21 Chloride IV 4 mg/hr .Q0M WHIT 4 mls/hr Titration Protocol Per Protocol Imipenem/Cilastatin Sodium 500 100 mls @ 200 mls/hr 03/02/20 11:00 03/07/20 10:43 mg/ Sodium Chloride IV 12.5 mls/hr Q6H WHIT Administration Protocol Azithromycin 500 mg/ Sodium 250 mls @ 250 mls/hr 03/02/20 22:00 03/06/20 22:44 Chloride IV Infused Q24H WHIT Infusion Protocol Vancomycin HCl 1,000 mg/ 250 mls @ 250 mls/hr 03/04/20 21:00 03/05/20 22:27 Sodium Chloride IV Infused Q12H WHIT Infusion Insulin Aspart 0 unit 03/05/20 12:00 03/07/20 13:00 Insulin Aspart 100 Unit/1 Ml SUBCUT 2 unit Q6H WHIT Administration Protocol Lorazepam 1 mg 03/04/20 22:45 03/04/20 22:59 Lorazepam 2 Mg/Ml Inj 1 Ml IVP 1 mg NOW PRN Administration ANXIETY PFSH Acute PFSH: Medical History Blind Cholelithiasis Chronic back pain COPD (chronic obstructive pulmonary disease) GERD (gastroesophageal reflux disease) Hypertension Optic neuritis Primary lung squamous cell carcinoma Tobacco dependency Surgical History H/O circumcision History of lung biopsy Port-A-Cath in place Family History Father CAD (coronary artery disease) Clotting disorder Sister Cancer liver cancer Denies family history of Anesthesia complication Bleeding disorder Social History Smoking and tobacco status: current some day smoker Alcohol intake: never Household members: spouse Marital status: Current occupational status: disabled History of recent travel: Yes Details: Mitesh to the doctor Out of state: No Vitals/I&O/Wt Last Vital Signs Temp 97 F L 03/07/20 13:00 Pulse 91 03/07/20 13:30 Resp 23 H 03/07/20 14:03 BP 101/79 03/07/20 13:30 Pulse Ox 97 03/07/20 13:30 03/07/20 03/07/20 03/07/20 06:59 14:59 22:59 Intake Total 133.7 / 773.7 239.000 / 239.000 Output Total 1424 / 1524 375 / 375 Balance -1290.3 / -750.3 -136.000 / -136.000 Physical Exam Narrative: EXAM NARRATIVE: PHYSICAL EXAM: General: lying in bed, sedated and intubated. HEENT:NCAT, PERRLA, EOMI Neck: Supple Lungs: Clear, Heart: s1/s2, RRR Abd: soft, NT, ND, BS + Normoactive Extremities: No edema INSEMINATION WORKER: sedated and limited INSEMINATION WORKER exam possible. SKIN: no rash LDA: # CVC: Right IJ 03/02/2020 # Flores: 03/02/2020 # Chest tubes: Right chest tube 03/06/2020: Left anterior Thora vent 03/06/2020 Urinary Catheter Management^: Flores: Cath Placed During This Visit: yes Urinary Catheter Date of Insertion: 03/02/20 Urinary Catheter Time of Insertion: 14:11 Data Micro: Micro: Microbiology 03/01/20 16:00 Blood Culture - Fi nal Blood NO GROWTH AFTER 5 DAYS 03/01/20 16:05 Blood Culture - Fi nal Blood NO GROWTH AFTER 5 DAYS Other Data: Other data: Reviewed A&P Assessment and plan (1) Respiratory failure with hypoxia: Status: Acute Qualifiers: Chronicity: acute Qualified Code(s): J96.01 - Acute respiratory failure with hypoxia (2) Pneumomediastinum: Status: Acute (3) Pneumothorax: Status: Acute Qualifiers: Pneumothorax type: unspecified pneumothorax Qualified Code(s): J93.9 - Pneumothorax, unspecified (4) Septic shock: Status: Acute (5) Pneumonia: Status: Acute Qualifiers: Laterality: bilateral Lung location: unspecified part of lung Pneumonia type: due to unspecified organism Qualified Code(s): J18.9 - Pneumonia, unspecified organism (6) Primary lung squamous cell carcinoma: Status: Chronic Qualifiers: Laterality: right Qualified Code(s): C34.91 - Malignant neoplasm of unspecified part of right bronchus or lung #Acute hypoxic respiratory failure secondary to HCAP and patient with underlying metastatic squamous cell carcinoma #Septic shock secondary to Alcaligenes faecalis pneumonia #Bilateral pneumothorax/pneumomediastinum/pneumoperitoneum/extensive subcutaneous emphysema-secondary to positive pressure ventilation - ?? Fistula between cavitary lung mass to pleural space -Afebrile, worsening leukocytosis 20 1K today -ABG 7.51, 30, 112, 24, 95% on CMV 450/50%/8/14-suggestive of respiratory alkalosis -Sedated with Versed 4 mg currently -discontinued Versed today -Currently on Levophed 1 mg -can taper off -Chest x-ray today: Bilateral chest tubes, no recurrence of pneumothoraces, dense right lower lobe opacity and bilateral opacities -Sputum cultures positive for Alcaligenes faecalis -Continue imipenem and DC vancomycin and azithromycin -Echo 03/05/2020: Borderline low EF 50 to 55% and relative hypokinesia of the septum. -Currently on Lasix 40 mg twice daily and maintaining -500 to -700 cc daily -Lovenox 40 mg daily --recommended to switch to Precedex followed by propofol if needed for anxiety; with fentanyl patient became bradycardic -As patient got Versed for the last couple of days give some time for him to wake up -If patient does not wake up off sedation for 24 hours -CT head to rule out hemorrhagic conversion of his metastatic lesions - continue to do awakening and breathing trials from tomorrow and extubate if passes -Recommended to DC suction for right chest tube and leave it under waterseal -Continue suction for left chest tube Recommendations conveyed to hospitalist covering the patient Consult Attestations Medical Necessity Statement: Acute hypoxic respiratory failure secondary to HCAP and patient with underlying metastatic squamous cell carcinoma requiring mechanical ventilation. Complicated by bilateral pneumothoraces Time Spent in Patient Care: Greater than 35 minutes (>than 50% of time spent in counselling and/or direct pt care on unit). Critical Care Time: Critical Care Time (min): 45 Coding Level of Care Code New Pt Acute [employer] for Chg Fwd Patient Type New History Comprehensive Exam Comprehensive Medical Decision Making High Complexity Diagnoses Respiratory failure with hypoxia J96.01 Chronicity: acute Pneumomediastinum J98.2 Pneumothorax J93.9 Pneumothorax type: unspecified pneumothorax Septic shock A41.9; R65.21 Pneumonia J18.9 Laterality: bilateral Lung location: unspecified part of lung Pneumonia type: due to unspecified organism Primary lung squamous cell carcinoma C34.91 Laterality: right Time Spent (min) 45
--- NOTE | 2020-03-07 18:24 | PC.NURSE ---
Addendum entered by Estrella Borjas RN 03/07/20 18:26: 10ML witnessed waste of Versed gtt with KENTRELL Cotter Original Note: Versed gtt discontinued. 10ml wasted.
[2020-03-07 18:33] LABS: Glucose Point of Care 166 mg/dL (70-110)
--- NOTE | 2020-03-07 19:39 | PC.NURSE ---
Shift summary: Pt remains intubated. Versed stopped at 1630, still not much response at this time. Levophed infusing at 2 mcg/hr. Tried twice to decrease dosage, even had it off at one point, B/P did not tolerated. Subq emphysema remains on upper chest/neck area. Lungs sounds are very diminished wheezing also noted today. Pt had stasis ulcers on his bottom and left elbow. He has bruises bilat arms and feet. Pitting edema noted on his feet. His came this afternoon. Dr Villeda spoke with her at length about his condition, prognosis and hospice/comfort care. stated her understanding and want s to speak with other family members. Dark yellow/orange urine output of 625 ml.(
--- NOTE | 2020-03-07 19:53 | CTR_ITS ---
PROCEDURE INFORMATION: Exam: CT Head Without Contrast Exam date and time: 03/07/2020 8:44 PM Age: 64 years old Clinical indication: Condition or disease; Cancer; Metastatic or secondary malignancy of brain; Additional info: Decreased responsiveness, R/O hemorrhage TECHNIQUE: Imaging protocol: Computed tomography of the head without contrast. Radiation optimization: All CT scans at this facility use at least one of these dose optimization techniques: automated exposure control; mA and/or kV adjustment per patient size (includes targeted exams where dose is matched to clinical indication); or iterative reconstruction. ADDITIONAL STUDY INFORMATION: Total DLP (mGy-cm): 841.1 COMPARISON: CT head wo con* [id number] 03/01/2020 4:41 PM FINDINGS: There is prominent low density in the bilateral periventricular white matter which may represent chronic small vessel ischemic disease in the appropriate clinical setting. The possibility of superimposed acute infarctions cannot be excluded; consider MRI brain (including diffusion images) for further assessment if clinically warranted and if patient has no contraindication to MRI. There are prominent intracranial arterial calcifications. There is mild cerebral cortical volume loss. Ventricles do not appear significantly dilated. No depressed calvarial fracture is demonstrated. Visualized paranasal sinuses and mastoid air cells demonstrate no significant opacification. CT/CT head wo con* [id number] IMPRESSION: Probable prominent chronic ischemic changes as discussed above. Radiation Dose CTDIVOL = (mGy): DLP = 841.1 (mGy-cm)
[2020-03-07] MEDS: azithromycin 500 MG in sodium chloride 0.9% 250 ML 250 MG IV (22:04)
[2020-03-08] VITALS (44 sets, daily range): BP systolic 83–122; BP diastolic 61–93; PULSE 77–108; RESP 14–29; TEMP 35.9–36.3; O2SAT 91–97
[2020-03-08 01:08] LABS: Glucose Point of Care 167 mg/dL (70-110)
[2020-03-08 03:55] LABS: Basophils # 0.1 10^3/uL (0.0-0.1); Basophils % 0.4 %; Hematocrit 33.4 % (42.0-52.0); Hemoglobin 10.7 g/dL (11.7-16.6); Lymphocytes # 0.6 10^3/uL (0.8-4.8); Lymphocytes % 1.9 %; Mean Corpuscular Hemoglobin 27.9 pg (28.0-34.0); Mean Corpuscular Volume 87.2 fL (80-94); Mean Platelet Volume 12.3 fL (7.4-10.4); Monocytes # 0.9 10^3/uL (0.2-0.9); Monocytes % 3.1 %; Neutrophils # 25.44 10^3/uL (1.8-7.7); Neutrophils % 87.9 %; Nucleated Red Blood Cells # 0.1 /100WBC; Nucleated Red Blood Cells % 0.3 %; Platelet Count 128 10^3/cmm (130-400); Red Blood Count 3.83 10^6/uL (4.1-5.3); Red Cell Distribution Width 20.9 % (12.1-15.1)
[2020-03-08 05:30] LABS: Anion Gap 18.7 (5-19); Blood Urea Nitrogen 53 mg/dL (8-23); Calcium 8.7 mg/dL (8.5-10.5); Carbon Dioxide 26 mmol/L (22-29); Chloride 101 mmol/L (98-107); Glucose 167 mg/dL (65-115); Osmolality Calculated 312 mOsm/kg (285-295); Potassium 3.7 mmol/L (3.5-5.1); Sodium 142 mmol/L (136-145)
[2020-03-08] MEDS: famotidine 20 mg/2 mL INJ IVP ×2 (05:45→18:43)
--- NOTE | 2020-03-08 06:00 | XR_ITS ---
WS: [id number] Portable AP upright chest, 03/08/2020 Clinical Data: on vent support, bilateral PTX Comparison: Portable chest, 03/07/2020, 1731 hours. Findings: There is a right basilar pneumothorax which has recurred. The right chest wall subcutaneous emphysema has increased. The right chest tube remains in position. There is a small left apical pne umothorax. The left chest tube remains in position. There is subcutaneous emphysema now in the left a xilla. There is a small left basilar pneumothorax. The bilateral internal jugular venous catheters, n asogastric tube and endotracheal tube remain the same. The heart size remains the same. The dense rig ht lower lobe opacity has not changed. The bilateral lung opacities remain unchanged. There are monit or leads on the chest wall. XR/XR chest 1V portable [id number] Impression: 1. Right basilar pneumothorax. 2. Small left apical pneumothorax and left basilar pneumothorax. 3. Increase in subcutaneous emphysema along the right chest wall and occurrence of left chest wall subcutaneous emphysema. 4. No change in endotracheal tube and other catheters and tubes. 5. No change in dense right lower lobe opacity and bilateral lung opacities
--- NOTE | 2020-03-08 06:05 | PC.NURSE ---
Uneventful shift: No changes during shift.
[2020-03-08 06:07] LABS: Glucose Point of Care 182 mg/dL (70-110)
--- NOTE | 2020-03-08 06:16 | PC.NURSE ---
Patient resting in room in bed with eyes closed. No s/s of distress continue care.
--- NOTE | 2020-03-08 06:17 | PC.NURSE ---
2 mL of serosangoues drainage so far thus shift. Continue care.
[2020-03-08 06:40] LABS: ABG PCO2 30.8 mmHg (35-45); ABG PH Result 7.53 (7.35-7.45); Arterial Blood Gas Hematocrit 34.9 % (42-52); Blood Gas Allen Test Pos; Blood Gas Sample Type Arterial; HCO3 ABG 25.4 mmol/L (22-26); Oxygen Device VENT; PO2 ABG 68.5 mmHg (80.0-100.0)
--- NOTE | 2020-03-08 08:34 | PM.PN ---
Subjective Subjective: Interval history: Remains on vent support, had 800 mL urine output overnight, continues to have increased leukocytosis, stable Hg and Cr though BUN continues to increase. Minimal chest tube output overnight. Started on low dose propofol for sedation, remains on minimal levophed support. Noted increased subcutaneous emphysema on AM CXR. Medications: Reviewed: Yes Medication Review Details: Active Medications Generic Name Dose Route Start Last Admin Trade Name Freq PRN Reason Stop Dose Admin Acetaminophen 650 mg 03/01/20 20:38 Acetaminophen 32 5 Mg Tablet PO Q6H PRN Mild/Mod Pain Or Temp >/= 101 Hydrocodone Bitart /Acetaminophen 1 tab 03/01/20 20:38 03/07/20 10:45 Hydrocodone-Acet aminophen 7.5-325 Mg Tablet PO 1 tab Q4H PRN Administration Pain Albuterol Sulfate 2 puff 03/01/20 20:38 Albuterol 8 Gm M di INHALATION Q4H.RESPIRATORY P RN SHORTNESS OF SERGO TH Dexamethasone 4 mg 03/02/20 19:00 03/07/20 21:50 Dexamethasone 4 Mg/Ml Inj IVP 4 mg TID WHIT Administration Dextrose 25 ml 03/01/20 20:38 Dextrose 50% Syr daniel 50 Ml IVP ONCE PRN hypoglycemia prot ocol Protocol Dextrose 50 ml 03/01/20 20:38 Dextrose 50% Syr daniel 50 Ml IVP PRN PRN hypoglycemia prot ocol Protocol Enoxaparin Sodium 40 mg 03/02/20 11:00 03/07/20 10:42 Enoxaparin 40 Mg /0.4 Ml Syringe SUBCUT 40 mg Q24H WHIT Administration Famotidine 20 mg 03/02/20 18:00 03/08/20 05:45 Famotidine 20 Mg /2 Ml Inj IVP 20 mg Q12H WHIT Administration Furosemide 40 mg 03/04/20 10:30 03/07/20 22:04 Furosemide 10 Mg /Ml Sdv 4ml IVP 40 mg Q12H WHIT Administration Glucagon 1 mg 03/01/20 20:38 Glucagon 1 Mg/Ml Inj 1 Ml IM ONCE PRN Adult Acute Hypog lycemia Prot. Protocol Dextrose 500 mls @ 100 mls /hr 03/01/20 20:38 D5w IV ONCE PRN Adult Acute Hypog lycemia Prot Protocol Norepinephrine Bit artrate 4 mg 254 mls @ 0 mls/h r 03/02/20 08:15 03/08/20 08:36 / Dextrose IV Infused .Q0M WHIT Titration Protocol Per Protocol Imipenem/Cilastati n Sodium 500 100 mls @ 200 mls /hr 03/02/20 11:00 03/08/20 05:45 mg/ Sodium Chlor matthew IV 200 mls/hr Q6H WHIT Administration Protocol Azithromycin 500 m g/ Sodium 250 mls @ 250 mls /hr 03/02/20 22:00 03/08/20 00:15 Chloride IV Infused Q24H WHIT Infusion Protocol Vancomycin HCl 1,0 00 mg/ 250 mls @ 250 mls /hr 03/04/20 21:00 03/05/20 22:27 Sodium Chloride IV Infused Q12H WHIT Infusion Dexmedetomidine HC l 400 mcg/ 104 mls @ 0 mls/h r 03/05/20 05:15 Sodium Chloride IV .Q0M WHIT Protocol Per Protocol Propofol 1,000 mg in 100 m ls @ 0 mls/hr 03/07/20 15:30 Diprivan IV .Q0M WHIT Protocol Per Protocol Insulin Aspart 0 unit 03/05/20 12:00 03/08/20 05:55 Insulin Aspart 1 00 Unit/1 Ml SUBCUT 4 unit Q6H WHIT Administration Protocol Lorazepam 0.5 mg 03/01/20 20:38 Lorazepam 1 Mg T ablet PO TID PRN Nausea And Vomiti ng Lorazepam 1 mg 03/04/20 22:45 03/04/20 22:59 Lorazepam 2 Mg/M l Inj 1 Ml IVP 1 mg NOW PRN Administration ANXIETY Non-Formulary Medi cation 500 mg 03/01/20 20:38 Famciclovir PO TID PRN MOUTH SORES Ondansetron HCl 4 mg 03/01/20 20:38 Ondansetron 2 Mg /Ml Sdv 2 Ml IVP Q6H PRN NAUSEA AND VOMITI NG Ondansetron HCl 4 mg 03/01/20 20:38 Ondansetron 2 Mg /Ml Sdv 2 Ml IVP Q6H PRN NAUSEA AND VOMITI NG Penicillins Allergy (Verified 02/13/20 10:06) ALGY-Anaphylaxis tramadol Adverse Reaction (Verified 02/13/20 10:06) ADR-Vomiting Vitals/I&O/Wt Last Vital Signs Temp 97.4 F L 03/07/20 20:00 Pulse 107 H 03/08/20 06:00 Resp 29 H 03/08/20 05:13 BP 96/78 03/08/20 06:00 Pulse Ox 96 03/08/20 06:00 03/07/20 03/08/20 03/08/20 22:59 06:59 14:59 Intake Total 203.844 / 442.844 350 / 792.844 Output Total 250 / 625 802 / 1427 Balance -46.156 / -182.156 -452 / -634.156 Physical Exam Const: COMMON NORMALS: no acute distress GENERAL APPEARANCE: cooperative, ill appearing and patient mechanically ventilated ORIENTATION/CONSCIOUSNESS: Yes awake OTHER: -Sedated with <del>fentanyl</del> <del>@</del> <del>100</del> <del>mcg/hr</del>, <del>Versed</del> <del>@</del> <del>4</del> <del>mg/hr,</del> propofol @ 5 mcg/kg.min HENMT: COMMON NORMALS: normocephalic and atraumatic HEAD & SCALP: normocephalic and atraumatic OTHER: -orally intubated Eye: COMMON NORMALS: Equal, round and reactive pupils present, EOMs intact bilaterally and conjunctivae normal CONJUNCTIVA: Yes conjunctivae normal PUPIL: Yes Equal, round and reactive pupils present OTHER: -legally blind Neck/C-Spine: COMMON NORMALS: full ROM GENERAL: Yes normal visual inspection, Yes trachea midline, Yes anterior neck swelling and Yes other (right sided SC emphysema) Chest: CHEST: Yes Vascular access present (port-A-cath) and Yes other (R chest tube, L thoravent) Resp: COMMON NORMALS: normal respiratory effort, No retractions and No use of accessory muscles EFFORT & INSPECTION: Yes able to speak in complete sentences, Yes symmetric chest movement and No tachypneic AUSCULTATION: diminished lung sounds (more so on the R) OTHER: -on vent support; 40%/450/6 Cardio: COMMON NORMALS: regular rate, regular rhythm, S1 normal heart sound present, S2 normal heart sound present and No murmurs present (Cardio) RATE: regular rate RHYTHM: regular rhythm HEART SOUNDS: S1 normal heart sound present and S2 normal heart sound present GI: COMMON NORMALS: Normal to inspection, nondistended, normoactive bowel sounds present and Soft to palpation PALPATION: Yes Soft to palpation : BLADDER/KIDNEY EXAM: Yes catheter in place Extremity: COMMON NORMALS: normal to inspection GENERAL: Yes edema (1-2 + bilateral LE edema) Neuro: OTHER: -sedated Psych: OTHER: -sedated Skin: COMMON NORMALS: no rashes or lesions noted, no jaundice, no petechiae and no mottling GENERAL SKIN EXAM: no rashes or lesions noted Urinary Catheter Management^: Flores: Cath Placed During This Visit: yes Urinary Catheter Date of Insertion: 03/02/20 Urinary Catheter Time of Insertion: 14:11 Data : 03/08/20 03:00 03/08/20 03:00 A&P Assessment and plan (1) Respiratory failure with hypoxia: -Remains on mechanical ventilation; weaning trial; on sedation -Noted continued RLL consolidation and bilateral patchy opacifications; known nodules and metastatic disease throughout the lungs -Noted AM ABG with continued hypoxia, FiO2 down to 40% -daily ABG, CXR while on vent -continue broad-spectrum IV antibiotic coverage with Primaxin, vancomycin, azithromycin -continue steroids -COVID-19 PCR negative, off isolation precaution -blood cx: negative -sputum cx: Alcaligenes faecalis, sensitivity noted -continue to monitor respiratory status -no PE on CTA -noted LE edema, on diuresis Status: Acute Qualifiers: Chronicity: acute Qualified Code(s): J96.01 - Acute respiratory failure with hypoxia (2) Pneumothorax: -noted moderate sized pneumothoraces bilaterally (L > R) on CT chest (03/06) -s/p R chest tube and L thoracic vent placement; continue to monitor output -daily CXR; increased subcutaneous emphysema noted today -consults by Dr. Porter and Dr. Baron appreciated -close monitoring of respiratory status Status: Acute Qualifiers: Pneumothorax type: unspecified pneumothorax Qualified Code(s): J93.9 - Pneumothorax, unspecified (3) Pneumomediastinum: -imaging reviewed, noted extensive subcutaneous emphysema with pneumomediastinum Status: Acute (4) Septic shock: -As evidenced by hypoxia with need for mechanical ventilation, hypotension, leukocytosis. WBC continues to increase -Secondary to respiratory infection as noted above -Continues to require pressor support, wean as tolerated -Continue to monitor vital signs closely Status: Acute (5) Pneumonia: -as noted above Status: Acute Qualifiers: Laterality: bilateral Lung location: unspecified part of lung Pneumonia type: due to unspecified organism Qualified Code(s): J18.9 - Pneumonia, unspecified organism (6) E coli bacteremia: -Found to have E. coli bacteremia during last admission last month. Unclear etiology though presumed to be secondary to GI translocation given neutropenia and underlying immunocompromise. 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 Reyes -continue dexamethasone -poor prognosis Status: Chronic Qualifiers: Laterality: right Qualified Code(s): C34.91 - Malignant neoplasm of unspecified part of right bronchus or lung (8) Thrombocytopenia: -Stable platelet count, continue to trend -continue to monitor for bleeding; none so far -HIT panel negative Status: Chronic (9) Anemia: -Stable H/H, continue to trend Status: Chronic Qualifiers: Anemia type: unspecified type Qualified Code(s): D64.9 - Anemia, unspecified Additional A&P Information -Legally blind -previously found to have encephalopathy secondary to hyponatremia; sodium level stable -Treated with antifungal secondary to significant mucositis -LFTs normalized -Hypomagnesemia, replace as needed -Bradycardia, likely medication induced as has resolved with discontinuation of fentanyl, sinus rhythm, Echo-EF=50-55%, relative hypokinesia of septum. HR wnl -NPO as on vent support; may need to start tube feeding if continued need for vent support -GI ppx with famotidine -DVT ppx with lovenox; continue to monitor platelet count and H/H, stable so far -Dispo: home -Code status: FULL code -guarded prognosis given underlying immunocompromise, septic shock, mechanical ventilation, bilateral pneumothoraces; continue ICU care. Had extensive goals of care discussion with including code status Attestations Medical Necessity Statement*: Patient requires hospitalization for continued management of acute respiratory failure, remains on vent support, IV antibiotics, continued sepsis. Critical Care Time: The high probability of a clinically significant, sudden or life threatening deterioration of the patient's [cardiovascular, respiratory] system(s) required my full and direct attention, intervention and personal management. The critical care time is as shown. This time is in addition to time spent performing any reported procedures but includes the following: [x] Data and vital sign review and interpretation [x] Patient assessment, examination and intervention [x] Documentation [x] Medication orders and management Critical Care Time (min): 20 Coding Level of Care Code Acute Mat Worker for g Fwd Exam Comprehensive Diagnoses Respiratory failure with hypoxia J96.01 Chronicity: acute Pneumothorax J93.9 Pneumothorax type: unspecified pneumothorax Pneumomediastinum J98.2 Septic shock A41.9; R65.21 Pneumonia J18.9 Laterality: bilateral Lung location: unspecified part of lung Pneumonia type: due to unspecified organism E coli bacteremia R78.81; B96.20 Primary lung squamous cell carcinoma C34.91 Laterality: right Thrombocytopenia D69.6 Anemia D64.9 Anemia type: unspecified type
[2020-03-08] MEDS: dexamethasone 4 mg/mL INJ IVP ×3 (10:00→20:11)
[2020-03-08] MEDS: lactated ringers 500 ML 999 ML IV (10:00)
[2020-03-08] MEDS: HYDROcodone-acetaminophen 7.5-325 mg Tablet 1 TAB PO (10:00)
[2020-03-08] MEDS: propofol 1,000 MG/100 ML INJ 2.6 MG IV (10:01)
[2020-03-08 11:23] LABS: Glucose Point of Care 159 mg/dL (70-110)
[2020-03-08] MEDS: enoxaparin 40 mg/0.4 mL Syringe SUBCUT (12:17)
[2020-03-08 18:43] LABS: Glucose Point of Care 150 mg/dL (70-110)
--- NOTE | 2020-03-08 19:08 | PC.NURSE ---
Report given to KENTRELL De La Rosa.
--- NOTE | 2020-03-08 19:08 | PC.NURSE ---
Shift summary: Pt remains intubated. No changes to vent settings today Pt had been off sedation since approx. 1630 yestrday. This morning no folowing commands or even turning head towards voice. He withdraws from pain. He was moving his head side to side and moving his left hand up and down this am. Hydrocodone admin for possible pain, and Propofol for comfort, but it is only 5mcg/min/kg. Pt has thus rested without appearing uncomfortable. He remains responding to pain only. Right chest tube had no output, set to water seal only, dressing changed today. Nephew came in at visiting hours. He received a fluid bolus He has tolerated the Levophed at 1mcg/hr after the bolus. Pulmocare tube feeding started at 10ml/hr. He received a bath and linen change today.
[2020-03-08] MEDS: azithromycin 500 MG in sodium chloride 0.9% 250 ML 250 MG IV (21:00)
--- NOTE | 2020-03-08 22:27 | PM.PN ---
Subjective Subjective: Interval history: No more fever spikes but WBC increased to 20 9K -Chest x-ray worsening subcutaneous emphysema On Levophed 1 mg Has a right-sided chest tube output 60 mL Overall patient is maintaining negative balance last couple of days and BUN steadily rising-recommended 500 mL LR Recommended tube feeds Patient started on moving around but does not follow commands-continue Precedex and if needed propofol Medications: Reviewed: Yes Medication Review Details: Active Medications Generic Name Dose Route Start Last Admin Trade Name Freq PRN Reason Stop Dose Admin Acetaminophen 650 mg 03/01/20 20:38 Acetaminophen 32 5 Mg Tablet PO Q6H PRN Mild/Mod Pain Or Temp >/= 101 Hydrocodone Bitart /Acetaminophen 1 tab 03/01/20 20:38 03/07/20 10:45 Hydrocodone-Acet aminophen 7.5-325 Mg Tablet PO 1 tab Q4H PRN Administration Pain Albuterol Sulfate 2 puff 03/01/20 20:38 Albuterol 8 Gm M di INHALATION Q4H.RESPIRATORY P RN SHORTNESS OF SERGO TH Dexamethasone 4 mg 03/02/20 19:00 03/07/20 21:50 Dexamethasone 4 Mg/Ml Inj IVP 4 mg TID WHIT Administration Dextrose 25 ml 03/01/20 20:38 Dextrose 50% Syr daniel 50 Ml IVP ONCE PRN hypoglycemia prot ocol Protocol Dextrose 50 ml 03/01/20 20:38 Dextrose 50% Syr daniel 50 Ml IVP PRN PRN hypoglycemia prot ocol Protocol Enoxaparin Sodium 40 mg 03/02/20 11:00 03/07/20 10:42 Enoxaparin 40 Mg /0.4 Ml Syringe SUBCUT 40 mg Q24H WHIT Administration Famotidine 20 mg 03/02/20 18:00 03/08/20 05:45 Famotidine 20 Mg /2 Ml Inj IVP 20 mg Q12H WHIT Administration Furosemide 40 mg 03/04/20 10:30 03/07/20 22:04 Furosemide 10 Mg /Ml Sdv 4ml IVP 40 mg Q12H WHIT Administration Glucagon 1 mg 03/01/20 20:38 Glucagon 1 Mg/Ml Inj 1 Ml IM ONCE PRN Adult Acute Hypog lycemia Prot. Protocol Dextrose 500 mls @ 100 mls /hr 03/01/20 20:38 D5w IV ONCE PRN Adult Acute Hypog lycemia Prot Protocol Norepinephrine Bit artrate 4 mg 254 mls @ 0 mls/h r 03/02/20 08:15 03/08/20 08:36 / Dextrose IV Infused .Q0M WIHT Titration Protocol Per Protocol Imipenem/Cilastati n Sodium 500 100 mls @ 200 mls /hr 03/02/20 11:00 03/08/20 05:45 mg/ Sodium Chlor matthew IV 200 mls/hr Q6H WHIT Administration Protocol Azithromycin 500 m g/ Sodium 250 mls @ 250 mls /hr 03/02/20 22:00 03/08/20 00:15 Chloride IV Infused Q24H WHIT Infusion Protocol Vancomycin HCl 1,0 00 mg/ 250 mls @ 250 mls /hr 03/04/20 21:00 03/05/20 22:27 Sodium Chloride IV Infused Q12H WHIT Infusion Dexmedetomidine HC l 400 mcg/ 104 mls @ 0 mls/h r 03/05/20 05:15 Sodium Chloride IV .Q0M WHIT Protocol Per Protocol Propofol 1,000 mg in 100 m ls @ 0 mls/hr 03/07/20 15:30 Diprivan IV .Q0M WHIT Protocol Per Protocol Insulin Aspart 0 unit 03/05/20 12:00 03/08/20 05:55 Insulin Aspart 1 00 Unit/1 Ml SUBCUT 4 unit Q6H WHIT Administration Protocol Lorazepam 0.5 mg 03/01/20 20:38 Lorazepam 1 Mg T ablet PO TID PRN Nausea And Vomiti ng Lorazepam 1 mg 03/04/20 22:45 03/04/20 22:59 Lorazepam 2 Mg/M l Inj 1 Ml IVP 1 mg NOW PRN Administration ANXIETY Non-Formulary Medi cation 500 mg 03/01/20 20:38 Famciclovir PO TID PRN MOUTH SORES Ondansetron HCl 4 mg 03/01/20 20:38 Ondansetron 2 Mg /Ml Sdv 2 Ml IVP Q6H PRN NAUSEA AND VOMITI NG Ondansetron HCl 4 mg 03/01/20 20:38 Ondansetron 2 Mg /Ml Sdv 2 Ml IVP Q6H PRN NAUSEA AND VOMITI NG Penicillins Allergy (Verified 02/13/20 10:06) ALGY-Anaphylaxis tramadol Adverse Reaction (Verified 02/13/20 10:06) ADR-Vomiting Vitals/I&O/Wt Last Vital Signs Temp 96.8 F L 03/08/20 20:00 Pulse 93 03/08/20 20:00 Resp 22 H 03/08/20 20:25 BP 90/64 03/08/20 20:00 Pulse Ox 94 03/08/20 20:00 03/08/20 03/08/20 03/08/20 06:59 14:59 22:59 Intake Total 350 / 792.844 258.772 / 258.772 100 / 358.772 Output Total 802 / 1443 525 / 525 Balance -452 / -650.156 258.772 / 258.772 -425 / -166.228 Physical Exam Narrative: EXAM NARRATIVE: PHYSICAL EXAM: General: lying in bed, sedated and intubated, HEENT:NCAT, PERRLA, EOMI Neck: Supple Lungs: Reduced breath sounds on left upper and right upper lobes. Reduced breath sounds on right lower lobe Heart: s1/s2, RRR Abd: soft, NT, ND, BS + Normoactive Extremities: No edema MACHINE OPERATOR REPLANTER: sedated and limited MACHINE OPERATOR REPLANTER exam possible. moves limbs off sedation but does not follow commands SKIN: no rash LDA: # CVC: Right IJ 03/02/2020 # Flores: 03/02/2020 # Chest tubes: Right chest tube 03/06/2020: Left anterior Thora vent 03/06/2020 Urinary Catheter Management^: Flores: Cath Placed During This Visit: yes Urinary Catheter Date of Insertion: 03/02/20 Urinary Catheter Time of Insertion: 14:11 Data : 03/08/20 03:00 03/08/20 03:00 A&P Assessment and plan (1) Respiratory failure with hypoxia: Status: Acute Qualifiers: Chronicity: acute Qualified Code(s): J96.01 - Acute respiratory failure with hypoxia (2) Pneumomediastinum: Status: Acute (3) Pneumothorax: Status: Acute Qualifiers: Pneumothorax type: unspecified pneumothorax Qualified Code(s): J93.9 - Pneumothorax, unspecified (4) Septic shock: Status: Acute (5) Pneumonia: Status: Acute Qualifiers: Laterality: bilateral Lung location: unspecified part of lung Pneumonia type: due to unspecified organism Qualified Code(s): J18.9 - Pneumonia, unspecified organism (6) Primary lung squamous cell carcinoma: Status: Chronic Qualifiers: Laterality: right Qualified Code(s): C34.91 - Malignant neoplasm of unspecified part of right bronchus or lung #Acute hypoxic respiratory failure secondary to HCAP and patient with underlying metastatic squamous cell carcinoma #Septic shock secondary to Alcaligenes faecalis pneumonia #Bilateral pneumothorax/pneumomediastinum/pneumoperitoneum/extensive subcutaneous emphysema-secondary to positive pressure ventilation - ?? Fistula between cavitary lung mass to pleural space -Afebrile, worsening leukocytosis 29K today -Chest x-ray worsening subcutaneous emphysema - On Levophed 1 mg - Has a right-sided chest tube output 60 mL - Overall patient is maintaining negative balance last couple of days and BUN steadily rising-recommended 500 mL LR - Recommended tube feeds - Patient started on moving around but does not follow commands-continue Precedex and if needed propofol -ABG 7.5 05/28//20 5/96% on CMV 450/50%/8/14-suggestive of respiratory alkalosis -Chest x-ray today: Bilateral chest tubes, no recurrence of pneumothoraces, dense right lower lobe opacity and bilateral opacities -Sputum cultures positive for Alcaligenes faecalis -Continue imipenem and DC vancomycin and azithromycin -Echo 03/05/2020: Borderline low EF 50 to 55% and relative hypokinesia of the septum. -Reduce Lasix to 40 daily -Lovenox 40 mg daily - continue to do awakening followed by breathing trials from tomorrow and extubate if passes -Continue suction for right chest tube and leave it under waterseal -Continue suction for left chest tube Recommendations conveyed to hospitalist covering the patient Attestations Medical Necessity Statement*: #Acute hypoxic respiratory failure secondary to HCAP and patient with underlying metastatic squamous cell carcinoma #Septic shock secondary to Alcaligenes faecalis pneumonia #Bilateral pneumothorax/pneumomediastinum/pneumoperitoneum/extensive subcutaneous emphysema-secondary to positive pressure ventilation - ?? Fistula between cavitary lung mass to pleural space Time Spent in Patient Care: Greater than 35 minutes (>than 50% of time spent in counselling and/or direct pt care on unit). Critical Care Time: Critical Care Time (min): 45 Coding Level of Care Code Acute Cost And Sales Record Supervisor for [facility] Amanuel Diagnoses Respiratory failure with hypoxia J96.01 Chronicity: acute Pneumomediastinum J98.2 Pneumothorax J93.9 Pneumothorax type: unspecified pneumothorax Septic shock A41.9; R65.21 Pneumonia J18.9 Laterality: bilateral Lung location: unspecified part of lung Pneumonia type: due to unspecified organism Primary lung squamous cell carcinoma C34.91 Laterality: right
[2020-03-09] VITALS (81 sets, daily range): BP systolic 75–116; BP diastolic 54–86; PULSE 73–103; RESP 19–27; TEMP 36–36.4; O2SAT 87–96
[2020-03-09 00:04] LABS: Glucose Point of Care 156 mg/dL (70-110)
--- NOTE | 2020-03-09 01:08 | PC.NURSE ---
Patient resting in bed with eyes closed and remains on the vent. Patient has propofol and levophed running. Tube feeding via initialized on day shift and is running at 10mLs/hr. Checked residual with 0 mL's of residual and flushed with water. No s/s of distress. No s/s of pain. No new drainage in atrium from either side of chest. Continue care.
--- NOTE | 2020-03-09 02:07 | PC.NURSE ---
Patient resting in room. NO s/s of distress or pain noted. Nurse did change left IJ central line dressing per sterile technique. Patient tolerated well. Continue care.
--- NOTE | 2020-03-09 02:40 | PC.NURSE ---
URINE: Patients urine is very dark and contains some hematuria with mild sediment present, urine wasn't this way yesterday.
[2020-03-09 03:45] LABS: Basophils # 0.1 10^3/uL (0.0-0.1); Basophils % 0.2 %; Hematocrit 31.7 % (42.0-52.0); Hemoglobin 10.2 g/dL (11.7-16.6); Lymphocytes # 0.4 10^3/uL (0.8-4.8); Lymphocytes % 1.7 %; Mean Corpuscular HGB Conc 32.2 g/dL (30.0-36.0); Mean Corpuscular Hemoglobin 28.4 pg (28.0-34.0); Mean Corpuscular Volume 88.3 fL (80-94); Mean Platelet Volume 12.7 fL (7.4-10.4); Monocytes # 0.9 10^3/uL (0.2-0.9); Monocytes % 3.5 %; Neutrophils % 87.4 %; Nucleated Red Blood Cells # 0.1 /100WBC; Nucleated Red Blood Cells % 0.5 %; Platelet Count 123 10^3/cmm (130-400); Red Blood Count 3.59 10^6/uL (4.1-5.3); Red Cell Distribution Width 21.1 % (12.1-15.1); White Blood Count 25.5 10^3/uL (4.0-10.0)
[2020-03-09 04:14] LABS: Anion Gap 13.7 (5-19); Blood Urea Nitrogen 54 mg/dL (8-23); Calcium 8.3 mg/dL (8.5-10.5); Carbon Dioxide 28 mmol/L (22-29); Chloride 103 mmol/L (98-107); Glomerular Filtration Rate 85.5 mL/min (90-130); Glucose 146 mg/dL (65-115); Osmolality Calculated 309 mOsm/kg (285-295); Potassium 3.7 mmol/L (3.5-5.1); Sodium 141 mmol/L (136-145)
[2020-03-09 05:04] LABS: Slide Review Slide Review Perform
[2020-03-09 05:17] LABS: ABG PCO2 32.6 mmHg (35-45); ABG PH Result 7.52 (7.35-7.45); Base Excess ABG 4.1 mmol/L (-2.0-2.0); Blood Gas Allen Test Pos; Blood Gas Sample Site Radial, right; Blood Gas Sample Type Arterial; Blood Gas Tidal Volume 0.45; HCO3 ABG 26.7 mmol/L (22-26); Oxygen Device VENT; PO2 ABG 70.8 mmHg (80.0-100.0)
[2020-03-09 05:19] LABS: Glucose Point of Care 166 mg/dL (70-110)
[2020-03-09] MEDS: famotidine 20 mg/2 mL INJ IVP ×2 (05:20→17:59)
--- NOTE | 2020-03-09 06:00 | XRR_ITS ---
PROCEDURE INFORMATION: Exam: XR Chest, 1 View Exam date and time: 03/09/2020 5:23 AM Age: 64 years old Clinical indication: Device placement; Ett placement (vent status); Additional info: On vent support, chest tube TECHNIQUE: Imaging protocol: XR of the chest Views: 1 view. COMPARISON: CR XR chest 1V portable [id number] 03/08/2020 5:04 AM FINDINGS: Tubes, catheters and devices: An endotracheal tube is placed with its tip approximately 4.7 cm from the chuy. An orogastric tube is present with its tip in the proximal stomach. A right thoracostomy tube appears stable in position. A left thoracostomy tube is placed with its tip in the retrocardiac region. EKG leads overlie the chest. Lungs: The right lower lobe mass appears stable. There are increased interstitial opacities present within the left mid and lower hemithorax appearing slightly more prominent today compared with yesterday's examination. Pleural space: There is a persistent right pneumothorax similar in size to that seen in yesterday's examination. Heart/Mediastinum: Unremarkable. No cardiomegaly. Vasculature: A left internal jugular vein central venous line is placed with its tip at the level of the superior vena cava. A right internal jugular vein central venous line is placed with its tip near the confluence of the brachiocephalic veins. Bones/joints: Unremarkable. Soft tissues: Marked subcutaneous emphysema seen overlying the chest and neck base unchanged from yesterday's examination. XR/XR chest 1V portable [id number] IMPRESSION: 1. Stable positioning life support tubing. 2. Small right pneumothorax again seen unchanged from 03/08/2020. 3. Prominent right middle lobe mass again seen. 4. Increasing interstitial opacities in the left mid and lower hemithorax.
--- NOTE | 2020-03-09 06:22 | PC.NURSE ---
Patient's output is decreasing, no other changes. Patient did have a large soft bowel movement this shift. New linens and kaylee care provided. Continue care
[2020-03-09 07:50] LABS: Glucose Point of Care 155 mg/dL (70-110)
--- NOTE | 2020-03-09 08:06 | P.PN_ITS ---
Subjective Subjective: Interval history: No fever spikes; decreasing WBC Input output -200 last 24 hours ABG today morning 7.5 2/32/70/26/on 40% FiO2 Chest x-ray -persistent right apical pneumothorax - chest tube connected to suction and air leak noted again On Levophed 1 mg no more right-sided chest tube output Overall patient is maintaining negative balance last couple of days and pt clinically dehydrated and BUN steadily rising- recommended LR @ 75 cc/hr and monitor I/O today evenining and give a dose of lasix if no UOP Recommended tube feeds @ 30 mls/hr and if levophed > 10 then down to trickle feeds Patient started moving and following commands. continue propofol titration to prevent overbreating the vent, Medications: Reviewed: Yes Medication Review Details: Active Medications Generic Name Dose Route Start Last Admin Trade Name Freq PRN Reason Stop Dose Admin Acetaminophen 650 mg 03/01/20 20:38 Acetaminophen 32 5 Mg Tablet PO Q6H PRN Mild/Mod Pain Or Temp >/= 101 Hydrocodone Bitart /Acetaminophen 1 tab 03/01/20 20:38 03/08/20 10:00 Hydrocodone-Acet aminophen 7.5-325 Mg Tablet PO 1 tab Q4H PRN Administration Pain Albuterol Sulfate 2 puff 03/01/20 20:38 Albuterol 8 Gm M di INHALATION Q4H.RESPIRATORY P RN SHORTNESS OF SERGO TH Dexamethasone 4 mg 03/02/20 19:00 03/08/20 20:11 Dexamethasone 4 Mg/Ml Inj IVP 4 mg TID WHIT Administration Dextrose 25 ml 03/01/20 20:38 Dextrose 50% Syr daniel 50 Ml IVP ONCE PRN hypoglycemia prot ocol Protocol Dextrose 50 ml 03/01/20 20:38 Dextrose 50% Syr daniel 50 Ml IVP PRN PRN hypoglycemia prot ocol Protocol Enoxaparin Sodium 40 mg 03/02/20 11:00 03/08/20 12:17 Enoxaparin 40 Mg /0.4 Ml Syringe SUBCUT 40 mg Q24H WHIT Administration Famotidine 20 mg 03/02/20 18:00 03/09/20 05:20 Famotidine 20 Mg /2 Ml Inj IVP 20 mg Q12H WHIT Administration Furosemide 40 mg 03/04/20 10:30 03/07/20 22:04 Furosemide 10 Mg /Ml Sdv 4ml IVP 40 mg Q12H WHIT Administration Glucagon 1 mg 03/01/20 20:38 Glucagon 1 Mg/Ml Inj 1 Ml IM ONCE PRN Adult Acute Hypog lycemia Prot. Protocol Dextrose 500 mls @ 100 mls /hr 03/01/20 20:38 D5w IV ONCE PRN Adult Acute Hypog lycemia Prot Protocol Norepinephrine Bit artrate 4 mg 254 mls @ 0 mls/h r 03/02/20 08:15 03/08/20 08:36 / Dextrose IV Infused .Q0M WHIT Titration Protocol Per Protocol Imipenem/Cilastati n Sodium 500 100 mls @ 200 mls /hr 03/02/20 11:00 03/09/20 05:20 mg/ Sodium Chlor matthew IV 200 mls/hr Q6H WHIT Administration Protocol Azithromycin 500 m g/ Sodium 250 mls @ 250 mls /hr 03/02/20 22:00 03/08/20 21:00 Chloride IV 250 mls/hr Q24H WHIT Administration Protocol Dexmedetomidine HC l 400 mcg/ 104 mls @ 0 mls/h r 03/05/20 05:15 Sodium Chloride IV .Q0M WHIT Protocol Per Protocol Propofol 1,000 mg in 100 m ls @ 0 mls/hr 03/07/20 15:30 03/08/20 10:01 Diprivan IV 5 mcg/kg/min .Q0M WHIT 2.6 mls/hr Administration Protocol Per Protocol Vancomycin HCl 1,0 00 mg/ 250 mls @ 250 mls /hr 03/09/20 08:00 Sodium Chloride IV Q24H WHIT Insulin Aspart 0 unit 03/05/20 12:00 03/09/20 05:19 Insulin Aspart 1 00 Unit/1 Ml SUBCUT 2 unit Q6H WHIT Administration Protocol Lorazepam 0.5 mg 03/01/20 20:38 Lorazepam 1 Mg T ablet PO TID PRN Nausea And Vomiti ng Lorazepam 1 mg 03/04/20 22:45 03/04/20 22:59 Lorazepam 2 Mg/M l Inj 1 Ml IVP 1 mg NOW PRN Administration ANXIETY Non-Formulary Medi cation 500 mg 03/01/20 20:38 Famciclovir PO TID PRN MOUTH SORES Ondansetron HCl 4 mg 03/01/20 20:38 Ondansetron 2 Mg /Ml Sdv 2 Ml IVP Q6H PRN NAUSEA AND VOMITI NG Ondansetron HCl 4 mg 03/01/20 20:38 Ondansetron 2 Mg /Ml Sdv 2 Ml IVP Q6H PRN NAUSEA AND VOMITI NG Penicillins Allergy (Verified 02/13/20 10:06) ALGY-Anaphylaxis tramadol Adverse Reaction (Verified 02/13/20 10:06) ADR-Vomiting Vitals/I&O/Wt Last Vital Signs Temp 97.5 F L 03/09/20 07:42 Pulse 96 03/09/20 07:42 Resp 27 H 03/09/20 04:40 BP 98/69 03/09/20 07:42 Pulse Ox 94 03/09/20 07:42 03/08/20 03/09/20 03/09/20 22:59 06:59 14:59 Intake Total 100 / 358.772 280 / 638.772 Output Total 525 / 525 300 / 825 Balance -425 / -166.228 -20 / -186.228 Physical Exam Narrative: EXAM NARRATIVE: PHYSICAL EXAM: General: lying in bed, sedated and intubated, HEENT:NCAT, PERRLA, EOMI, dry mucous membranes Neck: Supple Lungs: Reduced breath sounds on left upper and right upper lobes. Reduced breath sounds on right lower lobe Heart: s1/s2, RRR Abd: soft, NT, ND, BS + Normoactive Extremities: No edema PHYSICIAN ALLERGIST IMMUNOLOGIST: sedated and limited PHYSICIAN ALLERGIST IMMUNOLOGIST exam possible. moves limbs off sedation and follows commands but slowly SKIN: no rash LDA: # CVC: Right IJ 03/02/2020 # Flores: 03/02/2020 # Chest tubes: Right chest tube 03/06/2020: Left anterior Thora vent 03/06/2020 Urinary Catheter Management^: Flores: Cath Placed During This Visit: yes Urinary Catheter Date of Insertion: 03/02/20 Urinary Catheter Time of Insertion: 14:11 Data : 03/09/20 03:04 03/09/20 03:04 A&P Assessment and plan (1) Respiratory failure with hypoxia: Status: Acute Qualifiers: Chronicity: acute Qualified Code(s): J96.01 - Acute respiratory failure with hypoxia (2) Pneumomediastinum: Status: Acute (3) Pneumothorax: Status: Acute Qualifiers: Pneumothorax type: unspecified pneumothorax Qualified Code(s): J93.9 - Pneumothorax, unspecified (4) Septic shock: Status: Acute (5) Pneumonia: Status: Acute Qualifiers: Laterality: bilateral Lung location: unspecified part of lung Pneumonia type: due to unspecified organism Qualified Code(s): J18.9 - Pneumonia, unspecified organism (6) Primary lung squamous cell carcinoma: Status: Chronic Qualifiers: Laterality: right Qualified Code(s): C34.91 - Malignant neoplasm of unspecified part of right bronchus or lung #Acute hypoxic respiratory failure secondary to HCAP and patient with underlying metastatic squamous cell carcinoma #Septic shock secondary to Alcaligenes faecalis pneumonia #Bilateral pneumothorax/pneumomediastinum/pneumoperitoneum/extensive subcutaneous emphysema-secondary to positive pressure ventilation - ?? Fistula between cavitary lung mass to pleural space -No fever spikes; decreasing WBC - Input output -200 last 24 hours - ABG today morning 7.5 ///on 40% FiO2 - Chest x-ray -persistent right apical pneumothorax - chest tube connected to suction and air leak noted again - On Levophed 1 mg - no more right-sided chest tube output - Overall patient is maintaining negative balance last couple of days and pt clinically dehydrated and BUN steadily rising- recommended LR @ 75 cc/hr and monitor I/O today evenining and give a dose of lasix if no UOP - Recommended tube feeds @ 30 mls/hr and if levophed > 10 then down to trickle feeds Patient started moving and following commands. - continue propofol titration to prevent overbreating the vent, -ABG 7.52//70/26/96% on CMV 450/40%//14-suggestive of respiratory alkalosis -Sputum cultures positive for Alcaligenes faecalis -Continue imipenem and DC vancomycin and azithromycin -Echo 03/05/2020: Borderline low EF 50 to 55% and relative hypokinesia of the septum. -Lovenox 40 mg daily - continue to do awakening followed by breathing trials from tomorrow and extubate if passes -Continue suction for right chest tube and connect to waterseal when there is no air leak -Continue suction for left chest tube and connect to waterseal when there is no air leak Recommendations conveyed to hospitalist covering the patient Attestations Medical Necessity Statement*: #Acute hypoxic respiratory failure secondary to HCAP and patient with underlying metastatic squamous cell carcinoma complicated by Bilateral pneumothorax/pneumomediastinum/pneumoperitoneum/extensive subcutaneous emphysema-secondary to positive pressure ventilation - ?? Fistula between cavitary lung mass to pleural space Time Spent in Patient Care: Greater than 35 minutes (>than 50% of time spent in counselling and/or direct pt care on unit) . Critical Care Time: Critical Care Time (min): 45 Coding Level of Care Code Acute [place] for [facility] Fwd Diagnoses Respiratory failure with hypoxia J96.01 Chronicity: acute Pneumomediastinum J98.2 Pneumothorax J93.9 Pneumothorax type: unspecified pneumothorax Septic shock A41.9; R65.21 Pneumonia J18.9 Laterality: bilateral Lung location: unspecified part of lung Pneumonia type: due to unspecified organism Primary lung squamous cell carcinoma C34.91 Laterality: right
--- NOTE | 2020-03-09 08:16 | PM.PN ---
Subjective Subjective: Interval history: Patient remains on vent support, FiO2-40%, minimal pressor support, afebrile, had 300 mL urine output overnight, minimal chest tube output. Some improvement in leukocytosis. Remains on sedation with propofol, Levophed at 0.8 mcg/min. Urine looks concentrated so we will give IV fluid hydration at this time and continue to monitor urine output. Tolerating tube feeds well, rate increased to goal. Imaging this morning unchanged. Medications: Reviewed: Yes Medication Review Details: Active Medications Generic Name Dose Route Start Last Admin Trade Name Freq PRN Reason Stop Dose Admin Acetaminophen 650 mg 03/01/20 20:38 Acetaminophen 32 5 Mg Tablet PO Q6H PRN Mild/Mod Pain Or Temp >/= 101 Hydrocodone Bitart /Acetaminophen 1 tab 03/01/20 20:38 03/08/20 10:00 Hydrocodone-Acet aminophen 7.5-325 Mg Tablet PO 1 tab Q4H PRN Administration Pain Albuterol Sulfate 2 puff 03/01/20 20:38 Albuterol 8 Gm M di INHALATION Q4H.RESPIRATORY P RN SHORTNESS OF SERGO TH Dexamethasone 4 mg 03/02/20 19:00 03/08/20 20:11 Dexamethasone 4 Mg/Ml Inj IVP 4 mg TID WHIT Administration Dextrose 25 ml 03/01/20 20:38 Dextrose 50% Syr daniel 50 Ml IVP ONCE PRN hypoglycemia prot ocol Protocol Dextrose 50 ml 03/01/20 20:38 Dextrose 50% Syr daniel 50 Ml IVP PRN PRN hypoglycemia prot ocol Protocol Enoxaparin Sodium 40 mg 03/02/20 11:00 03/08/20 12:17 Enoxaparin 40 Mg /0.4 Ml Syringe SUBCUT 40 mg Q24H WHIT Administration Famotidine 20 mg 03/02/20 18:00 03/09/20 05:20 Famotidine 20 Mg /2 Ml Inj IVP 20 mg Q12H WHIT Administration Furosemide 40 mg 03/04/20 10:30 03/07/20 22:04 Furosemide 10 Mg /Ml Sdv 4ml IVP 40 mg Q12H WHIT Administration Glucagon 1 mg 03/01/20 20:38 Glucagon 1 Mg/Ml Inj 1 Ml IM ONCE PRN Adult Acute Hypog lycemia Prot. Protocol Dextrose 500 mls @ 100 mls /hr 03/01/20 20:38 D5w IV ONCE PRN Adult Acute Hypog lycemia Prot Protocol Norepinephrine Bit artrate 4 mg 254 mls @ 0 mls/h r 03/02/20 08:15 03/08/20 08:36 / Dextrose IV Infused .Q0M WHIT Titration Protocol Per Protocol Imipenem/Cilastati n Sodium 500 100 mls @ 200 mls /hr 03/02/20 11:00 03/09/20 05:20 mg/ Sodium Chlor matthew IV 200 mls/hr Q6H WHIT Administration Protocol Azithromycin 500 m g/ Sodium 250 mls @ 250 mls /hr 03/02/20 22:00 03/08/20 21:00 Chloride IV 250 mls/hr Q24H WHIT Administration Protocol Dexmedetomidine HC l 400 mcg/ 104 mls @ 0 mls/h r 03/05/20 05:15 Sodium Chloride IV .Q0M WHIT Protocol Per Protocol Propofol 1,000 mg in 100 m ls @ 0 mls/hr 03/07/20 15:30 03/08/20 10:01 Diprivan IV 5 mcg/kg/min .Q0M WHIT 2.6 mls/hr Administration Protocol Per Protocol Vancomycin HCl 1,0 00 mg/ 250 mls @ 250 mls /hr 03/09/20 08:00 Sodium Chloride IV Q24H WHIT Insulin Aspart 0 unit 03/05/20 12:00 03/09/20 05:19 Insulin Aspart 1 00 Unit/1 Ml SUBCUT 2 unit Q6H WHIT Administration Protocol Lorazepam 0.5 mg 03/01/20 20:38 Lorazepam 1 Mg T ablet PO TID PRN Nausea And Vomiti ng Lorazepam 1 mg 03/04/20 22:45 03/04/20 22:59 Lorazepam 2 Mg/M l Inj 1 Ml IVP 1 mg NOW PRN Administration ANXIETY Non-Formulary Medi cation 500 mg 03/01/20 20:38 Famciclovir PO TID PRN MOUTH SORES Ondansetron HCl 4 mg 03/01/20 20:38 Ondansetron 2 Mg /Ml Sdv 2 Ml IVP Q6H PRN NAUSEA AND VOMITI NG Ondansetron HCl 4 mg 03/01/20 20:38 Ondansetron 2 Mg /Ml Sdv 2 Ml IVP Q6H PRN NAUSEA AND VOMITI NG Penicillins Allergy (Verified 02/13/20 10:06) ALGY-Anaphylaxis tramadol Adverse Reaction (Verified 02/13/20 10:06) ADR-Vomiting Vitals/I&O/Wt Last Vital Signs Temp 97.5 F L 03/09/20 07:42 Pulse 96 03/09/20 07:42 Resp 27 H 03/09/20 04:40 BP 98/69 03/09/20 07:42 Pulse Ox 94 03/09/20 07:42 03/08/20 03/09/20 03/09/20 22:59 06:59 14:59 Intake Total 100 / 358.772 280 / 638.772 Output Total 525 / 525 300 / 825 Balance -425 / -166.228 -20 / -186.228 Physical Exam Const: COMMON NORMALS: no acute distress GENERAL APPEARANCE: cooperative, ill appearing and patient mechanically ventilated ORIENTATION/CONSCIOUSNESS: Yes awake OTHER: -Sedated with <del>fentanyl</del> <del>@</del> <del>100</del> <del>mcg/hr</del>, <del>Versed</del> <del>@</del> <del>4</del> <del>mg/hr,</del> propofol @ 5 mcg/kg/min HENMT: COMMON NORMALS: normocephalic and atraumatic HEAD & SCALP: normocephalic and atraumatic OTHER: -orally intubated Eye: COMMON NORMALS: Equal, round and reactive pupils present, EOMs intact bilaterally and conjunctivae normal CONJUNCTIVA: Yes conjunctivae normal PUPIL: Yes Equal, round and reactive pupils present OTHER: -legally blind Neck/C-Spine: COMMON NORMALS: full ROM GENERAL: Yes normal visual inspection, Yes trachea midline, Yes anterior neck swelling and Yes other (right sided SC emphysema) Chest: CHEST: Yes Vascular access present (port-A-cath) and Yes other (R chest tube, L thoravent) Resp: COMMON NORMALS: normal respiratory effort, No retractions and No use of accessory muscles EFFORT & INSPECTION: Yes able to speak in complete sentences, Yes symmetric chest movement and No tachypneic AUSCULTATION: diminished lung sounds (more so on the R) OTHER: -on vent support; 40%/450/6; breathing over vent, RR in 20s Cardio: COMMON NORMALS: regular rate, regular rhythm, S1 normal heart sound present, S2 normal heart sound present and No murmurs present (Cardio) RATE: regular rate RHYTHM: regular rhythm HEART SOUNDS: S1 normal heart sound present and S2 normal heart sound present OTHER: -levophed @ 0.8 mcg/min GI: COMMON NORMALS: Normal to inspection, nondistended, normoactive bowel sounds present and Soft to palpation PALPATION: Yes Soft to palpation : BLADDER/KIDNEY EXAM: Yes catheter in place Extremity: COMMON NORMALS: normal to inspection GENERAL: Yes edema (1-2 + bilateral ankle edema) Neuro: OTHER: -sedated Psych: OTHER: -sedated Skin: COMMON NORMALS: no rashes or lesions noted, no jaundice, no petechiae and no mottling GENERAL SKIN EXAM: no rashes or lesions noted Urinary Catheter Management^: Flores: Cath Placed During This Visit: yes Urinary Catheter Date of Insertion: 03/02/20 Urinary Catheter Time of Insertion: 14:11 Data : 03/09/20 03:04 03/09/20 03:04 A&P Assessment and plan (1) Respiratory failure with hypoxia: -Remains on mechanical ventilation; weaning trial; on sedation -Noted continued RLL consolidation and bilateral patchy opacifications; known nodules and metastatic disease throughout the lungs -Noted AM ABG with continued hypoxia, FiO2 stable at 40% -daily ABG, CXR while on vent -continue broad-spectrum IV antibiotic coverage with Primaxin, vancomycin, azithromycin -continue steroids -COVID-19 PCR negative, off isolation precaution -blood cx: negative -sputum cx: Alcaligenes faecalis, sensitivity noted -continue to monitor respiratory status -no PE on CTA -noted LE edema, on diuresis Status: Acute Qualifiers: Chronicity: acute Qualified Code(s): J96.01 - Acute respiratory failure with hypoxia (2) Pneumothorax: -noted moderate sized pneumothoraces bilaterally (L > R) on CT chest (03/06) -s/p R chest tube and L thoracic vent placement; continue to monitor output -daily CXR; increased subcutaneous emphysema noted -consults by Dr. Porter and Dr. Baron appreciated -close monitoring of respiratory status Status: Acute Qualifiers: Pneumothorax type: unspecified pneumothorax Qualified Code(s): J93.9 - Pneumothorax, unspecified (3) Pneumomediastinum: -imaging reviewed, noted extensive subcutaneous emphysema with pneumomediastinum Status: Acute (4) Septic shock: -As evidenced by hypoxia with need for mechanical ventilation, hypotension, leukocytosis. WBC continues to increase -Secondary to respiratory infection as noted above -Continues to require pressor support, wean as tolerated -Continue to monitor vital signs closely Status: Acute (5) Pneumonia: -as noted above Status: Acute Qualifiers: Laterality: bilateral Lung location: unspecified part of lung Pneumonia type: due to unspecified organism Qualified Code(s): J18.9 - Pneumonia, unspecified organism (6) E coli bacteremia: -Found to have E. coli bacteremia during last admission last month. Unclear etiology though presumed to be secondary to GI translocation given neutropenia and underlying immunocompromise. 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 Reyes -continue dexamethasone -poor prognosis Status: Chronic Qualifiers: Laterality: right Qualified Code(s): C34.91 - Malignant neoplasm of unspecified part of right bronchus or lung (8) Thrombocytopenia: -Stable platelet count, continue to trend -continue to monitor for bleeding; none so far -HIT panel negative Status: Chronic (9) Anemia: -Stable H/H, continue to trend Status: Chronic Qualifiers: Anemia type: unspecified type Qualified Code(s): D64.9 - Anemia, unspecified Additional A&P Information -Legally blind -previously found to have encephalopathy secondary to hyponatremia; sodium level stable -Treated with antifungal secondary to significant mucositis -LFTs normalized -Hypomagnesemia, replace as needed -Bradycardia, likely medication induced as has resolved with discontinuation of fentanyl, sinus rhythm, Echo-EF=50-55%, relative hypokinesia of septum. HR wnl -NPO as on vent support; on tube feeding due to continued need for vent support -GI ppx with famotidine -DVT ppx with lovenox; continue to monitor platelet count and H/H, stable so far -Dispo: home, likely with hospice -Code status: DNR/DNI -guarded prognosis given underlying immunocompromise, septic shock, mechanical ventilation, bilateral pneumothoraces; continue ICU care. Had extensive goals of care discussion with including code status; agreed to change to DNR/DNI Attestations Medical Necessity Statement*: Patient requires hospitalization for continued management of critical illness, continued need for vent and pressor support, chest tube, IV antibiotics. Time Spent in Patient Care: 16 - 35 minutes (>than 50% of time spent in counselling and/or direct pt care on unit). Critical Care Time: The high probability of a clinically significant, sudden or life threatening deterioration of the patient's [cardiovascular, respiratory] system(s) required my full and direct attention, intervention and personal management. The critical care time is as shown. This time is in addition to time spent performing any reported procedures but includes the following: [x] Data and vital sign review and interpretation [x] Patient assessment, examination and intervention [x] Documentation [x] Medication orders and management Critical Care Time (min): 20 Coding Level of Care Code Acute [place] for [facility] Fwd Exam Comprehensive Diagnoses Respiratory failure with hypoxia J96.01 Chronicity: acute Pneumothorax J93.9 Pneumothorax type: unspecified pneumothorax Pneumomediastinum J98.2 Septic shock A41.9; R65.21 Pneumonia J18.9 Laterality: bilateral Lung location: unspecified part of lung Pneumonia type: due to unspecified organism E coli bacteremia R78.81; B96.20 Primary lung squamous cell carcinoma C34.91 Laterality: right Thrombocytopenia D69.6 Anemia D64.9 Anemia type: unspecified type
[2020-03-09] MEDS: HYDROcodone-acetaminophen 7.5-325 mg Tablet 1 TAB PO ×3 (09:28→21:32)
--- NOTE | 2020-03-09 09:30 | PC.NURSE ---
Levophed gtt increased as propofol gtt increased. pt breathing over vent per Datar this am pt needs to be more sedated for his comfort.
[2020-03-09] MEDS: lactated ringers 1,000 ML 75 ML IV (09:35)
[2020-03-09] MEDS: vancomycin 1,000 MG in sodium chloride 0.9% 250 ML 250 MG IV (09:36)
[2020-03-09] MEDS: dexamethasone 4 mg/mL INJ IVP ×3 (09:36→21:23)
[2020-03-09] MEDS: enoxaparin 40 mg/0.4 mL Syringe SUBCUT (11:13)
[2020-03-09] MEDS: propofol 1,000 MG/100 ML INJ 7.7 MG IV (11:13)
[2020-03-09 11:37] LABS: Glucose Point of Care 181 mg/dL (70-110)
[2020-03-09] MEDS: FUROsemide 10 mg/mL SDV 4mL 40 MG IVP (16:53)
--- NOTE | 2020-03-09 17:00 | PC.NURSE ---
Pt repositioned to his left side, his preferred side to lie on. His O2 sats dropped to 85%. HIs lungs sound coarse. Rt at bedside. Repositined pt back supine sitting up in bed. Sats up to 89%. Dr Villeda notified of rishi event and that pt had only had 100ml urine output since 1030 and it remained very dark, and was at bedside. . Orders for Lasix entered by Dr. Telles admin. at bedside speaking with .
[2020-03-09 17:32] LABS: Glucose Point of Care 230 mg/dL (70-110)
[2020-03-09] MEDS: propofol 1,000 MG/100 ML INJ 12.8 MG IV (18:23)
--- NOTE | 2020-03-09 19:40 | PC.NURSE ---
Report given to KENTRELL Viera.
--- NOTE | 2020-03-09 20:29 | PC.NURSE ---
Shift summary: Pt did follow command and squeezed his left hand twice this am, extremely weak. Pt remains intubated and sedated. His sedation was increased to day for his comfort. Levophed increased so pt had a perfusion B/P while on propofol. IV fluids started today. Pulmnocare increased to 40ml/hr . Per Dr Datar Pulmnocare will need to be decreased back to 10ml/hr or off should the pt need Levophed increased to 10mcg or greater. All IV tubing chagned this shift. Pt 's port access changed. Urine color improved after Lasix administration. Urine output of 575 ml this shift.
[2020-03-09] MEDS: azithromycin 500 MG in sodium chloride 0.9% 250 ML 250 MG IV (21:23)
[2020-03-09 23:46] LABS: Glucose Point of Care 198 mg/dL (70-110)
[2020-03-10] VITALS (103 sets, daily range): BP systolic 79–112; BP diastolic 58–81; PULSE 63–92; RESP 18–23; TEMP 36.3–36.8; O2SAT 90–98
[2020-03-10] MEDS: propofol 1,000 MG/100 ML INJ 12.8 MG IV (02:25)
[2020-03-10] MEDS: lactated ringers 1,000 ML 75 ML IV (02:27)
[2020-03-10] MEDS: HYDROcodone-acetaminophen 7.5-325 mg Tablet 1 TAB PO (03:57)
[2020-03-10 04:35] LABS: ABG PCO2 35.1 mmHg (35-45); ABG PH Result 7.49 (7.35-7.45); Arterial Blood Gas Hematocrit 31.8 % (42-52); Base Excess ABG 3.3 mmol/L (-2.0-2.0); Blood Gas Allen Test Pos; Blood Gas Operator Identificat JB; Blood Gas Sample Site Radial, right; Blood Gas Sample Type Arterial; Blood Gas Tidal Volume 0.45; HCO3 ABG 26.7 mmol/L (22-26); Oxygen Device VENT; PO2 ABG 77.8 mmHg (80.0-100.0)
--- NOTE | 2020-03-10 06:00 | XRR_ITS ---
PROCEDURE INFORMATION: Exam: XR Chest, 1 View Exam date and time: 03/10/2020 12:00 AM Age: 64 years old Clinical indication: Device placement; ETT placement (vent status); Patient HX: Lung mets; Additional info: On vent support, chest tube TECHNIQUE: Imaging protocol: XR of the chest Views: Frontal portable semiupright view of the chest. COMPARISON: CR XR chest 1V portable [id number] 03/09/2020 5:12 AM FINDINGS: Tubes, catheters and devices: Tracheal tube 6 stable right chest tube position. The right internal jugular venous portacatheter tip is in the mid SVC. EKG leads are present overlying the chest. The feeding tube enters the stomach with the tip in the upper gastric body. Lungs: Bilateral pulmonary nodules, with right middle lobe mass redemonstrated, stable. The pulmonary vasculature is congested. Pleural space: Decreased right pneumothorax with minimal residual at the pulmonary apex. No pleural effusion. Heart/Mediastinum: The heart is normal in size and contour. Mediastinum: Stable. Vasculature: The left internal jugular venous catheter tip is in the lower SVC. Bones/joints: Stable. Soft tissues: Extensive chest wall soft tissue emphysema bilaterally, similar to prior study. XR/XR chest 1V portable [id number] IMPRESSION: 1. Endotracheal tube placement as above. 2. Bilateral pulmonary nodules, with right middle lobe mass redemonstrated, stable. 3. Pulmonary vascular congestion. 4. Decreased right pneumothorax with minimal residual at the pulmonary apex.
[2020-03-10 06:30] LABS: Glucose Point of Care 235 mg/dL (70-110)
[2020-03-10] MEDS: famotidine 20 mg/2 mL INJ IVP ×2 (06:30→17:53)
[2020-03-10] MEDS: propofol 1,000 MG/100 ML INJ 17.9 MG IV ×2 (06:34→13:58)
[2020-03-10 07:43] LABS: Basophils # 0.1 10^3/uL (0.0-0.1); Basophils % 0.2 %; Hematocrit 29.6 % (42.0-52.0); Hemoglobin 9.4 g/dL (11.7-16.6); Lymphocytes # 0.5 10^3/uL (0.8-4.8); Lymphocytes % 1.9 %; Mean Corpuscular HGB Conc 31.8 g/dL (30.0-36.0); Mean Corpuscular Hemoglobin 28.8 pg (28.0-34.0); Mean Corpuscular Volume 90.8 fL (80-94); Mean Platelet Volume 12.6 fL (7.4-10.4); Monocytes % 4.1 %; Neutrophils # 21.99 10^3/uL (1.8-7.7); Nucleated Red Blood Cells # 0.3 /100WBC; Nucleated Red Blood Cells % 1.3 %; Platelet Count 115 10^3/cmm (130-400); Red Blood Count 3.26 10^6/uL (4.1-5.3); Red Cell Distribution Width 21.5 % (12.1-15.1); White Blood Count 25.3 10^3/uL (4.0-10.0)
[2020-03-10 07:46] LABS: Neutrophils % 93.8 %
[2020-03-10 08:05] LABS: Anion Gap 12.6 (5-19); Blood Urea Nitrogen 51 mg/dL (8-23); Carbon Dioxide 27 mmol/L (22-29); Chloride 103 mmol/L (98-107); Glucose 200 mg/dL (65-115); Osmolality Calculated 307 mOsm/kg (285-295); Potassium 3.6 mmol/L (3.5-5.1); Sodium 139 mmol/L (136-145)
[2020-03-10 08:10] LABS: Vancomycin Trough 16.7 ug/mL (10-15)
--- NOTE | 2020-03-10 08:19 | PM.PN ---
Subjective Subjective: Interval history: Remains on ventilator support and pressor support, had 1200 mL urine output overnight. Blood pressure trending down, afebrile, tachypneic. Stable leukocytosis, hemoglobin and renal function. Some improvement in oxygenation on a.m. ABG. Noted pulmonary vascular congestion on imaging today. Had 10 mL output from R chest tube. Will discontinue suction for now, try to decrease sedation and give additional diuretics. Medications: Reviewed: Yes Medication Review Details: Active Medications Generic Name Dose Route Start Last Admin Trade Name Freq PRN Reason Stop Dose Admin Acetaminophen 650 mg 03/01/20 20:38 Acetaminophen 32 5 Mg Tablet PO Q6H PRN Mild/Mod Pain Or Temp >/= 101 Hydrocodone Bitart /Acetaminophen 1 tab 03/01/20 20:38 03/10/20 03:57 Hydrocodone-Acet aminophen 7.5-325 Mg Tablet PO 1 tab Q4H PRN Administration Pain Albuterol Sulfate 2 puff 03/01/20 20:38 Albuterol 8 Gm M di INHALATION Q4H.RESPIRATORY P RN SHORTNESS OF SERGO TH Dexamethasone 4 mg 03/02/20 19:00 03/09/20 21:23 Dexamethasone 4 Mg/Ml Inj IVP 4 mg TID WHIT Administration Dextrose 25 ml 03/01/20 20:38 Dextrose 50% Syr daniel 50 Ml IVP ONCE PRN hypoglycemia prot ocol Protocol Dextrose 50 ml 03/01/20 20:38 Dextrose 50% Syr daniel 50 Ml IVP PRN PRN hypoglycemia prot ocol Protocol Enoxaparin Sodium 40 mg 03/02/20 11:00 03/09/20 11:13 Enoxaparin 40 Mg /0.4 Ml Syringe SUBCUT 40 mg Q24H WHIT Administration Famotidine 20 mg 03/02/20 18:00 03/10/20 06:30 Famotidine 20 Mg /2 Ml Inj IVP 20 mg Q12H WHIT Administration Furosemide 40 mg 03/04/20 10:30 03/07/20 22:04 Furosemide 10 Mg /Ml Sdv 4ml IVP 40 mg Q12H WHIT Administration Glucagon 1 mg 03/01/20 20:38 Glucagon 1 Mg/Ml Inj 1 Ml IM ONCE PRN Adult Acute Hypog lycemia Prot. Protocol Dextrose 500 mls @ 100 mls /hr 03/01/20 20:38 D5w IV ONCE PRN Adult Acute Hypog lycemia Prot Protocol Norepinephrine Bit artrate 4 mg 254 mls @ 0 mls/h r 03/02/20 08:15 03/10/20 03:49 / Dextrose IV 7.5 mls/hr .Q0M WHIT 7.5 mls/hr Titration Protocol Per Protocol Imipenem/Cilastati n Sodium 500 100 mls @ 200 mls /hr 03/02/20 11:00 03/10/20 04:56 mg/ Sodium Chlor matthew IV 200 mls/hr Q6H WHIT Administration Protocol Azithromycin 500 m g/ Sodium 250 mls @ 250 mls /hr 03/02/20 22:00 03/09/20 22:23 Chloride IV Infused Q24H WHIT Infusion Protocol Dexmedetomidine HC l 400 mcg/ 104 mls @ 0 mls/h r 03/05/20 05:15 Sodium Chloride IV .Q0M WHIT Protocol Per Protocol Propofol 1,000 mg in 100 m ls @ 0 mls/hr 03/07/20 15:30 03/10/20 06:34 Diprivan IV 35 mcg/kg/min .Q0M WHIT 17.9 mls/hr Administration Protocol Per Protocol Vancomycin HCl 1,0 00 mg/ 250 mls @ 250 mls /hr 03/09/20 08:00 03/09/20 10:40 Sodium Chloride IV Infused Q24H WHIT Infusion Lactated Ringer's 1,000 mls @ 75 ml s/hr 03/09/20 09:15 03/10/20 02:27 Lactated Ringers IV 75 mls/hr .[id number] WHIT Administration Insulin Aspart 0 unit 03/05/20 12:00 03/10/20 06:30 Insulin Aspart 1 00 Unit/1 Ml SUBCUT 6 unit Q6H WHIT Administration Protocol Lorazepam 0.5 mg 03/01/20 20:38 Lorazepam 1 Mg T ablet PO TID PRN Nausea And Vomiti ng Lorazepam 1 mg 03/04/20 22:45 03/04/20 22:59 Lorazepam 2 Mg/M l Inj 1 Ml IVP 1 mg NOW PRN Administration ANXIETY Non-Formulary Medi cation 500 mg 03/01/20 20:38 Famciclovir PO TID PRN MOUTH SORES Ondansetron HCl 4 mg 03/01/20 20:38 Ondansetron 2 Mg /Ml Sdv 2 Ml IVP Q6H PRN NAUSEA AND VOMITI NG Penicillins Allergy (Verified 02/13/20 10:06) ALGY-Anaphylaxis tramadol Adverse Reaction (Verified 02/13/20 10:06) ADR-Vomiting Vitals/I&O/Wt Last Vital Signs Temp 96.8 F L 03/09/20 19:45 Pulse 80 03/10/20 06:45 Resp 20 H 03/10/20 06:40 BP 88/66 03/10/20 06:45 Pulse Ox 97 03/10/20 06:45 03/09/20 03/10/20 03/10/20 22:59 06:59 14:59 Intake Total 574.537 / 4984.980 1761.080 / 2497.940 Output Total 1252 / 1427 358 / 1785 Balance -677.463 / -245.140 958.080 / 712.940 Physical Exam Const: COMMON NORMALS: no acute distress GENERAL APPEARANCE: ill appearing, Edematous and patient mechanically ventilated ORIENTATION/CONSCIOUSNESS: Yes awake OTHER: -Sedated with <del>fentanyl</del> <del>@</del> <del>100</del> <del>mcg/hr</del>, <del>Versed</del> <del>@</del> <del>4</del> <del>mg/hr,</del> propofol @ 35 mcg/kg/min HENMT: COMMON NORMALS: normocephalic and atraumatic HEAD & SCALP: normocephalic and atraumatic OTHER: -orally intubated Eye: COMMON NORMALS: Equal, round and reactive pupils present, EOMs intact bilaterally and conjunctivae normal CONJUNCTIVA: Yes conjunctivae normal PUPIL: Yes Equal, round and reactive pupils present OTHER: -legally blind Neck/C-Spine: COMMON NORMALS: full ROM GENERAL: Yes normal visual inspection, Yes trachea midline, Yes anterior neck swelling and Yes other (right sided SC emphysema) Chest: CHEST: Yes Vascular access present (port-A-cath) and Yes other (R chest tube, L thoravent) Resp: COMMON NORMALS: normal respiratory effort, No retractions and No use of accessory muscles EFFORT & INSPECTION: Yes symmetric chest movement and Yes tachypneic AUSCULTATION: diminished lung sounds (more so on the R) OTHER: -on vent support; 40%/450/6; breathing over vent, RR in 16-20 range Cardio: COMMON NORMALS: regular rate, regular rhythm, S1 normal heart sound present, S2 normal heart sound present and No murmurs present (Cardio) RATE: regular rate RHYTHM: regular rhythm HEART SOUNDS: S1 normal heart sound present and S2 normal heart sound present OTHER: -levophed @ 3 mcg/min GI: COMMON NORMALS: Normal to inspection, nondistended, normoactive bowel sounds present and Soft to palpation PALPATION: Yes Soft to palpation : BLADDER/KIDNEY EXAM: Yes catheter in place Extremity: COMMON NORMALS: normal to inspection GENERAL: Yes edema (1-2 + bilateral ankle edema) Neuro: OTHER: -sedated -seems to move his LUE primarily and spontaneously Psych: OTHER: -sedated Skin: COMMON NORMALS: no rashes or lesions noted, no jaundice, no petechiae and no mottling GENERAL SKIN EXAM: no rashes or lesions noted OTHER: -some noted areas of bruising on toes, L plantar foot Urinary Catheter Management^: Flores: Cath Placed During This Visit: yes Urinary Catheter Date of Insertion: 03/02/20 Urinary Catheter Time of Insertion: 14:11 Data : 03/10/20 07:30 03/10/20 07:30 A&P Assessment and plan (1) Respiratory failure with hypoxia: -Remains on mechanical ventilation (day 10); weaning trial; on sedation -Noted continued RLL consolidation and bilateral patchy opacifications; known nodules and metastatic disease throughout the lungs -Noted AM ABG with continued hypoxia, FiO2 stable at 40% -daily ABG, CXR while on vent -continue broad-spectrum IV antibiotic coverage with Primaxin, vancomycin, azithromycin -continue steroids -COVID-19 PCR negative, off isolation precaution -blood cx: negative -sputum cx: Alcaligenes faecalis, sensitivity noted -continue to monitor respiratory status -no PE on CTA -noted LE edema, on diuresis Status: Acute Qualifiers: Chronicity: acute Qualified Code(s): J96.01 - Acute respiratory failure with hypoxia (2) Pneumothorax: -noted moderate sized pneumothoraces bilaterally (L > R) on CT chest (03/06) -s/p R chest tube and L thoracic vent placement; continue to monitor output -daily CXR; unchanged subcutaneous emphysema noted, decreased R PTX -consults by Dr. Porter and Dr. Baron appreciated -close monitoring of respiratory status Status: Acute Qualifiers: Pneumothorax type: unspecified pneumothorax Qualified Code(s): J93.9 - Pneumothorax, unspecified (3) Pneumomediastinum: -imaging reviewed, noted extensive subcutaneous emphysema with pneumomediastinum Status: Acute (4) Septic shock: -As evidenced by hypoxia with need for mechanical ventilation, hypotension, leukocytosis. WBC continues to increase -Secondary to respiratory infection as noted above -Continues to require pressor support, wean as tolerated -Continue to monitor vital signs closely Status: Acute (5) Pneumonia: -as noted above Status: Acute Qualifiers: Laterality: bilateral Lung location: unspecified part of lung Pneumonia type: due to unspecified organism Qualified Code(s): J18.9 - Pneumonia, unspecified organism (6) E coli bacteremia: -Found to have E. coli bacteremia during last admission last month. Unclear etiology though presumed to be secondary to GI translocation given neutropenia and underlying immunocompromise. 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 Reyes -continue dexamethasone -poor prognosis Status: Chronic Qualifiers: Laterality: right Qualified Code(s): C34.91 - Malignant neoplasm of unspecified part of right bronchus or lung (8) Thrombocytopenia: -Stable platelet count, continue to trend -continue to monitor for bleeding; none so far -HIT panel negative Status: Chronic (9) Anemia: -Stable H/H, continue to trend Status: Chronic Qualifiers: Anemia type: unspecified type Qualified Code(s): D64.9 - Anemia, unspecified Additional A&P Information -Legally blind -previously found to have encephalopathy secondary to hyponatremia; sodium level stable -Treated with antifungal secondary to significant mucositis -LFTs normalized -Hypomagnesemia, replace as needed -Bradycardia, likely medication induced as has resolved with discontinuation of fentanyl, sinus rhythm, Echo-EF=50-55%, relative hypokinesia of septum. HR wnl -NPO as on vent support; on tube feeding due to continued need for vent support -GI ppx with famotidine -DVT ppx with lovenox; continue to monitor platelet count and H/H, stable so far -Dispo: home, likely with hospice -Code status: DNR/DNI -guarded prognosis given underlying immunocompromise, septic shock, mechanical ventilation, bilateral pneumothoraces; continue ICU care. Had extensive goals of care discussion with including code status; agreed to change to DNR/DNI Attestations Medical Necessity Statement*: Patient requires hospitalization for continued treatment of critical illness, remains on ventilator and pressor support, broad-spectrum IV antibiotics. Time Spent in Patient Care: 16 - 35 minutes (>than 50% of time spent in counselling and/or direct pt care on unit). Critical Care Time: The high probability of a clinically significant, sudden or life threatening deterioration of the patient's [cardiovascular, respiratory] system(s) required my full and direct attention, intervention and personal management. The critical care time is as shown. This time is in addition to time spent performing any reported procedures but includes the following: [x] Data and vital sign review and interpretation [x] Patient assessment, examination and intervention [x] Documentation [x] Medication orders and management Critical Care Time (min): 20 Coding Level of Care Code Acute Shirt Bander for [facility] Fwd Exam Comprehensive Diagnoses Respiratory failure with hypoxia J96.01 Chronicity: acute Pneumothorax J93.9 Pneumothorax type: unspecified pneumothorax Pneumomediastinum J98.2 Septic shock A41.9; R65.21 Pneumonia J18.9 Laterality: bilateral Lung location: unspecified part of lung Pneumonia type: due to unspecified organism E coli bacteremia R78.81; B96.20 Primary lung squamous cell carcinoma C34.91 Laterality: right Thrombocytopenia D69.6 Anemia D64.9 Anemia type: unspecified type
[2020-03-10] MEDS: dexamethasone 4 mg/mL INJ IVP ×3 (08:23→20:09)
[2020-03-10] MEDS: vancomycin 1,000 MG in sodium chloride 0.9% 250 ML 250 MG IV (08:23)
--- NOTE | 2020-03-10 10:09 | PC.NURSE ---
lowered sedation both chest tubes with suction off at this per Dr Porter and Dr Villeda in room to see pt ivf decreased to tko at this time hob elevated
[2020-03-10] MEDS: FUROsemide 10 mg/mL SDV 4mL 40 MG IVP (10:49)
[2020-03-10] MEDS: enoxaparin 40 mg/0.4 mL Syringe SUBCUT (10:51)
[2020-03-10 11:59] LABS: Glucose Point of Care 198 mg/dL (70-110)
--- NOTE | 2020-03-10 14:20 | PM.PN ---
Subjective Subjective: Interval history: - No acute events overnight -Afebrile; yesterday we started IV fluids to help with hydration -Overall patient is +700 cc in last 24 hours but clinically looks overloaded -We will DC fluids and give albumin with Lasix - Still requiring Levophed 3 -Chest x-ray reported as residual minimal right apical pneumothorax but there is no air leak noted right and left chest tube Chambers -Recommended to DC suction on both chambers and repeat an x-ray today evening -Patient on propofol 35-recommended to wean off sedation try to wake up patient - changed CODE STATUS to DNR Medications: Reviewed: Yes Medication Review Details: Active Medications Generic Name Dose Route Start Last Admin Trade Name Freq PRN Reason Stop Dose Admin Acetaminophen 650 mg 03/01/20 20:38 Acetaminophen 32 5 Mg Tablet PO Q6H PRN Mild/Mod Pain Or Temp >/= 101 Hydrocodone Bitart /Acetaminophen 1 tab 03/01/20 20:38 03/10/20 03:57 Hydrocodone-Acet aminophen 7.5-325 Mg Tablet PO 1 tab Q4H PRN Administration Pain Albuterol Sulfate 2 puff 03/01/20 20:38 Albuterol 8 Gm M di INHALATION Q4H.RESPIRATORY P RN SHORTNESS OF SERGO TH Dexamethasone 4 mg 03/02/20 19:00 03/09/20 21:23 Dexamethasone 4 Mg/Ml Inj IVP 4 mg TID WHIT Administration Dextrose 25 ml 03/01/20 20:38 Dextrose 50% Syr daniel 50 Ml IVP ONCE PRN hypoglycemia prot ocol Protocol Dextrose 50 ml 03/01/20 20:38 Dextrose 50% Syr daniel 50 Ml IVP PRN PRN hypoglycemia prot ocol Protocol Enoxaparin Sodium 40 mg 03/02/20 11:00 03/09/20 11:13 Enoxaparin 40 Mg /0.4 Ml Syringe SUBCUT 40 mg Q24H WHIT Administration Famotidine 20 mg 03/02/20 18:00 03/10/20 06:30 Famotidine 20 Mg /2 Ml Inj IVP 20 mg Q12H WHIT Administration Furosemide 40 mg 03/04/20 10:30 03/07/20 22:04 Furosemide 10 Mg /Ml Sdv 4ml IVP 40 mg Q12H WHIT Administration Glucagon 1 mg 03/01/20 20:38 Glucagon 1 Mg/Ml Inj 1 Ml IM ONCE PRN Adult Acute Hypog lycemia Prot. Protocol Dextrose 500 mls @ 100 mls /hr 03/01/20 20:38 D5w IV ONCE PRN Adult Acute Hypog lycemia Prot Protocol Norepinephrine Bit artrate 4 mg 254 mls @ 0 mls/h r 03/02/20 08:15 03/10/20 03:49 / Dextrose IV 7.5 mls/hr .Q0M WHIT 7.5 mls/hr Titration Protocol Per Protocol Imipenem/Cilastati n Sodium 500 100 mls @ 200 mls /hr 03/02/20 11:00 03/10/20 04:56 mg/ Sodium Chlor matthew IV 200 mls/hr Q6H WHIT Administration Protocol Azithromycin 500 m g/ Sodium 250 mls @ 250 mls /hr 03/02/20 22:00 03/09/20 22:23 Chloride IV Infused Q24H WHIT Infusion Protocol Dexmedetomidine HC l 400 mcg/ 104 mls @ 0 mls/h r 03/05/20 05:15 Sodium Chloride IV .Q0M WHIT Protocol Per Protocol Propofol 1,000 mg in 100 m ls @ 0 mls/hr 03/07/20 15:30 03/10/20 06:34 Diprivan IV 35 mcg/kg/min .Q0M WHIT 17.9 mls/hr Administration Protocol Per Protocol Vancomycin HCl 1,0 00 mg/ 250 mls @ 250 mls /hr 03/09/20 08:00 03/09/20 10:40 Sodium Chloride IV Infused Q24H WHIT Infusion Lactated Ringer's 1,000 mls @ 75 ml s/hr 03/09/20 09:15 03/10/20 02:27 Lactated Ringers IV 75 mls/hr .[id number] WHIT Administration Insulin Aspart 0 unit 03/05/20 12:00 03/10/20 06:30 Insulin Aspart 1 00 Unit/1 Ml SUBCUT 6 unit Q6H WHIT Administration Protocol Lorazepam 0.5 mg 03/01/20 20:38 Lorazepam 1 Mg T ablet PO TID PRN Nausea And Vomiti ng Lorazepam 1 mg 03/04/20 22:45 03/04/20 22:59 Lorazepam 2 Mg/M l Inj 1 Ml IVP 1 mg NOW PRN Administration ANXIETY Non-Formulary Medi cation 500 mg 01/01/21 20:38 Famciclovir PO TID PRN MOUTH SORES Ondansetron HCl 4 mg 03/01/20 20:38 Ondansetron 2 Mg /Ml Sdv 2 Ml IVP Q6H PRN NAUSEA AND VOMITI NG Penicillins Allergy (Verified 02/13/20 10:06) ALGY-Anaphylaxis tramadol Adverse Reaction (Verified 02/13/20 10:06) ADR-Vomiting Vitals/I&O/Wt Last Vital Signs Temp 96.8 F L 03/09/20 19:45 Pulse 79 03/10/20 14:00 Resp 20 H 03/10/20 13:46 BP 106/65 03/10/20 14:00 Pulse Ox 94 03/10/20 14:00 03/09/20 03/10/20 03/10/20 22:59 06:59 14:59 Intake Total 574.537 / 9704.465 9001.080 / 2597.940 500 / 500 Output Total 1252 / 1427 358 / 1785 2150 / 2150 Balance -677.463 / -371.042 9288.080 / 812.940 -1650 / -1650 Physical Exam Narrative: EXAM NARRATIVE: PHYSICAL EXAM: General: lying in bed, sedated and intubated, HEENT:NCAT, PERRLA, EOMI, dry mucous membranes Neck: Supple Lungs: Improved breath sounds on left upper and right upper lobes. Reduced breath sounds on right lower lobe Heart: s1/s2, RRR Abd: soft, NT, ND, BS + Normoactive Extremities: No edema [employer]ST[employer]ER: sedated and limited [employer] INST[employer]ER exam possible. moves limbs off sedation and follows commands but slowly SKIN: no rash LDA: # CVC: Right IJ 03/02/2020 # Flores: 03/02/2020 # Chest tubes: Right chest tube 03/06/2020: Left anterior Thora vent 03/06/2020 Urinary Catheter Management^: Flores: Cath Placed During This Visit: yes Urinary Catheter Date of Insertion: 03/02/20 Urinary Catheter Time of Insertion: 14:11 Data : 03/10/20 07:30 03/10/20 07:30 A&P Assessment and plan (1) Respiratory failure with hypoxia: Status: Acute Qualifiers: Chronicity: acute Qualified Code(s): J96.01 - Acute respiratory failure with hypoxia (2) Pneumomediastinum: Status: Acute (3) Pneumothorax: Status: Acute Qualifiers: Pneumothorax type: unspecified pneumothorax Qualified Code(s): J93.9 - Pneumothorax, unspecified (4) Septic shock: Status: Acute (5) Pneumonia: Status: Acute Qualifiers: Laterality: bilateral Lung location: unspecified part of lung Pneumonia type: due to unspecified organism Qualified Code(s): J18.9 - Pneumonia, unspecified organism (6) Primary lung squamous cell carcinoma: Status: Chronic Qualifiers: Laterality: right Qualified Code(s): C34.91 - Malignant neoplasm of unspecified part of right bronchus or lung #Acute hypoxic respiratory failure secondary to HCAP and patient with underlying metastatic squamous cell carcinoma #Septic shock secondary to Alcaligenes faecalis pneumonia #Bilateral pneumothorax/pneumomediastinum/pneumoperitoneum/extensive subcutaneous emphysema-secondary to positive pressure ventilation - ?? Fistula between cavitary lung mass to pleural space - No acute events overnight -Afebrile; yesterday we started IV fluids to help with hydration -Overall patient is +700 cc in last 24 hours but clinically looks overloaded -We will DC fluids and give albumin with Lasix; - Still requiring Levophed 3 - ABG today morning 7.4 //26 on 450/14/6/40 percent -Chest x-ray reported as residual minimal right apical pneumothorax but there is no air leak noted right and left chest tube Chambers -Recommended to DC suction on both chambers and repeat an x-ray today evening -Patient on propofol 35-recommended to wean off sedation try to wake up patient - changed CODE STATUS to DNR - no more right-sided chest tube output - Recommended tube feeds @ 30 mls/hr and if levophed > 10 then down to trickle feeds -Sputum cultures positive for Alcaligenes faecalis -Continue imipenem and DC vancomycin and azithromycin -Echo 03/05/2020: Borderline low EF 50 to 55% and relative hypokinesia of the septum. -Lovenox 40 mg daily - continue to do awakening followed by breathing trials from tomorrow and extubate if passes Recommendations conveyed to hospitalist covering the patient Attestations Medical Necessity Statement*: Acute hypoxic respiratory failure secondary to HCAP and patient with underlying metastatic squamous cell carcinoma & Septic shock secondary to Alcaligenes faecalis pneumonia c/b Bilateral pneumothorax/pneumomediastinum/pneumoperitoneum/extensive subcutaneous emphysema-secondary to positive pressure ventilation - ?? Fistula between cavitary lung mass to pleural space Time Spent in Patient Care: Greater than 35 minutes (>than 50% of time spent in counselling and/or direct pt care on unit). Critical Care Time: Critical Care Time (min): 45 Coding Level of Care Code Acute Medical Staff Services Manager for [facility] Fwd Diagnoses Respiratory failure with hypoxia J96.01 Chronicity: acute Pneumomediastinum J98.2 Pneumothorax J93.9 Pneumothorax type: unspecified pneumothorax Septic shock A41.9; R65.21 Pneumonia J18.9 Laterality: bilateral Lung location: unspecified part of lung Pneumonia type: due to unspecified organism Primary lung squamous cell carcinoma C34.91 Laterality: right
[2020-03-10 14:22] LABS: Oxygen Device VENT
--- NOTE | 2020-03-10 17:00 | XRR_ITS ---
PROCEDURE INFORMATION: Exam: XR Chest, 1 View Exam date and time: 03/10/2020 10:11 AM Age: 64 years old Clinical indication: Device placement; Chest tube; Additional info: Chest tube, progression of ptx TECHNIQUE: Imaging protocol: XR of the chest Views: 1 view. COMPARISON: CR (CHEST, ) 03/10/2020 5:37 AM FINDINGS: Tubes, catheters and devices: ET tube tip projects 4.6 cm superior to the chuy. Right-sided chest tube positioned along the lateral aspect of the right hemithorax. Lucency poorly visualized at the right lung base suggestive of a small pneumothorax, similar to the prior study. Right lung mass near the right perihilar region is unchanged. Multiple bilateral pulmonary nodules. Central venous catheters are stable in position. Lungs: See Tubes, catheters and devices finding. Pleural space: Costophrenic angles are obscured and pleural effusions cannot be excluded. Heart/Mediastinum: Unremarkable. No cardiomegaly. Bones/joints: Unremarkable. Soft tissues: Extensive soft tissue emphysema. XR/XR chest 1V portable [id number] IMPRESSION: 1. Lucency at the right lung base is suggestive of a small pneumothorax and is similar to the prior study. 2. Right lung mass and multiple bilateral pulmonary nodular similar to the prior study.
[2020-03-10 18:04] LABS: Glucose Point of Care 190 mg/dL (70-110)
[2020-03-10 18:22] LABS: Anion Gap 14.3 (5-19); Blood Urea Nitrogen 48 mg/dL (8-23); Calcium 8.2 mg/dL (8.5-10.5); Carbon Dioxide 28 mmol/L (22-29); Chloride 102 mmol/L (98-107); Glomerular Filtration Rate 114.3 mL/min (90-130); Glucose 208 mg/dL (65-115); Osmolality Calculated 311 mOsm/kg (285-295); Potassium 3.3 mmol/L (3.5-5.1); Sodium 141 mmol/L (136-145)
[2020-03-10] MEDS: lidocaine 1% 5 ML in potassium chloride premix 100 ML 25 ML IV (20:05)
[2020-03-10] MEDS: propofol 1,000 MG/100 ML INJ 15.4 MG IV (20:10)
[2020-03-10] MEDS: azithromycin 500 MG in sodium chloride 0.9% 250 ML 250 MG IV (22:46)
[2020-03-11] VITALS (106 sets, daily range): BP systolic 77–126; BP diastolic 51–80; PULSE 48–88; RESP 18–27; TEMP 35.6–37.1; O2SAT 88–100
[2020-03-11 00:26] LABS: Glucose Point of Care 210 mg/dL (70-110)
[2020-03-11] MEDS: propofol 1,000 MG/100 ML INJ 17.9 MG IV ×5 (01:17→23:21)
[2020-03-11 03:47] LABS: Hemoglobin 6.9 g/dL (11.7-16.6); Mean Corpuscular HGB Conc 31.4 g/dL (30.0-36.0); Mean Corpuscular Hemoglobin 28.6 pg (28.0-34.0); Mean Corpuscular Volume 91.3 fL (80-94); Mean Platelet Volume 12.7 fL (7.4-10.4); Platelet Count 74 10^3/cmm (130-400); Red Blood Count 2.41 10^6/uL (4.1-5.3); Red Cell Distribution Width 21.4 % (12.1-15.1); White Blood Count 15.1 10^3/uL (4.0-10.0)
[2020-03-11 04:14] LABS: Anion Gap 12.7 (5-19); Blood Urea Nitrogen 45 mg/dL (8-23); Calcium 8.3 mg/dL (8.5-10.5); Carbon Dioxide 29 mmol/L (22-29); Chloride 105 mmol/L (98-107); Glomerular Filtration Rate 114.3 mL/min (90-130); Glucose 214 mg/dL (65-115); Osmolality Calculated 314 mOsm/kg (285-295); Potassium 3.7 mmol/L (3.5-5.1); Sodium 143 mmol/L (136-145)
[2020-03-11 04:17] LABS: Slide Review Slide Review Perform
[2020-03-11 04:24] LABS: Absolute Neutrophil 14.2 10^3/cmm (1.4-6.5); Absolute Segmented Neutrophil 12.2 10/cmm (1.6-7.1); Eosinophils 0 %; Lymphocytes 5 %; Platelet Estimate Decreased (Normal); Segmented Neutrophils 81 %; Total Cells Counted 100 (0-100)
[2020-03-11 04:25] LABS: Poikilocytosis 1+; Polychromasia 1+
[2020-03-11 04:28] LABS: ABG PCO2 35.3 mmHg (35-45); ABG PH Result 7.51 (7.35-7.45); Arterial Blood Gas Hematocrit 21.5 % (42-52); Blood Gas Allen Test Pos; Blood Gas Operator Identificat Anonymous; Blood Gas Sample Site Radial, right; Blood Gas Sample Type Arterial; HCO3 ABG 28.4 mmol/L (22-26); PO2 ABG 66.7 mmHg (80.0-100.0)
[2020-03-11 04:29] LABS: Blood Gas Tidal Volume 0.45; Oxygen Device VENT
[2020-03-11] MEDS: famotidine 20 mg/2 mL INJ IVP (05:56)
--- NOTE | 2020-03-11 06:00 | XRR_ITS ---
PROCEDURE INFORMATION: Exam: XR Chest, 1 View Exam date and time: 03/11/2020 4:54 AM Age: 64 years old Clinical indication: Device placement; Ett placement (vent status); Additional info: On vent support, chest tube TECHNIQUE: Imaging protocol: XR of the chest Views: 1 view. COMPARISON: 1. CR (CHEST, ) 03/10/2020 5:[address] chest wo con [id number] 03/06/2020 12:06:26 PM FINDINGS: Tubes, catheters and devices: Endotracheal tube present with the tip 5.5 cm above the chuy. An enteric tube extends down into the stomach and off of the image. Right jugular port present with the catheter tip in the superior vena cava. Left jugular central line present with the tip in the superior vena cava. Interval placement of a right large bore thoracostomy tube. Lungs: Bibasilar pulmonary opacities, not significantly changed in the interval. Pleural space: Small left apical pneumothorax measuring approximately 1.5 cm between the visceral and parietal pleura. Additional small lateral and inferomedial components as well. No right pneumothorax. Heart/Mediastinum: The cardiac silhouette is not enlarged. The mediastinal contours are within normal limits. Bones/joints: No acute osseous abnormality Soft tissues: Bilateral subcutaneous emphysema. XR/XR chest 1V portable [id number] IMPRESSION: 1. Interval placement of large bore right thoracostomy tube. No right pneumothorax. 2. Redemonstration of small left pneumothorax.
[2020-03-11 06:07] LABS: Glucose Point of Care 183 mg/dL (70-110)
--- NOTE | 2020-03-11 08:10 | PM.PN ---
Subjective Subjective: Interval history: Overnight, had 825 mL urine output, no output from chest tube. Remains on ventilator support, FiO2 40%, on Levophed, sedation of propofol. Noted significant drop in hemoglobin from 9.4-6.9, improved leukocytosis and worsening thrombocytopenia. Will repeat CBC for confirmation with type and screen in case of need for transfusion of blood products. ABG with some worsening alkalosis and hypoxia. CXR report pending. Off levophed, so far BP holding. Medications: Reviewed: Yes Medication Review Details: Active Medications Generic Name Dose Route Start Last Admin Trade Name Freq PRN Reason Stop Dose Admin Acetaminophen 650 mg 03/01/20 20:38 Acetaminophen 32 5 Mg Tablet PO Q6H PRN Mild/Mod Pain Or Temp >/= 101 Hydrocodone Bitart /Acetaminophen 1 tab 03/01/20 20:38 03/10/20 03:57 Hydrocodone-Acet aminophen 7.5-325 Mg Tablet PO 1 tab Q4H PRN Administration Pain Albuterol Sulfate 2 puff 03/01/20 20:38 Albuterol 8 Gm M di INHALATION Q4H.RESPIRATORY P RN SHORTNESS OF SERGO TH Dexamethasone 4 mg 03/02/20 19:00 03/10/20 20:09 Dexamethasone 4 Mg/Ml Inj IVP 4 mg TID WHIT Administration Dextrose 25 ml 03/01/20 20:38 Dextrose 50% Syr daniel 50 Ml IVP ONCE PRN hypoglycemia prot ocol Protocol Dextrose 50 ml 03/01/20 20:38 Dextrose 50% Syr daniel 50 Ml IVP PRN PRN hypoglycemia prot ocol Protocol Enoxaparin Sodium 40 mg 03/02/20 11:00 03/10/20 10:51 Enoxaparin 40 Mg /0.4 Ml Syringe SUBCUT 40 mg Q24H WHIT Administration Famotidine 20 mg 03/02/20 18:00 03/11/20 05:56 Famotidine 20 Mg /2 Ml Inj IVP 20 mg Q12H WHIT Administration Furosemide 40 mg 03/04/20 10:30 03/07/20 22:04 Furosemide 10 Mg /Ml Sdv 4ml IVP 40 mg Q12H WHIT Administration Glucagon 1 mg 03/01/20 20:38 Glucagon 1 Mg/Ml Inj 1 Ml IM ONCE PRN Adult Acute Hypog lycemia Prot. Protocol Dextrose 500 mls @ 100 mls /hr 03/01/20 20:38 D5w IV ONCE PRN Adult Acute Hypog lycemia Prot Protocol Norepinephrine Bit artrate 4 mg 254 mls @ 0 mls/h r 03/02/20 08:15 03/11/20 04:03 / Dextrose IV 3.7 mls/hr .Q0M WHIT 3.7 mls/hr Titration Protocol Per Protocol Imipenem/Cilastati n Sodium 500 100 mls @ 200 mls /hr 03/02/20 11:00 03/11/20 05:56 mg/ Sodium Chlor matthew IV 200 mls/hr Q6H WHIT Administration Protocol Azithromycin 500 m g/ Sodium 250 mls @ 250 mls /hr 03/02/20 22:00 03/10/20 22:46 Chloride IV 250 mls/hr Q24H WHIT Administration Protocol Dexmedetomidine HC l 400 mcg/ 104 mls @ 0 mls/h r 03/05/20 05:15 Sodium Chloride IV .Q0M WHIT Protocol Per Protocol Propofol 1,000 mg in 100 m ls @ 0 mls/hr 03/07/20 15:30 03/11/20 07:11 Diprivan IV 35 mcg/kg/min .Q0M WHIT 17.9 mls/hr Administration Protocol Per Protocol Vancomycin HCl 1,0 00 mg/ 250 mls @ 250 mls /hr 03/09/20 08:00 03/10/20 08:23 Sodium Chloride IV 250 mls/hr Q24H WHIT Administration Insulin Aspart 0 unit 03/05/20 12:00 03/11/20 06:15 Insulin Aspart 1 00 Unit/1 Ml SUBCUT 4 unit Q6H WHIT Administration Protocol Lorazepam 0.5 mg 03/01/20 20:38 Lorazepam 1 Mg T ablet PO TID PRN Nausea And Vomiti ng Lorazepam 1 mg 03/04/20 22:45 03/04/20 22:59 Lorazepam 2 Mg/M l Inj 1 Ml IVP 1 mg NOW PRN Administration ANXIETY Non-Formulary Medi cation 500 mg 03/01/20 20:38 Famciclovir PO TID PRN MOUTH SORES Ondansetron HCl 4 mg 03/01/20 20:38 Ondansetron 2 Mg /Ml Sdv 2 Ml IVP Q6H PRN NAUSEA AND VOMITI NG Penicillins Allergy (Verified 12/15/20 10:06) ALGY-Anaphylaxis tramadol Adverse Reaction (Verified 02/13/20 10:06) ADR-Vomiting Vitals/I&O/Wt Last Vital Signs Temp 98.3 F 03/10/20 19:15 Pulse 60 03/11/20 07:00 Resp 21 H 03/11/20 05:59 BP 116/68 03/11/20 07:00 Pulse Ox 96 03/11/20 07:00 03/10/20 03/11/20 03/11/20 22:59 06:59 14:59 Intake Total 451.902 / 1051.902 266.485 / 1318.387 65.963 / 65.963 Output Total 1750 / 3900 425 / 4325 Balance -1298.098 / -2848.098 -158.515 / -3006.613 65.963 / 65.963 Physical Exam Const: COMMON NORMALS: no acute distress GENERAL APPEARANCE: ill appearing, Edematous and patient mechanically ventilated ORIENTATION/CONSCIOUSNESS: Yes awake OTHER: -Sedated with <del>fentanyl</del> <del>@</del> <del>100</del> <del>mcg/hr</del>, <del>Versed</del> <del>@</del> <del>4</del> <del>mg/hr,</del> propofol @ 35 mcg/kg/min HENMT: COMMON NORMALS: normocephalic and atraumatic HEAD & SCALP: normocephalic and atraumatic OTHER: -orally intubated Eye: COMMON NORMALS: Equal, round and reactive pupils present, EOMs intact bilaterally and conjunctivae normal CONJUNCTIVA: Yes conjunctivae normal PUPIL: Yes Equal, round and reactive pupils present OTHER: -legally blind Neck/C-Spine: COMMON NORMALS: full ROM GENERAL: Yes normal visual inspection, Yes trachea midline, Yes anterior neck swelling and Yes other (right sided SC emphysema) Chest: CHEST: Yes Vascular access present (port-A-cath) and Yes other (R chest tube, L thoravent) Resp: COMMON NORMALS: normal respiratory effort, No retractions and No use of accessory muscles EFFORT & INSPECTION: Yes symmetric chest movement and Yes tachypneic AUSCULTATION: diminished lung sounds (more so on the R) OTHER: -on vent support; 40%/450/6; breathing over vent, RR in 16-20 range Cardio: COMMON NORMALS: regular rate, regular rhythm, S1 normal heart sound present, S2 normal heart sound present and No murmurs present (Cardio) RATE: regular rate RHYTHM: regular rhythm HEART SOUNDS: S1 normal heart sound present and S2 normal heart sound present OTHER: <del>-levophed</del> <del>@</del> <del>3</del> <del>mcg/min</del> GI: COMMON NORMALS: Normal to inspection, nondistended, normoactive bowel sounds present and Soft to palpation PALPATION: Yes Soft to palpation : BLADDER/KIDNEY EXAM: Yes catheter in place Extremity: COMMON NORMALS: normal to inspection GENERAL: Yes edema (1-2 + bilateral ankle edema) Neuro: OTHER: -sedated -seems to move his LUE primarily and spontaneously Psych: OTHER: -sedated Skin: COMMON NORMALS: no rashes or lesions noted, no jaundice, no petechiae and no mottling GENERAL SKIN EXAM: no rashes or lesions noted OTHER: -some noted areas of bruising on toes, L plantar foot -scattered skin tears with weeping edema Urinary Catheter Management^: Flores: Cath Placed During This Visit: yes Urinary Catheter Date of Insertion: 03/02/20 Urinary Catheter Time of Insertion: 14:11 Data : 03/11/20 09:00 03/11/20 03:19 A&P Assessment and plan (1) Respiratory failure with hypoxia: -Remains on mechanical ventilation (day 11); weaning trial on hold for diuresis; on sedation -Noted continued RLL consolidation and bilateral patchy opacifications; known nodules and metastatic disease throughout the lungs -Noted AM ABG with continued hypoxia, increased alkalosis, FiO2 stable at 40% -daily ABG, CXR while on vent -continue broad-spectrum IV antibiotic coverage with Primaxin, vancomycin, azithromycin -continue steroids -COVID-19 PCR negative, off isolation precaution -blood cx: negative -sputum cx: Alcaligenes faecalis, sensitivity noted -continue to monitor respiratory status -no PE on CTA -noted LE edema, on diuresis -consult by Dr. Porter appreciated Status: Acute Qualifiers: Chronicity: acute Qualified Code(s): J96.01 - Acute respiratory failure with hypoxia (2) Pneumothorax: -noted moderate sized pneumothoraces bilaterally (L > R) on CT chest (03/06) -s/p R chest tube and L thoracic vent placement (03/06); continue to monitor output -daily CXR; unchanged subcutaneous emphysema noted, decreased R PTX -consults by Dr. Porter and Dr. Baron appreciated -close monitoring of respiratory status Status: Acute Qualifiers: Pneumothorax type: unspecified pneumothorax Qualified Code(s): J93.9 - Pneumothorax, unspecified (3) Pneumomediastinum: -imaging reviewed, noted extensive subcutaneous emphysema with pneumomediastinum Status: Acute (4) Septic shock: -As evidenced by hypoxia with need for mechanical ventilation, hypotension, leukocytosis. WBC starting to trend down -Secondary to respiratory infection as noted above -Continues to require pressor support, wean as tolerated -Continue to monitor vital signs closely Status: Acute (5) Pneumonia: -as noted above Status: Acute Qualifiers: Laterality: bilateral Lung location: unspecified part of lung Pneumonia type: due to unspecified organism Qualified Code(s): J18.9 - Pneumonia, unspecified organism (6) E coli bacteremia: -Found to have E. coli bacteremia during last admission last month. Unclear etiology though presumed to be secondary to GI translocation given neutropenia and underlying immunocompromise. 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 Reyes -continue dexamethasone -poor prognosis Status: Chronic Qualifiers: Laterality: right Qualified Code(s): C34.91 - Malignant neoplasm of unspecified part of right bronchus or lung (8) Thrombocytopenia: -drop in platelet count today, continue to trend -continue to monitor for bleeding; none so far -HIT panel negative Status: Chronic (9) Anemia: -drop in H/H, continue to trend -type and screen, may need transfusion of blood products; with caution to avoid further fluid overload -hold anticoagulation -PPI IV BID Status: Chronic Qualifiers: Anemia type: unspecified type Qualified Code(s): D64.9 - Anemia, unspecified (10) Anasarca: -clinically has anasarca, weeping edema -likely multifactorial given septic shock and need for multiple IV medications, hypoalbuminemia, compromised cardiac output from PTX and SC emphysema -albumin as needed, diuresis with caution to avoid renal injury -Echo-EF=50-55%, relative hypokinesia of septum Status: Acute Additional A&P Information -Legally blind -previously found to have encephalopathy secondary to hyponatremia; sodium level stable -Treated with antifungal secondary to significant mucositis -LFTs normalized -Hypomagnesemia, replace as needed -Bradycardia, likely medication induced as has resolved with discontinuation of fentanyl, sinus rhythm, Echo-EF=50-55%, relative hypokinesia of septum. HR wnl -NPO as on vent support; on tube feeding due to continued need for vent support -GI ppx with famotidine -DVT ppx with lovenox; continue to monitor platelet count and H/H, stable so far -Dispo: home, likely with hospice -Code status: DNR/DNI -guarded prognosis given underlying immunocompromise, septic shock, mechanical ventilation, bilateral pneumothoraces, prolonged need for pressors, developing anemia; continue ICU care. Had extensive goals of care discussion with including code status; agreed to change to DNR/DNI Attestations Medical Necessity Statement*: Patient requires hospitalization for continued management of critical illness, remains on ventilator and pressor support, sedation, with developing worsening anemia and thrombocytopenia, anasarca. Time Spent in Patient Care: Greater than 35 minutes (>than 50% of time spent in counselling and/or direct pt care on unit). Critical Care Time: The high probability of a clinically significant, sudden or life threatening deterioration of the patient's [cardiovascular, respiratory, heme] system(s) required my full and direct attention, intervention and personal management. The critical care time is as shown. This time is in addition to time spent performing any reported procedures but includes the following: [x] Data and vital sign review and interpretation [x] Patient assessment, examination and intervention [x] Documentation [x] Medication orders and management Critical Care Time (min): 25 Coding Level of Care Code Acute Horseradish Maker for Heather Fwd Exam Comprehensive Diagnoses Respiratory failure with hypoxia J96.01 Chronicity: acute Pneumothorax J93.9 Pneumothorax type: unspecified pneumothorax Pneumomediastinum J98.2 Septic shock A41.9; R65.21 Pneumonia J18.9 Laterality: bilateral Lung location: unspecified part of lung Pneumonia type: due to unspecified organism E coli bacteremia R78.81; B96.20 Primary lung squamous cell carcinoma C34.91 Laterality: right Thrombocytopenia D69.6 Anemia D64.9 Anemia type: unspecified type Anasarca R60.1
[2020-03-11] MEDS: vancomycin 1,000 MG in sodium chloride 0.9% 250 ML 250 MG IV (08:33)
[2020-03-11] MEDS: dexamethasone 4 mg/mL INJ IVP ×3 (08:33→20:48)
[2020-03-11 09:12] LABS: Hematocrit 23.4 % (42.0-52.0); Hemoglobin 7.4 g/dL (11.7-16.6); Mean Corpuscular HGB Conc 31.6 g/dL (30.0-36.0); Mean Corpuscular Volume 91.8 fL (80-94); Mean Platelet Volume 12.8 fL (7.4-10.4); Platelet Count 76 10^3/cmm (130-400); Red Blood Count 2.55 10^6/uL (4.1-5.3); Red Cell Distribution Width 21.6 % (12.1-15.1); White Blood Count 15.9 10^3/uL (4.0-10.0)
--- NOTE | 2020-03-11 09:15 | PC.CHAP ---
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 [] Patient/Family/Request visit [] Outpatient visit [] Follow-up visit [] Physician referral [] Code/Alert [] Routine visit [] Staff referral [] Actively dying [] Patient sleeping [] Family support [] [] Out of room [] Palliative care [] [] Receiving care in room [] Pre-surgical visit [] Trauma [] Long length of stay [x] ICU visit [] Other: Relational/Emotional Strength [] Patient feels connected with others/family/visitors/staff [] Distress [] Loneliness/isolation [] Abandonment Spirituality of Patient [] Person of Amanda [] Attends Restoration of their Amanda [] Believes in Prayer [] Reads Bible or Restorationist materials [] There are Spiritual issues to be addressed Manager [employer] Interventions [x] Prayer [] Active listening [] Non-anxious presence [] Spiritual/emotional support [] Crisis/trauma care [] Spiritual counseling [] Bereavement support [] Provided bereavement packet [] Provided Bible/devotional materials [] Provided toy/stuffed animal, coloring book to patient or family member [] Provided Communion [] Anointing/[place] [] Salvation [x] Completed spiritual assessment [] Other: Impact on Illness or Injury [] Angry [] Fearful [] Anxious [] Often cries [] Exhaustion [] Unable to work [] Unable to attend orthodoxy [] Unable to walk/stand [] Unable to read [] Unable to drive [] Unable to eat/drink [] Unable to sleep [] Unable to be with family [] Patient intubated [] Other: Summary Time spent with patient x
[2020-03-11 09:24] LABS: INR 1.17 (0.8-1.2)
[2020-03-11 09:34] LABS: Slide Review Slide Review Perform
[2020-03-11] MEDS: lidocaine 1% 5 ML in potassium chloride premix 100 ML 25 ML IV (11:18)
[2020-03-11] MEDS: pantoprazole 40 mg SDV IVP ×2 (11:43→21:14)
[2020-03-11 12:08] LABS: Glucose Point of Care 157 mg/dL (70-110)
[2020-03-11] MEDS: FUROsemide 10 mg/mL SDV 4mL 40 MG IVP (13:51)
[2020-03-11 13:57] LABS: Glucose Point of Care 193 mg/dL (70-110)
--- NOTE | 2020-03-11 14:11 | PC.NURSE ---
Propofol will not scan. Facundo in pharmacy notified, he states that the problem is unclear. Arin from IT was called and let her know that the scanner is not working and the medication is greyed, not allowing staff to charge pt for new bottle of Diprovan. She states that they are in a meeting and will have to address the problem later.
[2020-03-11 19:14] LABS: Glucose Point of Care 201 mg/dL (70-110)
--- NOTE | 2020-03-11 19:53 | P.PN_ITS ---
Subjective Subjective: Interval history: -On Levophed 3, propofol 35, on CMV 450/14/50/6 -ABG 7.51/35/66/20 8/96% -No fever and improving leukocytosis -Chest x-ray no right-sided pneumothorax, residual left apical pneumothorax; improved right subcutaneous emphysema-connected both tubes to suction -Input output/net-1.3 L/4.3 L / -3 L; clinically still has edema in bilateral ankles and feet -Given another dose of albumin and Lasix today -Plan is to taper off sedation tomorrow and start awakening trial and then do breathing trial to facilitate extubation Medications: Reviewed: Yes Medication Review Details: Active Medications Generic Name Dose Route Start Last Admin Trade Name Freq PRN Reason Stop Dose Admin Acetaminophen 650 mg 03/01/20 20:38 Acetaminophen 32 5 Mg Tablet PO Q6H PRN Mild/Mod Pain Or Temp >/= 101 Hydrocodone Bitart /Acetaminophen 1 tab 03/01/20 20:38 03/10/20 03:57 Hydrocodone-Acet aminophen 7.5-325 Mg Tablet PO 1 tab Q4H PRN Administration Pain Albuterol Sulfate 2 puff 03/01/20 20:38 Albuterol 8 Gm M di INHALATION Q4H.RESPIRATORY P RN SHORTNESS OF SERGO TH Dexamethasone 4 mg 03/02/20 19:00 03/10/20 20:09 Dexamethasone 4 Mg/Ml Inj IVP 4 mg TID WHIT Administration Dextrose 25 ml 03/01/20 20:38 Dextrose 50% Syr daniel 50 Ml IVP ONCE PRN hypoglycemia prot ocol Protocol Dextrose 50 ml 03/01/20 20:38 Dextrose 50% Syr daniel 50 Ml IVP PRN PRN hypoglycemia prot ocol Protocol Enoxaparin Sodium 40 mg 03/02/20 11:00 03/10/20 10:51 Enoxaparin 40 Mg /0.4 Ml Syringe SUBCUT 40 mg Q24H WHIT Administration Famotidine 20 mg 03/02/20 18:00 03/11/20 05:56 Famotidine 20 Mg /2 Ml Inj IVP 20 mg Q12H WHIT Administration Furosemide 40 mg 03/04/20 10:30 03/07/20 22:04 Furosemide 10 Mg /Ml Sdv 4ml IVP 40 mg Q12H WHIT Administration Glucagon 1 mg 03/01/20 20:38 Glucagon 1 Mg/Ml Inj 1 Ml IM ONCE PRN Adult Acute Hypog lycemia Prot. Protocol Dextrose 500 mls @ 100 mls /hr 03/01/20 20:38 D5w IV ONCE PRN Adult Acute Hypog lycemia Prot Protocol Norepinephrine Bit artrate 4 mg 254 mls @ 0 mls/h r 03/02/20 08:15 03/11/20 04:03 / Dextrose IV 3.7 mls/hr .Q0M WHIT 3.7 mls/hr Titration Protocol Per Protocol Imipenem/Cilastati n Sodium 500 100 mls @ 200 mls /hr 03/02/20 11:00 03/11/20 05:56 mg/ Sodium Chlor matthew IV 200 mls/hr Q6H WHIT Administration Protocol Azithromycin 500 m g/ Sodium 250 mls @ 250 mls /hr 03/02/20 22:00 03/10/20 22:46 Chloride IV 250 mls/hr Q24H WHIT Administration Protocol Dexmedetomidine HC l 400 mcg/ 104 mls @ 0 mls/h r 03/05/20 05:15 Sodium Chloride IV .Q0M WHIT Protocol Per Protocol Propofol 1,000 mg in 100 m ls @ 0 mls/hr 03/07/20 15:30 03/11/20 07:11 Diprivan IV 35 mcg/kg/min .Q0M WHIT 17.9 mls/hr Administration Protocol Per Protocol Vancomycin HCl 1,0 00 mg/ 250 mls @ 250 mls /hr 03/09/20 08:00 03/10/20 08:23 Sodium Chloride IV 250 mls/hr Q24H WHIT Administration Insulin Aspart 0 unit 03/05/20 12:00 03/11/20 06:15 Insulin Aspart 1 00 Unit/1 Ml SUBCUT 4 unit Q6H WHIT Administration Protocol Lorazepam 0.5 mg 03/01/20 20:38 Lorazepam 1 Mg T ablet PO TID PRN Nausea And Vomiti ng Lorazepam 1 mg 03/04/20 22:45 03/04/20 22:59 Lorazepam 2 Mg/M l Inj 1 Ml IVP 1 mg NOW PRN Administration ANXIETY Non-Formulary Medi cation 500 mg 03/01/20 20:38 Famciclovir PO TID PRN MOUTH SORES Ondansetron HCl 4 mg 03/01/20 20:38 Ondansetron 2 Mg /Ml Sdv 2 Ml IVP Q6H PRN NAUSEA AND VOMITI NG Penicillins Allergy (Verified 02/13/20 10:06) ALGY-Anaphylaxis tramadol Adverse Reaction (Verified 02/13/20 10:06) ADR-Vomiting Vitals/I&O/Wt Last Vital Signs Temp 97.9 F 03/11/20 17:00 Pulse 75 03/11/20 19:00 Resp 24 H 03/11/20 18:05 BP 108/73 03/11/20 19:00 Pulse Ox 94 03/11/20 19:00 03/11/20 03/11/20 03/11/20 06:59 14:59 22:59 Intake Total 366.485 / 1668.387 265.963 / 265.963 103.675 / 369.638 Output Total 425 / 4325 1750 / 1760 Balance -58.515 / -2656.613 255.963 / 255.963 -1646.325 / -1390.362 Physical Exam Narrative: EXAM NARRATIVE: PHYSICAL EXAM: General: lying in bed, sedated and intubated, HEENT:NCAT, PERRLA, EOMI, moist mucous membranes Neck: Supple Lungs: Improved breath sounds on left upper and right upper lobes. 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 moves limbs off sedation and fo llows commands but slowly SKIN: no rash LDA: # CVC: Right IJ 03/02/2020 # Flores: 03/02/2020 # Chest tubes: Right chest tube 03/06/2020: Left anterior Thora vent 03/06/2020 Urinary Catheter Management^: Flores: Cath Placed During This Visit: yes Urinary Catheter Date of Insertion: 03/02/20 Urinary Catheter Time of Insertion: 14:11 Data : 03/11/20 09:00 03/11/20 03:19 A&P Assessment and plan (1) Respiratory failure with hypoxia: Status: Acute Qualifiers: Chronicity: acute Qualified Code(s): J96.01 - Acute respiratory failure with hypoxia (2) Pneumomediastinum: Status: Acute (3) Pneumothorax: Status: Acute Qualifiers: Pneumothorax type: unspecified pneumothorax Qualified Code(s): J93.9 - Pneumothorax, unspecified (4) Septic shock: Status: Acute (5) Pneumonia: Status: Acute Qualifiers: Laterality: bilateral Lung location: unspecified part of lung Pneumo vanesa type: due to unspecified organism Qualified Code(s): J18.9 - Pneumonia, unspecified organism (6) Primary lung squamous cell carcinoma: Status: Chronic Qualifiers: Laterality: right Qualified Code(s): C34.91 - Malignant neoplasm of unspecified part of right bronchus or lung #Acute hypoxic respiratory failure secondary to HCAP and patient with underlying metastatic squamous cell carcinoma #Septic shock secondary to Alcaligenes faecalis pneumonia #Bilateral pneumothorax/pneumomediastinum/pneumoperitoneum/extensive subcutaneous emphysema-secondary to positive pressure ventilation - ?? Fistula between cavitary lung mass to pleural space #Altered mental status-sedation Vs metastatic brain lesions around brainstem - No acute events overnight -On Levophed 3, propofol 35, on CMV 450/14/50/6 -ABG 7.51/35/66/20 8/96% -No fever and improving leukocytosis -Chest x-ray no right-sided pneumothorax, residual left apical pneumothorax; improved right subcutaneous emphysema-connected both tubes to suction -Input output/net-1.3 L/4.3 L / -3 L; clinically still has edema in bilateral ankles and feet -Given another dose of albumin and Lasix today -Plan is to taper off sedation tomorrow and start awakening trial and then do breathing trial to facilitate extubation - changed CODE STATUS to DNR - Recommended tube feeds @ 30 mls/hr and if levophed > 10 then down to trickle feeds -Sputum cultures positive for Alcaligenes faecalis -Continue imipenem and DC vancomycin and azithromycin -Echo 03/05/2020: Borderline low EF 50 to 55% and relative hypokinesia of the septum. -Lovenox 40 mg daily - wants home hospice but leaning towards comfort care if patient cannot be extubated - The patient has MRI evidence of intracranial metastasis not appropriate for SRS therapy at this facility and he is symptomatic with respect to headaches and nausea/vomiting likely due to tumor mass-effect on the fourth ventricle. both the patient and the family has agreed to whole brain radiation therapy (30 Gy/10 fractions), -Currently dexamethasone 4 mg 3 times daily. We will treat reversible causes like fluid overload, Alcaligenes pneumonia, pneumothorax and taper off sedation and do breathing trial. Meanwhile we consulted Dr. 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 Very poor prognosis Recommendations conveyed to hospitalist covering the patient Attestations Medical Necessity Statement*: Acute hypoxic respiratory failure secondary to HCAP and patient with underlying metastatic squamous cell carcinoma, septic shock secondary to Alcaligenes faecalis pneumonia complicated by Bilateral pneumothorax/pneumomediastinum/pneumoperitoneum/extensive subcutaneous emphysema-secondary to positive pressure ventilation - ?? Fistula between cavitary lung mass to pleural space still requiring mechanical ventilation Time Spent in Patient Care: Greater than 35 minutes (>than 50% of time spent in counselling and/or direct pt care on unit) . 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
[2020-03-11] MEDS: azithromycin 500 MG in sodium chloride 0.9% 250 ML 250 MG IV (22:36)
[2020-03-12] VITALS (88 sets, daily range): BP systolic 92–127; BP diastolic 63–81; PULSE 61–98; RESP 17–25; TEMP 36.4–36.9; O2SAT 87–100
[2020-03-12 00:08] LABS: Glucose Point of Care 165 mg/dL (70-110)
[2020-03-12 03:57] LABS: ABG PCO2 35.5 mmHg (35-45); ABG PH Result 7.52 (7.35-7.45); Base Excess ABG 5.7 mmol/L (-2.0-2.0); Blood Gas Allen Test Pos; Blood Gas Sample Site Radial, right; Blood Gas Sample Type Arterial; HCO3 ABG 28.9 mmol/L (22-26); Oxygen Device VENT; PO2 ABG 77.2 mmHg (80.0-100.0)
[2020-03-12 04:39] LABS: Hematocrit 24.2 % (42.0-52.0); Hemoglobin 7.7 g/dL (11.7-16.6); Mean Corpuscular HGB Conc 31.8 g/dL (30.0-36.0); Mean Corpuscular Hemoglobin 29.6 pg (28.0-34.0); Mean Corpuscular Volume 93.1 fL (80-94); Mean Platelet Volume 12.3 fL (7.4-10.4); Platelet Count 90 10^3/cmm (130-400); Red Cell Distribution Width 22.9 % (12.1-15.1); White Blood Count 19.2 10^3/uL (4.0-10.0)
[2020-03-12 05:07] LABS: Alanine Aminotransferase 21 U/L (0-41); Albumin Level 3.6 g/dL (3.5-5.2); Alkaline Phosphatase 138 IU/L (40-130); Anion Gap 14.8 (5-19); Aspartate Amino Transferase 47 U/L (0-40); Blood Urea Nitrogen 39 mg/dL (8-23); Calcium 8.4 mg/dL (8.5-10.5); Carbon Dioxide 28 mmol/L (22-29); Chloride 105 mmol/L (98-107); Globulin 1.1 g/dL (1.3-4.6); Glomerular Filtration Rate 136.5 mL/min (90-130); Glucose 153 mg/dL (65-115); Osmolality Calculated 310 mOsm/kg (285-295); Potassium 3.8 mmol/L (3.5-5.1); Sodium 144 mmol/L (136-145); Total Bilirubin 0.9 mg/dL (0.15-1.2); Total Protein 4.7 g/dL (6.6-8.7)
[2020-03-12] MEDS: propofol 1,000 MG/100 ML INJ 17.9 MG IV (05:09)
[2020-03-12 05:31] LABS: Glucose Point of Care 169 mg/dL (70-110)
[2020-03-12 06:00] LABS: Slide Review Slide Review Perform
--- NOTE | 2020-03-12 06:00 | XRR_ITS ---
PROCEDURE INFORMATION: Exam: XR Chest, 1 View Exam date and time: 03/12/2020 5:42 AM Age: 64 years old Clinical indication: Device placement; Ett placement (vent status); Additional info: On vent support, chest tube in place TECHNIQUE: Imaging protocol: XR of the chest Views: 1 view. COMPARISON: CR XR chest 1V portable [id number] 03/11/2020 4:42 AM FINDINGS: Tubes, catheters and devices: An endotracheal tube, nasogastric tube, 2 central venous catheters and a right chest tube remain in satisfactory position. Lungs: There is bilateral pulmonary consolidation especially in the right base. There is mild improvement of these infiltrates when compared to previous study. Pleural space: There is a tiny decreasing left pneumothorax. No pneumothorax is seen on the right side. Heart/Mediastinum: The heart is not enlarged. Bones/joints: Unremarkable. Soft tissues: There is extensive subcutaneous emphysema around the chest. XR/XR chest 1V portable [id number] IMPRESSION: 1. Decreasing tiny left pneumothorax. No pneumothorax on the right side. 2. Mild improvement of bilateral pulmonary infiltrates especially in the right base.
[2020-03-12 06:01] LABS: Absolute Neutrophil 17.5 10^3/cmm (1.4-6.5); Absolute Segmented Neutrophil 15.6 10/cmm (1.6-7.1); Anisocytosis 2+; Band Neutrophils Absolute 1.9 10^3/cmm (0.0-1.2); Lymphocytes 2 %; Monocytes Absolute 0.6 10^3/cmm (0.1-0.6); Platelet Estimate Decreased (Normal); Polychromasia 1+; Segmented Neutrophils 81 %; Total Cells Counted 100 (0-100)
[2020-03-12 06:17] LABS: Eosinophils 0 %
[2020-03-12] MEDS: vancomycin 1,000 MG in sodium chloride 0.9% 250 ML 250 MG IV (07:39)
--- NOTE | 2020-03-12 08:14 | PC.NURSE ---
Tejal stopped for sedation vacation.
--- NOTE | 2020-03-12 09:15 | PM.PN ---
Subjective Subjective: Interval history: Has continued to diurese well with lasix and albumin, had 1050 mL urine output overnight. Weaning off sedation for awakening trial. Back on pressor support. Continues to tolerate tube feeds. CXR today shows improvement. Slight increase in leukocytosis, stable Hg, improved renal function. ABG with improved oxygenation. Remains on vent support. Weaning trial today successful and transitioned to BiPAP. Weak but able to follow commands, seems to have L gaze preference. Tube feeding discontinued. Medications: Reviewed: Yes Medication Review Details: Active Medications Generic Name Dose Route Start Last Admin Trade Name Freq PRN Reason Stop Dose Admin Acetaminophen 650 mg 03/01/20 20:38 Acetaminophen 32 5 Mg Tablet PO Q6H PRN Mild/Mod Pain Or Temp >/= 101 Hydrocodone Bitart /Acetaminophen 1 tab 03/01/20 20:38 03/10/20 03:57 Hydrocodone-Acet aminophen 7.5-325 Mg Tablet PO 1 tab Q4H PRN Administration Pain Albuterol Sulfate 2 puff 03/01/20 20:38 Albuterol 8 Gm M di INHALATION Q4H.RESPIRATORY P RN SHORTNESS OF SERGO TH Dexamethasone 4 mg 03/02/20 19:00 03/11/20 20:48 Dexamethasone 4 Mg/Ml Inj IVP 4 mg TID WHIT Administration Dextrose 25 ml 03/01/20 20:38 Dextrose 50% Syr daniel 50 Ml IVP ONCE PRN hypoglycemia prot ocol Protocol Dextrose 50 ml 03/01/20 20:38 Dextrose 50% Syr daniel 50 Ml IVP PRN PRN hypoglycemia prot ocol Protocol Enoxaparin Sodium 40 mg 03/02/20 11:00 03/10/20 10:51 Enoxaparin 40 Mg /0.4 Ml Syringe SUBCUT 40 mg Q24H WHIT Administration Furosemide 40 mg 03/04/20 10:30 03/07/20 22:04 Furosemide 10 Mg /Ml Sdv 4ml IVP 40 mg Q12H WHIT Administration Glucagon 1 mg 03/01/20 20:38 Glucagon 1 Mg/Ml Inj 1 Ml IM ONCE PRN Adult Acute Hypog lycemia Prot. Protocol Dextrose 500 mls @ 100 mls /hr 03/01/20 20:38 D5w IV ONCE PRN Adult Acute Hypog lycemia Prot Protocol Norepinephrine Bit artrate 4 mg 254 mls @ 0 mls/h r 03/02/20 08:15 03/12/20 08:19 / Dextrose IV 3.7 mls/hr .Q0M WHIT 3.7 mls/hr Titration Protocol Per Protocol Imipenem/Cilastati n Sodium 500 100 mls @ 200 mls /hr 03/02/20 11:00 03/12/20 05:08 mg/ Sodium Chlor matthew IV 200 mls/hr Q6H WHIT Administration Protocol Azithromycin 500 m g/ Sodium 250 mls @ 250 mls /hr 03/02/20 22:00 03/11/20 22:36 Chloride IV 250 mls/hr Q24H WHIT Administration Protocol Dexmedetomidine HC l 400 mcg/ 104 mls @ 0 mls/h r 03/05/20 05:15 Sodium Chloride IV .Q0M WHIT Protocol Per Protocol Propofol 1,000 mg in 100 m ls @ 0 mls/hr 03/07/20 15:30 03/12/20 08:19 Diprivan IV 0 mcg/kg/min .Q0M WHIT 0 mls/hr Titration Protocol Per Protocol Vancomycin HCl 1,0 00 mg/ 250 mls @ 250 mls /hr 03/09/20 08:00 03/12/20 07:39 Sodium Chloride IV 250 mls/hr Q24H WHIT Administration Insulin Aspart 0 unit 03/05/20 12:00 03/12/20 06:02 Insulin Aspart 1 00 Unit/1 Ml SUBCUT 2 unit Q6H WHIT Administration Protocol Lorazepam 0.5 mg 03/01/20 20:38 Lorazepam 1 Mg T ablet PO TID PRN Nausea And Vomiti ng Lorazepam 1 mg 03/04/20 22:45 03/04/20 22:59 Lorazepam 2 Mg/M l Inj 1 Ml IVP 1 mg NOW PRN Administration ANXIETY Non-Formulary Medi cation 500 mg 03/01/20 20:38 Famciclovir PO TID PRN MOUTH SORES Ondansetron HCl 4 mg 03/01/20 20:38 Ondansetron 2 Mg /Ml Sdv 2 Ml IVP Q6H PRN NAUSEA AND VOMITI NG Pantoprazole Sodiu m 40 mg 03/11/20 08:30 03/11/20 21:14 Pantoprazole 40 Mg Sdv IVP 40 mg Q12H WHIT Administration Penicillins Allergy (Verified 12/15/20 10:06) ALGY-Anaphylaxis tramadol Adverse Reaction (Verified 02/13/20 10:06) ADR-Vomiting Vitals/I&O/Wt Last Vital Signs Temp 98.4 F 03/12/20 08:00 Pulse 74 03/12/20 08:00 Resp 24 H 03/12/20 08:29 BP 107/69 03/12/20 08:00 Pulse Ox 100 03/12/20 08:00 03/11/20 03/12/20 03/12/20 22:59 06:59 14:59 Intake Total 220.175 / 736.138 312.479 / 1048.617 104.558 / 104.558 Output Total 2550 / 2560 290 / 2850 160 / 160 Balance -2329.825 / -1823.862 22.479 / -1801.383 -55.442 / -55.442 Physical Exam Const: COMMON NORMALS: no acute distress and alert GENERAL APPEARANCE: ill appearing, Edematous and patient mechanically ventilated ORIENTATION/CONSCIOUSNESS: Yes awake OTHER: -Sedated with <del>fentanyl</del> <del>@</del> <del>100</del> <del>mcg/hr</del>, <del>Versed</del> <del>@</del> <del>4</del> <del>mg/hr,</del> <del>propofol</del> <del>@</del> <del>35</del> <del>mcg/kg/min</del> HENMT: COMMON NORMALS: normocephalic and atraumatic HEAD & SCALP: normocephalic and atraumatic OTHER: -orally intubated Eye: COMMON NORMALS: Equal, round and reactive pupils present, EOMs intact bilaterally and conjunctivae normal CONJUNCTIVA: Yes conjunctivae normal PUPIL: Yes Equal, round and reactive pupils present OTHER: -legally blind Neck/C-Spine: COMMON NORMALS: full ROM GENERAL: Yes normal visual inspection, Yes trachea midline, Yes anterior neck swelling and Yes other (right sided SC emphysema) Chest: CHEST: Yes Vascular access present (port-A-cath) and Yes other (R chest tube, L thoravent) Resp: COMMON NORMALS: normal respiratory effort, No retractions and No use of accessory muscles EFFORT & INSPECTION: Yes symmetric chest movement and Yes tachypneic AUSCULTATION: diminished lung sounds (more so on the R) OTHER: -on vent support; 40%/450/6; breathing over vent, RR in 16-20 range Cardio: COMMON NORMALS: regular rate, regular rhythm, S1 normal heart sound present, S2 normal heart sound present and No murmurs present (Cardio) RATE: regular rate RHYTHM: regular rhythm HEART SOUNDS: S1 normal heart sound present and S2 normal heart sound present OTHER: <del>-levophed</del> <del>@</del> <del>3</del> <del>mcg/min</del> GI: COMMON NORMALS: Normal to inspection, nondistended, normoactive bowel sounds present and Soft to palpation PALPATION: Yes Soft to palpation : BLADDER/KIDNEY EXAM: Yes catheter in place Extremity: COMMON NORMALS: normal to inspection GENERAL: Yes edema (1-2 + bilateral ankle edema, improved) Neuro: SENSORIUM/ORIENTATION: Yes alert OTHER: -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, seems to have L gaze preference Psych: COMMON NORMALS: cooperative and normal affect Skin: COMMON NORMALS: no rashes or lesions noted, no jaundice, no petechiae and no mottling GENERAL SKIN EXAM: no rashes or lesions noted OTHER: -some noted areas of bruising on toes, L plantar foot -scattered skin tears with weeping edema Urinary Catheter Management^: Flores: Cath Placed During This Visit: yes Urinary Catheter Date of Insertion: 03/02/20 Urinary Catheter Time of Insertion: 14:11 Data : 03/12/20 03:51 03/12/20 03:51 A&P Assessment and plan (1) Respiratory failure with hypoxia: -Remains on mechanical ventilation (day 12); weaning trial ongoing; on sedation -Noted continued RLL consolidation and bilateral patchy opacifications; known nodules and metastatic disease throughout the lungs -Noted AM ABG with continued hypoxia, increased alkalosis, FiO2 stable at 40% -daily ABG, CXR while on vent -continue broad-spectrum IV antibiotic coverage with Primaxin, vancomycin, azithromycin -continue steroids -COVID-19 PCR negative, off isolation precaution -blood cx: negative -sputum cx: Alcaligenes faecalis, sensitivity noted -continue to monitor respiratory status -no PE on CTA -noted LE edema, on diuresis -consult by Dr. Porter appreciated Status: Acute Qualifiers: Chronicity: acute Qualified Code(s): J96.01 - Acute respiratory failure with hypoxia (2) Pneumothorax: -noted moderate sized pneumothoraces bilaterally (L > R) on CT chest (03/06) -s/p R chest tube and L thoracic vent placement (03/06); continue to monitor output -daily CXR; unchanged subcutaneous emphysema noted, decreased R PTX -consults by Dr. Porter and Dr. Baron appreciated -close monitoring of respiratory status Status: Acute Qualifiers: Pneumothorax type: unspecified pneumothorax Qualified Code(s): J93.9 - Pneumothorax, unspecified (3) Pneumomediastinum: -imaging reviewed, noted extensive subcutaneous emphysema with pneumomediastinum Status: Acute (4) Septic shock: -As evidenced by hypoxia with need for mechanical ventilation, hypotension, leukocytosis. WBC starting to trend down -Secondary to respiratory infection as noted above -Continues to require pressor support, wean as tolerated -Continue to monitor vital signs closely Status: Acute (5) Pneumonia: -as noted above Status: Acute Qualifiers: Laterality: bilateral Lung location: unspecified part of lung Pneumonia type: due to unspecified organism Qualified Code(s): J18.9 - Pneumonia, unspecified organism (6) E coli bacteremia: -Found to have E. coli bacteremia during last admission last month. Unclear etiology though presumed to be secondary to GI translocation given neutropenia and underlying immunocompromise. 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 Reyes -continue dexamethasone -poor prognosis Status: Chronic Qualifiers: Laterality: right Qualified Code(s): C34.91 - Malignant neoplasm of unspecified part of right bronchus or lung (8) Thrombocytopenia: -drop in platelet count today, continue to trend -continue to monitor for bleeding; none so far -HIT panel negative Status: Chronic (9) Anemia: -drop in H/H though stable, continue to trend -type and screen, may need transfusion of blood products; with caution to avoid further fluid overload -hold anticoagulation -PPI IV BID Status: Chronic Qualifiers: Anemia type: unspecified type Qualified Code(s): D64.9 - Anemia, unspecified (10) Anasarca: -clinically has anasarca, weeping edema -likely multifactorial given septic shock and need for multiple IV medications, hypoalbuminemia, compromised cardiac output from PTX and SC emphysema -albumin as needed, diuresis with caution to avoid renal injury -Echo-EF=50-55%, relative hypokinesia of septum Status: Acute Additional A&P Information -Legally blind -previously found to have encephalopathy secondary to hyponatremia; sodium level stable -Treated with antifungal secondary to significant mucositis -LFTs normalized -Hypomagnesemia, replace as needed -Bradycardia, likely medication induced as has resolved with discontinuation of fentanyl, sinus rhythm, Echo-EF=50-55%, relative hypokinesia of septum. HR wnl -NPO as on vent support; on tube feeding due to continued need for vent support -GI ppx with famotidine -DVT ppx with SCDs, lovenox on hold due to anemia; continue to monitor platelet count and H/H, stable so far -Dispo: home, likely with hospice -Code status: DNR/DNI -guarded prognosis given underlying immunocompromise, septic shock, mechanical ventilation, bilateral pneumothoraces, prolonged need for pressors, developing anemia; continue ICU care. Had extensive goals of care discussion with including code status; agreed to change to DNR/DNI Attestations Medical Necessity Statement*: Patient requires hospitalization for continued management of critical illness, remains on ventilator and pressor support, awakening trial ongoing. Time Spent in Patient Care: 16 - 35 minutes (>than 50% of time spent in counselling and/or direct pt care on unit). Critical Care Time: The high probability of a clinically significant, sudden or life threatening deterioration of the patient's [respiratory, cardiovascular] system(s) required my full and direct attention, intervention and personal management. The critical care time is as shown. 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
[2020-03-12] MEDS: dexamethasone 4 mg/mL INJ IVP ×3 (11:00→20:16)
[2020-03-12] MEDS: pantoprazole 40 mg SDV IVP ×2 (16:55→20:16)
[2020-03-12] MEDS: morphine 4 mg/mL SDV 1 mL 2 MG IVP (17:53)
--- NOTE | 2020-03-12 18:33 | PM.PN ---
Subjective Subjective: Interval history: - extuabted and tolerating bipap 20/6 and more awake and responding - at bedside. - off pressors Medications: Reviewed: Yes Medication Review Details: Active Medications Generic Name Dose Route Start Last Admin Trade Name Freq PRN Reason Stop Dose Admin Acetaminophen 650 mg 03/01/20 20:38 Acetaminophen 32 5 Mg Tablet PO Q6H PRN Mild/Mod Pain Or Temp >/= 101 Hydrocodone Bitart /Acetaminophen 1 tab 03/01/20 20:38 03/10/20 03:57 Hydrocodone-Acet aminophen 7.5-325 Mg Tablet PO 1 tab Q4H PRN Administration Pain Albuterol Sulfate 2 puff 03/01/20 20:38 Albuterol 8 Gm M di INHALATION Q4H.RESPIRATORY P RN SHORTNESS OF SERGO TH Dexamethasone 4 mg 03/02/20 19:00 03/11/20 20:48 Dexamethasone 4 Mg/Ml Inj IVP 4 mg TID WHIT Administration Dextrose 25 ml 03/01/20 20:38 Dextrose 50% Syr daniel 50 Ml IVP ONCE PRN hypoglycemia prot ocol Protocol Dextrose 50 ml 03/01/20 20:38 Dextrose 50% Syr daniel 50 Ml IVP PRN PRN hypoglycemia prot ocol Protocol Enoxaparin Sodium 40 mg 03/02/20 11:00 03/10/20 10:51 Enoxaparin 40 Mg /0.4 Ml Syringe SUBCUT 40 mg Q24H WHIT Administration Furosemide 40 mg 03/04/20 10:30 03/07/20 22:04 Furosemide 10 Mg /Ml Sdv 4ml IVP 40 mg Q12H WHIT Administration Glucagon 1 mg 03/01/20 20:38 Glucagon 1 Mg/Ml Inj 1 Ml IM ONCE PRN Adult Acute Hypog lycemia Prot. Protocol Dextrose 500 mls @ 100 mls /hr 03/01/20 20:38 D5w IV ONCE PRN Adult Acute Hypog lycemia Prot Protocol Norepinephrine Bit artrate 4 mg 254 mls @ 0 mls/h r 03/02/20 08:15 03/12/20 08:19 / Dextrose IV 3.7 mls/hr .Q0M WHIT 3.7 mls/hr Titration Protocol Per Protocol Imipenem/Cilastati n Sodium 500 100 mls @ 200 mls /hr 03/02/20 11:00 03/12/20 05:08 mg/ Sodium Chlor matthew IV 200 mls/hr Q6H WHIT Administration Protocol Azithromycin 500 m g/ Sodium 250 mls @ 250 mls /hr 03/02/20 22:00 03/11/20 22:36 Chloride IV 250 mls/hr Q24H WHIT Administration Protocol Dexmedetomidine HC l 400 mcg/ 104 mls @ 0 mls/h r 03/05/20 05:15 Sodium Chloride IV .Q0M WHIT Protocol Per Protocol Propofol 1,000 mg in 100 m ls @ 0 mls/hr 03/07/20 15:30 03/12/20 08:19 Diprivan IV 0 mcg/kg/min .Q0M WHIT 0 mls/hr Titration Protocol Per Protocol Vancomycin HCl 1,0 00 mg/ 250 mls @ 250 mls /hr 03/09/20 08:00 03/12/20 07:39 Sodium Chloride IV 250 mls/hr Q24H WHIT Administration Insulin Aspart 0 unit 03/05/20 12:00 03/12/20 06:02 Insulin Aspart 1 00 Unit/1 Ml SUBCUT 2 unit Q6H WHIT Administration Protocol Lorazepam 0.5 mg 03/01/20 20:38 Lorazepam 1 Mg T ablet PO TID PRN Nausea And Vomiti ng Lorazepam 1 mg 03/04/20 22:45 03/04/20 22:59 Lorazepam 2 Mg/M l Inj 1 Ml IVP 1 mg NOW PRN Administration ANXIETY Non-Formulary Medi cation 500 mg 03/01/20 20:38 Famciclovir PO TID PRN MOUTH SORES Ondansetron HCl 4 mg 03/01/20 20:38 Ondansetron 2 Mg /Ml Sdv 2 Ml IVP Q6H PRN NAUSEA AND VOMITI NG Pantoprazole Sodiu m 40 mg 03/11/20 08:30 03/11/20 21:14 Pantoprazole 40 Mg Sdv IVP 40 mg Q12H WHIT Administration Penicillins Allergy (Verified 02/13/20 10:06) ALGY-Anaphylaxis tramadol Adverse Reaction (Verified 02/13/20 10:06) ADR-Vomiting Vitals/I&O/Wt Last Vital Signs Temp 98.4 F 03/12/20 08:00 Pulse 88 03/12/20 17:32 Resp 24 H 03/12/20 17:53 BP 108/69 03/12/20 16:45 Pulse Ox 95 03/12/20 17:53 03/12/20 03/12/20 03/12/20 06:59 14:59 22:59 Intake Total 412.479 / 1148.617 204.558 / 204.558 25 / 229.558 Output Total 290 / 2850 160 / 160 350 / 510 Balance 122.479 / -1701.383 44.558 / 44.558 -325 / -280.442 Physical Exam Narrative: EXAM NARRATIVE: PHYSICAL EXAM: General: lying in bed, extuabted HEENT:NCAT, PERRLA, EOMI, moist mucous membranes Neck: Supple Lungs: Improved breath sounds on left upper and right upper lobes. 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 and follows commnads, moves extremities SKIN: no rash LDA: # CVC: Right IJ 03/02/2020 # Flores: 03/02/2020 # Chest tubes: Right chest tube 03/06/2020: Left anterior Thora vent 03/06/2020 Urinary Catheter Management^: Flores: Cath Placed During This Visit: yes Urinary Catheter Date of Insertion: 03/02/20 Urinary Catheter Time of Insertion: 14:11 Data : 03/12/20 03:51 03/12/20 03:51 A&P Assessment and plan (1) Respiratory failure with hypoxia: Status: Acute Qualifiers: Chronicity: acute Qualified Code(s): J96.01 - Acute respiratory failure with hypoxia (2) Pneumomediastinum: Status: Acute (3) Pneumothorax: Status: Acute Qualifiers: Pneumothorax type: unspecified pneumothorax Qualified Code(s): J93.9 - Pneumothorax, unspecified (4) Septic shock: Status: Acute (5) Pneumonia: Status: Acute Qualifiers: Laterality: bilateral Lung location: unspecified part of lung Pneumonia type: due to unspecified organism Qualified Code(s): J18.9 - Pneumonia, unspecified organism (6) Primary lung squamous cell carcinoma: Status: Chronic Qualifiers: Laterality: right Qualified Code(s): C34.91 - Malignant neoplasm of unspecified part of right bronchus or lung #Acute hypoxic respiratory failure secondary to HCAP and patient with underlying metastatic squamous cell carcinoma #Septic shock secondary to Alcaligenes faecalis pneumonia #Bilateral pneumothorax/pneumomediastinum/pneumoperitoneum/extensive subcutaneous emphysema-secondary to positive pressure ventilation - ?? Fistula between cavitary lung mass to pleural space #Altered mental status-sedation Vs metastatic brain lesions around brainstem - No acute events overnight -off levophed and extubated today -tolerating BiPAP -afebrile and leukocytosis -Chest x-ray no right-sided pneumothorax, residual left apical pneumothorax; improved right subcutaneous emphysema - recommended to keep both tubes off suction and will take the tube off tomorrow. -Input output/net- 18L/20L/-1.4; clinically edema improving - changed CODE STATUS to DNR - Recommended swallow eval tomorrow and start soft diet -Sputum cultures positive for Alcaligenes faecalis -Continue imipenem and DC vancomycin and azithromycin -Echo 03/05/2020: Borderline low EF 50 to 55% and relative hypokinesia of the septum. -Lovenox 40 mg daily - wants home hospice - The patient has MRI evidence of intracranial metastasis not appropriate for SRS therapy at this facility and he is symptomatic with respect to headaches and nausea/vomiting likely due to tumor mass-effect on the fourth ventricle. both the patient and the family has agreed to whole brain radiation therapy (30 Gy/10 fractions), -Currently dexamethasone 4 mg 3 times daily. We will treat reversible causes like fluid overload, Alcaligenes pneumonia, pneumothorax and taper off sedation and do breathing trial. Meanwhile we consulted Dr. 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 Very poor prognosis Recommendations conveyed to hospitalist covering the patient Attestations Medical Necessity Statement*: #Acute hypoxic respiratory failure secondary to HCAP and patient with underlying metastatic squamous cell carcinoma likely due to septic shock secondary to Alcaligenes faecalis pneumonia; c/b Bilateral pneumothorax/pneumomediastinum/pneumoperitoneum/extensive subcutaneous emphysema-secondary to positive pressure ventilation Time Spent in Patient Care: Greater than 35 minutes (>than 50% of time spent in counselling and/or direct pt care on unit). Critical Care Time: Critical Care Time (min): 45 Coding Level of Care Code Established Pt Acute District Superintendent for Chg Fwd Patient Type Established History Comprehensive Exam Comprehensive Medical Decision Making High Complexity Diagnoses Respiratory failure with hypoxia J96.01 Chronicity: acute Pneumomediastinum J98.2 Pneumothorax J93.9 Pneumothorax type: unspecified pneumothorax Septic shock A41.9; R65.21 Pneumonia J18.9 Laterality: bilateral Lung location: unspecified part of lung Pneumonia type: due to unspecified organism Primary lung squamous cell carcinoma C34.91 Laterality: right Time Spent (min) 45
[2020-03-12 18:56] LABS: Glucose Point of Care 178 mg/dL (70-110)
[2020-03-12] MEDS: azithromycin 500 MG in sodium chloride 0.9% 250 ML 250 MG IV (21:51)
[2020-03-13] VITALS (20 sets, daily range): BP systolic 90–118; BP diastolic 65–78; PULSE 65–99; RESP 18–26; TEMP 36.1–37.2; O2SAT 88–98
[2020-03-13 04:49] LABS: Basophils % 0.3 %; Hematocrit 27.5 % (42.0-52.0); Hemoglobin 8.5 g/dL (11.7-16.6); Lymphocytes # 0.2 10^3/uL (0.8-4.8); Lymphocytes % 1.4 %; Mean Corpuscular HGB Conc 30.9 g/dL (30.0-36.0); Mean Corpuscular Volume 93.9 fL (80-94); Mean Platelet Volume 12.1 fL (7.4-10.4); Monocytes # 0.6 10^3/uL (0.2-0.9); Monocytes % 3.9 %; Neutrophils # 13.91 10^3/uL (1.8-7.7); Neutrophils % 89.9 %; Nucleated Red Blood Cells % 0.2 %; Platelet Count 78 10^3/cmm (130-400); Red Blood Count 2.93 10^6/uL (4.1-5.3); Red Cell Distribution Width 23.9 % (12.1-15.1); White Blood Count 15.5 10^3/uL (4.0-10.0)
[2020-03-13 05:13] LABS: Alanine Aminotransferase 32 U/L (0-41); Albumin Level 3.4 g/dL (3.5-5.2); Alkaline Phosphatase 121 IU/L (40-130); Anion Gap 12.9 (5-19); Aspartate Amino Transferase 60 U/L (0-40); Blood Urea Nitrogen 35 mg/dL (8-23); Calcium 8.5 mg/dL (8.5-10.5); Carbon Dioxide 29 mmol/L (22-29); Chloride 109 mmol/L (98-107); Globulin 1.6 g/dL (1.3-4.6); Glomerular Filtration Rate 168.5 mL/min (90-130); Glucose 114 mg/dL (65-115); Osmolality Calculated 313 mOsm/kg (285-295); Potassium 3.9 mmol/L (3.5-5.1); Sodium 147 mmol/L (136-145); Total Bilirubin 1.1 mg/dL (0.15-1.2)
--- NOTE | 2020-03-13 06:00 | XR_ITS ---
WS: [id number] Portable AP upright chest, 03/13/2020 Clinical Data: s/p extubation, has chest tubes in place Comparison: Portable chest, 03/12/2020. Findings: The endotracheal tube and nasogastric tube have been removed. The right chest tube, left ch est tube, bilateral internal jugular venous catheters and monitor leads remain the same. The dense op acity in the right lower lobe is not changed. Bilateral subcutaneous emphysema remains the same. The heart is not enlarged. Bilateral opacities are still present. XR/XR chest 1V portable [id number] Impression: 1. Removal of the endotracheal tube and nasogastric tube. 2. No change in bilateral opacities, subcutaneous emphysema, chest tubes and in ternal jugular venous catheters.
[2020-03-13 06:30] LABS: Glucose Point of Care 113 mg/dL (70-110)
[2020-03-13 07:12] LABS: Vancomycin Trough 10.1 ug/mL (10-15)
[2020-03-13 07:32] LABS: Glucose Point of Care 152 mg/dL (70-110)
--- NOTE | 2020-03-13 08:11 | P.PN_ITS ---
Subjective Subjective: Interval history: Successfully extubated yesterday, currently on BiPAP, normotensive, afebrile. Had 325 mL urine output overnight. Noted stable hemoglobin, decreasing leukocytosis, stable renal function. Remains off pressor support. Currently n.p.o. pending formal ST evaluation. Very frail and weak, failed ST evaluation so remains NPO, R chest tube removed, PM CXR to determine if can discontinue L thoravent. He shakes his head no when asked if he has pain. updated at bedside. Had an episode of desaturation that required BiPAP with FiO2 increased to 100% earlier this afternoon. Medications: Reviewed: Yes Medication Review Details: Active Medications Generic Name Dose Route Start Last Admin Trade Name Freq PRN Reason Stop Dose Admin Acetaminophen 650 mg 03/01/20 20:38 Acetaminophen 32 5 Mg Tablet PO Q6H PRN Mild/Mod Pain Or Temp >/= 101 Hydrocodone Bitart /Acetaminophen 1 tab 03/01/20 20:38 03/10/20 03:57 Hydrocodone-Acet aminophen 7.5-325 Mg Tablet PO 1 tab Q4H PRN Administration Pain Albuterol Sulfate 2 puff 03/01/20 20:38 Albuterol 8 Gm M di INHALATION Q4H.RESPIRATORY P RN SHORTNESS OF SERGO TH Dexamethasone 4 mg 03/02/20 19:00 03/12/20 20:16 Dexamethasone 4 Mg/Ml Inj IVP 4 mg TID WHIT Administration Dextrose 25 ml 03/01/20 20:38 Dextrose 50% Syr daniel 50 Ml IVP ONCE PRN hypoglycemia prot ocol Protocol Dextrose 50 ml 03/01/20 20:38 Dextrose 50% Syr daniel 50 Ml IVP PRN PRN hypoglycemia prot ocol Protocol Enoxaparin Sodium 40 mg 03/02/20 11:00 03/10/20 10:51 Enoxaparin 40 Mg /0.4 Ml Syringe SUBCUT 40 mg Q24H WHIT Administration Furosemide 40 mg 03/04/20 10:30 03/07/20 22:04 Furosemide 10 Mg /Ml Sdv 4ml IVP 40 mg Q12H WHIT Administration Glucagon 1 mg 03/01/20 20:38 Glucagon 1 Mg/Ml Inj 1 Ml IM ONCE PRN Adult Acute Hypog lycemia Prot. Protocol Dextrose 500 mls @ 100 mls /hr 03/01/20 20:38 D5w IV ONCE PRN Adult Acute Hypog lycemia Prot Protocol Norepinephrine Bit artrate 4 mg 254 mls @ 0 mls/h r 03/02/20 08:15 03/12/20 08:19 / Dextrose IV 3.7 mls/hr .Q0M WHIT 3.7 mls/hr Titration Protocol Per Protocol Imipenem/Cilastati n Sodium 500 100 mls @ 200 mls /hr 03/02/20 11:00 03/13/20 04:42 mg/ Sodium Chlor matthew IV 200 mls/hr Q6H WHIT Administration Protocol Azithromycin 500 m g/ Sodium 250 mls @ 250 mls /hr 03/02/20 22:00 03/13/20 04:42 Chloride IV Infused Q24H WHIT Infusion Protocol Dexmedetomidine HC l 400 mcg/ 104 mls @ 0 mls/h r 03/05/20 05:15 Sodium Chloride IV .Q0M WHIT Protocol Per Protocol Vancomycin HCl 1,0 00 mg/ 250 mls @ 250 mls /hr 03/09/20 08:00 03/13/20 07:32 Sodium Chloride IV Infused Q24H WHIT Infusion Insulin Aspart 0 unit 03/05/20 12:00 03/13/20 06:26 Insulin Aspart 1 00 Unit/1 Ml SUBCUT Not Given Q6H [facility] Protocol Ketorolac Trometha mine 30 mg 03/12/20 17:37 Ketorolac 30 Mg/ Ml Inj IVP 03/17/20 17:36 Q6H PRN MODERATE PAIN Lorazepam 0.5 mg 03/01/20 20:38 Lorazepam 1 Mg T ablet PO TID PRN Nausea And Vomiti ng Lorazepam 1 mg 03/04/20 22:45 03/04/20 22:59 Lorazepam 2 Mg/M l Inj 1 Ml IVP 1 mg NOW PRN Administration ANXIETY Morphine Sulfate 2 mg 03/12/20 17:37 03/12/20 17:53 Morphine 4 Mg/Ml Sdv 1 Ml IVP 2 mg Q4H PRN Administration SEVERE PAIN Non-Formulary Medi cation 500 mg 03/01/20 20:38 Famciclovir PO TID PRN MOUTH SORES Ondansetron HCl 4 mg 03/01/20 20:38 Ondansetron 2 Mg /Ml Sdv 2 Ml IVP Q6H PRN NAUSEA AND VOMITI NG Pantoprazole Sodiu m 40 mg 03/11/20 08:30 03/12/20 20:16 Pantoprazole 40 Mg Sdv IVP 40 mg Q12H WHIT Administration Penicillins Allergy (Verified 02/13/20 10:06) ALGY-Anaphylaxis tramadol Adverse Reaction (Verified 02/13/20 10:06) ADR-Vomiting Vitals/I&O/Wt Last Vital Signs Temp 98.9 F 03/13/20 02:00 Pulse 71 03/13/20 07:44 Resp 22 H 03/13/20 06:00 BP 101/65 03/13/20 06:00 Pulse Ox 93 03/13/20 07:44 03/12/20 03/13/20 03/13/20 22:59 06:59 14:59 Intake Total 125 / 329.558 350 / 679.558 250 / 250 Output Total 350 / 510 355 / 865 Balance -225 / -180.442 -5 / -185.442 250 / 250 Physical Exam Const: COMMON NORMALS: no acute distress and alert GENERAL APPEARANCE: ill appearing and Edematous ORIENTATION/CONSCIOUSNESS: Yes awake OTHER: -off sedation HENMT: COMMON NORMALS: normocephalic, atraumatic and hearing grossly normal bilaterally HEAD & SCALP: normal to inspection, normocephalic and atraumatic Eye: COMMON NORMALS: Equal, round and reactive pupils present, EOMs intact bilaterally and conjunctivae normal CONJUNCTIVA: Yes conjunctivae normal PUPIL: Yes Equal, round and reactive pupils present OTHER: -legally blind Neck/C-Spine: COMMON NORMALS: full ROM GENERAL: Yes normal visual inspection, Yes trachea midline, Yes anterior neck swelling and Yes other (right sided SC emphysema) Chest: CHEST: Yes Vascular access present (port-A-cath) and Yes other (R chest tube, L thoravent) Resp: COMMON NORMALS: normal respiratory effort, No retractions and No use of accessory muscles EFFORT & INSPECTION: Yes symmetric chest movement and Yes tachypneic AUSCULTATION: diminished lung sounds (more so on the R) OTHER: -on BiPAP vs. NC Cardio: COMMON NORMALS: regular rate, regular rhythm, S1 normal heart sound pr esent, S2 normal heart sound present and No murmurs present (Cardio) RATE: regular rate RHYTHM: regular rhythm HEART SOUNDS: S1 normal heart sound present and S2 normal heart sound present OTHER: ----y-[id number]-d- -@- -3- -m-c-g-/-m-i-n- GI: COMMON NORMALS: Normal to inspection, nondistended, normoactive bowel sounds present and Soft to palpation PALPATION: Yes Soft to palpation : BLADDER/KIDNEY EXAM: Yes catheter in place Extremity: COMMON NORMALS: normal to inspection GENERAL: Yes edema (1-2 + bilateral ankle edema, improved) Neuro: COMMON NORMALS: moves all extremities, no focal motor deficits, no sensory deficits noted and gait normal SENSORIUM/ORIENTATION: Yes alert OTHER: -able to intel analyst hands bilaterally on command, seems to have L gaze pre ference Psych: COMMON NORMALS: mental status grossly normal, Normal thought process present, cooperative, normal affect and speech normal SPEECH: Yes normal speech THOUGHT PROCESS: Normal thought process present Skin: COMMON NORMALS: no rashes or lesions noted, no jaundice, no petechiae and no mottling GENERAL SKIN EXAM: no rashes or lesions noted OTHER: -some noted areas of bruising on toes, L plantar foot -scattered skin tears with weeping edema Urinary Catheter Management^: Flores: Cath Placed During This Visit: yes Urinary Catheter Date of Insertion: 03/02/20 Urinary Catheter Time of Insertion: 14:11 Data : 03/13/20 04:35 03/13/20 04:35 A&P Assessment and plan (1) Respiratory failure with hypoxia: -off vent, extubated on 03/12 -Noted continued RLL consolidation and bilateral patchy opacifications; known nodules and metastatic disease throughout the lungs -f/u CXR today -continue broad-spectrum IV antibiotic coverage with Primaxin, vancomycin, azithromycin -continue steroids -COVID-19 PCR negative, off isolation precaution -blood cx: negative -sputum cx: Alcaligenes faecalis, sensitivity noted -continue to monitor respiratory status -no PE on CTA -noted LE edema, on diuresis -consult by Dr. Porter appreciated Status: Acute Qualifiers: Chronicity: acute Qualified Code(s): J96.01 - Acute respiratory failure with hypoxia (2) Pneumothorax: -noted moderate sized pneumothoraces bilaterally (L > R) on CT chest (03/06) -s/p R chest tube and L thoracic vent placement (03/06); R chest tube removed this AM -daily CXR -consults by Dr. Porter and Dr. Baron appreciated -close monitoring of respiratory status Status: Acute Qualifiers: Pneumothorax type: unspecified pneumothorax Qualified Code(s): J93.9 - Pneumothorax, unspecified (3) Pneumomediastinum: -imaging reviewed, noted extensive subcutaneous emphysema with pneumomediastinum Status: Acute (4) Septic shock: -As evidenced by hypoxia with need for mechanical ventilation, hypotension, leukocytosis. WBC trending down, off pressor support -Secondary to respiratory infection as noted above -Continues to require pressor support, wean as tolerated -Continue to monitor vital signs closely Status: Acute (5) Pneumonia: -as noted above Status: Acute Qualifiers: Laterality: bilateral Lung location: unspecified part of lung Pneumonia type: due to unspecified organism Qualified Code(s): J18.9 - Pneumonia, unspecified organism (6) E coli bacteremia: -Found to have E. coli bacteremia during last admission last month. Unclear etiology though presumed to be secondary to GI translocation given neut ropenia and underlying immunocompromise. 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 Reyes -continue dexamethasone -poor prognosis Status: Chronic Qualifiers: Laterality: right Qualified Code(s): C34.91 - Malignant neoplasm of unspecified part of right bronchus or lung (8) Thrombocytopenia: -stable platelet count, continue to trend -continue to monitor for bleeding; none so far -HIT panel negative Status: Chronic (9) Anemia: -Hg stable, continue to trend -hold anticoagulation -PPI IV BID Status: Chronic Qualifiers: Anemia type: unspecified type Qualified Code(s): D64.9 - Anemia, unspecified (10) Anasarca: -clinically has anasarca, weeping edema -likely multifactorial given septic shock and need for multiple IV medications, hypoalbuminemia, compromised cardiac output from PTX and SC emphysema -albumin as needed, diuresis with caution to avoid renal injury -Echo-EF=50-55%, relative hypokinesia of septum Status: Acute Additional A&P Information -Legally blind -previously found to have encephalopathy secondary to hyponatremia; sodium level stable -Treated with antifungal secondary to significant mucositis -LFTs normalized -Hypomagnesemia, replace as needed -Bradycardia, likely medication induced as has resolved with discontinuation of fentanyl, sinus rhythm, Echo-EF=50-55%, relative hypokinesia of septum. HR wnl -NPO pending formal ST evaluation, off tube feeding -GI ppx with famotidine -DVT ppx with SCDs, lovenox on hold due to anemia; if stable platelet count and Hg, may consider resumption of AC -Dispo: home, likely with hospice -Code status: DNR/DNI -guarded prognosis given underlying immunocompromise, ongoing illness. Attestations Medical Necessity Statement*: Patient requires hospitalization for continued treatment of pnuemonia, s/p extubation, pending ST evaluation and management of chest tubes. Time Spent in Patient Care: 16 - 35 minutes (>than 50% of time spent in counselling and/or direct pt care on unit) . Critical Care Time: The high probability of a clinically significant, sudden or life threatening deterioration of the patient's [respiratory, cardiovascular] system(s) required my full and direct attention, intervention and personal manag ement. The critical care time is as shown. This time is in addition to time spent performing any reported procedures but includes the following: [x] Data and vital sign review and interpretation [x] Patient assessment, examination and intervention [x] Documentation [x] Medication orders and management Critical Care Time (min): 15 Coding Level of Care Code Acute Tooth Cutter Clutch for [facility] Fwd Exam Comprehensive Diagnoses Respiratory failure with hypoxia J96.01 Chronicity: acute Pneumothorax J93.9 Pneumothorax type: unspecified pneumothorax Pneumomediastinum J98.2 Septic shock A41.9; R65.21 Pneumonia J18.9 Laterality: bilateral Lung location: unspecified part of lung Pneumonia type: due to unspecified organism E coli bacteremia R78.81; B96.20 Primary lung squamous cell carcinoma C34.91 Laterality: right Thrombocytopenia D69.6 Anemia D64.9 Anemia type: unspecified type Anasarca R60.1
--- NOTE | 2020-03-13 08:58 | PC.NURSE ---
dr. cazares in. right chest tube removed.
--- NOTE | 2020-03-13 09:00 | P.PN_ITS ---
Subjective Subjective: Interval history: -Tolerating BiPAP 20/535% FiO2 -Patient opening eyes and squeezing fingers -Afebrile, improving WBC -185 mL last 24 hours, stable renal functions and electrolytes within normal limits -Chest x-ray resolution of bilateral pneumothorax; presence of extensive subcutaneous emphysema -I removed his right chest tube and clamped left-sided chest tube -We will repeat an x-ray in the evening and if no reaccumulation of pneumothorax will remove left-sided chest tube -Plan today should be swallow eval's and decision to start diet -Bedside physical therapy Medications: Reviewed: Yes Medication Review Details: Active Medications Generic Name Dose Route Start Last Admin Trade Name Freq PRN Reason Stop Dose Admin Acetaminophen 650 mg 03/01/20 20:38 Acetaminophen 32 5 Mg Tablet PO Q6H PRN Mild/Mod Pain Or Temp >/= 101 Hydrocodone Bitart /Acetaminophen 1 tab 03/01/20 20:38 03/10/20 03:57 Hydrocodone-Acet aminophen 7.5-325 Mg Tablet PO 1 tab Q4H PRN Administration Pain Albuterol Sulfate 2 puff 03/01/20 20:38 Albuterol 8 Gm M di INHALATION Q4H.RESPIRATORY P RN SHORTNESS OF SERGO TH Dexamethasone 4 mg 03/02/20 19:00 03/12/20 20:16 Dexamethasone 4 Mg/Ml Inj IVP 4 mg TID WHIT Administration Dextrose 25 ml 03/01/20 20:38 Dextrose 50% Syr daniel 50 Ml IVP ONCE PRN hypoglycemia prot ocol Protocol Dextrose 50 ml 03/01/20 20:38 Dextrose 50% Syr daniel 50 Ml IVP PRN PRN hypoglycemia prot ocol Protocol Enoxaparin Sodium 40 mg 03/02/20 11:00 03/10/20 10:51 Enoxaparin 40 Mg /0.4 Ml Syringe SUBCUT 40 mg Q24H WHIT Administration Furosemide 40 mg 03/04/20 10:30 03/07/20 22:04 Furosemide 10 Mg /Ml Sdv 4ml IVP 40 mg Q12H WHIT Administration Glucagon 1 mg 03/01/20 20:38 Glucagon 1 Mg/Ml Inj 1 Ml IM ONCE PRN Adult Acute Hypog lycemia Prot. Protocol Dextrose 500 mls @ 100 mls /hr 03/01/20 20:38 D5w IV ONCE PRN Adult Acute Hypog lycemia Prot Protocol Norepinephrine Bit artrate 4 mg 254 mls @ 0 mls/h r 03/02/20 08:15 03/12/20 08:19 / Dextrose IV 3.7 mls/hr .Q0M WHIT 3.7 mls/hr Titration Protocol Per Protocol Imipenem/Cilastati n Sodium 500 100 mls @ 200 mls /hr 03/02/20 11:00 03/13/20 04:42 mg/ Sodium Chlor matthew IV 200 mls/hr Q6H WHIT Administration Protocol Azithromycin 500 m g/ Sodium 250 mls @ 250 mls /hr 03/02/20 22:00 03/13/20 04:42 Chloride IV Infused Q24H WHIT Infusion Protocol Dexmedetomidine HC l 400 mcg/ 104 mls @ 0 mls/h r 03/05/20 05:15 Sodium Chloride IV .Q0M WHIT Protocol Per Protocol Vancomycin HCl 1,0 00 mg/ 250 mls @ 250 mls /hr 03/09/20 08:00 03/13/20 07:32 Sodium Chloride IV Infused Q24H WHIT Infusion Insulin Aspart 0 unit 03/05/20 12:00 03/13/20 06:26 Insulin Aspart 1 00 Unit/1 Ml SUBCUT Not Given Q6H WHIT Protocol Ketorolac Trometha mine 30 mg 03/12/20 17:37 Ketorolac 30 Mg/ Ml Inj IVP 03/17/20 17:36 Q6H PRN MODERATE PAIN Lorazepam 0.5 mg 03/01/20 20:38 Lorazepam 1 Mg T ablet PO TID PRN Nausea And Vomiti ng Lorazepam 1 mg 03/04/20 22:45 03/04/20 22:59 Lorazepam 2 Mg/M l Inj 1 Ml IVP 1 mg NOW PRN Administration ANXIETY Morphine Sulfate 2 mg 03/12/20 17:37 03/12/20 17:53 Morphine 4 Mg/Ml Sdv 1 Ml IVP 2 mg Q4H PRN Administration SEVERE PAIN Non-Formulary Medi cation 500 mg 03/01/20 20:38 Famciclovir PO TID PRN MOUTH SORES Ondansetron HCl 4 mg 03/01/20 20:38 Ondansetron 2 Mg /Ml Sdv 2 Ml IVP Q6H PRN NAUSEA AND VOMITI NG Pantoprazole Sodiu m 40 mg 03/11/20 08:30 03/12/20 20:16 Pantoprazole 40 Mg Sdv IVP 40 mg Q12H WHIT Administration Penicillins Allergy (Verified 02/13/20 10:06) ALGY-Anaphylaxis tramadol Adverse Reaction (Verified 02/13/20 10:06) ADR-Vomiting Vitals/I&O/Wt Last Vital Signs Temp 98.9 F 03/13/20 02:00 Pulse 71 03/13/20 07:44 Resp 22 H 03/13/20 06:00 BP 101/65 03/13/20 06:00 Pulse Ox 93 03/13/20 07:44 03/12/20 03/13/20 03/13/20 22:59 06:59 14:59 Intake Total 125 / 329.558 350 / 679.558 250 / 250 Output Total 350 / 510 355 / 865 Balance -225 / -180.442 -5 / -185.442 250 / 250 Physical Exam Narrative: EXAM NARRATIVE: PHYSICAL EXAM: General: lying in bed, extuabted HEENT:NCAT, PERRLA, EOMI, moist mucous membranes Neck: Supple Lungs: Improved breath sounds on left upper and right upper lobes. 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, moves extremities SKIN: no rash LDA: # CVC: Right IJ 03/02/2020 # Flores: 03/02/2020 # Chest tubes: Right chest tube 03/06/2020 removed 03/13/2020: Left anterior Thora vent 03/06/2020 Urinary Catheter Management^: Flores: Cath Placed During This Visit: yes Urinary Catheter Date of Insertion: 03/02/20 Urinary Catheter Time of Insertion: 14:11 Data : 03/13/20 04:35 03/13/20 04:35 A&P Assessment and plan (1) Respiratory failure with hypoxia: Status: Acute Qualifiers: Chronicity: acute Qualified Code(s): J96.01 - Acute respiratory failure with hypoxia (2) Pneumomediastinum: Status: Acute (3) Pneumothorax: Status: Acute Qualifiers: Pneumothorax type: unspecified pneumothorax Qualified Code(s): J93.9 - Pneumothorax, unspecified (4) Septic shock: Status: Acute (5) Pneumonia: Status: Acute Qualifiers: Laterality: bilateral Lung location: unspecified part of lung Pneumonia type: due to unspecified organism Qualified Code(s): J18.9 - Pneumonia, unspecified organism (6) Primary lung squamous cell carcinoma: Status: Chronic Qualifiers: Laterality: right Qualified Code(s): C34.91 - Malignant neoplasm of unspecified part of right bronchus or lung #Acute hypoxic respiratory failure secondary to HCAP and patient with underlying metastatic squamous cell carcinoma #Septic shock secondary to Alcaligenes faecalis pneumonia #Bilateral pneumothorax/pneumomediastinum/pneumoperitoneum/extensive subcutaneous emphysema-secondary to positive pressure ventilation - ?? Fistula between cavitary lung mass to pleural space #Altered mental status-sedation Vs metastatic brain lesions around brainstem - No acute events overnight -Tolerating BiPAP 20/535% FiO2 -Patient opening eyes and squeezing fingers -Afebrile, improving WBC -185 mL last 24 hours, stable renal functions and electrolytes within normal limits;clinically edema improving -Chest x-ray resolution of bilateral pneumothorax; presence of extensive subcutaneous emphysema -I removed his right chest tube and clamped left-sided chest tube -We will repeat an x-ray in the evening and if no reaccumulation of pneumothorax will remove left-sided chest tube -Plan today should be swallow eval's and decision to start diet -Bedside physical therapy - changed CODE STATUS to DNR - Recommended swallow eval tomorrow and start soft diet -Sputum cultures positive for Alcaligenes faecalis -Continue imipenem and DC vancomycin and azithromycin -Echo 03/05/2020: Borderline low EF 50 to 55% and relative hypokinesia of the septum. -Lovenox 40 mg daily - wants home hospice - The patient has MRI evidence of intracranial metastasis not appropriate for SRS therapy at this facility and he is symptomatic with respect to headaches and nausea/vomiting likely due to tumor mass-effect on the fourth ventricle. both the patient and the family has agreed to whole brain radiation therapy (30 Gy/10 fractions), -Currently dexamethasone 4 mg 3 times daily. -Patient needs oncology evaluation for prognostication and further decision on hospice Very poor prognosis Recommendations conveyed to hospitalist RN, RT covering the patient Attestations Medical Necessity Statement*: #Acute hypoxic respiratory failure secondary to HCAP and patient with underlying metastatic squamous cell carcinoma admitted with septic shock secondary to Alcaligenes faecalis pneumonia c/b Bilateral pneumothorax/pneumomediastinum/pneumoperitoneum/extensive subcutaneous emphysema-secondary to positive pressure ventilation - ?? Fistula between cavitary lung mass to pleural space Time Spent in Patient Care: 16 - 35 minutes (>than 50% of time spent in counselling and/or direct pt care on unit) . 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
[2020-03-13] MEDS: vancomycin 1,000 MG in sodium chloride 0.9% 250 ML 250 MG IV (09:03)
[2020-03-13] MEDS: dexamethasone 4 mg/mL INJ IVP ×3 (09:04→21:13)
[2020-03-13] MEDS: pantoprazole 40 mg SDV IVP ×2 (09:19→21:54)
--- NOTE | 2020-03-13 09:36 | PC.CHAP ---
Pastoral Care Encounter/Spiritual Assessment Type of Contact [] Declined jukebox coin collector visit [] Patient/Family/Request visit [] Outpatient visit [] Follow-up visit [] Physician referral [] Code/Alert [] Routine visit [] Staff referral [] Actively dying [] Patient sleeping [] Family support [] [] Out of room [] Palliative care [] [] Receiving care in room [] Pre-surgical visit [] Trauma [] Long length of stay [x] ICU visit [] Other: Relational/Emotional Strength [] Patient feels connected with others/family/visitors/staff [] Distress [] Loneliness/isolation [] Abandonment Spirituality of Patient [] Person of Amanda [] Attends Congregation of their Amanda [] Believes in Prayer [] Reads Bible or Hoahaoism materials [] There are Spiritual issues to be addressed Wind Plant Manager Interventions [x] Prayer [] Active listening [] Non-anxious presence [] Spiritual/emotional support [] Crisis/trauma care [] Spiritual counseling [] Bereavement support [] Provided bereavement packet [] Provided Bible/devotional materials [] Provided toy/stuffed animal, coloring book to patient or family member [] Provided Communion [] Anointing/[place] [] Salvation [x] Completed spiritual assessment [] Other: Impact on Illness or Injury [] Angry [] Fearful [] Anxious [] Often cries [] Exhaustion [] Unable to work [] Unable to attend yazidism [] Unable to walk/stand [] Unable to read [] Unable to drive [] Unable to eat/drink [] Unable to sleep [] Unable to be with family [] Patient intubated [] Other: Summary Time spent with patient
[2020-03-13 13:25] LABS: Glucose Point of Care 130 mg/dL (70-110)
--- NOTE | 2020-03-13 16:38 | XR_ITS ---
WS: [id number] Portable AP upright chest, 03/13/2020, 1637 hours Clinical Data: sub q air Comparison: Portable chest, today, 0504 hours. Findings: The right chest has been removed. No recurrence of the right pneumothorax is seen. The left chest tube, bilateral internal jugular venous catheters and monitor leads remain the same. There is still bilateral subcutaneous emphysema. There is a dense right lower lobe opacity and bilateral lung opacities. XR/XR chest 1V portable [id number] Impression: 1. Removal of right chest tube without recurrence of right pneumothorax. 2. No change in remainder of chest from earlier today.
[2020-03-13 17:55] LABS: Glucose Point of Care 150 mg/dL (70-110)
[2020-03-13] MEDS: ketorolac 30 mg/mL INJ IVP (19:50)
[2020-03-13] MEDS: azithromycin 500 MG in sodium chloride 0.9% 250 ML 250 MG IV (21:13)
--- NOTE | 2020-03-13 22:40 | PC.NURSE ---
Physician Notified Dr. Dunlap notified at this time for decline in status. O2 saturation 85% on 10L high flow NC. Pt has copious secretions with weak cough and unable to expectorate with nurse and RT. Fast and shallow respiration. Pt is anxious picking at things, pulling off oxygen O2 sat dropped to 80% and picking at things. Pulled patient up in bed. Orders received to give one time dose 20mg lasix IVP and use of atropine drops to aide in drying secretions.
[2020-03-13] MEDS: FUROsemide 10 mg/mL SDV 2mL 20 MG IVP (22:50)
[2020-03-13] MEDS: morphine 4 mg/mL SDV 1 mL 2 MG IVP (22:58)
--- NOTE | 2020-03-13 22:58 | PC.NURSE ---
2mg morphine given for air hunger, patient continues to breath fast and shallow. Lung sounds coarse/rhonchi. Hypoxia continues, 87% on 12L high flow nasal cannula.
[2020-03-14] VITALS (18 sets, daily range): BP systolic 105–122; BP diastolic 69–84; PULSE 62–112; RESP 17–28; TEMP 36.4; O2SAT 60–99
--- NOTE | 2020-03-14 00:41 | PC.NURSE ---
Update Pt breathing easier, O2 sat 97% and RR is 18. is now at bedside.
[2020-03-14] MEDS: morphine 4 mg/mL SDV 1 mL 2 MG IVP (03:45)
--- NOTE | 2020-03-14 04:00 | PC.NURSE ---
Respiratory Assessment sat 79% on 15L high flow NC. Pt anxious , verbalizes i cant breathe' Cough is rattling/moist and weak with audible secretions heard at bedside. Pt unable to expectorate. remains at bedside. RT applied Heated high flow with fio2 at 100% and 45L flow to achieve O2 saturation of 91%. Morphine 2mg given for air hunger and atropine drops given to assist with secretions.
[2020-03-14 05:11] LABS: Basophils % 0.2 %; Mean Corpuscular HGB Conc 30.9 g/dL (30.0-36.0)
[2020-03-14 05:33] LABS: Hematocrit 29.8 % (42.0-52.0); Hemoglobin 9.2 g/dL (11.7-16.6); Lymphocytes # 0.2 10^3/uL (0.8-4.8); Mean Corpuscular Hemoglobin 29.7 pg (28.0-34.0); Mean Corpuscular Volume 96.1 fL (80-94); Mean Platelet Volume 12.6 fL (7.4-10.4); Monocytes # 0.5 10^3/uL (0.2-0.9); Neutrophils # 16.17 10^3/uL (1.8-7.7); Neutrophils % 92.9 %; Nucleated Red Blood Cells % 0.1 %; Platelet Count 96 10^3/cmm (130-400); Red Cell Distribution Width 24.8 % (12.1-15.1); White Blood Count 17.4 10^3/uL (4.0-10.0)
[2020-03-14 05:45] LABS: Alanine Aminotransferase 41 U/L (0-41); Albumin Level 3.1 g/dL (3.5-5.2); Alkaline Phosphatase 124 IU/L (40-130); Aspartate Amino Transferase 61 U/L (0-40); Blood Urea Nitrogen 36 mg/dL (8-23); Calcium 8.4 mg/dL (8.5-10.5); Carbon Dioxide 26 mmol/L (22-29); Chloride 111 mmol/L (98-107); Globulin 1.6 g/dL (1.3-4.6); Glomerular Filtration Rate 136.5 mL/min (90-130); Glucose 149 mg/dL (65-115); Osmolality Calculated 315 mOsm/kg (285-295); Sodium 147 mmol/L (136-145); Total Bilirubin 1.4 mg/dL (0.15-1.2); Total Protein 4.7 g/dL (6.6-8.7)
--- NOTE | 2020-03-14 06:00 | XR_ITS ---
WS: [id number] CHEST XRAY TECHNIQUE: Portable chest. CLINICAL INFORMATION: L farrah, [place] emphysema COMPARISON: March 13, 2020 FINDINGS: Right Port-A-Cath with tip in the mid SVC. Left IJ catheter with tip in the SVC. Left chest tube in place. Tiny left apical lateral and basilar pneumothorax. Subcutaneous emphysema both chest puentes and lower neck appears unchanged. Stable dense right lower lobe wedge-shaped opacity. XR/XR chest 1V portable [id number] IMPRESSION: 1. Left chest tube in place with tiny left apical lateral and basilar pneumoth orax. 2. Bilateral chest wall and lower neck subcutaneous emphysema. 3. Bilateral IJ catheters are unchanged. 4. Stable wedge-shaped right lower lobe opacity.
--- NOTE | 2020-03-14 06:13 | P.PN_ITS ---
Subjective Subjective: Interval history: overnight patient continued to deteriorate with 02 saturation dropping to low 70s. CXR this morning with resolved pneumothorax, persistent pneumonia, likely post obstructive, oxygen increased to 15lpm on HFNC, noted to be with visible tachypnea and in respiratory distress. was called in at bedside with these changes and remains by patient side currently. Patient was alert and awake, though notable distress, took off his oxygen and does not want it placed back on due to discomfort. at patient's bedside agrees with keeping oxygen canula off as bothersome to patient. Understands that this means patient will suffer from respiratory arrest. Medications: Reviewed: Yes Vitals/I&O/Wt Last Vital Signs Temp 97.6 F 03/14/20 02:00 Pulse 80 03/14/20 04:00 Resp 22 H 03/14/20 04:00 BP 122/82 03/14/20 04:00 Pulse Ox 93 03/14/20 04:00 03/13/20 03/13/20 03/14/20 14:59 22:59 06:59 Intake Total 700 / 700 350 / 1050 200 / 1250 Output Total 300 / 300 800 / 1100 Balance 700 / 700 50 / 750 -600 / 150 Physical Exam Narrative: EXAM NARRATIVE: GEN: Awake, in respiratory distress with notable tachypnea, accessory muscle use ++, 02 saturation dropping to 62% off 02. 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 - Respiratory failure contributed by multiple issues including widely metastatic lung cancer , post obstructive pneumonia, pneumothorax B/L , cannot exclude possibility of fistulization -Noted continued RLL consolidation and bilateral patchy opacifications; known nodules and metastatic disease throughout the lungs -f/u CXR with resolved PTX since removal of chest tubes - Patient unwilling to keep his 02 on.He has removed the HFNC that was placed overnight. Had an extensive discussion with patient;s who has been at his bedside since last night. Off of 02, patient's 02 saturation drops to 62% on RA. This is clearly not compatible with life and with worsening respiratory distess, I am afraid patient will soon suffer respiratory arrest resulting in demise. Both patient and acknowledge understanding of the same, decision has been made to proceed with comfort care measures only at this time. Morphine, ativan and atropine prn have been added in keeping with these goals. Antibiotics and steroids discontinued as in the presence of profound hypoxia and unwillingness to keep 02 on along with poor respiratory effort, these are futile efforts. Status: Acute Qualifiers: Chronicity: acute Qualified Code(s): J96.01 - Acute respiratory failure with hypoxia (2) Pneumothorax: now resolved Appreciate pulmonary and CT surgery recommendations Status: Acute Qualifiers: Pneumothorax type: unspecified pneumothorax Qualified Code(s): J93.9 - Pneumothorax, unspecified (3) Pneumomediastinum: -imaging reviewed, noted extensive subcutaneous emphysema with pneumomediastinum Status: Acute (4) Septic shock: -Resolved Status: Acute (5) Pneumonia: Status: Acute Qualifiers: Laterality: bilateral Lung location: unspecified part of lung Pneumonia type: due to unspecified organism Qualified Code(s): J18.9 - Pneumonia, unspecified organism (6) E coli bacteremia: not an active issue this current admission Status: Resolved (7) Primary lung squamous cell carcinoma: -Has known squamous cell carcinoma 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
--- NOTE | 2020-03-14 07:00 | PC.NURSE ---
Pt's sats dropped to 70 s. Upon [employer] and I entering room noted Heated high flow off. Pt shook his no to having that placed back on Offered nasal cannula and pt shook his head no. When asked if he understood what was going to happen without wearing oxygen pt shook his head yes. verbalized understand too. Dr Reyes notified.
--- NOTE | 2020-03-14 08:25 | PC.NURSE ---
Dr cazares removed left upper chest thoravent. Pt toelrated well.
--- NOTE | 2020-03-14 08:28 | PC.PT ---
Discharge PT; Pt to comfort care
[2020-03-14] MEDS: morphine 4 mg/mL SDV 1 mL IVP ×2 (10:51→14:43)
--- NOTE | 2020-03-14 11:40 | PC.NURSE ---
Addendum entered by Cyndee Cochran RN 03/14/20 12:11: Per Martine, business improvement manager, Pt's care care be M/S care as pt is comfort care. Original Note: Report given to KENTRELL Hutchinson.
[2020-03-14 11:43] LABS: Glucose Point of Care 125 mg/dL (70-110)
--- NOTE | 2020-03-14 12:00 | PC.NURSE ---
Report received from Cyndee PFEIFFER. Patient daughter at bedside. Patient refusing his medications and blood sugar checks.
--- NOTE | 2020-03-14 14:00 | PC.NURSE ---
Patient is refusing vital signs.
--- NOTE | 2020-03-14 17:08 | P.PN_ITS ---
Subjective Subjective: Interval history: - Overnight patient desaturated to low 70s and was refusing to keep oxygen on and does not want want any more treatments and opted for withdrawal of care. at bedside agrees with the patient and requested comfort care. -Chest x-ray still showing tiny left apical lateral and basilar pneumothorax but left Thora vent is taken out after explaining and patient that it could worsen his pneumothorax a and will worsen his respiratory status. They both understand the risks and does not want to continue with any more treatment. Medications: Reviewed: Yes Medication Review Details: Active Medications Generic Name Dose Route Start Last Admin Trade Name Freq PRN Reason Stop Dose Admin Acetaminophen 650 mg 03/01/20 20:38 Acetaminophen 32 5 Mg Tablet PO Q6H PRN Mild/Mod Pain Or Temp >/= 101 Hydrocodone Bitart /Acetaminophen 1 tab 03/01/20 20:38 03/10/20 03:57 Hydrocodone-Acet aminophen 7.5-325 Mg Tablet PO 1 tab Q4H PRN Administration Pain Albuterol Sulfate 2 puff 03/01/20 20:38 Albuterol 8 Gm M di INHALATION Q4H.RESPIRATORY P RN SHORTNESS OF SERGO TH Dexamethasone 4 mg 03/02/20 19:00 03/12/20 20:16 Dexamethasone 4 Mg/Ml Inj IVP 4 mg TID WHIT Administration Dextrose 25 ml 03/01/20 20:38 Dextrose 50% Syr daniel 50 Ml IVP ONCE PRN hypoglycemia prot ocol Protocol Dextrose 50 ml 03/01/20 20:38 Dextrose 50% Syr daniel 50 Ml IVP PRN PRN hypoglycemia prot ocol Protocol Enoxaparin Sodium 40 mg 03/02/20 11:00 03/10/20 10:51 Enoxaparin 40 Mg /0.4 Ml Syringe SUBCUT 40 mg Q24H WHIT Administration Furosemide 40 mg 03/04/20 10:30 03/07/20 22:04 Furosemide 10 Mg /Ml Sdv 4ml IVP 40 mg Q12H WHIT Administration Glucagon 1 mg 03/01/20 20:38 Glucagon 1 Mg/Ml Inj 1 Ml IM ONCE PRN Adult Acute Hypog lycemia Prot. Protocol Dextrose 500 mls @ 100 mls /hr 03/01/20 20:38 D5w IV ONCE PRN Adult Acute Hypog lycemia Prot Protocol Norepinephrine Bit artrate 4 mg 254 mls @ 0 mls/h r 03/02/20 08:15 03/12/20 08:19 / Dextrose IV 3.7 mls/hr .Q0M WHIT 3.7 mls/hr Titration Protocol Per Protocol Imipenem/Cilastati n Sodium 500 100 mls @ 200 mls /hr 03/02/20 11:00 03/13/20 04:42 mg/ Sodium Chlor matthew IV 200 mls/hr Q6H WHIT Administration Protocol Azithromycin 500 m g/ Sodium 250 mls @ 250 mls /hr 03/02/20 22:00 03/13/20 04:42 Chloride IV Infused Q24H WHIT Infusion Protocol Dexmedetomidine HC l 400 mcg/ 104 mls @ 0 mls/h r 03/05/20 05:15 Sodium Chloride IV .Q0M WHIT Protocol Per Protocol Vancomycin HCl 1,0 00 mg/ 250 mls @ 250 mls /hr 03/09/20 08:00 03/13/20 07:32 Sodium Chloride IV Infused Q24H WHIT Infusion Insulin Aspart 0 unit 03/05/20 12:00 03/13/20 06:26 Insulin Aspart 1 00 Unit/1 Ml SUBCUT Not Given Q6H [facility] Protocol Ketorolac Trometha mine 30 mg 03/12/20 17:37 Ketorolac 30 Mg/ Ml Inj IVP 03/17/20 17:36 Q6H PRN MODERATE PAIN Lorazepam 0.5 mg 03/01/20 20:38 Lorazepam 1 Mg T ablet PO TID PRN Nausea And Vomiti ng Lorazepam 1 mg 03/04/20 22:45 03/04/20 22:59 Lorazepam 2 Mg/M l Inj 1 Ml IVP 1 mg NOW PRN Administration ANXIETY Morphine Sulfate 2 mg 03/12/20 17:37 03/12/20 17:53 Morphine 4 Mg/Ml Sdv 1 Ml IVP 2 mg Q4H PRN Administration SEVERE PAIN Non-Formulary Medi cation 500 mg 03/01/20 20:38 Famciclovir PO TID PRN MOUTH SORES Ondansetron HCl 4 mg 03/01/20 20:38 Ondansetron 2 Mg /Ml Sdv 2 Ml IVP Q6H PRN NAUSEA AND VOMITI NG Pantoprazole Sodiu m 40 mg 03/11/20 08:30 03/12/20 20:16 Pantoprazole 40 Mg Sdv IVP 40 mg Q12H WHIT Administration Penicillins Allergy (Verified 02/13/20 10:06) ALGY-Anaphylaxis tramadol Adverse Reaction (Verified 02/13/20 10:06) ADR-Vomiting Vitals/I&O/Wt Last Vital Signs Temp 97.6 F 03/14/20 02:00 Pulse 110 H 03/14/20 16:00 Resp 20 H 03/14/20 16:00 BP 118/69 03/14/20 10:00 Pulse Ox 71 L 03/14/20 16:00 03/14/20 03/14/20 03/14/20 06:59 14:59 22:59 Intake Total 200 / 1250 185 / 185 Output Total 800 / 1100 610 / 610 Balance -600 / 150 -425 / -425 Physical Exam Narrative: EXAM NARRATIVE: PHYSICAL EXAM: General: lying in bed, extuabted HEENT:NCAT, PERRLA, EOMI, moist mucous membranes Neck: Supple Lungs: Improved breath sounds on left upper and right upper lobes. Reduced breath sounds on right lower lobe Heart: s1/s2, RRR Abd: soft, NT, ND, BS + Normoactive Extremities: No edema SUPPLY CHAIN DESIGN MANAGER:opening eyes and follows commnads, moves extremities SKIN: no rash LDA: # CVC: Right IJ 03/02/2020 # Flores: 03/02/2020 # Chest tubes: Right chest tube 03/06/2020 removed 03/13/2020: Left anterior Thora vent 03/06/2020 Urinary Catheter Management^: Flores: Cath Placed During This Visit: yes Urinary Catheter Date of Insertion: 03/02/20 Urinary Catheter Time of Insertion: 14:11 Data : 03/14/20 04:01 03/14/20 04:01 A&P Assessment and plan (1) Respiratory failure with hypoxia: Status: Acute Qualifiers: Chronicity: acute Qualified Code(s): J96.01 - Acute respiratory failure with hypoxia (2) Pneumomediastinum: Status: Acute (3) Pneumothorax: Status: Acute Qualifiers: Pneumothorax type: unspecified pneumothorax Qualified Code(s): J93.9 - Pneumothorax, unspecified (4) Septic shock: Status: Acute (5) Pneumonia: Status: Acute Qualifiers: Laterality: bilateral Lung location: unspecified part of lung Pneumonia type: due to unspecified organism Qualified Code(s): J18.9 - Pneumonia, unspecified organism (6) Primary lung squamous cell carcinoma: Status: Chronic Qualifiers: Laterality: right Qualified Code(s): C34.91 - Malignant neoplasm of unspecified part of right bronchus or lung #Acute hypoxic respiratory failure secondary to HCAP and patient with underlying metastatic squamous cell carcinoma #Septic shock secondary to Alcaligenes faecalis pneumonia #Bilateral pneumothorax/pneumomediastinum/pneumoperitoneum/extensive subcutaneou s emphysema-secondary to positive pressure ventilation - ?? Fistula between cavitary lung mass to pleural space #Altered mental status-sedation Vs metastatic brain lesions around brainstem -Desaturated overnight to low 70s but refusing treatments and requested withdrawal of care -Patient and requested for comfort care -Removed Thora vent after explaining and patient that it can worsen his residual pneumothorax and would compromise his breathing further. They both understand the consequences and requested to take it out. -Patient is on morphine every 15 minute as needed and Ativan 0.5 mg every 4 hours as needed to reduce air hunger and keep comfortable -We will sign off case as there is nothing to offer from pulmonary standpoint except keeping the patient comfortable and discussed the same with hospitalist taking care of the patient and RN. Attestations Medical Necessity Statement*: Metastatic lung cancer-refusing care and wishes for comfort care Time Spent in Patient Care: 16 - 35 minutes (>than 50% of time spent in counselling and/or direct pt care on unit) . Critical Care Time: Critical Care Time (min): 35 Coding Level of Care Code Established Pt Acute Mortgage Loan Assistant for g Fwd Patient Type Established History Comprehensive Exam Comprehensive Medical Decision Making High Complexity Diagnoses Respiratory failure with hypoxia J96.01 Chronicity: acute Pneumomediastinum J98.2 Pneumothorax J93.9 Pneumothorax type: unspecified pneumothorax Septic shock A41.9; R65.21 Pneumonia J18.9 Laterality: bilateral Lung location: unspecified part of lung Pneumonia type: due to unspecified organism Primary lung squamous cell carcinoma C34.91 Laterality: right Time Spent (min) 35
--- NOTE | 2020-03-14 19:00 | PC.NURSE ---
Report from KENTRELL Moser. at bedside. Pt refusing BP, temperature, turning and any care.
--- NOTE | 2020-03-14 19:00 | PC.NURSE ---
Report to MARK ANTHONY RN at this time
--- NOTE | 2020-03-14 19:26 | PC.NURSE ---
Pt refusing assessment. at bedside. Will let staff know if she or her needs anything, she stated he wants to be left alone Continue to monitor HR and SP02, refusing oxygen. Pt refused morphine now.
--- NOTE | 2020-03-14 19:28 | PC.NURSE ---
refused temperature and BP and oxygen
--- NOTE | 2020-03-14 20:35 | PC.NURSE ---
Pt refused to turn, pt on comfort measures only.
--- NOTE | 2020-03-14 20:38 | PC.NURSE ---
pt refused temperature and BP and oxygen
--- NOTE | 2020-03-14 22:38 | PC.NURSE ---
at bedside. Pt refused to be turned, BP, temperature and drink. Per , pt stated don't turn off the light and refused drinking .
[2020-03-15] VITALS (10 sets, daily range): BP systolic 118; BP diastolic 69; PULSE 101–118; RESP 19–40; O2SAT 68–74
[2020-03-15] MEDS: morphine 4 mg/mL SDV 1 mL IVP ×4 (05:52→20:22)
[2020-03-15] MEDS: lanolin oint 7 gm 1 APPLIC TOPICAL (06:27)
--- NOTE | 2020-03-15 08:27 | PC.NURSE ---
inAngelo will do comfort measures only. giving one dose of lasix in attempt to relieve resp. symptoms. req.
[2020-03-15] MEDS: FUROsemide 10 mg/mL SDV 2mL 20 MG IVP (08:37)
--- NOTE | 2020-03-15 10:04 | P.PN_ITS ---
Subjective Subjective: Interval history: no acute changes, patient appears comfortable at this time. Medications: Reviewed: Yes Vitals/I&O/Wt Last Vital Signs Temp 97.6 F 03/14/20 02:00 Pulse 104 H 03/15/20 06:00 Resp 28 H 03/15/20 06:00 BP 118/69 03/14/20 10:00 Pulse Ox 71 L 03/15/20 06:00 03/14/20 03/15/20 03/15/20 22:59 06:59 14:59 Intake Total Output Total 300 / 910 150 / 1060 Balance -300 / -725 -130 / -855 Physical Exam Narrative: EXAM NARRATIVE: GEN:lethargic, appears comfortable overall after receiving morphine not examined any further to permit patient comfort Urinary Catheter Management^: Flores: Cath Placed During This Visit: yes Reason for Continuing Indwelling Catheter: Acute Urinary Retention or Obstruction Urinary Catheter Date of Insertion: 03/02/20 Urinary Catheter Time of Insertion: 14:11 Data : 03/14/20 04:01 03/14/20 04:01 A&P Assessment and plan (1) Need for comfort care: Patient transitioned to comfort care yesterday, currently receiving prn morphine to alleviate air hunger, prn ativan for anxiety, prn lasix for comfort. Status: Acute (2) Respiratory failure with hypoxia: -off vent, extubated on 03/12 , however continues to deteriorate from a respiratory standpoint. - Respiratory failure contributed by multiple issues including widely metastatic lung cancer , post obstructive pneumonia, pneumothorax B/L , cannot exclude possibility of fistulization -Noted continued RLL consolidation and bilateral patchy opacifications; known nodules and metastatic disease throughout the lungs -f/u CXR with resolved PTX since removal of chest tubes - Patient unwilling to keep his 02 on.He has removed the HFNC that was placed overnight. Had an extensive discussion with patient;s who has been at his bedside since last night. Off of , patient's 02 saturation drops to 62% on RA. This is clearly not compatible with life and with worsening respiratory distess, I am afraid patient will soon suffer respiratory arrest resulting in demise. Both patient and acknowledge understanding of the same, decision has been made to proceed with comfort care measures only at this time. Morphine, ativan and atropine prn have been added in keeping with these goals. Antibiotics and steroids discontinued as in the presence of profound hypoxia and unwillingness to keep 02 on along with poor respiratory effort, these are futile efforts. Status: Acute Qualifiers: Chronicity: acute Qualified Code(s): J96.01 - Acute respiratory failure with hypoxia (3) Pneumothorax: now resolved Appreciate pulmonary and CT surgery recommendations Status: Acute Qualifiers: Pneumothorax type: unspecified pneumothorax Qualified Code(s): J93.9 - Pneumothorax, unspecified (4) Pneumomediastinum: -imaging reviewed, noted extensive subcutaneous emphysema with pneumomediastinum Status: Acute (5) Septic shock: -Resolved Status: Acute (6) Pneumonia: Status: Acute Qualifiers: Laterality: bilateral Lung location: unspecified part of lung Pneumonia type: due to unspecified organism Qualified Code(s): J18.9 - Pneumonia, unspecified organism (7) E coli bacteremia: not an active issue this current admission Status: Resolved (8) Primary lung squamous cell carcinoma: -Has known squamous cell carcinoma 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 Reyes Status: Chronic Qualifiers: Laterality: right Qualified Code(s): C34.91 - Malignant neoplasm of unspecified part of right bronchus or lung (9) Thrombocytopenia: Status: Chronic (10) Anemia: Status: Chronic Qualifiers: Anemia type: unspecified type Qualified Code(s): D64.9 - Anemia, un specified (11) Anasarca: -Echo-EF=50-55%, relative hypokinesia of septum Status: Acute Additional A&P Information transitioned to comfort care Attestations Medical Necessity Statement*: comfort care management to alleviate air hunger Coding Level of Care Code Acute Forest Products Gatherer for [facility] Fwd Diagnoses Need for comfort care Respiratory failure with hypoxia J96.01 Chronicity: acute Pneumothorax J93.9 Pneumothorax type: unspecified pneumothorax Pneumomediastinum J98.2 Septic shock A41.9; R65.21 Pneumonia J18.9 Laterality: bilateral Lung location: unspecified part of lung Pneumonia type: due to unspecified organism E coli bacteremia R78.81; B96.20 Primary lung squamous cell carcinoma C34.91 Laterality: right Thrombocytopenia D69.6 Anemia D64.9 Anemia type: unspecified type Anasarca R60.1
--- NOTE | 2020-03-15 13:35 | PC.NURSE ---
transferred to 266 per bed with at bedside. belongings with pt.
--- NOTE | 2020-03-15 16:58 | PC.NURSE ---
Patient and family member requested that this ACADEMIC AFFAIRS SPECIALIST not get the patients vital signs at this time.
--- NOTE | 2020-03-15 18:30 | PC.NURSE ---
pt and family requested vitals not be taken
--- NOTE | 2020-03-15 23:18 | PC.NURSE ---
This nurse was called to patient room by at 2209 stating that patient has quit breathing . Upon entering room patient was observed to no longer be breathing. Verified by this nurse and Evelina Bello RN at 2209 that patient was no longer breathing and did not have a pulse. Patient states that she would like patient to go to [facility] in [place] and states that she will call family. needle process felt goods supervisor Chai Navarro RN notified of patient and requested home. Dr. Dunlap notified of patient . Patient port deaccessed by this nurse at 2314 and ritter catheter removed. Post mortem care provided at 231. Patient not a candidate per MTS and [facility], okay for release. Body transfer sheet signed by patient for patient to be transferred to [facility] in [place]. [facility] notified by Chai Navarro RN for patient request for transfer. to take all personal belongings upon leaving. [facility] staff to call back regarding if patient can be transferred tonight or in the morning.
--- NOTE | 2020-03-15 23:25 | PC.NURSE ---
MTS notified, pt not candidate @ [id number]. [facility]aving [facility] notified and pt not candidate @ [id number]. Ana-Warne notified - will call back with ABNER.
--- NOTE | 2020-03-17 07:29 | P.DES_ITS ---
Discharge Providers DDS Date of Admission: 03/02/20 02:44 Date Summary Completed: 03/17/20 Attending Provider at Admission: Joseph Goldberg MD Time of : 22:10 Attending Provider at Discharge: Zulma Reyes MD Primary Care Provider: Titi Reyes MD DS Diagnoses Hospital Diagnoses (1) Need for comfort care: (2) Respiratory failure with hypoxia: Qualifiers: Chronicity: acute Qualified Code(s): J96.01 - Acute respiratory failure with hypoxia (3) Pneumothorax: Qualifiers: Pneumothorax type: unspecified pneumothorax Qualified Code(s): J93.9 - Pneumothorax, unspecified (4) Pneumomediastinum: (5) Septic shock: (6) Pneumonia: Qualifiers: Laterality: bilateral Lung location: unspecified part of lung Pneumonia type: due to unspecified organism Qualified Code(s): J18.9 - Pneumonia, unspecified organism (7) E coli bacteremia: (8) Primary lung squamous cell carcinoma: Qualifiers: Laterality: right Qualified Code(s): C34.91 - Malignant neoplasm of unspecified part of right bronchus or lung (9) Thrombocytopenia: (10) Anemia: Qualifiers: Anemia type: unspecified type Qualified Code(s): D64.9 - Anemia, unspecified (11) Anasarca: Reason for Visit Reason for Visit: INCREASED WEAKNESS/ MULTIPLE FALLS Summary Date and Time of Date of : 03/15/20 Time of : 22:10 Summary Summary: Phani Jarrett is a 64 year old legally blind male squamous cell lung cancer with metastases(kidney, bone, brain and spine), renal mass, cholelithiasis,COPD, GERD, hypertension, recent E.coli bacteremia presented to the hospital on 03/01/20 with c/o increased generalized weakness, respiratory distress and encephalopathy. He was diagnosed with hypoxic respiratory failure, multifactorial related to known lung malignancy, post obstructive vs healthcare asscoiated pneumonia, bilateral pneumothorax possibility of fistulization between lung and plura could not be excluded.Has septic shock earlier in the course of admission which resolved. He received appropriate treatment with iv antibiotics, pressors when needed, mechanical ventilation, subsequently extubated, had chest tube placement for B/L pneumothorax. Udring his admission course his respiratory status continued to be tenous and started to decline again on 03/13, at which point after discussion with his who remained at bedside, patient and family opted for withdrawal of care. He did not want any more interventions or oxygen, he was transitioned to comfort care on 03/14 and on 03/15/20 at 22:10. He was pronounced by RN Cheyanne Way and KENTRELL Mackay. supervisor steel division and overnight hospitalist Dr. Dunlap were notified. I was informed on the morning of 03/16/20. Additional Data Advance directives?: No Discharge Plan Discharge Patient Disposition: Condition: Stable Prescriptions: No Action albuterol sulfate 90 mcg/actuation HFA aerosol inhaler 2 puff INHALATION Q4H PRN (Reason: Shortness Of Breath) RF: 0 albuterol sulfate 2.5 mg /3 mL (0.083 %) solution for nebulization 2.5 mg INHALATION Q4H PRN (Reason: Shortness Of Breath) RF: 0 ondansetron HCl [Zofran] 4 mg tablet 4 mg PO Q8H PRN (Reason: Nausea And Vomiting) RF: 0 prochlorperazine maleate 10 mg tablet 10 mg PO Q4H PRN (Reason: MILD NAUSEA) RF: 0 aspirin 81 mg Tablet,Delayed Release (Dr/Ec) 81 mg PO DAILY@16 RF: 0 Hold Instructions: Resume on 02/26/20. famciclovir 500 mg tablet 500 mg PO BID RF: 0 hydrocodone-acetaminophen 7.5-325 mg tablet 1 tab PO Q4H PRN (Reason: Pain) RF: 0 dexamethasone 4 mg tablet 4 mg PO DAILY RF: 0 omeprazole 20 mg Capsule,Delayed Release(Dr/Ec) 20 mg PO DAILY@10 RF: 0 lorazepam 1 mg tablet 0.5 - 1 mg PO TID PRN (Reason: Nausea And Vomiting) RF: 0 furosemide 40 mg tablet 40 mg PO DAILY PRN (Reason: Edema) RF: 0 fluconazole 100 mg tablet 200 mg PO DAILY RF: 0 lisinopril 20 mg tablet 20 mg PO DAILY@18 RF: 0 sodium chloride 1 gram tablet 1 g PO DAILY RF: 0 ciprofloxacin HCl 500 mg tablet 500 mg PO BID RF: 0 hydrochlorothiazide 25 mg tablet 25 mg PO DAILY@18 RF: 0 levofloxacin 500 mg tablet 500 mg PO DAILY RF: 0 Symbicort 160-4.5 mcg/actuation Hfa Aerosol Inhaler 2 puff INHALATION DAILY RF: 0 Adult Multivitamin Gummies 200 mcg Tablet,Chewable 2 tab PO DAILY RF: 0 potassium chloride 20 mEq tablet extended release 20 meq PO DAILY RF: 0 Referrals: Titi Reyes MD [Primary Care Provider] - Probable Cause of Probable cause of : Lung cancer metastatic to brain DS Attestations Time Spent in /Discharge Care*: less than 30 min Quality - AMI: AMI present?: No Quality - Stroke: CVA present?: No Quality - VTE: VTE present?: No Deep Vein Thrombosis/Pulmonary Embolism Present on Admission: No Coding Level of Care Code Acute Assistant Real Estate Manager for Ch[facility] Fwd Diagnoses Need for comfort care Respiratory failure with hypoxia J96.01 Chronicity: acute Pneumothorax J93.9 Pneumothorax type: unspecified pneumothorax Pneumomediastinum J98.2 Septic shock A41.9; R65.21 Pneumonia J18.9 Laterality: bilateral Lung location: unspecified part of lung Pneumonia type: due to unspecified organism E coli bacteremia R78.81; B96.20 Primary lung squamous cell carcinoma C34.91 Laterality: right Thrombocytopenia D69.6 Anemia D64.9 Anemia type: unspecified type Anasarca R60.1
== END 2020-03-15 22:10 | disposition expired | DRG 870 ==
LOC: ER 19:57 → ER IP 03-02 08:28 → ICU 03-02 12:47 → MEDSURG 03-15 13:20
PROVIDERS: Family Medicine; Internal Medicine; Admitting Provider Internal Medicine; Emergency Provider Emergency Medicine; PCP Internal Medicine Hematology & Oncology; Visit Provider Student in an Organized Health Care Education/Training Program
DX: A41.9 Sepsis, unspecified organism (principal); R65.21 Severe sepsis with septic shock; J18.9 Pneumonia, unspecified organism; J96.91 Respiratory failure, unspecified with hypoxia; C34.91 Malignant neoplasm of unspecified part of right bronchus or lung; C79.31 Secondary malignant neoplasm of brain; E87.1 Hypo-osmolality and hyponatremia; J44.0 Chronic obstructive pulmonary disease with (acute) lower respiratory infection; J93.9 Pneumothorax, unspecified; C79.51 Secondary malignant neoplasm of bone; E86.0 Dehydration; D69.6 Thrombocytopenia, unspecified; Z66 Do not resuscitate; Z51.5 Encounter for palliative care; D64.9 Anemia, unspecified; K21.9 Gastro-esophageal reflux disease without esophagitis; I10 Essential (primary) hypertension; J98.2 Interstitial emphysema; G89.29 Other chronic pain; M54.9 Dorsalgia, unspecified; F17.210 Nicotine dependence, cigarettes, uncomplicated; Y95 Nosocomial condition; Z20.822 Contact with and (suspected) exposure to COVID-19; R00.1 Bradycardia, unspecified; E83.42 Hypomagnesemia; H54.8 Legal blindness, as defined in USA
CPT/HCPCS: 12345; 36415; 36416; 36591; 36592; 36600; 51702; 70450; 70490; 71045; 71250; 71275; 80048; 80051; 80053; 80202; 81001; 82330; 82803; 82805; 82962; 83605; 83690; 83735; 83880; 84145; 84443; 84484; 85007; 85025; 85378; 85610; 85730; 86022; 86140; 86850; 86900; 87040; 87070; 87077; 87186; 87205; 87426; 87635; 92610; 93005; 93306; 94002; 94003; 94640; 94660; 94799; 96372; 97161; 99283; 99292; C9113; J0330; J0456; J0696; J0743; J1100; J1650; J1815; J1885; J1940; J2020; J2060; J2250; J2270; J2704; J3010; J3370; J3475; J3480; J3490; J3535; J7030; J7050; J7611; J8540; P9047; Q9967